=== PATIENT | male | born 1960 | race African-American/Black ===

== ENCOUNTER 2019-04-03 04:01 | Observation (INO) | payer MEDICARE, BC, MEDICAID, SELFPAY ==
[2019-04-03] VITALS (33 sets, daily range): BP systolic 159–210; BP diastolic 64–107; PULSE 78–91; RESP 16–23; TEMP 35.8–37; O2SAT 91–99; BMI 38.1; BMI 36.9
--- NOTE | ~2019-04-03 | XR_ITS ---
EXAMINATION: XR chest 2V DATE: 04/03/2019 05:04 INDICATION: Dyspnea. Cough. TECHNIQUE: Frontal and lateral views of the chest were obtained. COMPARISON: Chest 2 views 05/12/2018 FINDINGS: Again seen is mild elevation of right hemidiaphragm. There are mild airspace opacities in r ight middle lobe. No pleural effusion or pneumothorax. The heart size is normal. IMPRESSION: 1. Mild airspace opacities in right middle lobe, consistent with atelectasis versus pneumonia. Reviewed, dictated and finalized at location D. [facility] IMPRESSION: 1. Mild airspace opacities in right middle lobe, consistent with atelectasis ve rsus pneumonia.
--- NOTE | 2019-04-03 04:11 | ECG_ITS ---
Measurements Intervals [place] Rate: 78 P: 57 OK: 194 QRS: -14 QRSD: 94 T: 63 QT: 387 QTc: 443 Interpretive Statements SINUS RHYTHM WITH FIRST DEGREE AV BLOCK INCOMPLETE RIGHT BUNDLE BRANCH BLOCK BASELINE ARTIFACT- I, II, AVR, V1 ABNORMAL ECG Electronically Signed On 04-03-2019 7:16:00 LINUX SYSTEM ADMINISTRATOR by Ben Bobby D.O.
[2019-04-03 05:27] LABS: Basophils Percent Auto 0.3 % (0.2-1.2); Eosinophils Absolute Auto 0.2 K/mm3 (0-0.3); Eosinophils Percent Auto 2.2 % (0-4.4); Hematocrit 31.6 % (42.0-52.0); Immature Granulocyte Absolute 0.09 K/mm3 (0.00-0.031); Immature Granulocyte Percent A 0.9 % (0-0.5); Lymphocytes Absolute Auto 1.65 K/mm3 (0.9-3.2); Lymphocytes Percent Auto 16.8 % (18.3-44.2); Mean Corpuscular HGB Conc 31.6 g/dl (32-36); Mean Corpuscular Hemoglobin 27.2 pg (26-34); Mean Corpuscular Volume 86.1 fl (80-100); Mean Platelet Volume 11.4 fl (7.4-10.4); Monocytes Absolute Auto 0.9 K/mm3 (0.1-0.6); Monocytes Percent Auto 9.4 % (2.6-8.5); Neutrophils Absolute Auto 6.9 K/mm3 (1.3-6.7); Neutrophils Percent Auto 70.4 % (45.5-73.1); Platelet Count Result 197 k/mm3 (150-375); Red Blood Count 3.67 M/mm3 (4.6-6.20); Red Cell Distribution Width 14.7 % (11.5-14.5); White Blood Count 9.8 K/mm3 (4.5-10.0)
[2019-04-03 05:48] LABS: Alanine Aminotransferase 29 U/L (4-50); Albumin Level 4.3 g/dL (3.5-5.1); Alkaline Phosphatase 92 U/L (38-126); Aspartate Amino Transferase 37 U/L (17-59); Bilirubin,Total 0.5 mg/dL (0.2-1.3); Blood Urea Nitrogen 59 mg/dL (9-20); Calcium 9.2 mg/dL (8.4-10.2); Carbon Dioxide 26 mmol/L (22-30); Chloride 98 mmol/L (98-107); Estimated CRCL calculation 12 ml/min; Estimated Glomerular Filt Rate 9; Glucose 275 mg/dL (75-110); Sodium 139 mmol/L (137-145)
--- NOTE | 2019-04-03 05:57 | PC.NURSE ---
Patient's sister, Judy, called ED to state she is patient's only ride home and has to work at 8am. Judy: [phone]
--- NOTE | 2019-04-03 06:13 | ED.SOB ---
HPI - SOB/Dyspnea General Chief Complaint: Shortness of Breath/Dyspnea Stated Complaint: sob Time Seen by Provider: 04/03/19 04:30 Source: patient Mode of arrival: ambulatory Limitations: other (Poor historian) History of Present Illness HPI Narrative: Patient is a 58-year-old male who presents to the emergency department via EMS with complaint of shortness of breath. Patient reports onset of symptoms earlier this morning. He states that shortness of breath feels better at this time. Patient has history of end-stage renal disease and is on dialysis. Patient states he normally gets dialysis Tuesday, Tuesday, and Tuesday. Due to the holiday, he is scheduled to have dialysis today, Tuesday. Patient cannot tell me the name of his supervisor [employer] nor can he tell me where he gets dialysis. He is unaware of any other health problems that he has and is overall a poor historian. Patient is denying any other complaints at this time other than a cough that has been productive over the past 4 days. Patient denies any fever, nausea, vomiting, or diarrhea. Related Data Allergies Allergy/AdvReac Type Severity Reaction Status Date / Time No Known Allergies Allergy Verified 04/03/19 08:34 Review of Systems Review of Systems: All systems reviewed & are unremarkable except as noted in HPI and below Constitutional: Constitutional: Denies chills and Denies fever(s) Cardiovascular: Cardiovascular: Denies chest pain Respiratory: Respiratory: Reports cough and Reports dyspnea Gastrointestinal: Gastrointestinal: Denies diarrhea, Denies nausea and Denies vomiting PMFSH Past Medical History Medical History (Updated 04/03/19 @ 08:36 by Mirna Alexandra MD) End-stage renal disease on hemodialysis Social History Social History (Updated 04/03/19 @ 08:32 by Mirna Alexandra MD) Smoking status: Former smoker Alcohol intake: never Substance use: never Living arrangements: with family Gender identity (if verbalized by the patient): Male Spiritual care concerns: Yes (Buddhism) Agree to blood products: Yes Exam Const: General: cooperative, no acute distress and alert Nutritional Appearance: well nourished Orientation/consciousness: oriented x3 HENMT: Mouth: Yes lip normal and Yes moist mucous membranes Resp: Effort & Inspection: normal respiratory effort Auscultation: rales bilateral at the base Cardio: Rate: regular rate Rhythm: regular rhythm GI: GI Palp: Yes soft and No tender Auscultation: normal bowel sounds Skin: General skin exam: normal color Neuro: General: oriented x3 Cognition (Neuro): normal cognition Speech: normal speech Extrem: General: normal to inspection, full ROM and edema bilateral Psych: Mental Status: mental status grossly normal Affect: normal affect Attitude: cooperative Course Course Emergency Course: Patient with elevated troponin and BNP. Chest x-ray consistent with fluid overload. Patient admitted to hospitalist service for further care. Nephrology consulted. Upon further investigation of EMR, name search identifies patient may also have another medical record number where past medical history is located. Registration staff notified. Patient and sister unable to provide any information about where patient obtains dialysis. Integration Project Manager made aware. Consultations Consultation #1: Case discussed with Dr. Trujillo for hospitalist service who accepted patient for admission. Patient also discussed with Dr. Mustafa who will see patient in consultation for dialysis. Vital Signs Vital signs: Vital Signs Temperature 98.0 F 04/03/19 03:53 Pulse Rate 81 04/03/19 03:53 Respiratory Rate 23 H 04/03/19 03:53 Blood Pressure 177/76 H 04/03/19 03:53 Pulse Oximetry 93 04/03/19 03:53 Temperature 98.6 F 04/03/19 06:36 Pulse Rate 85 04/03/19 08:02 Respiratory Rate 22 H 04/03/19 08:02 Blood Pressure 187/82 H 04/03/19 08:02 Pulse Oximetry 92 04/03/19 08:02
[2019-04-03 06:19] LABS: Troponin I 0.065 ng/mL (0.000-0.034)
[2019-04-03 06:25] LABS: NT Pro B Type Natriuretic Pept > 35000 PG/ML (5-100)
--- NOTE | 2019-04-03 06:52 | PC.NURSE ---
Patient placed on 2L O2 at this time. Patient's O2 began to range from 85%-91%. Patient 93% on 2L NC.
--- NOTE | 2019-04-03 08:27 | ADMGEN ---
This patient, David Segundo, was admitted to IMU Room 203-01. Patient/family oriented to hospital policies and general routines including ID bracelet, bed and alarms, visiting hours, pain management, procedures, bathroom and other care routines, personal items, smoking policy, room service/diet, and visiting hours. Valuables list has been completed. Information on how to activate the Rapid Response Team has been discussed. Patient/Family are encouraged to report perceived risks to care and to ask questions if they do not understand what they are told or what they should do.
[2019-04-03 09:07] LABS: Troponin I 0.066 ng/mL (0.000-0.034)
--- NOTE | 2019-04-03 11:11 | PM.IMHP ---
H&P: HPI History of Present Illness Chief complaint: Dyspnea/fluid overload/elevated troponin Narrative: Date and Time of History and Physical: April 03, 2019 at 10:50 a.m. Date and Time of Placement in Observation Order: April 03, 2019 at 7:16 a.m. Chief Complaint: Shortness of breath. History of Present Illness: David Segundo is a 58 year old male with known diet-controlled diabetes, hypertension, hyperlipidemia, history my x3 with end-stage renal disease on hemodialysis who presents to the emergency room this morning with complaint of shortness of breath. Patient is a poor historian but is able to give some information. He reports to became short of breath this morning. Friend is present and reports this was before 3:00 a.m.. He notes cough for the past 3 days. He also reports sweats but no fever or chills. He mentions having a chest pain that he is unable to characterize. No worsening or relieving factors for his shortness of breath. He denies headache and dizziness. No abdominal pain. No nausea or vomiting. He was to have hemodialysis today as his normal schedule is Tuesday, Tuesday, Tuesday but holiday as tomorrow. He does not miss medications for dialysis. Findings in the emergency room consistent with fluid overload, as result, Nephrology was consulted and patient is placed in observation for further evaluation and treatment. Review of Systems Review of Systems: All systems reviewed & are unremarkable except as noted in HPI and below Constitutional: Constitutional: Denies chills, Denies fever(s) and Denies weakness Comments: has had sweats Eyes: Eyes: Reports no additional eye complaints ENT: Denies nasal congestion, Denies nasal discharge and Denies sore throat Cardiovascular: Cardiovascular: Reports chest pain and Denies palpitations Respiratory: Respiratory: Reports cough and Reports dyspnea Gastrointestinal: Gastrointestinal: Denies abdominal pain, Denies diarrhea, Denies nausea and Denies vomiting Genitourinary: Genitourinary: Denies hematuria, Denies dysuria, Denies urinary frequency and Denies urinary hesitancy Musculoskeletal: Musculoskeletal: Reports no additional musculoskeletal complaints Integumentary/Breasts: Skin/Breast: Denies rash Neurologic: Denies Abnormal speech present, Denies headache(s) and Denies numbness Comments: Uses walker for ambulation Psychiatric: Psychiatric: Denies anxiety and Denies depression Endocrine: Endocrine: Reports no additional endocrine complaints Hematologic/Lymphatic: Hematologic/Lymphatic: Reports no additional hematologic/lymphatic complaints Allergic/Immunologic: Allergic/Immunologic: Reports no additional allergic/immunologic complaints [facility] Past Medical History Medical History (Updated 04/03/19 @ 16:58 by Jillian Trujillo MD) Anemia Diabetes mellitus End-stage renal disease on hemodialysis History of RI (myocardial infarction) Hyperlipidemia Hypertension Surgical History Surgical History Status post creation of arteriovenous fistula Family History Family History Mother Hypertension Diabetes mellitus Father Hypertension Diabetes mellitus Other Unknown family medical history Social History Social History Social History: Patient lives with his sister. He is a full code. His sister is his POA. He is a former smoker. He also reports former alcohol use drinking beer daily. He is . He does have 2 daughters. Smoking packs per day: 1 Smoking cigarettes per day: 20.0 Smoking status: Former smoker Additional smoking assessment comments: Patient reports smoking 1 pack per day for many years. Alcohol intake: former Alcohol use details: Patient reports drinking beer daily but quit some time ago. Substance use: former Other substanc
[2019-04-03 12:03] LABS: Troponin I 0.061 ng/mL (0.000-0.034)
[2019-04-03 12:27] LABS: Glucose Point of Care 256 (65-105)
--- NOTE | 2019-04-03 13:52 | PCOTNOTE ---
OT evaluation attempted this date. Pt in dialysis and then switching rooms. Will attempt OT evaluation at later time.
[2019-04-03 13:53] LABS: Hepatitis B Surface Antigen Negative (Negative)
[2019-04-03 14:12] LABS: Hepatitis B Surface Anti Res Positive
--- NOTE | 2019-04-03 16:19 | PM.CNNEP ---
Assessment and Plan Assessment and plan (1) Fluid overload: Qualifiers: Hypervolemia type: unspecified Qualified Code(s): E87.70 - Fluid overload, unspecified Code(s): E87.70 - Fluid overload, unspecified Status: Acute Assessment and Plan: The patient has volume overload. This is by exam and also by chest x-ray. He also was hypoxic requiring oxygen. His last treatment was on Tuesday. I suspect he over ate and over drank. It is possible that he might have lost some weight to his dry weight might be too high. He does not say that he has not been eating however. And he has no GI issues such as diarrhea or nausea. Other causes of shortness of breath could be occurring bed from the history physical and radiology evidence it sounds like fluid overload is the main issue. (2) Hypertension: Qualifiers: Hypertension type: essential hypertension Qualified Code(s): I10 - Essential (primary) hypertension Code(s): I10 - Essential (primary) hypertension Status: Acute Assessment and Plan: He has longstanding hypertension. His blood pressure was high in the emergency room. Most likely because of the fluid overload as well as his underlying hypertension. Taking fluid off should help this and we will also get him back on his blood pressure medications. (3) End stage renal disease on dialysis: Code(s): N18.6 - End stage renal disease; Z99.2 - Dependence on renal dialysis Status: Acute Assessment and Plan: He is due for dialysis today and is getting this now. (4) Elevated troponin level: Code(s): R79.89 - Other specified abnormal findings of blood chemistry Status: Acute Assessment and Plan: Troponins are elevated but they are all the same most likely this is from lack of excretion by the kidneys rather then a cardiac issue. (5) Diabetes mellitus: Qualifiers: Diabetes mellitus type: type 2 Diabetes mellitus buttermilk drier operator insulin use: without buttermilk drier operator use Diabetes mellitus complication status: with kidney complications Diabetes mellitus complication detail: with chronic kidney disease Chronic kidney disease stage: on chronic dialysis Qualified Code(s): E11.22 - Type 2 diabetes mellitus with diabetic chronic kidney disease; N18.6 - End stage renal disease; Z99.2 - Dependence on renal dialysis Code(s): E11.9 - Type 2 diabetes mellitus without complications Status: Acute Assessment and Plan: On Accu-Cheks and sliding-scale insulin (6) Anemia: Code(s): D64.9 - Anemia, unspecified Status: Acute Assessment and Plan: Hemoglobin is 10. He will get EPO with dialysis. History of Present Illness Reason for Consult Consult date: 04/03/19 Chief Complaint Chief complaint: Dyspnea/fluid overload/elevated troponin History of Present Illness Narrative: David is a very pleasant 58-year-old gentleman who has end-stage renal disease.He has been on dialysis for about 8 years. 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 It is somewhere near [place]. He is normally a Tuesday dialysis patient but because of the holidays his treatment was scheduled for today. He said he has been fighting a cold all week and this has been getting worse. Today he woke up short of breath and so he came to the ER. He has got a little bit of a cough and runny nose and watery eyes. He does not have a fever. He has not been coughing up much sputum. He denies any chest pain. He says he does not gain a lot of weight between treatments. I do not know which dialysis unit to talk to to verify this last issue. In the emergency room he was evaluated and this chest x-ray was wet. He was hypoxic and required oxygen and his troponins were mildly elevated so he was admitted. He is getting dialysis. The patient says he had has not had a lot of water to drink. Although it is the holid
--- NOTE | 2019-04-03 16:19 | PM.EVENT ---
Event Note Event Note: Patient is on dialysis and tolerating it well. The ultrafiltration is set for about 4liters. His blood pressure is tolerating this well. He is having no cramping or nausea. He was seen at 3:30 p.m.
[2019-04-03] MEDS: SEVELAMER CARBONATE 800 MG TABLET PO (16:43)
[2019-04-03] MEDS: TERAZOSIN HCL 5 MG CAPSULE 10 MG PO (16:43)
--- NOTE | 2019-04-03 16:56 | PC.NURSE ---
Patient received from IMU per bed. Report received from STACI Montoya.
--- NOTE | 2019-04-03 17:01 | PC.NURSE ---
This patient, David Segundo, was transferred to [facility] on 04/03/19 at 1700. Personal belongings sent with patient. Belongings list checked and signed with receiving RN. Report given to STACI Way. Appropriate documentation sent with patient.
[2019-04-03 17:20] LABS: Glucose Point of Care 157 (65-105)
[2019-04-03] MEDS: hydrALAZINE HCL 20 MG/ML VIAL 10 MG IV PUSH (17:24)
[2019-04-03] MEDS: AMLODIPINE BESYLATE 5 MG TABLET 10 MG PO (20:26)
[2019-04-03] MEDS: ATORVASTATIN 40 MG TABLET PO (20:26)
[2019-04-03] MEDS: carvediloL 12.5 MG TABLET PO (20:26)
[2019-04-03 20:54] LABS: Glucose Point of Care 206 (65-105)
[2019-04-04] VITALS (9 sets, daily range): BP systolic 158–204; BP diastolic 69–74; PULSE 78–91; RESP 18–20; TEMP 35.7–36.6; O2SAT 92–100
[2019-04-04] MEDS: hydrALAZINE HCL 20 MG/ML VIAL 10 MG IV PUSH
[2019-04-04 06:16] LABS: Blood Urea Nitrogen 35 mg/dL (9-20); Calcium 8.9 mg/dL (8.4-10.2); Carbon Dioxide 29 mmol/L (22-30); Chloride 95 mmol/L (98-107); Estimated CRCL calculation 14 ml/min; Estimated Glomerular Filt Rate 11; Glucose 196 mg/dL (75-110); Magnesium 2.1 mg/dL (1.6-2.3); Potassium 4.1 mmol/L (3.4-5.0); Sodium 136 mmol/L (137-145)
[2019-04-04 06:55] LABS: Hemoglobin A1C 9.2 % (<5.7)
[2019-04-04 07:41] LABS: Glucose Point of Care 162 (65-105)
[2019-04-04] MEDS: SEVELAMER CARBONATE 800 MG TABLET PO ×2 (07:47→11:56)
[2019-04-04] MEDS: VITAMIN B CMPLX/VIT C/FOLIC AC 1 CAPSULE 1 CAP PO (07:48)
[2019-04-04] MEDS: TERAZOSIN HCL 5 MG CAPSULE 10 MG PO (07:48)
[2019-04-04] MEDS: CLOPIDOGREL BISULFATE 75 MG TABLET PO (07:49)
[2019-04-04] MEDS: PANTOPRAZOLE 40 MG TABLET PO (07:49)
[2019-04-04] MEDS: carvediloL 25 MG TABLET PO (08:40)
[2019-04-04 12:00] LABS: Glucose Point of Care 253 (65-105)
[2019-04-04] MEDS: INSULIN ASPART (*BKC) 100 UNITS/ML SUB-Q (12:00)
--- NOTE | 2019-04-04 13:44 | PM.PNNEP ---
Progress Note: A&P Assessment and Plan (1) Fluid overload: Qualifiers: Hypervolemia type: unspecified Qualified Code(s): E87.70 - Fluid overload, unspecified Code(s): E87.70 - Fluid overload, unspecified Status: Acute Assessment and Plan: The patient has volume overload. He had dialysis yesterday. He is less short of breath today. He does not have any swelling today. (2) Hypertension: Qualifiers: Hypertension type: essential hypertension Qualified Code(s): I10 - Essential (primary) hypertension Code(s): I10 - Essential (primary) hypertension Status: Acute Assessment and Plan: He has longstanding hypertension. His blood pressure is still high even with the fluid off. He is on amlodipine terazosin and carvedilol. We will start lisinopril. (3) End stage renal disease on dialysis: Code(s): N18.6 - End stage renal disease; Z99.2 - Dependence on renal dialysis Status: Acute Assessment and Plan: He had dialysis yesterday. Will do another treatment on Tuesday, his next scheduled treatment. Will get a chest x-ray to be sure things are improving (4) Elevated troponin level: Code(s): R79.89 - Other specified abnormal findings of blood chemistry Status: Acute Assessment and Plan: Troponins are elevated but they are all the same most likely this is from lack of excretion by the kidneys rather then a cardiac issue. (5) Diabetes mellitus: Qualifiers: Diabetes mellitus type: type 2 Diabetes mellitus long-term insulin use: without medical terminologist use Diabetes mellitus complication status: with kidney complications Diabetes mellitus complication detail: with chronic kidney disease Chronic kidney disease stage: on chronic dialysis Qualified Code(s): E11.22 - Type 2 diabetes mellitus with diabetic chronic kidney disease; N18.6 - End stage renal disease; Z99.2 - Dependence on renal dialysis Code(s): E11.9 - Type 2 diabetes mellitus without complications Status: Acute Assessment and Plan: On Accu-Cheks and sliding-scale insulin (6) Anemia: Code(s): D64.9 - Anemia, unspecified Status: Acute Assessment and Plan: Hemoglobin is 10. He will get EPO with dialysis. Will check another CBC tomorrow Long talk with the patient. check room air o2 sat. Discussed with Dr Trujillo. Subjective Date/time seen: 04/04/19 13:44 Interval history: Patient is alert. He is sitting up in a chair. No more shortness of breath. He is on some oxygen. Review of Systems Cardiovascular: Cardiovascular: Reports no additional cardiovascular complaints Respiratory: Respiratory: Reports no additional respiratory complaints Gastrointestinal: Gastrointestinal: Reports no additional gastrointestinal complaints Genitourinary: Genitourinary: Reports no additional male genitourinary complaints Exam Narrative: Exam Narrative: Well developed well-nourished in no acute distress Lungs clear Heart regular without rub Abdomen bowel sounds positive soft nontender Extremities no edema Skin no rash Objective Data Vital Signs Vital Signs: Vital Signs - 24 hr 04/03/19 13:45 04/03/19 14:00 04/03/19 14:15 Temperature Pulse Rate 85 86 89 Respiratory Rate Blood Pressure 206/106 H 202/92 H 207/107 H Pulse Oximetry 04/03/19 14:30 04/03/19 14:45 04/03/19 14:50 Temperature Pulse Rate 91 85 83 Respiratory Rate Blood Pressure 210/107 H 198/101 H Pulse Oximetry 04/03/19 15:00 04/03/19 15:15 04/03/19 15:30 Temperature Pulse Rate 81 80 88 Respiratory Rate Blood Pressure 205/100 H 183/99 H 159/86 H Pulse Oximetry 04/03/19 16:00 04/03/19 16:15 04/03/19 17:34 Temperature 36.1 C L Pulse Rate 83 80 88 Respiratory Rate 22 H Blood Pressure 193/89 H 204/77 H Pulse Oximetry 92 04/03/19 18:20 04/03/19 20:00 04/03/19 20:26 Temperature Pulse Rate
[2019-04-04] MEDS: lisinopriL 20 MG TABLET PO (14:00)
--- NOTE | 2019-04-04 14:18 | PM.IMPN ---
Progress Note: A&P Assessment and Plan (1) Acute respiratory failure with hypoxia: Code(s): J96.01 - Acute respiratory failure with hypoxia Status: Acute Assessment and Plan: Result of volume overload. Down to 1 L of oxygen with O2 saturation 100% and oxygen removed. No difficulty without oxygen. Improved after hemodialysis yesterday. Discussed with Nephrology today. Will discharge home as stable. (2) Dyspnea: Qualifiers: Dyspnea type: shortness of breath Qualified Code(s): R06.02 - Shortness of breath Code(s): R06.00 - Dyspnea, unspecified Status: Acute Assessment and Plan: Result of fluid overload. No longer requiring oxygen with hemodialysis yesterday. Symptoms resolved. (3) Fluid overload: Qualifiers: Hypervolemia type: unspecified Qualified Code(s): E87.70 - Fluid overload, unspecified Code(s): E87.70 - Fluid overload, unspecified Status: Acute Assessment and Plan: BNP elevated on admission. Nephrology consulted from ER and did have hemodialysis yesterday. Appears stable from fluid standpoint at this point. Continue regular hemodialysis as an outpatient. (4) End stage renal disease on dialysis: Code(s): N18.6 - End stage renal disease; Z99.2 - Dependence on renal dialysis Status: Acute Assessment and Plan: Has been on hemodialysis for several years per patient. He is not sure where he receives his hemodialysis or who his board of directors is. Seen by Nephrology here with hemodialysis yesterday. Will keep next scheduled outpatient appointment on Tuesday. (5) Hypertension: Qualifiers: Hypertension type: essential hypertension Qualified Code(s): I10 - Essential (primary) hypertension Code(s): I10 - Essential (primary) hypertension Status: Acute Assessment and Plan: Blood pressure reviewed on 04/04/2019 with continue higher levels down would like. Coreg increased. Lisinopril added. Continue amlodipine. Will need to follow as outpatient. (6) Elevated troponin level: Code(s): R79.89 - Other specified abnormal findings of blood chemistry Status: Acute Assessment and Plan: Mild elevation and flat. EKG with no acute changes. Result of end-stage renal disease. No further evaluation needed. (7) Diabetes mellitus: Qualifiers: Diabetes mellitus type: type 2 Diabetes mellitus care home insulin use: without care home use Diabetes mellitus complication status: with kidney complications Diabetes mellitus complication detail: with chronic kidney disease Chronic kidney disease stage: on chronic dialysis Qualified Code(s): E11.22 - Type 2 diabetes mellitus with diabetic chronic kidney disease; N18.6 - End stage renal disease; Z99.2 - Dependence on renal dialysis Code(s): E11.9 - Type 2 diabetes mellitus without complications Status: Acute Assessment and Plan: Not on medication at home. Hemoglobin A1c 9.2. Will need to follow diabetic diet at home. Will also need to discuss treatment options with primary physician. (8) Hyperlipidemia: Qualifiers: Hyperlipidemia type: unspecified Qualified Code(s): E78.5 - Hyperlipidemia, unspecified Code(s): E78.5 - Hyperlipidemia, unspecified Status: Acute Assessment and Plan: Continue home atorvastatin. (9) DVT prophylaxis: Code(s): Z29.9 - Encounter for prophylactic measures, unspecified Status: Acute Assessment and Plan: SCDs. Time Spent With Patient Time with patient: 15 - 25 minutes Subjective Date/time seen: 04/04/19 14:18 Interval history: Date of Service: 04/04/2019. Admitted with fluid overload. Known end-stage renal disease on hemodialysis. Sitting up in room today. Feels much better. No shortness of breath. No chest pain. No abdominal pain. No nausea or vomiting. Family present. Review of Systems Review of Systems: Melissa
--- NOTE | 2019-04-04 17:19 | PM.DS ---
DS: Diagnosis Admitting Diagnosis Admitting Diagnosis: Fluid overload, unspecified Discharge Diagnosis (1) Acute respiratory failure with hypoxia: Code(s): J96.01 - Acute respiratory failure with hypoxia Status: Acute (2) Dyspnea: Qualifiers: Dyspnea type: shortness of breath Qualified Code(s): R06.02 - Shortness of breath Code(s): R06.00 - Dyspnea, unspecified Status: Acute Assessment and Plan: (3) Fluid overload: Qualifiers: Hypervolemia type: unspecified Qualified Code(s): E87.70 - Fluid overload, unspecified Code(s): E87.70 - Fluid overload, unspecified Status: Acute (4) End stage renal disease on dialysis: Code(s): N18.6 - End stage renal disease; Z99.2 - Dependence on renal dialysis Status: Acute (5) Hypertension: Qualifiers: Hypertension type: essential hypertension Qualified Code(s): I10 - Essential (primary) hypertension Code(s): I10 - Essential (primary) hypertension Status: Acute (6) Elevated troponin level: Code(s): R79.89 - Other specified abnormal findings of blood chemistry Status: Acute (7) Diabetes mellitus: Qualifiers: Chronic kidney disease stage: on chronic dialysis Diabetes mellitus complication detail: with chronic kidney disease Diabetes mellitus complication status: with kidney complications Diabetes mellitus ferry terminal agent insulin use: without ferry terminal agent use Diabetes mellitus type: type 2 Qualified Code(s): E11.22 - Type 2 diabetes mellitus with diabetic chronic kidney disease; N18.6 - End stage renal disease; Z99.2 - Dependence on renal dialysis Code(s): E11.9 - Type 2 diabetes mellitus without complications Status: Acute (8) Hyperlipidemia: Qualifiers: Hyperlipidemia type: unspecified Qualified Code(s): E78.5 - Hyperlipidemia, unspecified Code(s): E78.5 - Hyperlipidemia, unspecified Status: Acute DS: Summary Hospital Course Reason for hospitalization: Shortness of breath. Hospital Course: Date of Service of Discharge: April 04, 2019. History of Present Illness: Patient is a 58-year-old gentleman with known diet-controlled diabetes, hypertension, hyperlipidemia, history of myocardial infarction x3 and end-stage renal disease on hemodialysis presented to the emergency room with complaint of shortness of breath. Patient a poor historian but is able to give some information. He reports becoming short of breath on the morning of presentation. Apparently, this was at approximately 3 8:00 a.m.. He reports having cough for the previous 3 days. He also reports sweats but no fever or chills. Patient did report chest pain which he was unable to characterize. No worsening or relieving factors for shortness of breath. No headaches or dizziness. No abdominal pain, nausea or vomiting. Patient normally is on the Tuesday, Tuesday, Tuesday hemodialysis schedule but this was adjusted given upcoming holiday. Was to have hemodialysis on the day of presentation but became short of breath and present to the emergency room. He has not missed any hemodialysis sessions. In the emergency room, findings were consistent with fluid overload. Nephrology was consulted. Patient was placed in observation for further evaluation and treatment. Course in Hospital: On admission, patient was placed in the intermediate care unit due to mildly elevated troponin levels. Serial troponin levels were followed and consistent with end-stage renal disease. Chest pain resolved on its own. Telemetry reviewed with sinus rhythm. No further cardiac evaluation needed. Nephrology was consulted as noted in the emergency room. Arrangements were made for hemodialysis on the day of presentation. Patient felt much better after hemodialysis. He was requiring 2 L of oxygen initially but was able to wean down to 1 L and wean off oxygen on the day of discharge. He had no fur
== END 2019-04-04 15:04 | disposition home or self-care (01) ==
LOC: ANHED 04:30 → ANHIMU 07:50 → ANH2MED 17:25
PROVIDERS: Internal Medicine Nephrology; Admitting Provider Hospitalist; Emergency Provider Emergency Medicine; Visit Provider Hospitalist
DX: J96.01 Acute respiratory failure with hypoxia (principal); E87.70 Fluid overload, unspecified; E11.22 Type 2 diabetes mellitus with diabetic chronic kidney disease; I12.0 Hypertensive chronic kidney disease with stage 5 chronic kidney disease or end stage renal disease; N18.6 End stage renal disease; Z99.2 Dependence on renal dialysis; E11.319 Type 2 diabetes mellitus with unspecified diabetic retinopathy without macular edema; R79.89 Other specified abnormal findings of blood chemistry; E78.5 Hyperlipidemia, unspecified; I25.2 Old myocardial infarction; Z87.891 Personal history of nicotine dependence
CPT/HCPCS: 36415; 71046; 80048; 80053; 83036; 83735; 83880; 84484; 85025; 86706; 87340; 87804; 93005; 96374; 96376; 97161; 97166; 99285; A9270; G0378; G0379; J0360; J1815

== ENCOUNTER 2019-07-04 15:03 | Emergency (ER) | payer MEDICARE, BC, MEDICAID, SELFPAY ==
[2019-07-04] VITALS (8 sets, daily range): BP systolic 145–172; BP diastolic 64–73; PULSE 77–84; RESP 14–19; TEMP 36.4; O2SAT 99–100
--- NOTE | 2019-07-04 15:01 | ED.WOUNDLAC ---
HPI - Wound/Laceration General Chief Complaint: Unspecified Stated Complaint: BLEEDING DIALYSIS PORT SITE Time Seen by Provider: 07/04/19 15:01 Source: patient and RN notes reviewed Mode of arrival: EMS Limitations: no limitations History of Present Illness HPI narrative: A 59 y/o male presents to the ED via EMS from home d/t bleeding from his dialysis port that is in his lt forearm. He states that he received his full dialysis treatment this morning but when he got home he began to bleed from his port. Per EMS, when they arrived the blood was mostly controlled. He denies any dizziness, CP, weakness, or nausea. No history of blood thinning medication. Extremity Location: Left: forearm Related Data Home Medications Medication Instructions Recorded Confirmed Plavix 75 mg PO DAILY 04/03/19 04/03/19 RenaPlex-D 1 tablet PO DAILY 04/03/19 04/03/19 amlodipine 10 mg PO HS 04/03/19 04/03/19 atorvastatin 40 mg PO HS 04/03/19 04/03/19 omeprazole 20 mg PO DAILY 04/03/19 04/03/19 sevelamer carbonate [Renvela] 800 mg PO TID 04/03/19 04/03/19 terazosin 10 mg PO DAILY 04/03/19 04/03/19 Allergies Allergy/AdvReac Type Severity Reaction Status Date / Time No Known Allergies Allergy Unverified 05/02/19 10:32 [facility] Past Medical History Medical History (Updated 07/04/19 @ 16:06 by Marisol Chen MD) Anemia Diabetes mellitus End-stage renal disease on hemodialysis History of [place] (myocardial infarction) Hyperlipidemia Hypertension Surgical History Surgical History (Updated 05/02/19 @ 10:32 by Lyric Sheikh) Status post creation of arteriovenous fistula Family History Family History (System 05/02/19 @ 10:32 by Lyric Sheikh) Mother Hypertension Diabetes mellitus Father Hypertension Diabetes mellitus Other Unknown family medical history Social History Social History (System 05/02/19 @ 10:32 by Lyric Sheikh) Social History: Patient lives with his sister. He is a full code. His sister is his POA. He is a former smoker. He also reports former alcohol use drinking beer daily. He is . He does have 2 daughters. Smoking packs per day: 1 Smoking cigarettes per day: 20.0 Smoking status: Former smoker Additional smoking assessment comments: Patient reports smoking 1 pack per day for many years. Alcohol intake: former Substance use: former Other substance usage details: Has only used marijuana in the past. Additional living arrangements comments: Lives with his sister. Gender identity (if verbalized by the patient): Male Spiritual care concerns: Yes (Rastafari) Agree to blood products: Yes Exam Narrative: Exam Narrative: GENERAL: Awake, alert, conversant HEAD: Normocephalic, atraumatic. EYES: PERRLA and EOMI. ENT: Nares clear, no rhinorrhea or epistaxis. Mucous membranes moist. NECK: Supple. CHEST: No respiratory distress, breathing even and non labored HEART: Regular rate, sinus rhythm ABDOMEN:Non distended, non tender EXTREMITIES: Normal range of motion. No edema. Dialysis fistula present in left forearm, radial bruit present. Fingers are warm and well-perfused, capillary refill less than 3 seconds. No deformity. Compartments are soft. Scant active bleeding from dialysis access point. No laceration or hemorrhage. No ecchymoses. SKIN: Warm, dry, no rash. NEURO:No focal deficits. Alert and oriented x3. Ambulatory with use of his cane. Course Course Emergency Course: Patient presented for evaluation of bleeding from left wrist dialysis site, he did have his full session of dialysis this morning. The time of initial assessment, there is scant active bleeding. No hemorrhage. No laceration or large ecchymosis. The dialysis shunt is patent, there is a bruit present, patient is neurovascularly intact and compartments are soft. No coagulopathy. Hemoglobin and hematocrit is stable. No additional wound care at this point, the wound was wrapped,
--- NOTE | 2019-07-04 15:19 | PC.NURSE ---
Pt was at home after dialysis and his fistula started to bleed again. Nurse applied telfa, guaze and coban to pressure dressing and stop bleeding. Pt is A&0x4. Pt appears in NAD.
[2019-07-04 15:44] LABS: Basophils Percent Auto 0.2 % (0.2-1.2); Eosinophils Absolute Auto 0.3 K/mm3 (0-0.3); Hematocrit 35.9 % (42.0-52.0); Hemoglobin 11.1 g/dL (14.0-18.0); Immature Granulocyte Absolute 0.03 K/mm3 (0.00-0.031); Immature Granulocyte Percent A 0.6 % (0-0.5); Lymphocytes Absolute Auto 0.87 K/mm3 (0.9-3.2); Lymphocytes Percent Auto 17.5 % (18.3-44.2); Mean Corpuscular HGB Conc 30.9 g/dl (32-36); Mean Corpuscular Hemoglobin 26.2 pg (26-34); Mean Corpuscular Volume 84.7 fl (80-100); Mean Platelet Volume 10.9 fl (7.4-10.4); Monocytes Absolute Auto 0.7 K/mm3 (0.1-0.6); Monocytes Percent Auto 14.7 % (2.6-8.5); Neutrophils Absolute Auto 3.1 K/mm3 (1.3-6.7); Platelet Count Result 163 k/mm3 (150-375); Red Blood Count 4.24 M/mm3 (4.6-6.20); Red Cell Distribution Width 15.9 % (11.5-14.5)
[2019-07-04 15:54] LABS: INR 1.1; Prothrombin Time 14.2 Seconds (11.1-14.7)
== END 2019-07-04 16:36 | disposition home or self-care (01) ==
PROVIDERS: Emergency Provider Emergency Medicine
DX: T82.838A Hemorrhage due to vascular prosthetic devices, implants and grafts, initial encounter (principal); D64.9 Anemia, unspecified; E11.22 Type 2 diabetes mellitus with diabetic chronic kidney disease; I12.0 Hypertensive chronic kidney disease with stage 5 chronic kidney disease or end stage renal disease; N18.6 End stage renal disease; I25.2 Old myocardial infarction; Z87.891 Personal history of nicotine dependence
CPT/HCPCS: 36415; 85025; 85610; 85730; 99283

== ENCOUNTER 2019-07-26 07:41 | Emergency (ER) | payer MEDICARE, MEDICAID, SELFPAY ==
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
--- NOTE | ~2019-07-26 | XR_ITS ---
EXAMINATION: XR knee RT min 4V DATE: 07/26/2019 08:14 INDICATION: Pain after fall, initial encounter TECHNIQUE: Four views of the right knee were obtained. COMPARISON: None. FINDINGS: Bone alignment at the knee is normal. There is mild osteoarthritis of the knee. A comminute d distal femur fracture is present with 3.8 cm of lateral and 1.4 cm of anterior displacement of the distal fracture fragment. Calcified atherosclerosis is noted. There is partially imaged orthopedic borjas rdware in the mid femur. IMPRESSION: 1. Displaced and comminuted fracture of the distal femur below the level of partially imaged orthoped ic hardware. Reviewed, dictated and finalized at location A. IMPRESSION: 1. Displaced and comminuted fracture of the distal femur below the level of par tially imaged orthopedic hardware.
[2019-07-26 07:42] VITALS: BP 112/53; PULSE 86; RESP 16; TEMP 37.1; O2SAT 99
--- NOTE | 2019-07-26 07:50 | ED.LOWEXIN ---
HPI - Extremity Injury (Lower) General Chief Complaint: Extremity Injury, Lower Stated Complaint: knee pain Time Seen by Provider: 07/26/19 07:46 History of Present Illness HPI Narrative: Patient is a 59-year-old male who presents ER with right knee pain. Patient reports that yesterday prior to going to dialysis he bumped his knee. He is unsure how this occurred but he was able to walk afterwards. She went and received his dialysis and then came home. Upon waking up this morning patient has had increased pain and swelling in his knee and felt he should come in for evaluation. There is been no additional trauma. Denies any new numbness or tingling or pain distal to his knee in the affected extremity. Denies striking his head or having any additional concerns. Patient reports having previous surgery to his hip and femur years ago at [facility] but cannot specify on a date or mechanism of injury. Related Data Home Medications Medication Instructions Recorded Confirmed Plavix 75 mg PO DAILY 04/03/19 04/03/19 RenaPlex-D 1 tablet PO DAILY 04/03/19 04/03/19 amlodipine 10 mg PO HS 04/03/19 04/03/19 atorvastatin 40 mg PO HS 04/03/19 04/03/19 omeprazole 20 mg PO DAILY 04/03/19 04/03/19 sevelamer carbonate [Renvela] 800 mg PO TID 04/03/19 04/03/19 terazosin 10 mg PO DAILY 04/03/19 04/03/19 Allergies Allergy/AdvReac Type Severity Reaction Status Date / Time No Known Allergies Allergy Unverified 05/02/19 10:32 Review of Systems Review of Systems: All systems reviewed & are unremarkable except as noted in HPI and below Constitutional: Constitutional: Denies chills and Denies fever(s) ENT: Denies nasal congestion and Denies sore throat Respiratory: Respiratory: Denies cough, Denies dyspnea and Denies wheezing Gastrointestinal: Gastrointestinal: Denies abdominal pain, Denies nausea and Denies vomiting Musculoskeletal: Comments: Right knee pain/swelling. Neurologic: Denies focal weakness and Denies numbness PMFSH Past Medical History Medical History Anemia Diabetes mellitus End-stage renal disease on hemodialysis History of [place] (myocardial infarction) Hyperlipidemia Hypertension Surgical History Surgical History Status post creation of arteriovenous fistula Family History Family History (System 05/02/19 @ 10:32 by Lyric Sheikh) Mother Hypertension Diabetes mellitus Father Hypertension Diabetes mellitus Other Unknown family medical history Social History Social History Social History: Patient lives with his sister. He is a full code. His sister is his POA. He is a former smoker. He also reports former alcohol use drinking beer daily. He is . He does have 2 daughters. Smoking packs per day: 1 Smoking cigarettes per day: 20.0 Smoking status: Former smoker Additional smoking assessment comments: Patient reports smoking 1 pack per day for many years. Alcohol intake: former Substance use: former Other substance usage details: Has only used marijuana in the past. Additional living arrangements comments: Lives with his sister. Gender identity (if verbalized by the patient): Male Spiritual care concerns: Yes (Synagogue) Agree to blood products: Yes Exam Narrative: Exam Narrative: GENERAL: Well-appearing, well-nourished, and in no acute distress. HEAD: Normocephalic, atraumatic. ENT: Mucous membranes moist. CHEST: Clear to auscultation. No respiratory distress. HEART: Regular rate and rhythm. Normal peripheral pulses. EXTREMITIES: Focused exam of the right lower extremity shows significant swelling and tenderness to the right knee/distal femur. Able to flex and extend at the knee with passive range of motion. Patient is most comfortable with right lower extremity partially
[2019-07-26] MEDS: MORPHINE SULFATE 4 MG/ML INJ IV PUSH (08:24)
--- NOTE | 2019-07-26 08:35 | PC.NURSE ---
changes PO med to IV. PO med not given.
--- NOTE | 2019-07-26 09:27 | PC.NURSE ---
Report called to Laury at [facility] ER.
[2019-07-26 09:28] VITALS: BP 139/61; PULSE 79; RESP 16; O2SAT 100
[2019-07-26 10:56] VITALS: BP 130/65; PULSE 95; RESP 16; O2SAT 99
== END 2019-07-26 10:56 | disposition short-term general hospital (02) ==
PROVIDERS: Emergency Provider Emergency Medicine
DX: S72.491A Other fracture of lower end of right femur, initial encounter for closed fracture (principal); E11.22 Type 2 diabetes mellitus with diabetic chronic kidney disease; I12.0 Hypertensive chronic kidney disease with stage 5 chronic kidney disease or end stage renal disease; N18.6 End stage renal disease; Z99.2 Dependence on renal dialysis; I25.2 Old myocardial infarction; E78.5 Hyperlipidemia, unspecified; Z87.891 Personal history of nicotine dependence; Z79.02 Long term (current) use of antithrombotics/antiplatelets; W22.8XXA Striking against or struck by other objects, initial encounter
CPT/HCPCS: 73552; 73564; 96374; 99285; J2270

== ENCOUNTER 2019-12-29 19:56 | Inpatient (IN) | payer MEDICARE, MEDICAID, SELFPAY ==
[2019-12-29] VITALS (8 sets, daily range): BP systolic 153–235; BP diastolic 53–93; PULSE 93–110; RESP 16–24; TEMP 36.9; O2SAT 91–100
--- NOTE | ~2019-12-29 | CT_ITS ---
EXAMINATION: CT brain wo con INDICATION: Hypertension, confusion COMPARISON: 09/22/2015 TECHNIQUE: Standard unenhanced head CT. The dose-length product (DLP) was 605.33 mGy-cm. The mA was a djusted according to patient size. Iterative reconstruction technique was employed. FINDINGS: There is no acute intraparenchymal hemorrhage. No evidence of mass lesion. No evidence of a cute infarction. There are areas of old infarction involving the right frontal lobe, left parietal lo be, in the left temporal occipital region. There is mild periventricular and subcortical hypodensity probably related to small vessel ischemic disease. There is ex vacuo enlargement of the left lateral ventricle. Intracranial calcified cerebral atherosclerosis is noted. There are no extra-axial collect ions. There is no mass effect or midline shift. The visualized sinuses and mastoid air cells are wel l aerated. IMPRESSION: 1. Areas of prior infarction without acute intracranial abnormality. 2. Age related findings. Reviewed, dictated and finalized at location A.
--- NOTE | ~2019-12-29 | XR_ITS ---
EXAMINATION: XR chest port-a-cath/central DATE: 01/07/2020 13:38 INDICATION: Right-sided Mann catheter placement TECHNIQUE: frontal view of the chest was obtained. COMPARISON: Chest radiograph dated 01/01/2020 FINDINGS: New likely tunneled right internal jugular central venous catheter with distal tip at the midsuperior vena cava. Eventration along the right hemidiaphragm. No significant change in linear discoid atelec tasis/scarring at the right mid and left lower lung zones. No new airspace opacities, pulmonary edema , pleural effusion or pneumothorax. The cardiomediastinal silhouette is normal. There are bridging os teophytes at multiple levels in the spine, consistent with diffuse idiopathic skeletal hyperostosis ( DISH). IMPRESSION: 1. Right internal jugular central venous catheter in expected position with distal tip in the midsupe rior vena cava. 2. Unchanged mild discoid atelectasis/scarring at the right mid and left lower lung zones. Reviewed, dictated and finalized at location A. IMPRESSION: 1. Right internal jugular central venous catheter in expected position with dis eber tip in the midsuperior vena cava. 2. Unchanged mild discoid atelectasis/scarring at the right mid and left lower lung zones.
--- NOTE | ~2019-12-29 | XR_ITS ---
EXAMINATION: XR chest 1V portable EXAM DATE: 01/01/2020 06:11 INDICATION: Infiltrates follow-up. TECHNIQUE: Portable AP frontal chest x-ray was obtained. Comparison is made to prior examination from 12/29/2019. FINDINGS: There is been interval improvement in the now mild amount of reticulonodular acute airspace disease, appearance most consistent with acute infectious process. No confluent consolidation, pneum othorax or pleural effusion suspected. The cardiomediastinal silhouette is prominent but magnified on this AP technique. Cardiac silhouette is stable in size compared to prior exam. There are bony de generative changes. IMPRESSION: Improving reticulonodular opacities likely acute infectious process. Reviewed, dictated and finalized at location A.
--- NOTE | ~2019-12-29 | XR_ITS ---
EXAMINATION: XR chest 1V portable INDICATION: Cough and vomiting TECHNIQUE: Portable AP chest at 2218 hours COMPARISON: 04/03/2019 FINDINGS: There are airspace opacities of the mid and lower lung zones. No pleural effusion or pneumo thorax is identified. The heart size is upper limits of normal for technique. IMPRESSION: 1. Airspace opacities of the mid and lower lung zones, consistent with atelectasis versus pneumonia. Reviewed, dictated and finalized at location A. IMPRESSION: 1. Airspace opacities of the mid and lower lung zones, consistent with atelecta sis versus pneumonia.
--- NOTE | ~2019-12-29 | XR_ITS ---
EXAMINATION: XR fl guide central line place DATE: 01/07/2020 13:27 INDICATION: Amnn catheter placement TECHNIQUE: Single fluoroscopic spot image of the chest was obtained during procedure performed by Dr. Mcdowell. Radiologist was not present for the imaging or procedure. The amount of fluoroscopy time used during this procedure was 2.0 minutes. COMPARISON: None. FINDINGS: A catheter projects obliquely across the central chest not following anatomic structure lik evan external to the patient. IMPRESSION: 1. Fluoroscopy utilized during reported central venous catheter placement. See procedure note for fur ther detail. Reviewed, dictated and finalized at location A. IMPRESSION: 1. Fluoroscopy utilized during reported central venous catheter placement. See procedure note for further detail.
[2019-12-29 20:13] LABS: Basophils Percent Auto 0.1 % (0.2-1.2); Hematocrit 34.8 % (42.0-52.0); Hemoglobin 11.3 g/dL (14.0-18.0); Immature Granulocyte Absolute 0.14 K/mm3 (0.00-0.031); Immature Granulocyte Percent A 0.6 % (0-0.5); Lymphocytes Absolute Auto 0.55 K/mm3 (0.9-3.2); Lymphocytes Percent Auto 2.3 % (18.3-44.2); Mean Corpuscular HGB Conc 32.5 g/dl (32-36); Mean Corpuscular Hemoglobin 25.5 pg (26-34); Mean Corpuscular Volume 78.6 fl (80-100); Mean Platelet Volume 11.1 fl (7.4-10.4); Monocytes Absolute Auto 1.2 K/mm3 (0.1-0.6); Monocytes Percent Auto 4.9 % (2.6-8.5); Neutrophils Absolute Auto 22.2 K/mm3 (1.3-6.7); Neutrophils Percent Auto 92.1 % (45.5-73.1); Platelet Count Result 241 k/mm3 (150-375); Red Blood Count 4.43 M/mm3 (4.6-6.20); Red Cell Distribution Width 16.3 % (11.5-14.5); White Blood Count 24.1 K/mm3 (4.5-10.0)
--- NOTE | 2019-12-29 20:13 | ECG_ITS ---
Measurements Intervals [place] Rate: 107 P: 54 IL: 201 QRS: -68 QRSD: 86 T: 37 QT: 337 QTc: 450 Interpretive Statements SINUS TACHYCARDIA LEFT AXIS DEVIATION BORDERLINE AV CONDUCTION DELAY POSSIBLE LEFT ATRIAL ENLARGEMENT CANNOT RULE OUT SEPTAL INFARCT, AGE INDETERMINATE BASELINE ARTIFACT- I, II, III, AVL, V2 ABNORMAL ECG Electronically Signed On 12-30-2019 7:46:40 CDT by Ben Bobby D.O.
[2019-12-29 20:25] LABS: Alanine Aminotransferase 49 U/L (4-50); Albumin Level 4.4 g/dL (3.5-5.1); Alkaline Phosphatase 145 U/L (38-126); Anion Gap 11 mmol/L (8-16); Aspartate Amino Transferase 50 U/L (17-59); Bilirubin,Total 0.9 mg/dL (0.2-1.3); Blood Urea Nitrogen 40 mg/dL (9-20); Calcium 10.3 mg/dL (8.4-10.2); Carbon Dioxide 27 mmol/L (22-30); Chloride 100 mmol/L (98-107); Estimated Glomerular Filt Rate 18; Glucose 256 mg/dL (75-110); Lipase 45 U/L (23-300); Platelet Estimate Adequate (Adequate); Potassium 4.4 mmol/L (3.4-5.0); Sodium 138 mmol/L (137-145); Target Cells 1+ (NORMAL)
[2019-12-29] MEDS: LABETALOL HCL INJ 100 MG/20 ML VIAL 20 MG IV PUSH (20:35)
[2019-12-29 20:54] LABS: Alveolar/Arterial O2 Gradient 145.2 mmHg; Base Excess ABG -1.1 mEq/l (+/-2.0); Device NASAL CANNULA; Fractional Inspired Oxygen 36 %; HCO3 ABG 23.8 mEq/l (22.0-26.0); Modified Allen's Test Pass; Oxygen Content ABG 15.1 %vol (16.0-22.0); Oxygen Saturation ABG 92.4 % (95.0-100.0); Oxyhemoglobin 90.2 % THb (90.0-100.0); PCO2 ABG 40.6 mmHg (35.0-45.0); PO2 ABG 64.4 mmHg (80.0-100.0); PO2 FiO2 Ratio Arterial Blood 1.79 %; Site Drawn RIGHT RADIAL; Total Hemoglobin 11.9 g/dL (12.0-18.0); pH ABG 7.386 (7.350-7.450)
--- NOTE | 2019-12-29 20:56 | ED.GENADULT ---
HPI - General Adult General Chief complaint: Nausea/Vomiting/Diarrhea Stated complaint: vomiting Time Seen by Provider: 12/29/19 20:22 Source: patient and EMS Limitations: no limitations History of Present Illness HPI narrative: 59 years old -[place] Citizen male presents with nausea and vomiting started notereader. Patient came from a group home, had dialysis this morning. Patient denying any symptoms. Patient denies any fever, chills, chest pain, shortness of breath, abdominal pain, back pain. Patient usually on no oxygen, saturation on room air running in the 80s. . Related Data Home Medications Medication Instructions Recorded Confirmed Plavix 75 mg PO DAILY 04/03/19 04/03/19 RenaPlex-D 1 tablet PO DAILY 04/03/19 04/03/19 amlodipine 10 mg PO HS 04/03/19 04/03/19 atorvastatin 40 mg PO HS 04/03/19 04/03/19 omeprazole 20 mg PO DAILY 04/03/19 04/03/19 sevelamer carbonate [Renvela] 800 mg PO TID 04/03/19 04/03/19 terazosin 10 mg PO DAILY 04/03/19 04/03/19 Allergies Allergy/AdvReac Type Severity Reaction Status Date / Time No Known Allergies Allergy Unverified 05/02/19 10:32 Review of Systems Review of Systems: Narrative: CONSTITUTIONAL: Denies fever, chills, or sweats. EYES: Denies visual changes, redness, or discharge. ENT: Denies rhinorrhea, congestion, sore throat, or otalgia. CARDIOVASCULAR: Denies chest pain, palpitations, or edema. RESPIRATORY: Denies cough or dyspnea. GASTROINTESTINAL: Denies abdominal pain, nausea, vomiting, or diarrhea. GENITOURINARY: Denies dysuria or hematuria. SKIN: Denies rash or itching. MUSCULOSKELETAL: Denies back pain, joint pain, or myalgia. NEUROLOGIC: Denies headache, numbness, or weakness. PSYCHIATRIC: Denies anxiety or depression. [facility] Past Medical History Medical History Anemia Diabetes mellitus End-stage renal disease on hemodialysis History of [place] (myocardial infarction) Hyperlipidemia Hypertension Surgical History Surgical History Status post creation of arteriovenous fistula Family History Family History Mother Hypertension Diabetes mellitus Father Hypertension Diabetes mellitus Other Unknown family medical history Social History Social History Social History: Patient lives with his sister. He is a full code. His sister is his POA. He is a former smoker. He also reports former alcohol use drinking beer daily. He is . He does have 2 daughters. Smoking packs per day: 1 Smoking cigarettes per day: 20.0 Smoking status: Former smoker Additional smoking assessment comments: Patient reports smoking 1 pack per day for many years. Alcohol intake: former Substance use: former Other substance usage details: Has only used marijuana in the past. Additional living arrangements comments: Lives with his sister. Gender identity (if verbalized by the patient): Male Spiritual care concerns: Yes (Voodoo) Agree to blood products: Yes Exam Narrative: Exam Narrative: General appearance: Well-developed, well-nourished Skin: Normal color Head: Normocephalic, nontraumatic Eyes: Clear conjunctiva ENT: Oropharynx normal, ears normal, nose normal Neck: Supple, nontender Chest and respiratory: Airway patent, no respiratory distress, no accessory muscle use, moderate diminution of air entry mainly on the right side, few rales and rhonchi Heart: Regular rate/rhythm Abdomen: Soft, nontender, no organomegaly, quiet bowel sounds Vascular: Normal peripheral pulses, normal capillary refill. Neurologic: Alert and oriented ?3, COST ACCOUNTING CLERK is normal as tested, no gross motor deficit
--- NOTE | 2019-12-29 21:14 | PC.NURSE ---
labetolol drip held at this time per ritika farley verbal orders due to bp 170/88
--- NOTE | 2019-12-29 21:18 | PC.NURSE ---
pt to CT at this time
[2019-12-29] MEDS: LABETALOL HCL INJ 200 MG in DEXTROSE 5% IN WATER 160 ML 120 MG IV CONT (21:37)
--- NOTE | 2019-12-29 22:08 | PM.IMHP ---
H&P: HPI History of Present Illness Date/Time: 12/29/19 22:08 Chief complaint: Acute hypoxic respiratory failure, pneumonia Narrative: This is a 58 year old male with known diet-controlled diabetes, hypertension, hyperlipidemia, end-stage renal disease on hemodialysis who presents to the emergency room this morning with complaint of nausea and vomiting since yesterday. he is also complaining of shortness of breath. The patient last had dialysis yesterday and is known to have dialysis on Wednesdays and Fridays. Tonight he denies any pain, cough, fever, headache, abdominal pain, lower extremity swelling, dysuria, hematuria, or rectal bleeding. The patient relates that he does make urine but can't tell me exactly how much. The patient was evaluated emergency room this evening and found to have severely elevated blood pressure which has not responded well to bolus IV antihypertensives. The patient has been found to be septic with tachycardia, tachypnea, and leukocytosis of 24,100. chest x-ray was obtained in the ER tonight which demonstrated airspace opacities of the mid and lower lung zones. He was placed on 4 L of oxygen via nasal cannula. The patient was started on IV antibiotics and swab for coronavirus. On further questioning the patient tells me that he was tested for Coronavirus a few days ago which was negative. Review of Systems Review of Systems: All systems reviewed & are unremarkable except as noted in HPI and below PMFSH Past Medical History Medical History (Updated 12/30/19 @ 14:25 by Alexander Mccracken MD) Anemia Diabetes mellitus End-stage renal disease on hemodialysis History of [place] (myocardial infarction) Hyperlipidemia Hypertension Nausea and vomiting in adult Surgical History Surgical History Status post creation of arteriovenous fistula Family History Family History Mother Hypertension Diabetes mellitus Father Hypertension Diabetes mellitus Other Unknown family medical history Social History Social History Social History: Patient lives with his sister. He is a full code. His sister is his POA. He is a former smoker. He also reports former alcohol use drinking beer daily. He is . He does have 2 daughters. Smoking packs per day: 1 Smoking cigarettes per day: 20.0 Smoking status: Former smoker Tobacco type: cigarettes Additional smoking assessment comments: Patient reports smoking 1 pack per day for many years. Alcohol intake: former Substance use: never Other substance usage details: Has only used marijuana in the past. Additional living arrangements comments: Lives with his sister. Gender identity (if verbalized by the patient): Male Spiritual care concerns: No Agree to blood products: Yes Meds Home Medications and Allergies Home Medications Medication Instructions Recorded Confirmed Type amlodipine 10 mg PO HS 04/03/19 12/30/19 History acetaminophen 500 mg PO Q8H PRN 12/30/19 12/30/19 History albuterol sulfate 2 puff INHALATION Q4-6H PRN 12/30/19 12/30/19 History apixaban [Eliquis] 2.5 mg PO BID 12/30/19 12/30/19 History aspirin 81 mg PO DAILY 12/30/19 12/30/19 History clonidine HCl 0.2 mg PO Q8H 12/30/19 12/30/19 History glucagon HCl [Glucagon (HCl) 1 mg SUBCUT Q20M PRN 12/30/19 12/30/19 History Emergency Kit] hydralazine 25 mg PO BID 12/30/19 12/30/19 History insulin glargine [Lantus U-100 10 unit SUBCUT HS 12/30/19 12/30/19 History Insulin] insulin lispro See Rx Instructions .ROUTE .COMPLEX 12/30/19 12/30/19 History lorazepam 0.5 mg PO Q6H PRN 12/30/19 12/30/19 History losartan 100 mg PO HS 12/30/19 12/30/19 History metoprolol tartrate 50 mg PO BID 12/30/19 12/30/19 History minoxidil 2.5 mg PO BID 12/30/19 12/30/19 History pantoprazole 40 mg PO DAILY 12/29
[2019-12-29 22:15] LABS: Add Urine Microscopic? YES; Amorphous Sediment Urine Few; Appearance Urine Cloudy (Clear); Bacteria Urine Trace /hpf; Bilirubin Urine Negative (Negative); Blood Urine 2+ (Negative); Color Urine Amber (Yellow); Glucose Urine UA 2+ mg/dL (Negative); Ketones Urine Negative (Negative); Leukocyte Esterase Ur 2+ LEU/UL (Negative); Mucus Urine Rare /lpf; Nitrate Urine Negative (Negative); Protein Urine 3+ mg/dL (Negative); RBC Urine 21-50 /hpf (0-2); Specific Grav Ur 1.017 (1.001-1.035); Squamous Epithelial Cell Urine Few /hpf (Few); Urobilinogen Urine Negative mg/dL (<2.0); WBC Urine 31-50 /hpf
[2019-12-29] MEDS: PANTOPRAZOLE SODIUM IV 40 MG VIAL IV PUSH (22:34)
--- NOTE | 2019-12-29 22:59 | PC.NURSE ---
this rn spoke to shaina turner, gave update on pt.
--- NOTE | 2019-12-29 23:45 | ADMGEN ---
This patient, David Segundo Jr., was admitted to Intensive Care Unit-2. Patient/family oriented to hospital policies and general routines including ID bracelet, bed and alarms, visiting hours, pain management, procedures, bathroom and other care routines, personal items, smoking policy, room service/diet, and visiting hours. Valuables list has been completed. Information on how to activate the Rapid Response Team has been discussed. Patient/Family are encouraged to report perceived risks to care and to ask questions if they do not understand what they are told or what they should do.
[2019-12-30] VITALS (42 sets, daily range): BP systolic 137–200; BP diastolic 50–92; PULSE 64–96; RESP 12–22; TEMP 0–37.4; O2SAT 91–99; BMI 29.3
[2019-12-30] MEDS: niCARdipine 20 MG/200 ML 20 MG/200 ML BAG 50 MG IV CONT ×2 (02:20→08:00)
[2019-12-30] MEDS: ONDANSETRON INJ 4 MG/2 ML VIAL IV PUSH (02:55)
--- NOTE | 2019-12-30 03:13 | ECG_ITS ---
Measurements Intervals [place] Rate: 95 P: 63 NE: 209 QRS: -69 QRSD: 97 T: 60 QT: 367 QTc: 463 Interpretive Statements SINUS RHYTHM WITH SINUS ARRHYTHMIA WITH FIRST DEGREE AV BLOCK INCOMPLETE RIGHT BUNDLE BRANCH BLOCK LEFT ANTERIOR FASCICULAR BLOCK BASELINE ARTIFACT- V1-V2 ABNORMAL ECG Electronically Signed On 12-30-2019 7:49:33 CDT by Ben Bobby D.O.
[2019-12-30 03:34] LABS: Basophils Percent Auto 0.2 % (0.2-1.2); Hematocrit 32.7 % (42.0-52.0); Hemoglobin 10.6 g/dL (14.0-18.0); Immature Granulocyte Absolute 0.13 K/mm3 (0.00-0.031); Immature Granulocyte Percent A 0.6 % (0-0.5); Lymphocytes Absolute Auto 0.43 K/mm3 (0.9-3.2); Lymphocytes Percent Auto 2.1 % (18.3-44.2); Mean Corpuscular HGB Conc 32.4 g/dl (32-36); Mean Corpuscular Hemoglobin 25.9 pg (26-34); Mean Corpuscular Volume 79.8 fl (80-100); Mean Platelet Volume 11.4 fl (7.4-10.4); Monocytes Absolute Auto 0.9 K/mm3 (0.1-0.6); Monocytes Percent Auto 4.3 % (2.6-8.5); Neutrophils Absolute Auto 18.7 K/mm3 (1.3-6.7); Neutrophils Percent Auto 92.8 % (45.5-73.1); Platelet Count Result 193 k/mm3 (150-375); Red Cell Distribution Width 16.7 % (11.5-14.5); White Blood Count 20.1 K/mm3 (4.5-10.0)
[2019-12-30 03:44] LABS: Anion Gap 12 mmol/L (8-16); Blood Urea Nitrogen 40 mg/dL (9-20); Calcium 9.7 mg/dL (8.4-10.2); Carbon Dioxide 27 mmol/L (22-30); Chloride 97 mmol/L (98-107); Estimated CRCL calculation 18 ml/min; Estimated Glomerular Filt Rate 16; Glucose 338 mg/dL (75-110); Potassium 4.8 mmol/L (3.4-5.0); Sodium 136 mmol/L (137-145)
[2019-12-30 04:29] LABS: Anisocytosis 1+ (NORMAL); Platelet Estimate Adequate (Adequate); Target Cells 1+ (NORMAL)
[2019-12-30 04:57] LABS: Troponin I 0.172 ng/mL (0.000-0.034)
[2019-12-30 06:29] LABS: Reflex Lactic Acid Yes or No Add Lactic
[2019-12-30 08:42] LABS: Lactic Acid 2.1 mmol/L (0.7-2.1)
--- NOTE | 2019-12-30 09:08 | WPDCNINT ---
Assessment and Plan Assessment and plan (1) Hypertensive urgency: Code(s): I16.0 - Hypertensive urgency Status: Acute Assessment and Plan: patient presented with hypertensive urgency, currently on nicardipine infusion. - Will restart home antihypertensive medications wean nicardipine infusion to off (2) Pneumonia: Qualifiers: Laterality: right Lung location: middle lobe of lung Pneumonia type: due to unspecified organism Qualified Code(s): J18.9 - Pneumonia, unspecified organism Code(s): J18.9 - Pneumonia, unspecified organism Status: Acute Assessment and Plan: chest x-ray showed Airspace opacities of the mid and lower lung zones, consistent with atelectasis versus pneumonia - patient currently on room air, - started on vancomycin and Zosyn - cultures obtained and pending (3) End stage renal disease on dialysis: Code(s): N18.6 - End stage renal disease; Z99.2 - Dependence on renal dialysis Status: Acute Assessment and Plan: patient with end-stage renal disease on hemodialysis, Tuesday, Tuesday, Tuesday - nephrology has been consulted - may require dialysis today given chest x-ray shows airspace opacities which could represent fluid or volume overload - will discuss with nephrology (4) Diabetes mellitus: Qualifiers: Diabetes mellitus type: type 2 Diabetes mellitus mcc insulin use: without intermodal dispatcher use Diabetes mellitus complication status: with kidney complications Diabetes mellitus complication detail: with chronic kidney disease Chronic kidney disease stage: on chronic dialysis Qualified Code(s): E11.22 - Type 2 diabetes mellitus with diabetic chronic kidney disease; N18.6 - End stage renal disease; Z99.2 - Dependence on renal dialysis Code(s): E11.9 - Type 2 diabetes mellitus without complications Status: Acute Assessment and Plan: continue sliding scale insulin, Lantus and Accu-Cheks (5) DVT prophylaxis: Code(s): Z29.9 - Encounter for prophylactic measures, unspecified Status: Acute Assessment and Plan: continue apixaban Additional Plan discussed with patient updated with his condition and plan of Care. Code status: Full code critical care time spent: 44 minutes Due to a high probability of clinically significant, life threatening deterioration, the patient required my highest level of preparedness to intervene emergently and I personally spent this critical care time directly and personally managing the patient. This critical care time included obtaining a history; examining the patient; pulse oximetry; ordering and review of studies; arranging urgent treatment with development of a management plan; evaluation of patient's response to treatment; frequent reassessment; and discussions with other providers. It was exclusive of separately billable procedures and treating other patients and teaching time. Please see Assessment and Plan section and the rest of the note for further information on patient assessment and treatment Community Services Coordinator Consult Note Consult date: 12/30/19 Time Seen: 07:04 Reason for consult: Hypertensive urgency, possible pneumonia, rule out COVID-19 HPI: David Segundo Jr. is a 59 year old male with past medical history of diabetes, end-stage renal disease on hemodialysis on Mondays, Wednesdays and Fridays. History of CAD /mi, hyperlipidemia, essential hypertension presented the ED on 12/29/2019 from a detention with complains of nausea, vomiting x2 days. Also was complaining of some shortness of breath. In the ER and in ICU patient denies any chest pain, cough, fevers, headaches, abdominal pain. According the records patient stated he was tested negative for coronavirus a few days ago. Patient's blood pressures in the ED were 235/93, patient was given IV labetalol despite which the blood pressures remained elevated. He was started on labetalol infusion which was sw
[2019-12-30] MEDS: hydrALAZINE HCL 25 MG TABLET PO ×2 (09:11→18:37)
[2019-12-30] MEDS: APIXABAN 2.5 MG TABLET PO ×2 (09:11→18:37)
[2019-12-30] MEDS: cloNIDine HCL 0.2 MG TABLET PO ×3 (09:11→21:07)
[2019-12-30] MEDS: minoxidiL 2.5 MG TABLET PO ×2 (09:11→18:37)
[2019-12-30] MEDS: METOPROLOL TARTRATE 50 MG TAB PO (09:11)
[2019-12-30] MEDS: ASPIRIN 81 MG CHEWABLE TABLET PO (09:11)
[2019-12-30] MEDS: PANTOPRAZOLE 40 MG TABLET PO (09:11)
[2019-12-30] MEDS: SUCRALFATE 1 GM TABLET PO ×2 (09:12→18:37)
--- NOTE | 2019-12-30 11:26 | WPDGICN ---
Assessment and Plan Assessment and plan (1) Nausea and vomiting in adult: Code(s): R11.2 - Nausea with vomiting, unspecified Status: Acute Assessment and Plan: probably precipitated by HTN urgency in a patient with end stage renal disease no more report of vomiting and BP is better now RN has not seen blood in stools and hb at baseline will follow from afar. No need to proceed with EGD unless signs of bleeding or drop in hb (2) Hypertensive urgency: Code(s): I16.0 - Hypertensive urgency Status: Acute Assessment and Plan: treated and better controlled now by employment law specialist (3) Acute respiratory failure with hypoxia: Code(s): J96.01 - Acute respiratory failure with hypoxia Status: Acute Assessment and Plan: improved, repeat COVID-19 swab pending. treated as possible pneumonia vs fluid overload (4) End stage renal disease on dialysis: Code(s): N18.6 - End stage renal disease; Z99.2 - Dependence on renal dialysis Status: Acute Assessment and Plan: continue dialysis by nephrology (5) Leukocytosis: Qualifiers: Leukocytosis type: unspecified Qualified Code(s): D72.829 - Elevated white blood cell count, unspecified Code(s): D72.829 - Elevated white blood cell count, unspecified Status: Acute (6) Pneumonia: Qualifiers: Laterality: right Lung location: middle lobe of lung Pneumonia type: due to unspecified organism Qualified Code(s): J18.9 - Pneumonia, unspecified organism Code(s): J18.9 - Pneumonia, unspecified organism Status: Acute Assessment and Plan: started on iv antibiotics (7) Fluid overload: Qualifiers: Hypervolemia type: unspecified Qualified Code(s): E87.70 - Fluid overload, unspecified Code(s): E87.70 - Fluid overload, unspecified Status: Acute (8) Anemia: Qualifiers: Anemia type: due to chronic kidney disease Chronic kidney disease stage: on chronic dialysis Qualified Code(s): N18.6 - End stage renal disease; D63.1 - Anemia in chronic kidney disease; Z99.2 - Dependence on renal dialysis Code(s): D64.9 - Anemia, unspecified Status: Acute Assessment and Plan: hb stable, he is also on eliquis GI Consult Note Consult date/time: 12/30/19 11:26 Reason for consult: nausea and vomiting HPI: David Segundo Jr. is a 59 year old male with history of diabetes, CVA, HTN, CAD, end-stage renal disease on hemodialysis on Mondays, Wednesdays and Fridays who was brought from senior care with nausea and vomiting for 2 days, also some shortness of breath. According the records he was tested negative for coronavirus a few days ago. He was admitted to ICU because blood pressures in the ED were 235/93 to be treated as HTN urgency, given IV labetalol but still BP was high. CXR also showed atelectasis vs pneumonia. BP oral medicines given with BP 160/70 now. No more report of nausea or vomiting. Hb 11 (10.5 few months ago). He is hemodynamically stable. Review of Systems Constitutional: Constitutional: Denies chills Eyes: Eyes: Denies blurry vision ENT: Denies dysphagia Cardiovascular: Cardiovascular: Denies chest pain Respiratory: Respiratory: Reports dyspnea Gastrointestinal: Gastrointestinal: Reports nausea and Reports vomiting Genitourinary: Comments: on dialysis Integumentary/Breasts: Skin/Breast: Denies rash Neurologic: Denies headache(s) Comments: h/o CVA Psychiatric: Psychiatric: Denies depression PMFSH Past Medical History Medical History Anemia Diabetes mellitus End-stage renal disease on hemodialysis History of [place] (myocardial infarction) Hyperlipidemia Hypertension Surgical History Surgical History Status post creation of arteriovenous fistula Family History Family History (Reviewed 12/29/19 @ 22:12 by Otoniel
[2019-12-30 13:03] LABS: Glucose Point of Care 198 (65-105)
[2019-12-30] MEDS: SODIUM CHLORIDE 0.9% IV 1,000 ML 999 ML IV CONT (14:28)
--- NOTE | 2019-12-30 15:17 | PM.IMPN ---
Progress Note: A&P Assessment and Plan (1) Acute respiratory failure with hypoxia: Code(s): J96.01 - Acute respiratory failure with hypoxia Status: Acute Assessment and Plan: The patient's acute respiratory failure appears to be secondary to pulmonary edema. Patient's x-ray and physical examination are most consistent with increased pulmonary congestion and pulmonary edema. We will continue supplemental oxygen therapy, bronchodilators. The patient will benefit from ultrafiltration with fluid removal today as planned repeat echocardiogram a.m. (2) Hypertensive urgency: Code(s): I16.0 - Hypertensive urgency Status: Acute Assessment and Plan: The patient was started on a Labetalol IV drip. changed his IV drip to Cardene IV and and now transition back to his multiple oral meds with good results (3) Sepsis: Qualifiers: Sepsis type: sepsis due to unspecified organism Sepsis acute organ dysfunction status: with acute organ dysfunction Severe sepsis acute organ dysfunction type: acute respiratory failure Acute respiratory failure type: with hypoxia Severe sepsis shock status: without septic shock Qualified Code(s): A41.9 - Sepsis, unspecified organism; R65.20 - Severe sepsis without septic shock; J96.01 - Acute respiratory failure with hypoxia Code(s): A41.9 - Sepsis, unspecified organism Status: Acute Assessment and Plan: with leukocytosis, tachycardia, tachypnea. source of sepsis is likely urinary given the patient's abnormal urinalysis. Continue IV antibiotics. Monitor urine output and Vital signs closely. could be pna but doubt (4) UTI (urinary tract infection): Qualifiers: Urinary tract infection type: site unspecified Hematuria presence: without hematuria Qualified Code(s): N39.0 - Urinary tract infection, site not specified Code(s): N39.0 - Urinary tract infection, site not specified Status: Acute Assessment and Plan: Patient has abnormal urinalysis tonight. Continue IV antibiotics. Urine culture pending. (5) Suspected 2019 novel coronavirus infection: Code(s): Z20.828 - Contact with and (suspected) exposure to other viral communicable diseases Status: Acute Assessment and Plan: The patient has been swabed for gore virus in the ER tonight. Continue droplet isolation. Continue supportive care. COVID-19 results pending. but supposedly neg 2 days ago (6) Anemia: Qualifiers: Anemia type: due to chronic kidney disease Chronic kidney disease stage: on chronic dialysis Qualified Code(s): N18.6 - End stage renal disease; D63.1 - Anemia in chronic kidney disease; Z99.2 - Dependence on renal dialysis Code(s): D64.9 - Anemia, unspecified Status: Acute Assessment and Plan: chronic disease and unchanged (7) Diabetes mellitus: Qualifiers: Diabetes mellitus type: type 2 Diabetes mellitus intermediate insulin use: without manager intermediate use Diabetes mellitus complication status: with kidney complications Diabetes mellitus complication detail: with chronic kidney disease Chronic kidney disease stage: on chronic dialysis Qualified Code(s): E11.22 - Type 2 diabetes mellitus with diabetic chronic kidney disease; N18.6 - End stage renal disease; Z99.2 - Dependence on renal dialysis Code(s): E11.9 - Type 2 diabetes mellitus without complications Status: Acute Assessment and Plan: continue low-dose Lantus and sliding scale (8) Hyperlipidemia: Qualifiers: Hyperlipidemia type: unspecified Qualified Code(s): E78.5 - Hyperlipidemia, unspecified Code(s): E78.5 - Hyperlipidemia, unspecified Status: Acute (9) End stage renal disease on dialysis: Code(s): N18.6 - End stage renal disease; Z99.2 - Dependence on renal dialysis Status: Acute Assessment and Plan: ultrafiltration today then resume Tuesday
--- NOTE | 2019-12-30 15:38 | PM.PNNEP ---
Progress Note: A&P Assessment and Plan (1) End stage renal disease: Code(s): N18.6 - End stage renal disease Status: Chronic (2) Fluid overload: Qualifiers: Hypervolemia type: unspecified Qualified Code(s): E87.70 - Fluid overload, unspecified Code(s): E87.70 - Fluid overload, unspecified Status: Acute Assessment and Plan: plan dry ultrafiltration (DUF) today for fluid removal HD tomorrow and contnue M/W/F schedule FULL CONSULT to follow Subjective Date/time seen: 12/30/19 15:38 Patient tolerating dry ultrafiltration at this time (seen on DUF ~ 3:15PM); respiratory status seems better and no apparent distress noted on my visit. Objective Data Vital Signs Vital Signs: Vital Signs Temp Pulse Resp BP Pulse Ox 12/30/19 15:30 90 163/63 H 12/30/19 15:15 90 174/69 H 12/30/19 15:00 90 157/67 H 12/30/19 14:45 91 179/59 H 12/30/19 14:30 91 165/55 H 12/30/19 14:15 90 159/70 H 12/30/19 14:00 64 163/64 H 12/30/19 13:56 91 19 94 12/30/19 13:52 89 149/53 H 12/30/19 13:45 90 181/67 H 12/30/19 13:34 36.5 C 90 20 145/53 H 95 12/30/19 12:00 36.7 C 90 15 149/53 H 98 12/30/19 10:15 88 141/55 H 12/30/19 10:00 92 17 162/75 H 95 12/30/19 09:11 94 12/30/19 08:30 95 12/30/19 08:00 36.6 C 96 14 175/72 H 95 12/30/19 07:45 96 12/30/19 07:02 36.9 C 12/30/19 06:58 95 176/78 H 12/30/19 06:00 94 12 176/78 H 97 12/30/19 04:00 91 16 142/67 H 99 12/30/19 03:06 37.4 C 12/30/19 03:02 96 155/50 H 12/30/19 03:00 37.4 C 93 16 155/50 H 95 12/30/19 02:20 95 183/70 H 12/30/19 02:00 95 17 194/73 H 98 12/30/19 01:32 95 200/69 H 97 12/30/19 00:00 36.4 C 91 17 164/76 H 95 12/29/19 23:17 98 16 153/53 H 99 12/29/19 22:56 93 18 185/66 H 99 12/29/19 22:20 100 24 H 191/89 H 100 12/29/19 21:48 100 20 189/66 H 100 12/29/19 21:37 106 H 219/68 H 12/29/19 21:14 106 H 20 170/88 H 91 12/29/19 20:36 97 24 H 235/93 H 92 Intake/Output Intake/Output: Intake & Output 12/27/19 12/28/19 12/29/19 12/30/19 23:59 23:59 23:59 23:59 Intake Total 200 1300 Output Total 200 0 Balance 0 1300 Meds/Results Medications: Active Medications Generic Name Dose Route Start Last Admin Trade Name Freq PRN Reason Stop Dose Admin Albuterol 2 puff 12/30/19 07:50 Proventil Hfa INHALATION Q4-6H PRN Shortness Of Breath Or Wheezing Amlodipine Besylate 10 mg 12/30/19 21:00 Norvasc PO HS VAL Apixaban 2.5 mg 12/30/19 09:00 12/30/19 18:37 Eliquis PO 2.5 mg BID VAL Administration Aspirin 81 mg 12/30/19 09:00 12/30/19 09:11 Aspirin Chewable PO 81 mg DAILY VAL Administration Clonidine HCl 0.2 mg 12/30/19 07:45 12/30/19 15:24 Catapres PO 0.2 mg Q8HR VAL Administration Dextrose 12.5 gm 12/30/19 08:25 Dextrose 50% Syringe IV PUSH PRN PRN Hypoglycemia Protocol Glucagon 1 mg 12/30/19 08:25 Glucagon For Inj IM PRN PRN Hypoglycemia Protocol Glucose 15 gm 12/30/19 08:25 Glutose 15 PO PRN PRN Hypoglycemia Protocol Hydralazine HCl 25 mg 12/30/19 09:00 12/30/19 18:37 Apresoline Tablet PO 25 mg BID VAL Administration Acetaminophen 1,000 mg in 100 mls @ 400 mls/hr 12/29/19 22:26 12/30/19 03:21 Ofirmev 1,000 Mg Ivpb IVPB 12/30/19 22:27 Infused Q6H PRN Infusion Mild Pain (1-3) or Fever Vancomycin HCl 1,500 mg in 500 mls @ 333.333 mls/hr 12/30/19 01:17 Vancomycin 1,500 Mg/D5w 500 Ml IVPB PRN PRN PER PROTOCOL Piperacillin Sod/Tazobactam Sod 2.25 gm in 50 mls @ 100 mls/hr 12/30/19 07:45 12/30/19 15:54 Zosyn 2.25 Gm/D5w 50 Ml IVPB Infused Q8HR VAL Infusion Dextrose 1,000 mls @ 100 mls/hr 12/30/19 08:25 Dextrose 5% 1,000 Ml IVPB PRN PRN
[2019-12-30] MEDS: INSULIN ASPART (*BKC) 100 UNITS/ML SUB-Q (18:42)
[2019-12-30 18:49] LABS: Glucose Point of Care 263 (65-105)
[2019-12-30] MEDS: METOPROLOL TARTRATE 25 MG TABLET 75 MG PO (21:07)
[2019-12-30] MEDS: amLODIPine BESYLATE 5 MG TABLET 10 MG PO (21:07)
[2019-12-30] MEDS: INSULIN GLARGINE (*BKC) 100 UNITS/ML 10 UNITS SUB-Q (21:08)
[2019-12-30] MEDS: LOSARTAN POTASSIUM 100 MG TABLET PO (21:08)
--- NOTE | 2019-12-30 22:18 | PC.NURSE ---
Report given to Juan SMALL. Patient to go to Room 329. All belongings gathered, No further questions.
--- NOTE | 2019-12-30 22:30 | ADMGEN ---
This patient, David Segundo Jr., was admitted to [facility] Surg Room 329-01. Patient/family oriented to hospital policies and general routines including ID bracelet, bed and alarms, visiting hours, pain management, procedures, bathroom and other care routines, personal items, smoking policy, room service/diet, and visiting hours. Valuables list has been completed. Information on how to activate the Rapid Response Team has been discussed. Patient/Family are encouraged to report perceived risks to care and to ask questions if they do not understand what they are told or what they should do.
[2019-12-31] VITALS (21 sets, daily range): BP systolic 123–168; BP diastolic 48–73; PULSE 80–90; RESP 16–20; TEMP 36.5–38.2; O2SAT 97–99
[2019-12-31] MEDS: INSULIN ASPART (*BKC) 100 UNITS/ML SUB-Q ×2 (01:33→16:56)
[2019-12-31 01:34] LABS: Glucose Point of Care 260 (65-105)
[2019-12-31] MEDS: cloNIDine HCL 0.2 MG TABLET PO ×2 (05:28→14:32)
[2019-12-31] MEDS: SUCRALFATE 1 GM TABLET PO ×3 (05:30→16:48)
[2019-12-31 06:39] LABS: Basophils Percent Auto 0.2 % (0.2-1.2); Eosinophils Absolute Auto 0.1 K/mm3 (0-0.3); Hematocrit 28.4 % (42.0-52.0); Hemoglobin 9.4 g/dL (14.0-18.0); Immature Granulocyte Percent A 1.1 % (0-0.5); Lymphocytes Absolute Auto 1.33 K/mm3 (0.9-3.2); Lymphocytes Percent Auto 14.1 % (18.3-44.2); Mean Corpuscular HGB Conc 33.1 g/dl (32-36); Mean Corpuscular Hemoglobin 25.5 pg (26-34); Mean Platelet Volume 10.6 fl (7.4-10.4); Monocytes Absolute Auto 0.7 K/mm3 (0.1-0.6); Monocytes Percent Auto 7.5 % (2.6-8.5); Neutrophils Absolute Auto 7.2 K/mm3 (1.3-6.7); Neutrophils Percent Auto 76.1 % (45.5-73.1); Platelet Count Result 189 k/mm3 (150-375); Red Blood Count 3.69 M/mm3 (4.6-6.20); Red Cell Distribution Width 16.2 % (11.5-14.5); White Blood Count 9.4 K/mm3 (4.5-10.0)
[2019-12-31 06:54] LABS: Anion Gap 10 mmol/L (8-16); Blood Urea Nitrogen 55 mg/dL (9-20); Calcium 9.5 mg/dL (8.4-10.2); Carbon Dioxide 28 mmol/L (22-30); Chloride 97 mmol/L (98-107); Estimated CRCL calculation 14 ml/min; Estimated Glomerular Filt Rate 12; Glucose 146 mg/dL (75-110); Potassium 5.1 mmol/L (3.4-5.0); Sodium 135 mmol/L (137-145)
--- NOTE | 2019-12-31 07:00 | ECHO_ITS ---
Patient Info Name: David Segundo Age: 59 years : 1960 Gender: Male Ht: 71 in Wt: 217 lbs BSA: 2.24 m2 HR: 90 bpm BP: 143 / 57 mmHg Heart Rhythm: Sinus Rhythm Technical Quality: Good Exam Date: 12/31/2019 3:59 PM Exam Location: [facility] Pulmonary Patient Status: Inpatient Admit Date: 12/29/2019 Staff Ordering Physician: Manuel Robbins MD Psychologist [employer] Personnel: Nilo Cox RDCS Attending Provider: Jimbo De Leon MD Referring Physician: Rosendo LYLES; Exam Type: CA echo doppler color flow Study Info Indications R06.02 - Shortness of breath Complete two-dimensional, color flow and Doppler transthoracic echocardiogram is performed. Strain analysis performed. History/Risk Factors SOB; chest pain, ESRD, PNA, HTN urgency, DM2, CAD/OK. Summary 1. Complete two-dimensional, color flow and Doppler transthoracic echocardiogram is performed. 2. Left ventricular chamber dimension is normal. 3. Left ventricular systolic function is normal, estimated at 65-70%. 4. Left atrial chamber dimension is severely enlarged. 5. There is trace mitral valve regurgitation. 6. The mitral valve annulus is moderately calcified. 7. There is a mobile density associated with the posterior mitral valve leaflet measuring 0.4 x 1 cm in size which is consistent in appearance with infectious vegetation. Left Ventricle Left ventricular chamber dimension is normal. Left ventricular systolic function is normal, estimated at 65-70%. There is moderate concentric increased left ventricular wall thickness. The left ventricular diastolic function is grade I diastolic dysfunction. Right Ventricle Right ventricular chamber dimension is normal. Left Atria Left atrial chamber dimension is severely enlarged. Right Atria Right atrial chamber dimension is mildly enlarged. Aortic Valve The aortic valve is normal. Pulmonic Valve The pulmonic valve is not well visualized. Mitral Valve The mitral valve has thickened leaflets. There is trace mitral valve regurgitation. The mitral valve annulus is moderately calcified. There is a mobile density associated with the posterior mitral valve leaflet measuring 0.4 x 1 cm in size which is consistent in appearance with infectious vegetation. Tricuspid Valve The tricuspid valve leaflets are normal. Pericardium/Pleural The pericardium appears normal. Aorta The aortic root size at the sinus of Valsalva is normal. Left Ventricular Outflow Tract Name Value Normal LVOT 2D LVOT Diameter 2.1 cm LVOT Doppler LVOT Peak Gradient 7 mmHg LVOT Mean Gradient 4 mmHg LVOT VTI 25 cm LVOT VTI/AV VTI Ratio 0.8 LVOT Stroke Volume 89 ml LVOT CO 7.7 l/min LVOT CI 3.4 l/min/m2 Mitral Valve Name Value Normal
[2019-12-31] MEDS: hydrALAZINE HCL 25 MG TABLET PO ×2 (09:09→16:49)
[2019-12-31] MEDS: APIXABAN 2.5 MG TABLET PO ×2 (09:09→16:49)
[2019-12-31] MEDS: ASPIRIN 81 MG CHEWABLE TABLET PO (09:09)
[2019-12-31] MEDS: minoxidiL 2.5 MG TABLET PO ×2 (09:10→16:51)
[2019-12-31] MEDS: METOPROLOL TARTRATE 25 MG TABLET 75 MG PO (09:10)
[2019-12-31] MEDS: PANTOPRAZOLE 40 MG TABLET PO (09:10)
[2019-12-31 09:15] LABS: Glucose Point of Care 152 (65-105)
[2019-12-31 11:47] LABS: Glucose Point of Care 160 (65-105)
[2019-12-31 12:00] LABS: SARS-CoV-2 RNA PCR Negative
[2019-12-31 13:00] LABS: Glucose Point of Care 149 (65-105)
--- NOTE | 2019-12-31 15:12 | PM.CNNEP ---
Assessment and Plan Assessment and plan (1) End stage renal disease: Code(s): N18.6 - End stage renal disease Status: Chronic Assessment and Plan: hemodialysis today and continue M/W/F schedule while hospitalized follow electrolytes, volume status, and clearance (2) Hypertensive urgency: Code(s): I16.0 - Hypertensive urgency Status: Acute Assessment and Plan: better control at thsi time weaned off nicardipine gtt resumed on home medications (3) Acute respiratory failure with hypoxia: Code(s): J96.01 - Acute respiratory failure with hypoxia Status: Acute Assessment and Plan: thought to be due to a combination of pneumonia, fluid, and hypertension dry ultrafiltration yesterday for fluid removal BP better controlled on antibiotics for possible pneumonia (4) Pneumonia: Qualifiers: Laterality: right Lung location: middle lobe of lung Pneumonia type: due to unspecified organism Qualified Code(s): J18.9 - Pneumonia, unspecified organism Code(s): J18.9 - Pneumonia, unspecified organism Status: Acute Assessment and Plan: as suggested by admission imaging follow cultures on IV antibiotics Will continue to follow. History of Present Illness Reason for Consult Consult date: 12/31/19 Reason for consult: end stage renal disease Chief Complaint Chief complaint: Acute hypoxic respiratory failure, pneumonia History of Present Illness Narrative: The patient is a 59 year old male with past medical history as outlined below who presented to [facility] ER from his group home with complaints of nausea, vomiting and shortness of breath. Apparently, the patient has been having these symptoms for the last 2 days. He denies any symptoms with regard to chest pain cough fevers headaches or abdominal pain and records indicate that he was already tested for COVID-19 a few days ago does and was negative. Because of the persistence of the symptoms despite supportive therapy at his nursing facility, he was sent to the ER for further evaluation. Workup and evaluation emergency room demonstrated the patient to be quite hypertensive with a systolic BP greater than 200. Further testing demonstrated labs consistent with his known history of end-stage renal disease and a chest x-ray that showed evidence of possible pulmonary vascular congestion as well as a new infiltrate consistent with pneumonia. His blood pressure continues to be elevated in the emergency room so he was given IV antihypertensive medications and subsequent started on a labetalol drip for better control of his blood pressure. Eventually, the labetalol drip was switched to a nicardipine infusion once he arrived to the intensive care unit. He required 4 L of oxygen to maintain his oxygen saturation given his shortness of breath as well. Renal consultation was requested due to his end-stage renal disease. Initially, the ER physician told me he received his dialysis on Tuesday but in actuality, the patient receives dialysis on a Tuesday, Tuesday, and Tuesday schedule. Unfortunately, the patient cannot tell me who his pen maker is or what dialysis unit he goes to to receive his dialysis. However, he reports compliance with his dialysis treatments and medications. He receieved a session of dry ultrafiltration yesterday to help with fluid removal and potentiate weaning off his nicardipine gtt which was apparently successful as he has been transferred out of the ICU. Currently, at the time of my visit, he appears to be doing reasonably well with better control of his blood pressure and nausea/vomiting. Review of Systems Review of Systems: Narrative: As per HPI. [facility] Past Medical History Medical History (Updated 12/30/19 @ 14:25 by Alexander Mccracken MD) Anemia Diabetes mellitus End-stage renal disease on hemodialysis History of CT (myocardial infarction) Hy
[2019-12-31 17:20] LABS: Glucose Point of Care 207 (65-105)
--- NOTE | 2019-12-31 17:38 | PM.IMPN ---
Progress Note: A&P Assessment and Plan (1) Acute respiratory failure with hypoxia: Code(s): J96.01 - Acute respiratory failure with hypoxia Status: Acute Assessment and Plan: The patient's acute respiratory failure appears to be secondary to pulmonary edema. Patient's x-ray and physical examination are most consistent with increased pulmonary congestion and pulmonary edema. We will continue supplemental oxygen therapy, bronchodilators. The patient will benefit from dialysis. ultrafiltration 12/29 not recorded in output and scheduled dialysis today on going to present time (2) Hypertensive urgency: Code(s): I16.0 - Hypertensive urgency Status: Acute Assessment and Plan: The patient had been started on a Labetalol IV drip. changed his IV drip to Cardene IV and now transition to oral meds with good control after fluid removal. multiple meds including amlodipine, clonidine, hydralazine, losartan, metoprolol, and minoxidil (3) Sepsis: Qualifiers: Sepsis type: sepsis due to unspecified organism Sepsis acute organ dysfunction status: with acute organ dysfunction Severe sepsis acute organ dysfunction type: acute respiratory failure Acute respiratory failure type: with hypoxia Severe sepsis shock status: without septic shock Qualified Code(s): A41.9 - Sepsis, unspecified organism; R65.20 - Severe sepsis without septic shock; J96.01 - Acute respiratory failure with hypoxia Code(s): A41.9 - Sepsis, unspecified organism Status: Acute Assessment and Plan: with leukocytosis, tachycardia, tachypnea. source of sepsis with thought to be urinary initially but culture no growth and blood cultures no growth. Continue IV antibiotics. with possible infiltrate (4) Fluid overload: Qualifiers: Hypervolemia type: unspecified Qualified Code(s): E87.70 - Fluid overload, unspecified Code(s): E87.70 - Fluid overload, unspecified Status: Acute Assessment and Plan: The patient was clearly fluid overloaded and 2nd session for fluid removal today at dialysis echo today normal ejection fraction 65 % (5) UTI (urinary tract infection): Qualifiers: Urinary tract infection type: site unspecified Hematuria presence: without hematuria Qualified Code(s): N39.0 - Urinary tract infection, site not specified Code(s): N39.0 - Urinary tract infection, site not specified Status: Acute Assessment and Plan: Patient has abnormal urinalysis but. Urine culture negative, continue antibiotics with fever and leukocytosis (6) Suspected 2019 novel coronavirus infection: Code(s): Z20.828 - Contact with and (suspected) exposure to other viral communicable diseases Status: Acute Assessment and Plan: COVID-19 test negative (7) Leukocytosis: Qualifiers: Leukocytosis type: unspecified Qualified Code(s): D72.829 - Elevated white blood cell count, unspecified Code(s): D72.829 - Elevated white blood cell count, unspecified Status: Acute Assessment and Plan: WBC falling. Still low-grade temp all cultures negative. will follow-up chest x-ray (8) Anemia: Qualifiers: Anemia type: due to chronic kidney disease Chronic kidney disease stage: on chronic dialysis Qualified Code(s): N18.6 - End stage renal disease; D63.1 - Anemia in chronic kidney disease; Z99.2 - Dependence on renal dialysis Code(s): D64.9 - Anemia, unspecified Status: Acute Assessment and Plan: chronic disease unchanged (9) Diabetes mellitus: Qualifiers: Diabetes mellitus type: type 2 Diabetes mellitus senior living insulin use: without senior living use Diabetes mellitus complication status: with kidney complications Diabetes mellitus complication detail: with chronic kidney disease Chronic kidney disease stage: on chronic dialysis Qualified Code(s): E11.22 - Type 2 diabetes m
[2020-01-01] VITALS: BP 149/56; PULSE 87; RESP 16; TEMP 36.5; O2SAT 98
[2020-01-01 00:10] LABS: Vancomycin Random 9.3 ug/mL (10-20)
[2020-01-01] MEDS: amLODIPine BESYLATE 5 MG TABLET 10 MG PO ×2 (00:40→21:42)
[2020-01-01] MEDS: LOSARTAN POTASSIUM 100 MG TABLET PO ×2 (00:41→21:42)
[2020-01-01] MEDS: cloNIDine HCL 0.2 MG TABLET PO ×4 (00:41→21:40)
[2020-01-01 00:42] VITALS: PULSE 80
[2020-01-01] MEDS: METOPROLOL TARTRATE 25 MG TABLET 75 MG PO ×3 (00:42→21:41)
[2020-01-01 00:45] LABS: Glucose Point of Care 141 (65-105)
[2020-01-01] MEDS: INSULIN GLARGINE (*BKC) 100 UNITS/ML 10 UNITS SUB-Q ×2 (00:50→21:32)
--- NOTE | 2020-01-01 03:13 | PC.NURSE ---
12/31/19 at 1945--patient taken to dialysis per bed--TDialRNC
--- NOTE | 2020-01-01 03:16 | PC.NURSE ---
12/31/19 at 1365--Dialysis nurse called, patient is finished with his dialysis, 2.5L was taken off, vitals stable.TDialRNC
[2020-01-01] MEDS: SUCRALFATE 1 GM TABLET PO ×3 (06:14→15:56)
[2020-01-01 08:00] VITALS: BP 143/57; PULSE 70; RESP 16; TEMP 36.3; O2SAT 99
[2020-01-01 08:35] VITALS: PULSE 80
[2020-01-01] MEDS: PANTOPRAZOLE 40 MG TABLET PO (08:36)
[2020-01-01] MEDS: ASPIRIN 81 MG CHEWABLE TABLET PO (08:36)
[2020-01-01] MEDS: minoxidiL 2.5 MG TABLET PO ×2 (08:36→15:56)
[2020-01-01] MEDS: hydrALAZINE HCL 25 MG TABLET PO ×2 (08:36→15:56)
[2020-01-01] MEDS: APIXABAN 2.5 MG TABLET PO ×2 (08:36→15:56)
[2020-01-01] MEDS: INSULIN ASPART (*BKC) 100 UNITS/ML SUB-Q ×3 (08:37→21:32)
[2020-01-01 09:00] LABS: Glucose Point of Care 207 (65-105)
--- NOTE | 2020-01-01 09:21 | P.CDI_ITS ---
CDI Query Clarification Request - Acute respiratory failure appears to be secondary to pulmonary edema has been documented. Please further specify acuity of pulmonary edema. * Acute * Chronic * Acute on chronic * Unable to determine
--- NOTE | 2020-01-01 09:21 | WPDCDIQUERY2 ---
CDI Query Clarification Request - Acute respiratory failure appears to be secondary to pulmonary edema has been documented. Please further specify acuity of pulmonary edema. Acute Chronic Acute on chronic Unable to determine
--- NOTE | 2020-01-01 10:03 | PM.CNCAR ---
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 Patient admitted with nausea and vomiting, found to be in hypertensive urgency. Blood pressures have improved, and patient has resumed p.o. medications. His surface echocardiogram reportedly suggestive of mitral valve vegetation. At the time of evaluation, patient was eating breakfast. He will be kept NPO from midnight, and will undergo transesophageal echocardiogram tomorrow for further evaluation. Benefits, and risks of the procedure were discussed with the patient and his willing to proceed. (2) Hypertensive urgency: Code(s): I16.0 - Hypertensive urgency Status: Acute Assessment and Plan: Blood pressure is improved, continue current antihypertensives. (3) End stage renal disease: Code(s): N18.6 - End stage renal disease Status: Chronic Assessment and Plan: Management as per primary team and Nephrology History of Present Illness History of Present Illness Consult date/time: 01/01/20 10:03 Date of service: 01/01/2020 Reason for consult:? Mitral valve vegetation Requesting physician: Chief complaint: Nausea and vomiting HPI: 59-year-old male with hypertension, diabetes mellitus, ESRD on hemodialysis, chronic anemia. Patient came to [facility] on 12/29/2019 with complaints of nausea and vomiting. Patient is a shelter resident, and had dialysis earlier that morning. Patient was found to have severely elevated blood pressure of 235/93 mmHg in the ER. He was initiated on IV labetalol which was later switched to IV nicardipine. EKG which I personally evaluated showed sinus tachycardia, heart rate 107 beats per minute, incomplete right bundle-branch block, left anterior fascicular block. First set of troponin is minimally elevated. Chest x-ray at admission showed Airspace opacities of the mid and lower lung zones, consistent with atelectasis versus pneumonia. CT of the head showed old infarction. Patient had echocardiogram done yesterday which reportedly showed EF 65-70%, severe left atrial enlargement, mobile density associated with the posterior mitral valve leaflet measuring 0.4 x 1 cm in size which is consistent in appearance with infectious vegetation. Patient has leukocytosis with left shift. Patient has been on antibiotics. Blood cultures are pending. Reason For Visit: Acute hypoxic respiratory failure, pneumonia Review of Systems Review of Systems: Narrative: General: Negative for fever, chills, fatigue Psychological: Negative for anxiety, depression Ophthalmic: negative for loss of vision ENT: Negative for epistaxis, headaches Allergy and immunology: Negative for hives, nasal congestion Hematologic and lymphatic: Negative for overt bleeding problems Endocrine: Negative for hot flashes, palpitations Respiratory: Negative for cough, hemoptysis Cardiovascular: Negative for chest pain, shortness of breath at rest Gastrointestinal: Negative for abdominal pain,Positive for nausea, vomiting at presentation Musculoskeletal: unstable gait Neurological: generalized weakness Dermatological: Negative for rash, skin discoloration PMFSH Past Medical History Medical History Anemia Diabetes mellitus End-stage renal disease on hemodialysis History of NC (myocardial infarction) Hyperlipidemia Hypertension Nausea and vomiting in adult Surgical History Surgical History Status post creation of arteriovenous fistula Family History Family History Mother Hypertension Diabetes mellitus Father Hypertension Diabetes m
[2020-01-01 12:23] LABS: Glucose Point of Care 221 (65-105)
--- NOTE | 2020-01-01 16:05 | PM.IMPN ---
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 Initial blood cultures (12/28) no growth but with fever. Repeat BCx (12/30) NGTD as well. Cardiology for possible EITAN tomorrow. (2) Pneumonia: Qualifiers: Laterality: right Lung location: middle lobe of lung Pneumonia type: due to unspecified organism Qualified Code(s): J18.9 - Pneumonia, unspecified organism Code(s): J18.9 - Pneumonia, unspecified organism Status: Acute Assessment and Plan: CXR on admisison concerning for PNA. Repeat CXR today reviewed and showing improving findings. WBC normal now. Tm 100.7 yesterday but no recurrence. Continue to monitor. (3) Acute respiratory failure with hypoxia: Code(s): J96.01 - Acute respiratory failure with hypoxia Status: Acute Assessment and Plan: The patient's acute respiratory failure appears to be secondary to pulmonary edema. Patient's x-ray and physical examination are most consistent with increased pulmonary congestion and pulmonary edema possibly relate to severe HTN. Weaned to RA now. (4) Hypertensive urgency: Code(s): I16.0 - Hypertensive urgency Status: Acute Assessment and Plan: BP markedly elevated on admisison. The patient had been started on a Labetalol IV drip. He was changed to Cardene IV and now transition to oral meds with good control of BP. Continue amlodipine, clonidine, hydralazine, losartan, metoprolol, and minoxidil (5) Sepsis: Qualifiers: Acute respiratory failure type: with hypoxia Sepsis acute organ dysfunction status: with acute organ dysfunction Sepsis type: sepsis due to unspecified organism Severe sepsis acute organ dysfunction type: acute respiratory failure Severe sepsis shock status: without septic shock Qualified Code(s): A41.9 - Sepsis, unspecified organism; R65.20 - Severe sepsis without septic shock; J96.01 - Acute respiratory failure with hypoxia Code(s): A41.9 - Sepsis, unspecified organism Status: Acute Assessment and Plan: Present on admission with leukocytosis, tachycardia, tachypnea. Source of sepsis felt related to PNA. Echo also showing MV vegitation. BCx negative. Continue IV antibiotics. (6) Fluid overload: Qualifiers: Hypervolemia type: unspecified Qualified Code(s): E87.70 - Fluid overload, unspecified Code(s): E87.70 - Fluid overload, unspecified Status: Acute Assessment and Plan: The patient was clearly fluid overloaded on admission. Fluid status much better Echo showing EF 65% with grade I diastolic dysfunction. Continue HD to control fluid status. (7) UTI (urinary tract infection): Qualifiers: Hematuria presence: without hematuria Urinary tract infection type: site unspecified Qualified Code(s): N39.0 - Urinary tract infection, site not specified Code(s): N39.0 - Urinary tract infection, site not specified Status: Acute Assessment and Plan: Patient has abnormal urinalysis but patient with ESRD so probably related to stagnant urine. Urine culture negative. Doubt UTI. (8) Leukocytosis: Qualifiers: Leukocytosis type: unspecified Qualified Code(s): D72.829 - Elevated white blood cell count, unspecified Code(s): D72.829 - Elevated white blood cell count, unspecified Status: Acute Assessment and Plan: white count [id number] on admission and has trended to normal now. Related to above. (9) Anemia: Qualifiers: Anemia type: due to chronic kidney disease Chronic kidney disease stage: on chronic dialysis Qualified Code(s): N18.6 - End stage renal disease; D63.1 - Anemia in chronic kidney disease; Z99.2 - Dependence on renal dialysis Code
[2020-01-01 16:56] LABS: Glucose Point of Care 187 (65-105)
--- NOTE | 2020-01-01 17:06 | PM.PNNEP ---
Progress Note: A&P Assessment and Plan (1) End stage renal disease: Code(s): N18.6 - End stage renal disease Status: Chronic Assessment and Plan: hemodialysis tomorrow and continue M/W/ schedule while hospitalized follow electrolytes, volume status, and clearance (2) Hypertensive urgency: Code(s): I16.0 - Hypertensive urgency Status: Acute Assessment and Plan: better control at thsi time weaned off nicardipine gtt resumed on home medications (3) Acute respiratory failure with hypoxia: Code(s): J96.01 - Acute respiratory failure with hypoxia Status: Acute Assessment and Plan: thought to be due to a combination of pneumonia, fluid, and hypertension dry ultrafiltration yesterday for fluid removal BP better controlled on antibiotics for possible pneumonia (4) Pneumonia: Qualifiers: Laterality: right Lung location: middle lobe of lung Pneumonia type: due to unspecified organism Qualified Code(s): J18.9 - Pneumonia, unspecified organism Code(s): J18.9 - Pneumonia, unspecified organism Status: Acute Assessment and Plan: as suggested by admission imaging follow cultures on IV antibiotics Will continue to follow. Subjective Date/time seen: 01/01/20 17:06 Tolerated dialysis yesterday without any issues or problems; on/off fevers and echo concerning for possible endocarditis; Cardiology consulted for possible need for EITAN although blood cultures remain negative. Exam Narrative: Exam Narrative: General: WD/WN AA male in NAD Heart: normal S1 and S2; no rub Lungs: clear to auscultation Abdomen: soft, nontender, nondistended, positive bowel sounds Extremities: no cyanosis or clubbing; no edema Skin: warm and dry Objective Data Vital Signs Vital Signs: Vital Signs Temp Pulse Resp BP Pulse Ox 01/01/20 08:35 80 01/01/20 08:00 36.3 C L 70 16 143/57 H 99 01/01/20 00:42 80 01/01/20 00:00 36.5 C 87 16 149/56 H 98 12/31/19 23:15 36.8 C 83 16 164/66 H 12/31/19 23:04 80 144/56 H 12/31/19 22:45 85 168/69 H 12/31/19 22:30 86 153/66 H 12/31/19 22:15 85 156/58 H 12/31/19 22:00 81 152/61 H 12/31/19 21:45 87 157/65 H 12/31/19 21:30 84 152/66 H 12/31/19 21:15 86 154/66 H 12/31/19 21:00 85 147/65 H 12/31/19 20:45 85 137/57 L 12/31/19 20:30 88 143/59 H 12/31/19 20:15 86 159/71 H 12/31/19 19:59 84 160/73 H 12/31/19 19:49 36.6 C 86 16 150/68 H Intake/Output Intake/Output: Intake & Output 12/29/19 12/30/19 12/31/19 01/01/20 23:59 23:59 23:59 23:59 Intake Total 200 1350 540 710 Output Total 200 0 2500 Balance 0 1350 -1960 710 Meds/Results Medications: Active Medications Generic Name Dose Route Start Last Admin Trade Name Freq PRN Reason Stop Dose Admin Albuterol 2 puff 12/30/19 07:50 Proventil Hfa INHALATION Q4-6H PRN Shortness Of Breath Or Wheezing Amlodipine Besylate 10 mg 12/30/19 21:00 01/01/20 00:40 Norvasc PO 10 mg HS VAL Administration Apixaban 2.5 mg 12/30/19 09:00 01/01/20 15:56 Eliquis PO 2.5 mg BID VAL Administration Aspirin 81 mg 12/30/19 09:00 01/01/20 08:36 Aspirin Chewable PO 81 mg DAILY VAL Administration Clonidine HCl 0.2 mg 12/30/19 07:45 01/01/20 15:55 Catapres PO 0.2 mg Q8HR VAL Administration Dextrose 12.5 gm 12/30/19 08:25 Dextrose 50% Syringe IV PUSH PRN PRN Hypoglycemia Protocol Glucagon 1 mg 12/30/19 08:25 Glucagon For Inj IM PRN PRN Hypoglycemia Protocol Glucose 15 gm 12/30/19 08:25 Glutose 15 PO PRN PRN Hypoglycemia Protocol Hydralazine HCl 25 mg 12/30/19 09:00 01/01/20 15:56 Apresoline Tablet PO 25 mg BID VAL Administration Vancomycin HCl 1,500 mg in 500 mls @ 333.333 mls/hr 12/30/19 01:17 Vancomycin 1,500 Mg/D5w
[2020-01-01 21:41] VITALS: PULSE 72
[2020-01-01 22:40] LABS: Glucose Point of Care 295 (65-105)
[2020-01-01 23:12] VITALS: BP 169/70; PULSE 71; RESP 14; TEMP 36.4; O2SAT 99
[2020-01-02] VITALS (32 sets, daily range): BP systolic 133–172; BP diastolic 43–88; PULSE 55–83; RESP 12–18; TEMP 36.2–37; O2SAT 97–100
[2020-01-02] MEDS: cloNIDine HCL 0.2 MG TABLET PO ×3 (05:39→23:18)
[2020-01-02 07:16] LABS: Hematocrit 28.9 % (42.0-52.0); Hemoglobin 9.5 g/dL (14.0-18.0); Mean Corpuscular HGB Conc 32.9 g/dl (32-36); Mean Platelet Volume 11.4 fl (7.4-10.4); Platelet Count Result 194 k/mm3 (150-375); Red Blood Count 3.66 M/mm3 (4.6-6.20); White Blood Count 7.3 K/mm3 (4.5-10.0)
[2020-01-02 07:32] LABS: Albumin Level 3.5 g/dL (3.5-5.1); Anion Gap 12 mmol/L (8-16); Blood Urea Nitrogen 46 mg/dL (9-20); Carbon Dioxide 29 mmol/L (22-30); Chloride 97 mmol/L (98-107); Estimated CRCL calculation 14 ml/min; Estimated Glomerular Filt Rate 13; Glucose 158 mg/dL (75-110); Potassium 4.8 mmol/L (3.4-5.0); Sodium 138 mmol/L (137-145)
[2020-01-02] MEDS: APIXABAN 2.5 MG TABLET PO ×2 (09:00→17:07)
[2020-01-02] MEDS: EUCERIN CREAM 120 GM JAR 1 APPLIC TOPICAL (09:00)
[2020-01-02] MEDS: METOPROLOL TARTRATE 25 MG TABLET 75 MG PO ×2 (09:00→23:18)
[2020-01-02] MEDS: hydrALAZINE HCL 25 MG TABLET PO ×2 (09:01→17:06)
[2020-01-02 09:36] LABS: Glucose Point of Care 158 (65-105)
--- NOTE | 2020-01-02 11:30 | PC.NURSE ---
Patient to EITAN in bed.
[2020-01-02 11:59] LABS: Iron 107 ug/dL (49-181)
--- NOTE | 2020-01-02 12:03 | WPDMODSED ---
Moderate Sedation Note-Pt Data Patient Data Diagnosis: Mitral valve vegetation/endocarditis Procedure to be performed/Plan: transesophageal echocardiogram Allergies Allergy/AdvReac Type Severity Reaction Status Date / Time No Known Allergies Allergy Unverified 05/02/19 10:32 Home Medications Medication Instructions Recorded Confirmed Type amlodipine 10 mg PO HS 04/03/19 12/30/19 History acetaminophen 500 mg PO Q8H PRN 12/30/19 12/30/19 History albuterol sulfate 2 puff INHALATION Q4-6H PRN 12/30/19 12/30/19 History apixaban [Eliquis] 2.5 mg PO BID 12/30/19 12/30/19 History aspirin 81 mg PO DAILY 12/30/19 12/30/19 History clonidine HCl 0.2 mg PO Q8H 12/30/19 12/30/19 History glucagon HCl [Glucagon (HCl) 1 mg SUBCUT Q20M PRN 12/30/19 12/30/19 History Emergency Kit] hydralazine 25 mg PO BID 12/30/19 12/30/19 History insulin glargine [Lantus U-100 10 unit SUBCUT HS 12/30/19 12/30/19 History Insulin] insulin lispro See Rx Instructions .ROUTE .COMPLEX 12/30/19 12/30/19 History lorazepam 0.5 mg PO Q6H PRN 12/30/19 12/30/19 History losartan 100 mg PO HS 12/30/19 12/30/19 History metoprolol tartrate 50 mg PO BID 12/30/19 12/30/19 History minoxidil 2.5 mg PO BID 12/30/19 12/30/19 History pantoprazole 40 mg PO DAILY 12/30/19 12/30/19 History sucralfate [Carafate] 1 g PO AC 12/30/19 12/30/19 History tiotropium bromide [Spiriva 2 puff INHALATION QAM 12/30/19 12/30/19 History Respimat] vit B,D-PW-kdjg-selen-vit D3-E 1 tablet PO DAILY 12/30/19 12/30/19 History [RenaPlex-D] Current Medications: Active Medications Albuterol (Proventil Hfa) 2 puff INHALATION Q4-6H PRN PRN Reason: Shortness Of Breath Or Wheezing Amlodipine Besylate (Norvasc) 10 mg PO HS [facility] Last Admin: 01/01/20 21:42 Dose: 10 mg Documented by: Apixaban (Eliquis) 2.5 mg PO BID [facility] Last Admin: 01/02/20 09:00 Dose: 2.5 mg Documented by: Aspirin (Aspirin Chewable) 81 mg PO DAILY [facility] Last Admin: 01/01/20 08:36 Dose: 81 mg Documented by: Clonidine HCl (Catapres) 0.2 mg PO Q8HR [facility] Last Admin: 01/02/20 05:39 Dose: 0.2 mg Documented by: Dextrose (Dextrose 50% Syringe) 12.5 gm IV PUSH PRN PRN; Protocol PRN Reason: Hypoglycemia Epoetin Thien-epbx (Retacrit) 10,000 units IV PUSH ONCE ONE Stop: 01/02/20 19:54 Glucagon (Glucagon For Inj) 1 mg IM PRN PRN; Protocol PRN Reason: Hypoglycemia Glucose (Glutose 15) 15 gm PO PRN PRN; Protocol PRN Reason: Hypoglycemia Hydralazine HCl (Apresoline Tablet) 25 mg PO BID [facility] Last Admin: 01/02/20 09:01 Dose: 25 mg Documented by: Vancomycin HCl (Vancomycin 1,500 Mg/D5w 500 Ml) 1,500 mg in 500 mls @ 333.333 mls/hr IVPB PRN PRN PRN Reason: PER PROTOCOL Piperacillin Sod/Tazobactam Sod (Zosyn 2.25 Gm/D5w 50 Ml) 2.25 gm in 50 mls @ 100 mls/hr IVPB Q8HR [facility] Last Infusion: 01/02/20 06:35 Dose: Infused Documented by: Dextrose (Dextrose 5% 1,000 Ml) 1,000 mls @ 100 mls/hr IVPB PRN PRN; Protocol PRN Reason: Hypoglycemia Albumin Human (Albutein) 50 mls @ 999 mls/hr IVPB Q10M PRN PRN Reason: HYPOTENSION Stop: 01/29/20 11:12 Insulin Aspart (Novolog) 4 - 8 units SUB-Q [facility]; Protocol Last Admin: 01/02/20 07:47 Dose: Not Given Documented by: Insulin Glargine (Lantus) 10 units SUB-Q [facility] Last Admin: 01/01/20 21:32 Dose: 10 units Documented by: Losartan Potassium (Cozaar) 100 mg PO HS [facility] Last Admin: 01/01/20 21:42 Dose: 100 mg Documented by: Metoprolol Tartrate (Lopressor) 75 mg PO Q12HR [facility] Last Admin: 01/02/20 09:00 Dose: 75 mg Documented by: Minoxidil (Loniten) 2.5 mg PO BID [facility] Last Admin: 01/01/20 15:56 Dose: 2.5 mg Documented by: Multi-Ingred Cream/Lotion/Oil/Oint (Minerin Creme) 1 applic [facility] Ondansetron HCl (Zofran Inj) 4 mg IV PUSH Q6H PRN PRN Reason: Nausea And Vomiting Pantoprazole Sodium (Protonix) 40 mg PO QAM [facility] Last Admin: 01/01/20 08:36 Dose: 40 mg Documented by: Sucralfate (Carafate) 1 gm PO AC [facility] Last Admin: 01/01/20 15:56 Dose: 1 g
[2020-01-02 12:08] LABS: Percent Iron Saturation 59 % (20-50)
--- NOTE | 2020-01-02 12:33 | WPDTEECHO ---
EITAN TransEsophageal Echocardiogram Date of procedure: 01/02/20 Procedure Type: transesophageal echocardiogram Diagnosis: mitral valve vegetation/endocarditis Indications: mitral valve vegetation/endocarditis Image Quality: good Findings: Brief history present illness: Patient is a pleasant 59-year-old gentleman past medical history significant for end-stage renal disease on hemodialysis, diabetes mellitus, hypertension, chronic anemia admitted with nausea vomiting and hypertensive urgency. He had a surface echocardiogram which revealed mitral valve regurgitation and vegetation referred for transesophageal echocardiogram for further evaluation. Procedure in detail: After verbal and written informed consent was obtained the patient risks, benefits, and alternatives explained in detail the patient agreed to proceed with the plan of care as outlined above. The patient was evaluated at bedside in the [facility] procedure room. The posterior oropharynx, neck, and jaw angle all within normal limits on examination. Lungs were clear to auscultation. See pre-sedation note for further details The patient was then placed in the appropriate 30 to 45 degree angle supine position at a slight left lateral decubitus position. Patient was monitored throughout the study with telemetry, oxygen saturation, end-tidal CO2 monitoring, blood pressure, heart rate, and respirations. The posterior hypopharynx was then locally anesthetized using repeated administration of Hurricaine spray as well as gargled viscous lidocaine. After local anesthetic of the posterior hypopharynx was achieved and the oral bite block placed, moderate sedation was administered. After confirmation of adequate moderate sedation, the transesophageal echocardiogram probe was advanced through the oral bite block into the posterior hypopharynx and into the esophagus easily and without complication. Multiple, multiplanar echocardiographic images were obtained in multiple standard re- projections. Pulsed wave, continuous-wave, and color-flow Doppler were utilized in conjunction with this study. At the conclusion of the study, the transesophageal echocardiogram probe was removed easily and without complication. The patient tolerated the procedure well without difficulty. Patient was in sinus rhythm throughout the study. Moderate Sedation/Anesthesia administration: Patient reports no prior problems with sedation/anesthesia. Please see pre-sedation noted for physical examination documentation. As noted above, after adequate local anesthesia of the posterior hypopharynx was achieved, a total of 2 mg intravenous Versed and a total of 50 mcg intravenous Fentanyl was administered for moderate sedation. Sedation start time was 1216 and end time was 1233 for a total intra-service/procedure face-face time of 17 minutes. Sedation was administered by a qualified/certified observer Pat Chartrand, RN under my supervision with intra-procedure [id number] observation and management throughout the entirety of the procedure. There were no other issues or complications and patient tolerated the procedure well. See post-anesthesia documentation. Findings: -Left ventricular size and systolic function within normal limits without wall motion abnormalities with ejection fraction of 65%. Moderate concentric left ventricle hypertrophy. -Right ventricular size and systolic function within normal limits. -Left atrial size is severely enlarged. Right atrial size is moderately enlarged. -Interatrial septum is anatomically normal without evidence of shunt with color-flow Doppler nor with injection of agitated saline. -Mitral valve is anatomically normal with preserved leaflet excursion with moderate thickening of the posterior leaflet with a highly mobile, globular appearing echodensity consistent with vegetation. This echodensity appears to have 2 separate mobile components or heads each measuring 0.6x.04cm and 0.6
--- NOTE | 2020-01-02 13:24 | PC.NURSE ---
Patient back from EITAN by bed
[2020-01-02] MEDS: SUCRALFATE 1 GM TABLET PO ×2 (13:39→17:06)
[2020-01-02] MEDS: ASPIRIN 81 MG CHEWABLE TABLET PO (13:39)
[2020-01-02] MEDS: PANTOPRAZOLE 40 MG TABLET PO (13:39)
--- NOTE | 2020-01-02 14:30 | PM.IMPN ---
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 Cardiology consulted and EITAN performed 01/01. EITAN showing the mitral valve with a highly mobile, globular appearing echodensity consistent with vegetation. This echodensity appears to have 2 separate mobile components or heads each measuring 0.6x.04cm and 0.6x.05cm. Initial blood cultures (12/28) no growth but with fever. Repeat BCx (12/30) NGTD as well. Could be part of the group of HACEK organisms or marantic. Will continue IV abx in the form of Vanco and Zosyn. Consult ID now. Will have 12/28 BCx grown out for 10 days (discussed with Kymberly in the lab). (2) Pneumonia: Qualifiers: Laterality: right Lung location: middle lobe of lung Pneumonia type: due to unspecified organism Qualified Code(s): J18.9 - Pneumonia, unspecified organism Code(s): J18.9 - Pneumonia, unspecified organism Status: Acute Assessment and Plan: CXR on admisison concerning for PNA. Repeat CXR 12/31 showing improving findings. WBC normal now. Afebrile. Cultures are negative. Continue IV abx. Continue to monitor. (3) Acute respiratory failure with hypoxia: Code(s): J96.01 - Acute respiratory failure with hypoxia Status: Acute Assessment and Plan: The patient's acute respiratory failure appears to be secondary to pulmonary edema. Patient's x-ray and physical examination are most consistent with increased pulmonary congestion and pulmonary edema possibly relate to severe HTN. Weaned to RA now. (4) Hypertensive urgency: Code(s): I16.0 - Hypertensive urgency Status: Acute Assessment and Plan: BP markedly elevated on admisison. The patient was started on a Labetalol IV drip. He was changed to Cardene IV and now able to transition back to oral meds with good control of BP. Continue amlodipine, clonidine, hydralazine, losartan, metoprolol, and minoxidil. (5) Sepsis: Qualifiers: Acute respiratory failure type: with hypoxia Sepsis acute organ dysfunction status: with acute organ dysfunction Sepsis type: sepsis due to unspecified organism Severe sepsis acute organ dysfunction type: acute respiratory failure Severe sepsis shock status: without septic shock Qualified Code(s): A41.9 - Sepsis, unspecified organism; R65.20 - Severe sepsis without septic shock; J96.01 - Acute respiratory failure with hypoxia Code(s): A41.9 - Sepsis, unspecified organism Status: Acute Assessment and Plan: Present on admission with leukocytosis, tachycardia, and tachypnea. Source of sepsis felt related to PNA. Echo also showing MV vegetation. BCx negative. Continue IV antibiotics. (6) Fluid overload: Qualifiers: Hypervolemia type: unspecified Qualified Code(s): E87.70 - Fluid overload, unspecified Code(s): E87.70 - Fluid overload, unspecified Status: Acute Assessment and Plan: The patient was clearly fluid overloaded on admission per admitting provider. Fluid status much better. Echo showing EF 65% with grade I diastolic dysfunction. Continue HD to control fluid status. (7) Leukocytosis: Qualifiers: Leukocytosis type: unspecified Qualified Code(s): D72.829 - Elevated white blood cell count, unspecified Code(s): D72.829 - Elevated white blood cell count, unspecified Status: Acute Assessment and Plan: WBC 84516 on admission and has trended to normal now. Related to above. (8) Anemia: Qualifiers: Anemia type: due to chronic kidney disease Chronic kidney disease stage: on chronic dialysis Qualified Code(s): N18.6 - End stage renal disease; D63.1 - Anemia in chronic kidney disease; Z99.2 - Dependence on renal dialysis Code(s): D64.9 -
--- NOTE | 2020-01-02 14:54 | PM.PNNEP ---
Progress Note: A&P Assessment and Plan (1) End stage renal disease: Code(s): N18.6 - End stage renal disease Status: Chronic Assessment and Plan: hemodialysis today and continue // schedule while hospitalized follow electrolytes, volume status, and clearance (2) Hypertensive urgency: Code(s): I16.0 - Hypertensive urgency Status: Acute Assessment and Plan: resolved better control of BP at this time weaned off nicardipine gtt back on home medications (3) Acute respiratory failure with hypoxia: Code(s): J96.01 - Acute respiratory failure with hypoxia Status: Acute Assessment and Plan: thought to be due to a combination of pneumonia and pulmonary arnav on antibiotics for possible pneumonia 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 Subjective Date/time seen: 01/02/20 14:54 S/P EITAN earlier today with findings noted (endocarditis) -- presumably this is etiology of fevers(?); due for dialysis later today; blood pressure and breathing/respiratory status appear to be doing significantly better at this time; no events overnight or earlier this AM. Exam Narrative: Exam Narrative: General: WD/WN AA male in NAD Heart: normal S1 and S2; no rub Lungs: clear to auscultation Abdomen: soft, nontender, nondistended, positive bowel sounds Extremities: no cyanosis or clubbing; no edema Skin: warm and intact Objective Data Vital Signs Vital Signs: Vital Signs Temp Pulse Resp BP Pulse Ox 01/02/20 13:15 61 18 144/47 H 98 01/02/20 13:00 64 14 162/58 H 97 01/02/20 12:45 67 14 133/57 L 98 01/02/20 12:35 55 L 18 147/59 H 98 01/02/20 12:30 69 17 165/71 H 100 01/02/20 12:25 65 16 152/64 H 99 01/02/20 12:20 66 12 159/66 H 99 01/02/20 12:15 65 15 144/88 H 100 01/02/20 09:00 80 01/02/20 06:33 36.2 C L 78 12 170/66 H 100 01/01/20 23:12 36.4 C L 71 14 169/70 H 99 01/01/20 21:41 72 Intake/Output Intake/Output: Intake & Output 12/30/19 12/31/19 01/01/20 01/02/20 23:59 23:59 23:59 23:59 Intake Total 2293 589 5037 350 Output Total 0 2500 Balance 1350 -1960 1400 350 Meds/Results Medications: Active Medications Generic Name Dose Route Start Last Admin Trade Name Freq PRN Reason Stop Dose Admin Albuterol 2 puff 12/30/19 07:50 Proventil Hfa INHALATION Q4-6H PRN Shortness Of Breath Or Wheezing Amlodipine Besylate 10 mg 12/30/19 21:00 01/01/20 21:42 Norvasc PO 10 mg HS VAL Administration Apixaban 2.5 mg 12/30/19 09:00 01/02/20 09:00 Eliquis PO 2.5 mg BID VAL Administration Aspirin 81 mg 12/30/19 09:00 01/02/20 13:39 Aspirin Chewable PO 81 mg DAILY VAL Administration Clonidine HCl 0.2 mg 12/30/19 07:45 01/02/20 05:39 Catapres PO 0.2 mg Q8HR VAL Administration Dextrose 12.5 gm 12/30/19 08:25 Dextrose 50% Syringe IV PUSH PRN PRN Hypoglycemia Protocol Epoetin Thien-epbx 10,000 units 01/02/20 19:53 Retacrit IV PUSH 01/02/20 19:54 ONCE ONE Glucagon 1 mg 12/30/19 08:25 Glucagon For Inj IM PRN PRN Hypoglycemia Protocol Glucose 15 gm 12/30/19 08:25 Glutose 15 PO PRN PRN Hypoglycemia Protocol Hydralazine HCl 25 mg 12/30/19 09:00 01/02/20
--- NOTE | 2020-01-02 14:55 | ECG_ITS ---
Measurements Intervals Bude Rate: 67 P: 73 NH: 202 QRS: -58 QRSD: 109 T: 86 QT: 422 QTc: 448 Interpretive Statements SINUS RHYTHM BORDERLINE AV CONDUCTION DELAY INCOMPLETE RIGHT BUNDLE BRANCH BLOCK LEFT ANTERIOR FASCICULAR BLOCK BORDERLINE T WAVE ABNORMALITY- HIGH LATERAL LEADS ABNORMAL ECG Electronically Signed On 01-02-2020 15:27:27 CDT by Ben Bobby D.O.
[2020-01-02] MEDS: minoxidiL 2.5 MG TABLET PO (17:07)
[2020-01-02] MEDS: INSULIN ASPART (*BKC) 100 UNITS/ML SUB-Q (18:04)
[2020-01-02 18:18] LABS: Glucose Point of Care 210 (65-105)
[2020-01-02] MEDS: EPOETIN ALFA-EPBX 10,000 UNITS/ML VIAL 10000 UNITS IV PUSH (20:48)
[2020-01-02 21:01] LABS: Glucose Point of Care 183 (65-105)
[2020-01-02] MEDS: INSULIN GLARGINE (*BKC) 100 UNITS/ML 10 UNITS SUB-Q (22:59)
[2020-01-02] MEDS: amLODIPine BESYLATE 5 MG TABLET 10 MG PO (23:19)
[2020-01-02] MEDS: LOSARTAN POTASSIUM 100 MG TABLET PO (23:19)
[2020-01-03 00:54] LABS: Vancomycin Random 6.8 ug/mL (10-20)
--- NOTE | 2020-01-03 01:20 | PC.NURSE ---
01/02/20 1950- pt transported to Dialysis via bed with 2 staff assist. 01/03/20 0110- Pt returned to room at this time from Dialysis with 2 staff assist via bed.
[2020-01-03 05:51] VITALS: BP 120/61; PULSE 81; RESP 18; TEMP 36.7; O2SAT 97
[2020-01-03] MEDS: cloNIDine HCL 0.2 MG TABLET PO ×3 (06:12→21:12)
[2020-01-03] MEDS: SUCRALFATE 1 GM TABLET PO ×3 (06:12→16:05)
[2020-01-03 06:43] LABS: Estimated CRCL calculation 25 ml/min; Estimated Glomerular Filt Rate 25
[2020-01-03 07:58] VITALS: PULSE 81
[2020-01-03] MEDS: METOPROLOL TARTRATE 25 MG TABLET 75 MG PO ×2 (07:58→21:12)
[2020-01-03] MEDS: minoxidiL 2.5 MG TABLET PO ×2 (07:59→16:05)
[2020-01-03] MEDS: ASPIRIN 81 MG CHEWABLE TABLET PO (07:59)
[2020-01-03] MEDS: PANTOPRAZOLE 40 MG TABLET PO (07:59)
[2020-01-03] MEDS: APIXABAN 2.5 MG TABLET PO ×2 (07:59→16:05)
[2020-01-03] MEDS: hydrALAZINE HCL 25 MG TABLET PO ×2 (08:00→16:05)
[2020-01-03] MEDS: INSULIN ASPART (*BKC) 100 UNITS/ML SUB-Q ×2 (08:01→18:05)
[2020-01-03] MEDS: EUCERIN CREAM 120 GM JAR 1 APPLIC TOPICAL (08:01)
[2020-01-03] MEDS: ONDANSETRON INJ 4 MG/2 ML VIAL IV PUSH (08:15)
[2020-01-03 09:11] LABS: Glucose Point of Care 248 (65-105)
--- NOTE | 2020-01-03 09:22 | PM.PNNEP ---
Progress Note: A&P Assessment and Plan (1) End stage renal disease: Code(s): N18.6 - End stage renal disease Status: Chronic Assessment and Plan: hemodialysis tomorrow and continue M/W/ schedule while hospitalized follow electrolytes, volume status, and clearance (2) Hypertensive urgency: Code(s): I16.0 - Hypertensive urgency Status: Acute Assessment and Plan: resolved better control of BP at this time back on home medications (3) Acute respiratory failure with hypoxia: Code(s): J96.01 - Acute respiratory failure with hypoxia Status: Acute Assessment and Plan: doing better/improved thought to be due to a combination of pneumonia and pulmonary edema on antibiotics for possible pneumonia 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 Subjective Date/time seen: 01/03/20 09:22 Tolerated dialysis yesterday evening without any issues or problems; no other acute issues or problems to report at this time; states he feels well; no events overnight or earlier this AM. Exam Narrative: Exam Narrative: General: WD/WN AA male in NAD Heart: normal S1 and S2; no rub Lungs: clear to auscultation Abdomen: soft, nontender, nondistended, positive bowel sounds Extremities: no cyanosis or clubbing; no edema Skin: no rash or nodules Objective Data Vital Signs Vital Signs: Vital Signs Temp Pulse Resp BP Pulse Ox 01/03/20 07:58 81 01/03/20 05:51 36.7 C 81 18 120/61 97 01/02/20 23:34 36.7 C 83 18 144/55 H 100 01/02/20 23:31 83 140/57 L 01/02/20 23:28 83 140/57 L 01/02/20 23:18 77 01/02/20 23:15 77 155/43 H 01/02/20 23:00 78 165/61 H 01/02/20 22:45 80 172/63 H 01/02/20 22:30 77 158/44 H 01/02/20 22:15 78 167/64 H 01/02/20 22:00 80 166/64 H 01/02/20 21:45 72 163/66 H 01/02/20 21:30 80 160/61 H 01/02/20 21:15 74 146/52 H 01/02/20 21:00 74 162/65 H 01/02/20 20:50 73 152/61 H 01/02/20 20:30 71 149/58 H 01/02/20 20:15 71 144/60 H 01/02/20 20:00 70 157/64 H 01/02/20 19:57 72 150/55 H 01/02/20 19:50 36.7 C 71 18 155/58 H 01/02/20 14:00 36.8 C 78 16 150/53 H 99 01/02/20 13:15 61 18 144/47 H 98 01/02/20 13:00 64 14 162/58 H 97 01/02/20 12:45 67 14 133/57 L 98 01/02/20 12:35 55 L 18 147/59 H 98 01/02/20 12:30 69 17 165/71 H 100 01/02/20 12:25 65 16 152/64 H 99 01/02/20 12:20 66 12 159/66 H 99 01/02/20 12:15 65 15 144/88 H 100 Intake/Output Intake/Output: Intake & Output 12/31/19 01/01/20 01/02/20 01/03/20 23:59 23:59 23:59 23:59 Intake Total 540 1400 520 330 Output Total 2500 4000 Balance -1960 1400 -3480 330 Meds/Results Medications: Active Medications Generic Name Dose Route Start Last Admin Trade Name Freq PRN Reason Stop Dose Admin Albuterol 2 puff 12/30/19 07:50 Proventil Hfa INHALATION Q4-6H PRN Shortness Of Breath Or Wheezing Amlodipine Besylate 10 mg 12/30/19 21:00 01/02/20 23:19 Norvasc PO 10 mg HS VAL Administration Apixaban 2.5 mg 12/30/19 09:00 01/03/20 07:59 Eliquis PO 2.5 mg BID VAL Administration Aspirin 81 mg 12/30/19 09:00 01/03/20 07:59 Aspirin Chewable PO 81 mg DA
[2020-01-03 12:23] LABS: Glucose Point of Care 186 (65-105)
--- NOTE | 2020-01-03 13:52 | WPDINFPN2 ---
Progress Note: A&P Assessment and Plan (1) Mitral valve vegetation: Code(s): I33.0 - Acute and subacute infective endocarditis Status: Acute Assessment and Plan: MV vegetation, probably infectious, no Hx IE. CRF REC Vanc #5, Ctx #1. Further labs and BCs. Subjective Date/time seen: 01/03/20 13:52 Objective Data Vital Signs Vital Signs: Vital Signs - 24 hr 01/02/20 14:00 01/02/20 19:50 01/02/20 19:57 Temperature 36.8 C 36.7 C Pulse Rate 78 71 72 Respiratory Rate 16 18 Blood Pressure 150/53 H 155/58 H 150/55 H Pulse Oximetry 99 01/02/20 20:00 01/02/20 20:15 01/02/20 20:30 Temperature Pulse Rate 70 71 71 Respiratory Rate Blood Pressure 157/64 H 144/60 H 149/58 H Pulse Oximetry 01/02/20 20:50 01/02/20 21:00 01/02/20 21:15 Temperature Pulse Rate 73 74 74 Respiratory Rate Blood Pressure 152/61 H 162/65 H 146/52 H Pulse Oximetry 01/02/20 21:30 01/02/20 21:45 01/02/20 22:00 Temperature Pulse Rate 80 72 80 Respiratory Rate Blood Pressure 160/61 H 163/66 H 166/64 H Pulse Oximetry 01/02/20 22:15 01/02/20 22:30 01/02/20 22:45 Temperature Pulse Rate 78 77 80 Respiratory Rate Blood Pressure 167/64 H 158/44 H 172/63 H Pulse Oximetry 01/02/20 23:00 01/02/20 23:15 01/02/20 23:18 Temperature Pulse Rate 78 77 77 Respiratory Rate Blood Pressure 165/61 H 155/43 H Pulse Oximetry 01/02/20 23:28 01/02/20 23:31 01/02/20 23:34 Temperature 36.7 C Pulse Rate 83 83 83 Respiratory Rate 18 Blood Pressure 140/57 L 140/57 L 144/55 H Pulse Oximetry 100 01/03/20 05:51 01/03/20 07:58 Temperature 36.7 C Pulse Rate 81 81 Respiratory Rate 18 Blood Pressure 120/61 Pulse Oximetry 97 Intake/Output Intake/Output: Intake & Output 12/31/19 01/01/20 01/02/2001/02/20 23:59 23:59 23:59 23:59 Intake Total 540 1400 520 750 Output Total 2500 4000 Balance -1960 1400 -1570 750 Meds/Results Medications: Active Medications Generic Name Dose Route Start Last Admin Trade Name Freq PRN Reason Stop Dose Admin Albuterol 2 puff 12/30/19 07:50 Proventil Hfa INHALATION Q4-6H PRN Shortness Of Breath Or Wheezing Amlodipine Besylate 10 mg 12/30/19 21:00 01/02/20 23:19 Norvasc PO 10 mg HS VAL Administration Apixaban 2.5 mg 12/30/19 09:00 01/03/20 07:59 Eliquis PO 2.5 mg BID VAL Administration Aspirin 81 mg 12/30/19 09:00 01/03/20 07:59 Aspirin Chewable PO 81 mg DAILY VAL Administration Clonidine HCl 0.2 mg 12/30/19 07:45 01/03/20 06:12 Catapres PO 0.2 mg Q8HR VAL Administration Dextrose 12.5 gm 12/30/19 08:25 Dextrose 50% Syringe IV PUSH PRN PRN Hypoglycemia Protocol Glucagon 1 mg 12/30/19 08:25 Glucagon For Inj IM PRN PRN Hypoglycemia Protocol Glucose 15 gm 12/30/19 08:25 Glutose 15 PO PRN PRN Hypoglycemia Protocol Hydralazine HCl 25 mg 12/30/19 09:00 01/03/20 08:00 Apresoline Tablet PO 25 mg BID VAL Administration Vancomycin HCl 1,500 mg in 500 mls @ 333.333 mls/hr 12/30/19 01:17 Vancomycin 1,500 Mg/D5w 500 Ml IVPB PRN PRN PER PROTOCOL Dextrose 1,000 mls @ 100 mls/hr 12/30/19 08:25 Dextrose 5% 1,000 Ml IVPB PRN PRN Hypoglycemia Protocol Albumin Human 50 mls @ 999 mls/hr 12/30/19 11:11 Albutein IVPB 01/29/20 11:12 Q10M PRN HYPOTENSION Ceftriaxone Sodium 2 gm in 100 mls @ 200 mls/hr 01/03/20 13:20 Rocephin 2 Gm/D5w 100 Ml IVPB NOON VAL Insulin Aspart 4 - 8 units 12/31/19 11:30 01/03/20 12:55 Novolog SUB-Q Not Given [facility] Protocol Insulin Glargine 10 units 12/30/19 21:00 01/02/20 22:59 Lantus SUB-Q 10 units HS VAL Administration Losartan Potassium 100 mg 12/30/19 21:00 01/02/20 23:19 Cozaar PO 100 mg HS VAL Administration Metoprolol Tartrate 75 mg 12/30/19 21:00 01/02
--- NOTE | 2020-01-03 14:05 | PC.NURSE ---
On 01/03/20, the student, [ Cathleen Deal], provided care and completed [facility] documentation on this patient. I have reviewed the student's documentation and agree with the findings.
[2020-01-03 14:17] VITALS: BP 152/48; PULSE 70; RESP 18; TEMP 36.7; O2SAT 99
--- NOTE | 2020-01-03 15:08 | CONS_ITS ---
DATE OF CONSULTATION: 01/03/2020 REASON FOR CONSULTATION: Mitral valve vegetation. HISTORY OF PRESENT ILLNESS: A 59-year-old male, chronic renal failure for many years, fistula in the left forearm. He knows of no malfunction of the fistula. He was at [facility] in September of this year with respiratory distress due to fluid overload. He received IV antibiotics initially apparently for concern over respiratory tract infection. No mention is made, however, of positive blood cultures, in his discharge summary. He presented to the hospital here 4 days ago with 2 days of nausea and vomiting, dyspnea. On initial evaluation, he was believed to have hypertensive urgency and potential pneumonia. He was given vancomycin and piperacillin, remains on both those now, day 5. He had a single fever up to 38.2 while here. Otherwise, he has been afebrile. He knows of no fever, chills, or sweats at his [facility]. His hospital course otherwise has been complicated by respiratory insufficiency with hypoxia, now resolved; fluid overload; anemia; hyperglycemia. His coronavirus testing has been negative. Apparently due to the fluid status, he had a EITAN done yesterday, which revealed vegetation in the mitral valve position. Size difficult to assess, but appeared to be about 0.6 cm and bilobed. I was not notified of the consult until 1 hour ago. He denies any complaints currently. ALLERGIES: NONE KNOWN. PRESENT MEDICATIONS: No immunosuppressants. HABITS: Ex alcohol. Ex tobacco. PAST MEDICAL HISTORY: In addition to the above, hyperlipidemia, hypertension, NH, diabetes mellitus, anemia. FAMILY HISTORY: Not pertinent to his present illness. SOCIAL HISTORY: He is single, lives with his sister in [place] usually, but most recently in a fci. REVIEW OF SYSTEMS: Limited by the patient's memory. Otherwise, 14-point review is negative. PHYSICAL EXAMINATION: GENERAL: This is a chronically ill-appearing male, older than his actual age. No respiratory distress. VITAL SIGNS: T-max as above since admission, now afebrile consistently, 120/61, 81, 18, 97% on room air. SKIN: Warm and dry. No ulcers. He has dried skin over both distal legs and feet with some white cream in place. He has skin atrophy diffusely. Fistula without erythema, warmth, tenderness, left forearm. HEENT: Conjunctivae are normal, pale, however. Pupils minimally reactive and apparently cataract extraction on the right. He has very poor dentition (has not seen a dentist in over 1 year), oropharynx, oral mucosa normal. NECK: No masses, adenopathy, or meningismus. LUNGS: Clear to auscultation and percussion. CARDIAC: Regular rate and rhythm. No murmur, gallop, or rub. ABDOMEN: Soft, nontender. No organomegaly. No masses. EXTREMITIES: Muscle wasting. No clubbing, cyanosis, or edema. No splinter hemorrhages. LABORATORY DATA: Blood cultures 4 sets total, no growth so far. Urine culture, no growth. Urinalysis, multiple abnormalities, which are reviewed, not particularly suggestive of infection. He had some mild anemia, which is now stable at 9.5, platelets are 194. His white count on admission 24.1, now 7.3. Blood gases 7.39, 41, 64, 24, 92% on 4 L. His electrolytes are all normal. BUN 46, creatinine 5.5, glucose 158, was 256 on admission. Hemoglobin A1c 9.2%. This was April 04 this year. Transaminases normal. Coronavirus assay nonreactive. Vancomycin levels subtherapeutic. RADIOLOGY: EITAN as above. His chest x-ray performed 2 days ago, improving reticulonodular opacities. ASSESSMENT: 1. Pulmonary edema. 2. Hypertension. 3. Fever and leukocytosis, improved, could be due to respiratory tract infection or endocarditis. 4. Mitral valve vegetation, probably infecti
--- NOTE | 2020-01-03 16:43 | PM.IMPN ---
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 Cardiology consulted and EITAN performed 01/01 showing the mitral valve with a highly mobile, globular appearing echodensity consistent with vegetation. This echodensity appears to have 2 separate mobile components or heads each measuring 0.6x.04cm and 0.6x.05cm. Initial blood cultures (12/28) no growth but with fever. Repeat BCx (12/30) NGTD as well. Could be part of the group of HACEK organisms or marantic. ID consulted and abx adjusted. Ceftriaxone Day 1 and Vanco Day 5. We are growing out BCs for 10 days. (2) Pneumonia: Qualifiers: Laterality: right Lung location: middle lobe of lung Pneumonia type: due to unspecified organism Qualified Code(s): J18.9 - Pneumonia, unspecified organism Code(s): J18.9 - Pneumonia, unspecified organism Status: Acute Assessment and Plan: CXR on admisison concerning for PNA. Repeat CXR 12/31 showing improving findings. WBC normal now. Afebrile. All cultures are negative. Continue IV abx as above. Continue to monitor. (3) Acute respiratory failure with hypoxia: Code(s): J96.01 - Acute respiratory failure with hypoxia Status: Acute Assessment and Plan: The patient's acute respiratory failure appears to be secondary to pulmonary edema. Patient's x-ray and physical examination are most consistent with increased pulmonary congestion and pulmonary edema possibly relate to severe HTN. Weaned to RA now. HD to control fluid status. (4) Hypertensive urgency: Code(s): I16.0 - Hypertensive urgency Status: Acute Assessment and Plan: BP markedly elevated on admisison. The patient was started on a Labetalol IV drip. He was changed to Cardene IV and now able to transition back to oral meds with good control of BP. Continue amlodipine, clonidine, hydralazine, losartan, metoprolol, and minoxidil. (5) Sepsis: Qualifiers: Acute respiratory failure type: with hypoxia Sepsis acute organ dysfunction status: with acute organ dysfunction Sepsis type: sepsis due to unspecified organism Severe sepsis acute organ dysfunction type: acute respiratory failure Severe sepsis shock status: without septic shock Qualified Code(s): A41.9 - Sepsis, unspecified organism; R65.20 - Severe sepsis without septic shock; J96.01 - Acute respiratory failure with hypoxia Code(s): A41.9 - Sepsis, unspecified organism Status: Acute Assessment and Plan: Present on admission with leukocytosis, tachycardia, and tachypnea. Source of sepsis felt related to PNA and endocarditis with Echo also showing MV vegetation. BCx negative. Continue IV antibiotics. (6) Fluid overload: Qualifiers: Hypervolemia type: unspecified Qualified Code(s): E87.70 - Fluid overload, unspecified Code(s): E87.70 - Fluid overload, unspecified Status: Acute Assessment and Plan: The patient was clearly fluid overloaded on admission per admitting provider. Fluid status much better. Echo showing EF 65% with grade I diastolic dysfunction. Continue HD to control fluid status. (7) Leukocytosis: Qualifiers: Leukocytosis type: unspecified Qualified Code(s): D72.829 - Elevated white blood cell count, unspecified Code(s): D72.829 - Elevated white blood cell count, unspecified Status: Acute Assessment and Plan: WBC 58384 on admission and has trended to normal now. Related to above. (8) Anemia: Qualifiers: Anemia type: due to chronic kidney disease Chronic kidney disease stage: on chronic dialysis Qualified Code(s): N18.6 - End stage renal disease; D63.1 - Anemia in chronic kidney disease; Z99.2 - Dependence on renal dialysis Cod
[2020-01-03 17:17] LABS: Glucose Point of Care 253 (65-105)
[2020-01-03] MEDS: amLODIPine BESYLATE 5 MG TABLET 10 MG PO (21:10)
[2020-01-03 21:12] VITALS: PULSE 77
[2020-01-03] MEDS: LOSARTAN POTASSIUM 100 MG TABLET PO (21:13)
[2020-01-03] MEDS: INSULIN GLARGINE (*BKC) 100 UNITS/ML 15 UNITS SUB-Q (21:16)
[2020-01-03 21:26] LABS: Glucose Point of Care 286 (65-105)
[2020-01-03 22:00] VITALS: BP 178/57; PULSE 73; RESP 18; TEMP 36.6; O2SAT 98
[2020-01-04 06:00] VITALS: BP 168/59; PULSE 73; RESP 18; TEMP 36.6; O2SAT 100
[2020-01-04 07:47] LABS: Erythrocyte Sedimentation Rate 57 mm/hr (0-20)
[2020-01-04] MEDS: SUCRALFATE 1 GM TABLET PO ×3 (08:36→16:07)
[2020-01-04] MEDS: cloNIDine HCL 0.2 MG TABLET PO ×3 (08:36→21:18)
[2020-01-04] MEDS: ASPIRIN 81 MG CHEWABLE TABLET PO (08:36)
[2020-01-04] MEDS: minoxidiL 2.5 MG TABLET PO ×2 (08:37→16:06)
[2020-01-04] MEDS: METOPROLOL TARTRATE 25 MG TABLET 75 MG PO ×2 (08:37→21:17)
[2020-01-04] MEDS: PANTOPRAZOLE 40 MG TABLET PO (08:37)
[2020-01-04] MEDS: APIXABAN 2.5 MG TABLET PO (08:37)
[2020-01-04] MEDS: hydrALAZINE HCL 25 MG TABLET PO ×2 (08:37→16:06)
[2020-01-04] MEDS: EUCERIN CREAM 120 GM JAR 1 APPLIC TOPICAL (08:38)
[2020-01-04 08:39] LABS: CRP 1.4 mg/dL (<1.0)
[2020-01-04] MEDS: INSULIN ASPART (*BKC) 100 UNITS/ML SUB-Q ×3 (08:39→21:19)
[2020-01-04 08:56] LABS: Glucose Point of Care 207 (65-105)
--- NOTE | 2020-01-04 11:02 | PCNWS ---
Weekly nutritional screen. Patient is tolerating current diet with adequate intake. No weight loss reported. No nutritional needs at this time.
--- NOTE | 2020-01-04 13:36 | PM.IMPN ---
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 Cardiology consulted and EITAN performed 01/01 showing the mitral valve with a highly mobile, globular appearing echodensity consistent with vegetation. This echodensity appears to have 2 separate mobile components or heads each measuring 0.6x.04cm and 0.6x.05cm. Initial blood cultures (12/28) no growth but with fever. Repeat BCx (12/30) NGTD as well. Could be part of the group of HACEK organisms or marantic. ID consulted and abx adjusted. Ceftriaxone Day 2 and Vanco Day 6. ESR 57. We are growing out BCs for 10 days. Discussed with ID and Nephrology. Plan for Mann but can not be placed until Tuesday per Gen Surgery. Abx through 02/10/20. Eliquis now on hold. (2) Pneumonia: Qualifiers: Laterality: right Lung location: middle lobe of lung Pneumonia type: due to unspecified organism Qualified Code(s): J18.9 - Pneumonia, unspecified organism Code(s): J18.9 - Pneumonia, unspecified organism Status: Acute Assessment and Plan: CXR on admisison concerning for PNA. Repeat CXR 12/31 showing improving findings. WBC normal now. Afebrile. All cultures are negative. Continue IV abx as above. Continue to monitor. (3) Acute respiratory failure with hypoxia: Code(s): J96.01 - Acute respiratory failure with hypoxia Status: Acute Assessment and Plan: The patient's acute respiratory failure appears to be secondary to pulmonary edema +/- PNA. Patient's x-ray and physical examination are most consistent with increased pulmonary congestion and pulmonary edema possibly relate to severe HTN. Weaned to RA now. HD to control fluid status. (4) Hypertensive urgency: Code(s): I16.0 - Hypertensive urgency Status: Acute Assessment and Plan: BP markedly elevated on admisison. The patient was started on a Labetalol IV drip. He was changed to Cardene IV and now able to transition back to oral meds with better control of BP. BP reviewed on 01/03. Continue amlodipine, clonidine, hydralazine, losartan, metoprolol, and minoxidil. (5) Sepsis: Qualifiers: Acute respiratory failure type: with hypoxia Sepsis acute organ dysfunction status: with acute organ dysfunction Sepsis type: sepsis due to unspecified organism Severe sepsis acute organ dysfunction type: acute respiratory failure Severe sepsis shock status: without septic shock Qualified Code(s): A41.9 - Sepsis, unspecified organism; R65.20 - Severe sepsis without septic shock; J96.01 - Acute respiratory failure with hypoxia Code(s): A41.9 - Sepsis, unspecified organism Status: Acute Assessment and Plan: Present on admission with leukocytosis, tachycardia, and tachypnea. Source of sepsis felt related to PNA and endocarditis with Echo showing MV vegetation. BCx negative. Continue IV antibiotics. (6) Fluid overload: Qualifiers: Hypervolemia type: unspecified Qualified Code(s): E87.70 - Fluid overload, unspecified Code(s): E87.70 - Fluid overload, unspecified Status: Acute Assessment and Plan: The patient was clearly fluid overloaded on admission per admitting provider. Fluid status much better. Echo showing EF 65% with grade I diastolic dysfunction. Continue HD to control fluid status. (7) Leukocytosis: Qualifiers: Leukocytosis type: unspecified Qualified Code(s): D72.829 - Elevated white blood cell count, unspecified Code(s): D72.829 - Elevated white blood cell count, unspecified Status: Acute Assessment and Plan: WBC 57826 on admission and has trended to normal now. Related to above. (8) Anemia: Qualifiers: Anemia type: due to chronic kidney disease Chronic kidn
--- NOTE | 2020-01-04 14:28 | PM.CNGS ---
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 No consult is needed. Will place right internal jugular tunneled Mann catheter for several weeks of IV antibiotics on TuesdayJanuary 06 at 11:30 a.m. in the OR under fluoroscopy. (3) End stage renal disease: Code(s): N18.6 - End stage renal disease Status: Chronic History of Present Illness Consult details Consult date: 01/04/20 Reason for consult: central line PMFSH Past Medical History Medical History Anemia Diabetes mellitus End-stage renal disease on hemodialysis History of MD (myocardial infarction) Hyperlipidemia Hypertension Nausea and vomiting in adult Surgical History Surgical History Status post creation of arteriovenous fistula Family History Family History Mother Hypertension Diabetes mellitus Father Hypertension Diabetes mellitus Other Unknown family medical history Social History Social History Social History: Patient lives with his sister. He is a full code. His sister is his POA. He is a former smoker. He also reports former alcohol use drinking beer daily. He is . He does have 2 daughters. Smoking packs per day: 1 Smoking cigarettes per day: 20.0 Smoking status: Former smoker Tobacco type: cigarettes Additional smoking assessment comments: Patient reports smoking 1 pack per day for many years. Alcohol intake: former Substance use: never Other substance usage details: Has only used marijuana in the past. Additional living arrangements comments: Lives with his sister. Gender identity (if verbalized by the patient): Male Spiritual care concerns: No Agree to blood products: Yes Meds Home Medications and Allergies Home Medications Medication Instructions Recorded Confirmed Type amlodipine 10 mg PO HS 04/03/19 12/30/19 History acetaminophen 500 mg PO Q8H PRN 12/30/19 12/30/19 History albuterol sulfate 2 puff INHALATION Q4-6H PRN 12/30/19 12/30/19 History apixaban [Eliquis] 2.5 mg PO BID 12/30/19 12/30/19 History aspirin 81 mg PO DAILY 12/30/19 12/30/19 History clonidine HCl 0.2 mg PO Q8H 12/30/19 12/30/19 History glucagon HCl [Glucagon (HCl) 1 mg SUBCUT Q20M PRN 12/30/19 12/30/19 History Emergency Kit] hydralazine 25 mg PO BID 12/30/19 12/30/19 History insulin glargine [Lantus U-100 10 unit SUBCUT HS 12/30/19 12/30/19 History Insulin] insulin lispro See Rx Instructions .ROUTE .COMPLEX 12/30/19 12/30/19 History lorazepam 0.5 mg PO Q6H PRN 12/30/19 12/30/19 History losartan 100 mg PO HS 12/30/19 12/30/19 History metoprolol tartrate 50 mg PO BID 12/30/19 12/30/19 History minoxidil 2.5 mg PO BID 12/30/19 12/30/19 History pantoprazole 40 mg PO DAILY 12/30/19 12/30/19 History sucralfate [Carafate] 1 g PO AC 12/30/19 12/30/19 History tiotropium bromide [Spiriva 2 puff INHALATION QAM 12/30/19 12/30/19 History Respimat] vit B,U-TA-spjd-selen-vit D3-E 1 tablet PO DAILY 12/30/19 12/30/19 History [RenaPlex-D] Allergies Allergy/AdvReac Type Severity Reaction Status Date / Time No Known Allergies Allergy Unverified 05/02/19 10:32 Vital Signs Vital Signs - 24 hr 01/03/20 21:12 01/03/20 22:00 01/04/20 06:00 Temperature 36.6 C 36.6 C Pulse Rate 77 73 73 Respiratory Rate 18 18 Blood Pressure 178/57 H 168/59 H Pulse Oximetry 98 100 Results Labs Result diagrams: 01/02/20 06:44
--- NOTE | 2020-01-04 15:12 | P.PNNP_ITS ---
Progress Note: A&P Assessment and Plan (1) End stage renal disease: Code(s): N18.6 - End stage renal disease Status: Chronic Assessment and Plan: * hemodialysis tomorrow and then resume M/W/F schedule next week while hospitalized * follow electrolytes, volume status, and clearance (2) Hypertensive urgency: Code(s): I16.0 - Hypertensive urgency Status: Acute Assessment and Plan: * resolved * better control of BP at this time * back on home medications (3) Acute respiratory failure with hypoxia: Code(s): J96.01 - Acute respiratory failure with hypoxia Status: Acute Assessment and Plan: * doing better/improved * thought to be due to a combination of pneumonia and pulmonary edema * on antibiotics for possible pneumonia 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 Subjective Date/time seen: 01/04/20 15:12 No acute complaints voiced; no apparent distress; feels reasonably well; General Surgery consulted for Mann catheter placement for prolonged IV antibiotics given his endocarditis; otherwise, no events overnight or earlier this AM. Exam Narrative: Exam Narrative: General: WD/WN AA male in NAD Heart: normal S1 and S2; no rub Lungs: clear to auscultation Abdomen: soft, nontender, nondistended, positive bowel sounds Extremities: no cyanosis or clubbing; no edema Skin: no rash or nodules Objective Data Vital Signs Vital Signs: Vital Signs Temp Pulse Resp BP Pulse Ox 01/04/20 06:00 36.6 C 73 18 168/59 H 100 01/03/20 22:00 36.6 C 73 18 178/57 H 98 01/03/20 21:12 77 Intake/Output Intake/Output: Intake & Output 09/29/01/02/20 01/03/20 01/04/20 23:59 23:59 23:59 23:59 Intake Total 9244 145 6151 340 Output Total 4000 1 Balance 1400 -3480 1139 340 Meds/Results Medications: Active Medications Generic Name Dose Route Start Last Admin Trade Name Freq PRN Reason Stop Dose Admin Albuterol 2 puff 12/30/19 07:50 Proventil Hfa INHALATION Q4-6H PRN Shortness Of Breath Or Wheezing Amlodipine Besylate 10 mg 12/30/19 21:00 01/03/20 21:10 Norvasc PO 10 mg HS VAL Administration Apixaban 2.5 mg 12/30/19 09:00 01/04/20 08:37 Eliquis PO 2.5 mg BID VAL Administration Aspirin 81 mg 12/30/19 09:00 01/04/20 08:36 Aspirin Chewable PO 81 mg DAILY VAL Administration Clonidine HCl 0.2 mg 12/30/19 07:45 01/04/20 08:36 Catapres PO 0.2 mg Q8HR VAL Administration Dextrose 12.5 gm
--- NOTE | 2020-01-04 15:12 | PM.PNNEP ---
Progress Note: A&P Assessment and Plan (1) End stage renal disease: Code(s): N18.6 - End stage renal disease Status: Chronic Assessment and Plan: hemodialysis tomorrow and then resume M/W/F schedule next week while hospitalized follow electrolytes, volume status, and clearance (2) Hypertensive urgency: Code(s): I16.0 - Hypertensive urgency Status: Acute Assessment and Plan: resolved better control of BP at this time back on home medications (3) Acute respiratory failure with hypoxia: Code(s): J96.01 - Acute respiratory failure with hypoxia Status: Acute Assessment and Plan: doing better/improved thought to be due to a combination of pneumonia and pulmonary edema on antibiotics for possible pneumonia 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 Subjective Date/time seen: 01/04/20 15:12 No acute complaints voiced; no apparent distress; feels reasonably well; General Surgery consulted for Mann catheter placement for prolonged IV antibiotics given his endocarditis; otherwise, no events overnight or earlier this AM. Exam Narrative: Exam Narrative: General: WD/WN AA male in NAD Heart: normal S1 and S2; no rub Lungs: clear to auscultation Abdomen: soft, nontender, nondistended, positive bowel sounds Extremities: no cyanosis or clubbing; no edema Skin: no rash or nodules Objective Data Vital Signs Vital Signs: Vital Signs Temp Pulse Resp BP Pulse Ox 01/04/20 06:00 36.6 C 73 18 168/59 H 100 01/03/20 22:00 36.6 C 73 18 178/57 H 98 01/03/20 21:12 77 Intake/Output Intake/Output: Intake & Output 09/29/20 09/30/20 10/01/20 10/02/20 23:59 23:59 23:59 23:59 Intake Total 3799 072 6694 340 Output Total 4000 1 Balance 1400 -3480 1139 340 Meds/Results Medications: Active Medications Generic Name Dose Route Start Last Admin Trade Name Freq PRN Reason Stop Dose Admin Albuterol 2 puff 12/30/19 07:50 Proventil Hfa INHALATION Q4-6H PRN Shortness Of Breath Or Wheezing Amlodipine Besylate 10 mg 12/30/19 21:00 01/03/20 21:10 Norvasc PO 10 mg HS VAL Administration Apixaban 2.5 mg 12/30/19 09:00 01/04/20 08:37 Eliquis PO 2.5 mg BID VAL Administration Aspirin 81 mg 12/30/19 09:00 01/04/20 08:36 Aspirin Chewable PO 81 mg DAILY VAL Administration Clonidine HCl 0.2 mg 12/30/19 07:45 01/04/20 08:36 Catapres PO 0.2 mg Q8HR VAL Administration Dextrose 12.5 gm 12/30/19 08:25 Dextrose 50% Syringe IV PUSH PRN PRN Hypoglycemia Protocol Epoetin Thien-epbx 10,000 units 01/04/20 19:01 Retacrit IV PUSH 01/04/20 19:02 ONCE ONE Glucagon 1 mg 12/30/19 08:25 Glucagon For Inj IM PRN PRN Hypoglycemia Protocol Glucose 15 gm 12/30/19 08:25 Glutose 15 PO PRN PRN Hypoglycemia Protocol Hydralazine HCl 25 mg 12/30/19 09:00 01/04/20 08:37 Apresoline Tablet PO 25 mg BID VAL Administration Vancomycin HCl 1,500 mg in 500 mls @ 333.333 mls/hr 12/30/19 01:17 Vancomycin 1,500 Mg/D5w 500 Ml IVPB PRN PRN PER PROTOCOL Dextrose 1,000 mls @ 100 mls/hr 12/30/19 08:25 Dextrose 5% 1,000 Ml IVPB PRN PRN Hypoglycemia
[2020-01-04 15:26] VITALS: BP 157/54; PULSE 65; RESP 16; TEMP 36.6; O2SAT 100
--- NOTE | 2020-01-04 15:53 | WPDINFPN2 ---
Progress Note: A&P Assessment and Plan (1) Mitral valve vegetation: Code(s): I33.0 - Acute and subacute infective endocarditis Status: Acute Assessment and Plan: 1. MV vegetation, probably infectious, no Hx IE. 2. CRF, on HD 3. IV access, cannot place PICC, will need JACC or Mann REC Vanc #6, Ctx #2, continue. PharmD dosing the Vanc, target trough 15-20. Further labs and BCs in process, adjust accordingly. If no + micro, will need both agents as empiric therapy through 02/09. Subjective Date/time seen: 01/04/20 15:53 Interval history: no complaints Exam Narrative: Exam Narrative: afebrile Const: General: no acute distress Resp: Effort & Inspection: normal respiratory effort Auscultation: clear to auscultation bilaterally Cardio: Rate: regular rate Rhythm: regular rhythm Heart sounds: no murmurs GI: Inspection: non-distended GI Palp: Yes Soft to palpation and No Tenderness to palpation present (GI) Skin: General skin exam: normal color and no rashes or lesions noted Objective Data Vital Signs Vital Signs: Vital Signs - 24 hr 01/03/20 21:12 01/03/20 22:00 01/04/20 06:00 Temperature 36.6 C 36.6 C Pulse Rate 77 73 73 Respiratory Rate 18 18 Blood Pressure 178/57 H 168/59 H Pulse Oximetry 98 100 01/04/20 15:26 Temperature 36.6 C Pulse Rate 65 Respiratory Rate 16 Blood Pressure 157/54 H Pulse Oximetry 100 Intake/Output Intake/Output: Intake & Output 01/01/20 01/02/20 01/03/20 01/04/20 23:59 23:59 23:59 23:59 Intake Total 8354 004 8415 340 Output Total 4000 1 Balance 1400 -3480 1139 340 Meds/Results Medications: Active Medications Generic Name Dose Route Start Last Admin Trade Name Freq PRN Reason Stop Dose Admin Albuterol 2 puff 12/30/19 07:50 Proventil Hfa INHALATION Q4-6H PRN Shortness Of Breath Or Wheezing Amlodipine Besylate 10 mg 12/30/19 21:00 01/03/20 21:10 Norvasc PO 10 mg HS VAL Administration Apixaban 2.5 mg 12/30/19 09:00 01/04/20 08:37 Eliquis PO 2.5 mg BID VAL Administration Aspirin 81 mg 12/30/19 09:00 01/04/20 08:36 Aspirin Chewable PO 81 mg DAILY VAL Administration Clonidine HCl 0.2 mg 12/30/19 07:45 01/04/20 08:36 Catapres PO 0.2 mg Q8HR VAL Administration Dextrose 12.5 gm 12/30/19 08:25 Dextrose 50% Syringe IV PUSH PRN PRN Hypoglycemia Protocol Epoetin Thien-epbx 10,000 units 01/04/20 19:01 Retacrit IV PUSH 01/04/20 19:02 ONCE ONE Glucagon 1 mg 12/30/19 08:25 Glucagon For Inj IM PRN PRN Hypoglycemia Protocol Glucose 15 gm 12/30/19 08:25 Glutose 15 PO PRN PRN Hypoglycemia Protocol Hydralazine HCl 25 mg 12/30/19 09:00 01/04/20 08:37 Apresoline Tablet PO 25 mg BID VAL Administration Vancomycin HCl 1,500 mg in 500 mls @ 333.333 mls/hr 12/30/19 01:17 Vancomycin 1,500 Mg/D5w 500 Ml IVPB PRN PRN PER PROTOCOL Dextrose 1,000 mls @ 100 mls/hr 12/30/19 08:25 Dextrose 5% 1,000 Ml IVPB PRN PRN Hypoglycemia Protocol Albumin Human 50 mls @ 999 mls/hr 12/30/19 11:11 Albutein IVPB 01/29/20 11:12 Q10M PRN HYPOTENSION Ceftriaxone Sodium 2 gm in 100 mls @ 200 mls/hr 01/03/20 13:20 01/04/20 12:07 Rocephin 2 Gm/D5w 100 Ml IVPB 200 mls/hr NOON VAL Administration Cefazolin Sodium 2 gm in 50 mls @ 100 mls/hr 01/07/20 11:00 Ancef 2 Gm/D5w 50 Ml IVPB 01/07/20 11:29 ONCE ONE Insulin Aspart 4 - 8 units 12/31/19 11:30 01/04/20 12:14 Novolog SUB-Q 4 units ACHS VAL Administration Protocol Insulin Glargine 15 units 01/03/20 21:00 01/03/20 21:16 Lantus SUB-Q 15 units HS VAL Administration Losartan Potassium 100 mg 12/30/19 21:00 01/03/20 21:13 Cozaar PO 100 mg HS VAL Administration Metoprolol Tartrate 75 mg 12/30/19 21:00 01/04/20 08:37 Lopressor PO 75 mg Q12HR VAL Administration Mi
[2020-01-04 17:56] LABS: Glucose Point of Care 177 (65-105)
[2020-01-04 18:38] LABS: Glucose Point of Care 201 (65-105)
[2020-01-04 21:01] LABS: Glucose Point of Care 244 (65-105)
[2020-01-04] MEDS: amLODIPine BESYLATE 5 MG TABLET 10 MG PO (21:16)
[2020-01-04 21:17] VITALS: PULSE 73
[2020-01-04] MEDS: LOSARTAN POTASSIUM 100 MG TABLET PO (21:17)
[2020-01-04] MEDS: INSULIN GLARGINE (*BKC) 100 UNITS/ML 18 UNITS SUB-Q (21:20)
[2020-01-04 22:00] VITALS: BP 186/57; PULSE 75; RESP 18; TEMP 36.7; O2SAT 100
[2020-01-04 23:45] LABS: Vancomycin Random 18.3 ug/mL (10-20)
[2020-01-05] VITALS (24 sets, daily range): BP systolic 145–165; BP diastolic 40–73; PULSE 68–80; RESP 16–20; TEMP 36.1–37; O2SAT 98–100
[2020-01-05] MEDS: SUCRALFATE 1 GM TABLET PO ×2 (05:15→18:10)
[2020-01-05] MEDS: cloNIDine HCL 0.2 MG TABLET PO ×3 (05:15→21:54)
[2020-01-05 06:31] LABS: Glucose Point of Care 235 (65-105)
[2020-01-05] MEDS: INSULIN ASPART (*BKC) 100 UNITS/ML SUB-Q ×4 (06:55→20:44)
[2020-01-05 07:00] LABS: Hematocrit 27.1 % (42.0-52.0); Mean Corpuscular HGB Conc 33.2 g/dl (32-36); Mean Corpuscular Hemoglobin 25.4 pg (26-34); Mean Corpuscular Volume 76.6 fl (80-100); Mean Platelet Volume 11.3 fl (7.4-10.4); Platelet Count Result 197 k/mm3 (150-375); Red Blood Count 3.54 M/mm3 (4.6-6.20); Red Cell Distribution Width 15.8 % (11.5-14.5); White Blood Count 7.9 K/mm3 (4.5-10.0)
[2020-01-05 07:15] LABS: Albumin Level 3.2 g/dL (3.5-5.1); Anion Gap 8 mmol/L (8-16); Blood Urea Nitrogen 39 mg/dL (9-20); Calcium 8.6 mg/dL (8.4-10.2); Carbon Dioxide 29 mmol/L (22-30); Chloride 91 mmol/L (98-107); Estimated CRCL calculation 14 ml/min; Estimated Glomerular Filt Rate 12; Glucose 366 mg/dL (75-110); Magnesium 2.2 mg/dL (1.6-2.3); Phosphorus 3.8 mg/dL (2.5-4.5); Potassium 3.6 mmol/L (3.4-5.0); Sodium 128 mmol/L (137-145)
[2020-01-05] MEDS: hydrALAZINE HCL 25 MG TABLET PO ×2 (07:59→18:11)
[2020-01-05] MEDS: ASPIRIN 81 MG CHEWABLE TABLET PO (07:59)
[2020-01-05] MEDS: PANTOPRAZOLE 40 MG TABLET PO (07:59)
[2020-01-05] MEDS: METOPROLOL TARTRATE 25 MG TABLET 75 MG PO ×2 (08:00→20:45)
[2020-01-05] MEDS: minoxidiL 2.5 MG TABLET PO ×2 (08:00→18:11)
[2020-01-05] MEDS: EUCERIN CREAM 120 GM JAR 1 APPLIC TOPICAL (08:01)
--- NOTE | 2020-01-05 11:01 | PM.PNNEP ---
Progress Note: A&P Assessment and Plan (1) End stage renal disease: Code(s): N18.6 - End stage renal disease Status: Chronic Assessment and Plan: hemodialysis today and then resume M/W/F schedule next week while hospitalized follow electrolytes, volume status, and clearance (2) Hypertensive urgency: Code(s): I16.0 - Hypertensive urgency Status: Acute Assessment and Plan: resolved better control of BP at this time back on home medications (3) Acute respiratory failure with hypoxia: Code(s): J96.01 - Acute respiratory failure with hypoxia Status: Acute Assessment and Plan: doing better/improved thought to be due to a combination of pneumonia and pulmonary edema on antibiotics for possible pneumonia 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 Subjective Date/time seen: 01/05/20 11:01 Tolerating dialysis at the time of my visit (seen on HD at ~ 10:50AM); awake and alert but still somewhat confused (is this his baseline?); no apparent distress voiced; no complaint to report; no events overnight or earlier this AM expressed. Exam Narrative: Exam Narrative: General: WD/WN AA male in NAD Heart: normal S1 and S2; no rub Lungs: clear to auscultation Abdomen: soft, nontender, nondistended, positive bowel sounds Extremities: no cyanosis or clubbing; no edema Skin: warm and dry Objective Data Vital Signs Vital Signs: Vital Signs Temp Pulse Resp BP Pulse Ox 01/05/20 10:45 70 152/64 H 01/05/20 10:30 69 153/62 H 01/05/20 10:15 69 160/65 H 01/05/20 10:00 79 152/73 H 01/05/20 09:45 69 162/65 H 01/05/20 09:30 69 151/66 H 01/05/20 09:15 68 158/64 H 01/05/20 09:00 68 163/69 H 01/05/20 08:50 69 152/70 H 01/05/20 08:45 36.6 C 70 16 160/67 H 01/05/20 08:00 72 01/05/20 06:00 36.5 C 74 16 164/60 H 98 01/04/20 22:00 36.7 C 75 18 186/57 H 100 01/04/20 21:17 73 01/04/20 15:26 36.6 C 65 16 157/54 H 100 Intake/Output Intake/Output: Intake & Output 01/02/20 01/03/20 01/04/20 01/05/20 23:59 23:59 23:59 23:59 Intake Total 520 4593 742 3484 Output Total 4000 1 Balance -3480 5262 090 7924 Meds/Results Medications: Active Medications Generic Name Dose Route Start Last Admin Trade Name Freq PRN Reason Stop Dose Admin Albuterol 2 puff 12/30/19 07:50 Proventil Hfa INHALATION Q4-6H PRN Shortness Of Breath Or Wheezing Amlodipine Besylate 10 mg 12/30/19 21:00 01/04/20 21:16 Norvasc PO 10 mg HS VAL Administration Apixaban 2.5 mg 12/30/19 09:00 01/04/20 08:37 Eliquis PO 2.5 mg BID VAL Administration Aspirin 81 mg 12/30/19 09:00 01/05/20 07:59 Aspirin Chewable PO 81 mg DAILY VAL Administration Clonidine HCl 0.2 mg 12/30/19 07:45 01/05/20 05:15 Catapres PO 0.2 mg Q8HR VAL Administration Dextrose 12.5 gm 12/30/19 08:25 Dextrose 50% Syringe IV PUSH PRN PRN Hypoglycemia Protocol Glucagon 1 mg 12/30/19 08:25 Glucagon For Inj IM PRN PRN Hypoglycemia Protocol Glucose 15 gm 12/30/19 08:25 Glutose 15 PO PRN PRN Hypoglycemia Protocol Hydralazine HCl 25 mg 12/30/19 09:00 01/05/20 0
[2020-01-05] MEDS: EPOETIN ALFA-EPBX 10,000 UNITS/ML VIAL 10000 UNITS IV PUSH (11:40)
--- NOTE | 2020-01-05 11:42 | PM.IMPN ---
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 Cardiology consulted and EITAN performed 01/01 showing the mitral valve with a highly mobile, globular appearing echodensity consistent with vegetation. This echodensity appears to have 2 separate mobile components or heads each measuring 0.6x.04cm and 0.6x.05cm. Initial blood cultures (12/28) no growth. Repeat BCx (12/30) NGTD as well. Could be part of the group of HACEK organisms or marantic. ID consulted and abx adjusted. Ceftriaxone Day 3 and Vanco Day 7. ESR 57. We are growing out BCs for 10 days. Discussed with ID and Nephrology yesterday. Plan for Mann but can not be placed until Tuesday per Gen Surgery. Abx through 02/10/20. Eliquis now on hold. (2) Pneumonia: Qualifiers: Laterality: right Lung location: middle lobe of lung Pneumonia type: due to unspecified organism Qualified Code(s): J18.9 - Pneumonia, unspecified organism Code(s): J18.9 - Pneumonia, unspecified organism Status: Acute Assessment and Plan: CXR on admisison concerning for PNA. Repeat CXR 12/31 showing improving findings. WBC normal now. Afebrile. All cultures are negative. Continue IV abx as above. Continue to monitor. (3) Acute respiratory failure with hypoxia: Code(s): J96.01 - Acute respiratory failure with hypoxia Status: Acute Assessment and Plan: The patient's acute respiratory failure appears to be secondary to pulmonary edema +/- PNA. Patient's x-ray and physical examination are most consistent with increased pulmonary congestion and pulmonary edema possibly relate to severe HTN. Weaned to RA now. HD to control fluid status. (4) Hypertensive urgency: Code(s): I16.0 - Hypertensive urgency Status: Acute Assessment and Plan: BP markedly elevated on admisison. The patient was started on a Labetalol IV drip. He was changed to Cardene IV and now able to transition back to oral meds with better control of BP. BP reviewed on 01/04. Continue amlodipine, clonidine, hydralazine, losartan, metoprolol, and minoxidil. (5) Sepsis: Qualifiers: Acute respiratory failure type: with hypoxia Sepsis acute organ dysfunction status: with acute organ dysfunction Sepsis type: sepsis due to unspecified organism Severe sepsis acute organ dysfunction type: acute respiratory failure Severe sepsis shock status: without septic shock Qualified Code(s): A41.9 - Sepsis, unspecified organism; R65.20 - Severe sepsis without septic shock; J96.01 - Acute respiratory failure with hypoxia Code(s): A41.9 - Sepsis, unspecified organism Status: Acute Assessment and Plan: Present on admission with leukocytosis, tachycardia, and tachypnea. Source of sepsis felt related to PNA and endocarditis with Echo showing MV vegetation. BCx negative. Continue IV antibiotics. (6) Fluid overload: Qualifiers: Hypervolemia type: unspecified Qualified Code(s): E87.70 - Fluid overload, unspecified Code(s): E87.70 - Fluid overload, unspecified Status: Acute Assessment and Plan: The patient was clearly fluid overloaded on admission per admitting provider. Fluid status much better. Echo showing EF 65% with grade I diastolic dysfunction. Continue HD to control fluid status. (7) Leukocytosis: Qualifiers: Leukocytosis type: unspecified Qualified Code(s): D72.829 - Elevated white blood cell count, unspecified Code(s): D72.829 - Elevated white blood cell count, unspecified Status: Acute Assessment and Plan: WBC 04872 on admission and has trended to normal now. Related to above. (8) Anemia: Qualifiers: Anemia type: due to chronic kidney disease Chronic kidney dise
[2020-01-05 16:25] LABS: Vancomycin Random 23.3 ug/mL (10-20)
[2020-01-05] MEDS: amLODIPine BESYLATE 5 MG TABLET 10 MG PO (20:44)
[2020-01-05] MEDS: LOSARTAN POTASSIUM 100 MG TABLET PO (20:45)
[2020-01-05] MEDS: INSULIN GLARGINE (*BKC) 100 UNITS/ML 25 UNITS SUB-Q (20:45)
[2020-01-05 21:57] LABS: Glucose Point of Care 256 (65-105)
[2020-01-05 21:58] LABS: Glucose Point of Care 248 (65-105)
[2020-01-06] VITALS (7 sets, daily range): BP systolic 132–166; BP diastolic 38–83; PULSE 74–86; RESP 16–18; TEMP 36.1–36.7; O2SAT 97–100
[2020-01-06 03:08] LABS: Hemoglobin A1C 7.8 % (<5.7)
[2020-01-06] MEDS: ONDANSETRON INJ 4 MG/2 ML VIAL IV PUSH (03:32)
[2020-01-06] MEDS: SUCRALFATE 1 GM TABLET PO ×3 (05:42→16:14)
[2020-01-06] MEDS: cloNIDine HCL 0.2 MG TABLET PO ×3 (05:42→21:41)
[2020-01-06] MEDS: INSULIN ASPART (*BKC) 100 UNITS/ML SUB-Q ×6 (05:49→21:27)
[2020-01-06 06:00] LABS: Glucose Point of Care 212 (65-105)
[2020-01-06 08:36] LABS: Glucose Point of Care 152 (65-105)
[2020-01-06] MEDS: minoxidiL 2.5 MG TABLET PO ×2 (08:38→16:14)
[2020-01-06] MEDS: METOPROLOL TARTRATE 25 MG TABLET 75 MG PO ×2 (08:38→21:41)
[2020-01-06] MEDS: PANTOPRAZOLE 40 MG TABLET PO (08:38)
[2020-01-06] MEDS: ASPIRIN 81 MG CHEWABLE TABLET PO (08:38)
[2020-01-06] MEDS: hydrALAZINE HCL 25 MG TABLET PO ×2 (08:39→16:14)
[2020-01-06] MEDS: EUCERIN CREAM 120 GM JAR 1 APPLIC TOPICAL (08:39)
[2020-01-06 09:37] LABS: Glucose Point of Care 157 (65-105)
--- NOTE | 2020-01-06 10:04 | WPDANESEPP ---
Anes - Eval Pre Procedure Procedure: Operation Date: 01/02/20 11:30 Proposed Procedures p Trans Esophageal Echo - Zachary Thomas MD Operation Date: 01/07/20 11:30 Proposed Procedures p Placement Right Internal Jugular Mann Catheter - Damon Mcdowell MD Date/Time: 01/06/20 10:04 Pre Op Diagnosis: Acute hypoxic respiratory failure, pneumonia Patient Data Age: 59 Gender: M Height: 1.8 m Weight: 82.9 kg Last Vital Signs Temp 36.7 C 01/06/20 06:00 Pulse 77 01/06/20 08:38 Resp 16 01/06/20 08:30 BP 166/51 H 01/06/20 08:30 Pulse Ox 100 01/06/20 08:30 Allergies Allergy/AdvReac Type Severity Reaction Status Date / Time No Known Allergies Allergy Unverified 05/02/19 10:32 Home Medications Medication Instructions Recorded Confirmed Type amlodipine 10 mg PO HS 04/03/19 12/30/19 History acetaminophen 500 mg PO Q8H PRN 12/30/19 12/30/19 History albuterol sulfate 2 puff INHALATION Q4-6H PRN 12/30/19 12/30/19 History apixaban [Eliquis] 2.5 mg PO BID 12/30/19 12/30/19 History aspirin 81 mg PO DAILY 12/30/19 12/30/19 History clonidine HCl 0.2 mg PO Q8H 12/30/19 12/30/19 History glucagon HCl [Glucagon (HCl) 1 mg SUBCUT Q20M PRN 12/30/19 12/30/19 History Emergency Kit] hydralazine 25 mg PO BID 12/30/19 12/30/19 History insulin glargine [Lantus U-100 10 unit SUBCUT HS 12/30/19 12/30/19 History Insulin] insulin lispro See Rx Instructions .ROUTE .COMPLEX 12/30/19 12/30/19 History lorazepam 0.5 mg PO Q6H PRN 12/30/19 12/30/19 History losartan 100 mg PO HS 12/30/19 12/30/19 History metoprolol tartrate 50 mg PO BID 12/30/19 12/30/19 History minoxidil 2.5 mg PO BID 12/30/19 12/30/19 History pantoprazole 40 mg PO DAILY 12/30/19 12/30/19 History sucralfate [Carafate] 1 g PO AC 12/30/19 12/30/19 History tiotropium bromide [Spiriva 2 puff INHALATION QAM 12/30/19 12/30/19 History Respimat] vit B,B-UA-qalj-selen-vit D3-E 1 tablet PO DAILY 12/30/19 12/30/19 History [RenaPlex-D] Laboratory Tests 01/05/20 01/05/20 01/05/20 06:19 15:32 18:14 POC Capillary Glucose 248 mg/dl H mg/dl (65-105) Hemoglobin A1c 7.8 % H % (<5.7) Random Vancomycin 23.3 ug/mL H ug/mL (-) 01/05/20 01/06/20 01/06/20 20:38 05:46 08:23 POC Capillary Glucose 256 mg/dl H mg/dl 212 mg/dl H mg/dl 152 mg/dl H mg/dl (65-105) (65-105) (65-105) Hemoglobin A1c Random Vancomycin 01/06/20 08:28 POC Capillary Glucose 157 mg/dl H mg/dl (65-105) Hemoglobin A1c Random Vancomycin Patient hx anesthesia problems: none Family hx anesthesia problems: none PMFSH Past Medical History Medical History (Updated 01/06/20 @ 10:10 by Bebeto Neves CRNA) Anemia CVA (cerebrovascular accident due to intracerebral hemorrhage) CVA x3, Diabetes mellitus End-stage renal disease on hemodialysis left arm access History of [place] (myocardial infarction) Hyperlipidemia Hypertension Nausea and vomiting in adult Surgical History Surgical History History of total right knee replacement Status post creation of arteriovenous fistula Family History Family History Mother Hypertension Diabetes mellitus Father Hypertension Diabetes mellitus Other Unknown family medical history Social History Social History Social History: Patient lives with his sister. He is a full code. His sister is his POA. He is a former smoker. He also reports former alcohol use drinking beer daily. He is . He does have 2 daughters. Smoking packs per day: 1 Smoking cigarettes per day: 20.0 Smoking status: Former smoker Tobacco type: cigarettes Additional smoking assessment comments: Patient reports smoking 1 pack per day for many years. Alcohol intake: former
--- NOTE | 2020-01-06 11:47 | PM.PNNEP ---
Progress Note: A&P Assessment and Plan (1) End stage renal disease: Code(s): N18.6 - End stage renal disease Status: Chronic Assessment and Plan: hemodialysis yesterday and resume M/W/F schedule next week while hospitalized follow electrolytes, volume status, and clearance (2) Hypertensive urgency: Code(s): I16.0 - Hypertensive urgency Status: Acute Assessment and Plan: resolved better control of BP at this time back on home medications (3) Acute respiratory failure with hypoxia: Code(s): J96.01 - Acute respiratory failure with hypoxia Status: Acute Assessment and Plan: doing better/improved thought to be due to a combination of pneumonia and pulmonary edema on antibiotics for possible pneumonia 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 Subjective Date/time seen: 01/06/20 11:47 No new issues or problems to report; remains awake and alert but confused (baseline?); tolerated dialysis yesterday without any issue or problems; no events overnight or earlier this AM; plan for Mann catheter placement tomorrow for IV antibiotics. Exam Narrative: Exam Narrative: General: WD/WN AA male in NAD Heart: normal S1 and S2; no rub Lungs: clear to auscultation Abdomen: soft, nontender, nondistended, positive bowel sounds Extremities: no cyanosis or clubbing; no edema Skin: warm and intact Objective Data Vital Signs Vital Signs: Vital Signs Temp Pulse Resp BP Pulse Ox 01/06/20 08:38 77 01/06/20 08:30 77 16 166/51 H 100 01/06/20 06:00 36.7 C 74 18 132/38 L 98 01/05/20 22:00 36.6 C 79 18 152/40 H 100 01/05/20 20:45 80 01/05/20 16:00 36.1 C L 76 18 148/63 H 100 01/05/20 12:35 36.8 C 71 20 152/63 H 01/05/20 12:25 70 145/56 H 01/05/20 12:15 70 165/66 H 01/05/20 12:00 70 153/59 H Intake/Output Intake/Output: Intake & Output 01/03/20 01/04/20 01/05/20 01/06/20 23:59 23:59 23:59 23:59 Intake Total 0155 249 6792 500 Output Total 1 4000 0 Balance 1139 930 -1430 500 Meds/Results Medications: Active Medications Generic Name Dose Route Start Last Admin Trade Name Freq PRN Reason Stop Dose Admin Albuterol 2 puff 12/30/19 07:50 Proventil Hfa INHALATION Q4-6H PRN Shortness Of Breath Or Wheezing Amlodipine Besylate 10 mg 12/30/19 21:00 01/05/20 20:44 Norvasc PO 10 mg HS VAL Administration Apixaban 2.5 mg 12/30/19 09:00 01/04/20 08:37 Eliquis PO 2.5 mg BID VAL Administration Aspirin 81 mg 12/30/19 09:00 01/06/20 08:38 Aspirin Chewable PO 81 mg DAILY VAL Administration Clonidine HCl 0.2 mg 12/30/19 07:45 01/06/20 05:42 Catapres PO 0.2 mg Q8HR VAL Administration Dextrose 12.5 gm 12/30/19 08:25 Dextrose 50% Syringe IV PUSH PRN PRN Hypoglycemia Protocol Glucagon 1 mg 12/30/19 08:25 Glucagon For Inj IM PRN PRN Hypoglycemia Protocol Glucose 15 gm 12/30/19 08:25 Glutose 15 PO PRN PRN Hypoglycemia Protocol Hydralazine HCl 25 mg 12/30/19 09:00 01/06/20 08:39 Apresoline Tablet PO 25 mg BID VAL Administration Vancomycin HCl 1,500 mg in 500 mls @ 333.333 mls/hr 12/30/19 01:17 Vancomyc
[2020-01-06 12:31] LABS: Glucose Point of Care 162 (65-105)
--- NOTE | 2020-01-06 13:45 | PM.IMPN ---
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 Cardiology consulted and EITAN performed 01/01 showing the mitral valve with a highly mobile, globular appearing echodensity consistent with vegetation. This echodensity appears to have 2 separate mobile components or heads each measuring 0.6x.04cm and 0.6x.05cm. Initial blood cultures (12/28) no growth. Repeat BCx (12/30) negative as well. Could be part of the group of HACEK organisms or marantic. ID consulted and abx adjusted. Ceftriaxone Day 4 and Vanco Day 8. ESR 57. We are growing out BCs for 10 days. Plan for Mann to be placed tomorrow by Gen Surgery. Abx through 02/10/20. Eliquis remains on hold. Called family but no answer at one of the numbers and the other was incorrect. (2) Pneumonia: Qualifiers: Laterality: right Lung location: middle lobe of lung Pneumonia type: due to unspecified organism Qualified Code(s): J18.9 - Pneumonia, unspecified organism Code(s): J18.9 - Pneumonia, unspecified organism Status: Acute Assessment and Plan: CXR on admisison concerning for PNA. Repeat CXR 12/31 showing improving findings. WBC normal now. Afebrile. All cultures are negative. Continue IV abx as above. Continue to monitor. (3) Acute respiratory failure with hypoxia: Code(s): J96.01 - Acute respiratory failure with hypoxia Status: Acute Assessment and Plan: The patient's acute respiratory failure appears to be secondary to pulmonary edema +/- PNA. Patient's x-ray and physical examination are most consistent with increased pulmonary congestion and pulmonary edema possibly relate to severe HTN. Weaned to RA now. HD to control fluid status. (4) Hypertensive urgency: Code(s): I16.0 - Hypertensive urgency Status: Acute Assessment and Plan: BP markedly elevated on admisison. The patient was started on a Labetalol IV drip. He was changed to Cardene IV and now able to transition back to oral meds with better control of BP. BP reviewed on 01/05. Continue amlodipine, clonidine, hydralazine, losartan, metoprolol, and minoxidil. (5) Sepsis: Qualifiers: Acute respiratory failure type: with hypoxia Sepsis acute organ dysfunction status: with acute organ dysfunction Sepsis type: sepsis due to unspecified organism Severe sepsis acute organ dysfunction type: acute respiratory failure Severe sepsis shock status: without septic shock Qualified Code(s): A41.9 - Sepsis, unspecified organism; R65.20 - Severe sepsis without septic shock; J96.01 - Acute respiratory failure with hypoxia Code(s): A41.9 - Sepsis, unspecified organism Status: Acute Assessment and Plan: Present on admission with leukocytosis, tachycardia, and tachypnea. Source of sepsis felt related to PNA and endocarditis with Echo showing MV vegetation. BCx negative. Continue IV antibiotics. (6) Fluid overload: Qualifiers: Hypervolemia type: unspecified Qualified Code(s): E87.70 - Fluid overload, unspecified Code(s): E87.70 - Fluid overload, unspecified Status: Acute Assessment and Plan: The patient was clearly fluid overloaded on admission per admitting provider. Fluid status much better. Echo showing EF 65% with grade I diastolic dysfunction. Continue HD to control fluid status. (7) Leukocytosis: Qualifiers: Leukocytosis type: unspecified Qualified Code(s): D72.829 - Elevated white blood cell count, unspecified Code(s): D72.829 - Elevated white blood cell count, unspecified Status: Acute Assessment and Plan: WBC 83144 on admission and has trended to normal now. Related to above. (8) Anemia: Qualifiers: Anemia type: due to chronic kidn
[2020-01-06 17:36] LABS: Glucose Point of Care 209 (65-105)
[2020-01-06] MEDS: INSULIN GLARGINE (*BKC) 100 UNITS/ML 10 UNITS SUB-Q (21:28)
[2020-01-06] MEDS: amLODIPine BESYLATE 5 MG TABLET 10 MG PO (21:41)
[2020-01-06] MEDS: LOSARTAN POTASSIUM 100 MG TABLET PO (21:41)
[2020-01-06 22:00] LABS: Glucose Point of Care 259 (65-105)
[2020-01-07] VITALS (29 sets, daily range): BP systolic 143–181; BP diastolic 48–75; PULSE 71–93; RESP 12–20; TEMP 36.1–37.1; O2SAT 96–100
[2020-01-07 06:14] LABS: Hematocrit 29.9 % (42.0-52.0); Hemoglobin 9.8 g/dL (14.0-18.0); Mean Corpuscular HGB Conc 32.8 g/dl (32-36); Mean Corpuscular Hemoglobin 25.3 pg (26-34); Mean Corpuscular Volume 77.1 fl (80-100); Mean Platelet Volume 10.5 fl (7.4-10.4); Platelet Count Result 263 k/mm3 (150-375); Red Blood Count 3.88 M/mm3 (4.6-6.20); Red Cell Distribution Width 16.2 % (11.5-14.5); White Blood Count 9.6 K/mm3 (4.5-10.0)
[2020-01-07 06:30] LABS: Albumin Level 3.6 g/dL (3.5-5.1); Anion Gap 11 mmol/L (8-16); Blood Urea Nitrogen 33 mg/dL (9-20); CRP 1.3 mg/dL (<1.0); Calcium 9.4 mg/dL (8.4-10.2); Carbon Dioxide 29 mmol/L (22-30); Chloride 98 mmol/L (98-107); Estimated CRCL calculation 15 ml/min; Estimated Glomerular Filt Rate 13; Glucose 231 mg/dL (75-110); Potassium 3.9 mmol/L (3.4-5.0); Sodium 138 mmol/L (137-145)
[2020-01-07 06:31] LABS: INR 1.1; Prothrombin Time 13.8 Seconds (11.1-14.7)
[2020-01-07 06:32] LABS: Partial Thromboplastin Time 36.3 SECONDS (22.3-36.8)
[2020-01-07 09:59] LABS: Glucose Point of Care 185 (65-105)
--- NOTE | 2020-01-07 10:11 | WPDANESEFPP ---
Anes - Eval Final PreProcedure Day of Procedure 01/07/20 10:11 Patient weight: overweight Heart: regular rate and rhythm Lungs: clear to auscultation Airway: Mallampati scale class II and special considerations poor dentition Neurological: confused Last oral intake: >/= 8 hours ASA classification: IV Emergent: no Anesthetic plan: proceed Anesthesia type and monitoring: general GIVS and standard monitoring Informed Consent: The patient's anesthetic plan and its attendant risks and benefits were discussed with the patient/family/POA. Questions were solicited and answers provided to the satisfaction of the patient/family/POA.
[2020-01-07] MEDS: SODIUM CHLORIDE 0.9% IV 500 ML 30 ML IV CONT (10:24)
--- NOTE | 2020-01-07 11:48 | WPDHPUPDATE1 ---
History and Physical Update Update Date/Time: 01/07/20 11:48 History and Physical has been reviewed, including an updated exam of the patient. There are NO changes in the patient's condition. Risks, benefits, and alternatives have been discussed and questions answered. Patient agrees to proceed with procedure.
[2020-01-07] MEDS: ceFAZolin 2 GM/D5W 50 ML 2 GM/50 ML BAG IVPB (12:05)
[2020-01-07] MEDS: LIDO 1%/EPINEPHRINE 1:100,000 20 ML VIAL INFILTRATE (12:36)
[2020-01-07] MEDS: HEPARIN SODIUM, PORCINE 10,000 UNITS/10 ML VIAL 2000 UNITS IV PUSH (12:39)
--- NOTE | 2020-01-07 13:49 | PM.PROC ---
Procedure Note - Detailed Date of procedure: 01/07/20 Pre-op diagnosis: Endocarditis, inadequate venous access Endocarditis, inadequate venous access Post-op diagnosis: same Procedure performed: Placement tunneled right internal jugular Mann catheter for long-term IV antibiotics under fluoroscopy Description of procedure: Patient was taken to the operating room and placed in a supine position. The head was turned slightly to the left. The right neck and lower face as well as the upper chest were prepped and draped. Local anesthetic was infiltrated in the right neck. Several attempts were required but with the patient in Trendelenburg, I was able to cannulate the right internal jugular vein. A guidewire passed readily. C-arm fluoroscopy showed that the guidewire was in the superior vena cava and right atrium. The patient out of Trendelenburg and then brought the Mann catheter into the field. Using fluoroscopy, I roughly assess the length of Mann catheter that would be required. I then marked several counter incision starting on the right upper chest and proceeding up the right lateral neck so that we could pass the Mann catheter up and into the internal jugular vein without any kinking. Local anesthetic was infiltrated into each of these counter incision sites. Incisions were made and dissection through the superficial subcutaneous at each incision was carried out bluntly. Incision was also made at the exit site of the guidewire. Using the tunneler, I retrograde tunneled the Mann catheter from the upper right anterior chest through each of the counter incisions and eventually out the puncture site incision over the right internal jugular vein. I then again used C-arm fluoroscopy. I measured the length of Mann catheter that would be required to reach into the distal superior vena cava. The catheter was cut to the appropriate length. The introducer and sheath were then passed over the guidewire. Position was documented by fluoroscopy. I then removed the introducer and guidewire. The end of the Mann catheter was passed into the sheath and down into the distal superior vena cava. By fluoroscopy, it appeared we were in a little bit too far and I pulled the catheter back a small amount. This seemed to be satisfactory. The catheter aspirated blood and flushed easily with heparin. I then sutured the into the catheter to the skin. I closed each of the counter incisions with interrupted subcuticular 4 O Vicryl suture. The remaining length of Mann catheter was coiled and bandaged near the exit site of the Mann catheter. I recheck again the catheter. It aspirated blood easily and flushed well with heparin. Patient was awakened and taken to recovery in good condition. Portable chest x-ray was reviewed personally and showed the catheter to be in the superior vena cava and no sign of pneumothorax. Anesthesia: MAC and local (0.5% Marcaine with epinephrine) Surgeon: Damon Mcdowell MD Aircraft Sheet Metal Mechanic: Miriam ZENDEJAS Estimated blood loss (mL): 20 Drains: No Packing: No Pathology: none sent Complications: None Condition: stable Disposition: PACU Findings: Mann catheter in good position with distal tip in superior vena cava.
[2020-01-07 14:07] LABS: Glucose Point of Care 195 (65-105)
--- NOTE | 2020-01-07 14:54 | PM.IMPN ---
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 Cardiology consulted and EITAN performed 01/01 showing the mitral valve with a highly mobile, globular appearing echodensity consistent with vegetation. This echodensity appears to have 2 separate mobile components or heads each measuring 0.6x.04cm and 0.6x.05cm. Initial blood cultures (12/28) no growth. Repeat BCx (12/30) negative as well. Could be part of the group of HACEK organisms or marantic. ID consulted and abx adjusted. Ceftriaxone Day 5 and Vanco Day 9. ESR 57. We are growing out BCs for 10 days and thus far have remained negative. Mann placed by Gen Surgery today for Abx through 02/10/20. Plan for [place] back to the [place] tomorrow. Does not need COVID screen per CM. (2) Pneumonia: Qualifiers: Laterality: right Lung location: middle lobe of lung Pneumonia type: due to unspecified organism Qualified Code(s): J18.9 - Pneumonia, unspecified organism Code(s): J18.9 - Pneumonia, unspecified organism Status: Acute Assessment and Plan: CXR on admisison concerning for PNA. Repeat CXR 12/31 showing improving findings. WBC normal now. Afebrile. All cultures are negative. Continue IV abx as above. Continue to monitor. (3) Acute respiratory failure with hypoxia: Code(s): J96.01 - Acute respiratory failure with hypoxia Status: Acute Assessment and Plan: The patient's acute respiratory failure appears to be secondary to pulmonary edema +/- PNA. Patient's x-ray and physical examination are most consistent with increased pulmonary congestion and pulmonary edema possibly relate to severe HTN. Weaned to RA now. HD to control fluid status. (4) Hypertensive urgency: Code(s): I16.0 - Hypertensive urgency Status: Acute Assessment and Plan: BP markedly elevated on admisison. The patient was started on a Labetalol IV drip. He was changed to Cardene IV and now able to transition back to oral meds with improved control of BP. BP reviewed on 01/06. Continue amlodipine, clonidine, hydralazine, losartan, metoprolol, and minoxidil. (5) Sepsis: Qualifiers: Sepsis type: sepsis due to unspecified organism Sepsis acute organ dysfunction status: with acute organ dysfunction Severe sepsis acute organ dysfunction type: acute respiratory failure Acute respiratory failure type: with hypoxia Severe sepsis shock status: without septic shock Qualified Code(s): A41.9 - Sepsis, unspecified organism; R65.20 - Severe sepsis without septic shock; J96.01 - Acute respiratory failure with hypoxia Code(s): A41.9 - Sepsis, unspecified organism Status: Acute Assessment and Plan: Present on admission with leukocytosis, tachycardia, and tachypnea. Source of sepsis felt related to PNA and endocarditis with Echo showing MV vegetation. BCx negative. Continue IV antibiotics. (6) Fluid overload: Qualifiers: Hypervolemia type: unspecified Qualified Code(s): E87.70 - Fluid overload, unspecified Code(s): E87.70 - Fluid overload, unspecified Status: Acute Assessment and Plan: The patient was clearly fluid overloaded on admission per admitting provider. Fluid status much better. Echo showing EF 65% with grade I diastolic dysfunction. Continue HD to control fluid status. (7) Leukocytosis: Qualifiers: Leukocytosis type: unspecified Qualified Code(s): D72.829 - Elevated white blood cell count, unspecified Code(s): D72.829 - Elevated white blood cell count, unspecified Status: Acute Assessment and Plan: WBC 01669 on admission and has trended to normal now. Related to above. (8) Anemia: Qualifiers: Anemia type: due to chronic kidney
--- NOTE | 2020-01-07 16:01 | PM.PNNEP ---
Progress Note: A&P Assessment and Plan (1) End stage renal disease: Code(s): N18.6 - End stage renal disease Status: Chronic Assessment and Plan: hemodialysis do today. It will be done till later this evening. (2) Hypertensive urgency: Code(s): I16.0 - Hypertensive urgency Status: Acute Assessment and Plan: resolved BP still a bit high at 140 to 160. He is on clonidine, losartan, minoxidil, amlodipine. will see how his blood pressure does after dialysis. Consider increasing minoxidil and getting rid of something else to simplify his regimen (3) Acute respiratory failure with hypoxia: Code(s): J96.01 - Acute respiratory failure with hypoxia Status: Acute Assessment and Plan: Due to combination of fluid and infection. 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 - Other rheumatic mitral valve diseases Status: Acute Assessment and Plan: as noted on TTE and now confirmed by EITAN however, cultures remain negative Infectious Disease recommendations noted Mann catheter placement for IV antibiotics (5) Pneumonia: Qualifiers: Laterality: right Lung location: middle lobe of lung Pneumonia type: due to unspecified organism Qualified Code(s): J18.9 - Pneumonia, unspecified organism Code(s): J18.9 - Pneumonia, unspecified organism Status: Acute Assessment and Plan: as suggested by admission imaging follow cultures on IV antibiotics Subjective Date/time seen: 01/07/20 16:01 Interval history: Very pleasant gentleman who feels okay right now. No chest pain or shortness of breath. No fevers. Due for dialysis today Review of Systems Cardiovascular: Cardiovascular: Reports no additional cardiovascular complaints Respiratory: Respiratory: Reports no additional respiratory complaints Gastrointestinal: Gastrointestinal: Reports no additional gastrointestinal complaints Genitourinary: Genitourinary: Reports no additional male genitourinary complaints Exam Narrative: Exam Narrative: General: WD/WN AA male in NAD Heart: normal S1 and S2; no rub or gallop Lungs: clear bilaterally Abdomen: soft, nontender, nondistended, positive bowel sounds Extremities: no cyanosis or clubbing; no edema Skin: no rash Objective Data Vital Signs Vital Signs: Vital Signs - 24 hr 01/06/20 16:11 01/06/20 21:41 01/06/20 22:00 Temperature 36.6 C Pulse Rate 74 84 76 Respiratory Rate 18 18 Blood Pressure 156/41 H Pulse Oximetry 98 100 01/07/20 06:00 01/07/20 10:11 01/07/20 13:19 Temperature 36.4 C L 36.4 C 36.3 C L Pulse Rate 75 71 77 Respiratory Rate 18 16 17 Blood Pressure 167/56 H 149/53 H 166/69 H Pulse Oximetry 100 99 99 01/07/20 13:30 01/07/20 13:45 01/07/20 14:00 Temperature Pulse Rate 83 75 80 Respiratory Rate 13 14 14 Blood Pressure 151/58 H 157/48 H 151/57 H Pulse Oximetry 98 99 99 01/07/20 14:15 Temperature Pulse Rate 87 Respiratory Rate 12 Blood Pressure 152/52 H Pulse Oximetry 96 Intake/Output Intake/Output: Intake & Output 01/04/20 01/05/20 01/06/20 01/07/20 23:59 23:59 23:59 23:59 Intake Total 930 2570 1070 1040 Output Total 4000 0 Balance 930 -1430 1070 1040 Meds/Results Medications: Active Medications Generic Name Dose Route Start Last Admin Trade Name Freq PRN Reason Stop Dose Admin Hydrocodone Bitart/Acetaminophen 1 tab 01/07/20 14:23 [place] 5-325 Mg PO Q4H PRN Pain Rated 4-6 Albuterol 2 puff 12/30/19 07:50 Proventil Hfa INHALATION Q4-6H PRN Shortness Of Breath Or Wheezing Amlodipine Besylate 10 mg 12/30/19 21:00 01/06/20 21:41 Norvasc PO 10 mg HS VAL Administration Apixaban 2.5 mg 12/30/19 09:00 01/04/20 08:37 Eliquis PO 2.5 mg BID VAL Administration Aspirin 81 mg 12/30/19 09:00
--- NOTE | 2020-01-07 17:59 | PC.NURSE ---
to dialysis per bed
--- NOTE | 2020-01-07 18:46 | PC.NURSE ---
Pt to surgery via stretcher at 0945. Report given to Paula. Pt return from surgery around 1420. No complaints of pain, just hunger. Okay to feed now.
[2020-01-07] MEDS: EPOETIN ALFA-EPBX 10,000 UNITS/ML VIAL 10000 UNITS IV PUSH (20:30)
[2020-01-07 20:33] LABS: Glucose Point of Care 194 (65-105)
[2020-01-07] MEDS: ASPIRIN 81 MG CHEWABLE TABLET PO (22:46)
[2020-01-07] MEDS: PANTOPRAZOLE 40 MG TABLET PO (22:46)
[2020-01-07] MEDS: LOSARTAN POTASSIUM 100 MG TABLET PO (22:49)
[2020-01-07] MEDS: amLODIPine BESYLATE 5 MG TABLET 10 MG PO (22:50)
[2020-01-07] MEDS: METOPROLOL TARTRATE 25 MG TABLET 75 MG PO (22:50)
[2020-01-07] MEDS: cloNIDine HCL 0.2 MG TABLET PO (22:51)
[2020-01-07] MEDS: CENTRAL LINE FLUSH 10 ML IV PUSH (22:51)
--- NOTE | 2020-01-07 23:04 | PC.NURSE ---
1900- Pt off guerra in Dialysis 2230- Pt transported back to room from Dialysis. No adverse sign/symptoms. No sign /symptom respiratory distress/difficulty. Pt denies having any discomfort at this time.
[2020-01-07 23:45] LABS: Vancomycin Random 15.1 ug/mL (10-20)
[2020-01-08] MEDS: cloNIDine HCL 0.2 MG TABLET PO ×2 (05:33→13:44)
[2020-01-08] MEDS: SUCRALFATE 1 GM TABLET PO ×2 (05:33→12:50)
[2020-01-08] MEDS: CENTRAL LINE FLUSH 10 ML IV PUSH ×2 (05:33→13:45)
[2020-01-08 05:41] LABS: Glucose Point of Care 225 (65-105)
[2020-01-08 06:00] VITALS: BP 146/59; PULSE 72; RESP 18; TEMP 36.6; O2SAT 100
--- NOTE | 2020-01-08 07:45 | WPDANESPN ---
Anes - Prog Note Post-Op Date/Time: 01/08/20 07:45 Cardiovascular status: normal Respiratory status: normal Airway patency: baseline Mental status: baseline Post-Op hydration status: normal Vital Signs: Last Vital Signs Temp 37.0 C 01/07/20 22:00 Pulse 89 01/07/20 22:50 Resp 20 01/07/20 22:00 BP 168/51 H 01/07/20 22:00 Pulse Ox 100 01/07/20 22:00 Pain Score (VAS): 0 I/O: Intake & Output 01/07/20 01/07/20 01/08/20 15:59 23:59 07:59 Intake Total 200 790 600 Output Total 3000 80 Balance 200 -2210 520 Laboratory Tests 01/07/20 05:52 01/07/20 05:52 01/04/20 01/07/20 01/07/20 06:30 09:56 14:05 POC Capillary Glucose 185 H 195 H Random Vancomycin M.pneumoniae DNA (PCR) Cancelled SARS-CoV-2 RNA (RT-PCR) 01/07/20 01/07/20 01/08/20 20:03 23:04 03:19 POC Capillary Glucose 194 H Random Vancomycin 15.1 M.pneumoniae DNA (PCR) SARS-CoV-2 RNA (RT-PCR) Pending 01/08/20 05:36 POC Capillary Glucose 225 H Random Vancomycin M.pneumoniae DNA (PCR) SARS-CoV-2 RNA (RT-PCR) Post-procedural complaints: none Patient Feedback: Patient satisfied with anesthetic care.
[2020-01-08 08:33] LABS: Glucose Point of Care 228 (65-105)
[2020-01-08] MEDS: INSULIN ASPART (*BKC) 100 UNITS/ML SUB-Q ×3 (09:49→13:43)
[2020-01-08 09:50] VITALS: PULSE 89
[2020-01-08] MEDS: METOPROLOL TARTRATE 25 MG TABLET 75 MG PO (09:50)
[2020-01-08] MEDS: hydrALAZINE HCL 25 MG TABLET PO (09:50)
[2020-01-08] MEDS: ASPIRIN 81 MG CHEWABLE TABLET PO (09:50)
[2020-01-08] MEDS: minoxidiL 2.5 MG TABLET PO (09:51)
[2020-01-08] MEDS: PANTOPRAZOLE 40 MG TABLET PO (09:51)
--- NOTE | 2020-01-08 10:37 | PM.PNNEP ---
Progress Note: A&P Assessment and Plan (1) End stage renal disease: Code(s): N18.6 - End stage renal disease Status: Chronic Assessment and Plan: hemodialysis will be done tomorrow. (2) Hypertensive urgency: Code(s): I16.0 - Hypertensive urgency Status: Acute Assessment and Plan: resolved BP still a bit high at 140 to 160. He is on clonidine, losartan, minoxidil, amlodipine. will see how his blood pressure does after dialysis. Increase minoxidil to 5 b.i.d. (3) Acute respiratory failure with hypoxia: Code(s): J96.01 - Acute respiratory failure with hypoxia Status: Acute Assessment and Plan: Due to combination of fluid and infection. Removing fluid with dialysis getting antibiotics: Ceftriaxone and vancomycin. 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 - Other rheumatic mitral valve diseases Status: Acute Assessment and Plan: as noted on TTE and now confirmed by EITAN however, cultures remain negative Infectious Disease recommendations noted Mann catheter placed for IV antibiotics (5) Pneumonia: Qualifiers: Laterality: right Lung location: middle lobe of lung Pneumonia type: due to unspecified organism Qualified Code(s): J18.9 - Pneumonia, unspecified organism Code(s): J18.9 - Pneumonia, unspecified organism Status: Acute Assessment and Plan: as suggested by admission imaging follow cultures on IV antibiotics Subjective Date/time seen: 01/08/20 10:37 Interval history: Very pleasant gentleman who feels okay right now. Eating breakfast. No chest pain or shortness of breath. Review of Systems Cardiovascular: Cardiovascular: Reports no additional cardiovascular complaints Respiratory: Respiratory: Reports no additional respiratory complaints Gastrointestinal: Gastrointestinal: Reports no additional gastrointestinal complaints Genitourinary: Genitourinary: Reports no additional male genitourinary complaints Exam Narrative: Exam Narrative: General: WD/WN AA male in NAD Heart: normal S1 and S2; no rub or gallop Lungs: clear to auscultation Abdomen: soft, nontender, nondistended, positive bowel sounds Extremities: no cyanosis or clubbing; no edema Skin: no rash or subcu nodules Objective Data Vital Signs Vital Signs: Vital Signs - 24 hr 01/07/20 13:19 01/07/20 13:30 01/07/20 13:45 Temperature 36.3 C L Pulse Rate 77 83 75 Respiratory Rate 17 13 14 Blood Pressure 166/69 H 151/58 H 157/48 H Pulse Oximetry 99 98 99 01/07/20 14:00 01/07/20 14:15 01/07/20 16:00 Temperature 36.1 C L Pulse Rate 80 87 77 Respiratory Rate 14 12 18 Blood Pressure 151/57 H 152/52 H 148/54 H Pulse Oximetry 99 96 100 01/07/20 18:02 01/07/20 18:09 01/07/20 18:15 Temperature 36.6 C Pulse Rate 88 88 88 Respiratory Rate 20 Blood Pressure 161/64 H 164/64 H 153/69 H Pulse Oximetry 01/07/20 18:30 01/07/20 18:45 01/07/20 19:00 Temperature Pulse Rate 89 90 90 Respiratory Rate Blood Pressure 181/68 H 154/64 H 153/60 H Pulse Oximetry 01/07/20 19:15 01/07/20 19:30 01/07/20 19:45 Temperature Pulse Rate 91 93 91 Respiratory Rate Blood Pressure 165/73 H 153/66 H 145/64 H Pulse Oximetry 01/07/20 20:00 01/07/20 20:15 01/07/20 20:30 Temperature Pulse Rate 91 92 92 Respiratory Rate Blood Pressure 143/64 H 170/68 H 166/69 H Pulse Oximetry 01/07/20 20:45 01/07/20 21:00 01/07/20 21:15 Temperature Pulse Rate 92 93 92 Respiratory Rate Blood Pressure 164/75 H 154/67 H 152/64 H Pulse Oximetry 01/07/20 21:30 01/07/20 21:44 01/07/20 21:50 Temperature 37.1 C Pulse Rate 93 93 93 Respiratory Rate 20 Blood Pressure 172/68 H 146/62 H 163/58 H Pulse Oximetry 01/07/20 22:00 01/07/20 22:50 01/08/20 09:50 Temperature 37.0 C Pulse Rate 89 89 89 Respiratory Rate 20 Blood Pressure
[2020-01-08] MEDS: APIXABAN 2.5 MG TABLET PO (12:50)
--- NOTE | 2020-01-08 13:31 | WPDINFPN2 ---
Progress Note: A&P Assessment and Plan (1) Mitral valve vegetation: Code(s): I33.0 - Acute and subacute infective endocarditis Status: Acute Assessment and Plan: 1. MV vegetation, probably infectious, no Hx IE. No + micro. My order for Mycoplasma PCR was canceled without my permission, now reordered. 2. CRF, on HD 3. IV access, Mann in place POD #1. REC Vanc #10, Ctx #6, continue. PharmD dosing the Vanc, target trough 15-20. Further labs and BCs in process (14 day hold), adjust accordingly. If no + micro, will need both agents as empiric therapy through 02/09. Subjective Date/time seen: 01/08/20 13:31 Interval history: no new complaints Exam Narrative: Exam Narrative: afebrile Const: General: no acute distress Eyes: General: appearance normal, both eyes and all related structures Other: young sclerae Resp: Effort & Inspection: normal respiratory effort Auscultation: clear to auscultation bilaterally Cardio: Rate: regular rate Rhythm: regular rhythm Heart sounds: no murmurs GI: Inspection: non-distended GI Palp: Yes Soft to palpation and No Tenderness to palpation present (GI) Skin: General skin exam: no rashes or lesions noted Objective Data Vital Signs Vital Signs: Vital Signs - 24 hr 01/07/20 13:45 01/07/20 14:00 01/07/20 14:15 Temperature Pulse Rate 75 80 87 Respiratory Rate 14 14 12 Blood Pressure 157/48 H 151/57 H 152/52 H Pulse Oximetry 99 99 96 01/07/20 16:00 01/07/20 18:02 01/07/20 18:09 Temperature 36.1 C L 36.6 C Pulse Rate 77 88 88 Respiratory Rate 18 20 Blood Pressure 148/54 H 161/64 H 164/64 H Pulse Oximetry 100 01/07/20 18:15 01/07/20 18:30 01/07/20 18:45 Temperature Pulse Rate 88 89 90 Respiratory Rate Blood Pressure 153/69 H 181/68 H 154/64 H Pulse Oximetry 01/07/20 19:00 01/07/20 19:15 01/07/20 19:30 Temperature Pulse Rate 90 91 93 Respiratory Rate Blood Pressure 153/60 H 165/73 H 153/66 H Pulse Oximetry 01/07/20 19:45 01/07/20 20:00 01/07/20 20:15 Temperature Pulse Rate 91 91 92 Respiratory Rate Blood Pressure 145/64 H 143/64 H 170/68 H Pulse Oximetry 01/07/20 20:30 01/07/20 20:45 01/07/20 21:00 Temperature Pulse Rate 92 92 93 Respiratory Rate Blood Pressure 166/69 H 164/75 H 154/67 H Pulse Oximetry 01/07/20 21:15 01/07/20 21:30 01/07/20 21:44 Temperature Pulse Rate 92 93 93 Respiratory Rate Blood Pressure 152/64 H 172/68 H 146/62 H Pulse Oximetry 01/07/20 21:50 01/07/20 22:00 01/07/20 22:50 Temperature 37.1 C 37.0 C Pulse Rate 93 89 89 Respiratory Rate 20 20 Blood Pressure 163/58 H 168/51 H Pulse Oximetry 100 01/08/20 06:00 01/08/20 09:50 Temperature 36.6 C Pulse Rate 72 89 Respiratory Rate 18 Blood Pressure 146/59 H Pulse Oximetry 100 Intake/Output Intake/Output: Intake & Output 01/05/20 01/06/20 01/07/20 01/08/20 23:59 23:59 23:59 23:59 Intake Total 2570 1070 1830 650 Output Total 4000 0 3000 80 Balance -1430 1070 -1170 570 Meds/Results Medications: Active Medications Generic Name Dose Route Start Last Admin Trade Name Freq PRN Reason Stop Dose Admin Hydrocodone Bitart/Acetaminophen 1 tab 01/07/20 14:23 [place] 5-325 Mg PO Q4H PRN Pain Rated 4-6 Albuterol 2 puff 12/30/19 07:50 Proventil Hfa INHALATION Q4-6H PRN Shortness Of Breath Or Wheezing Amlodipine Besylate 10 mg 12/30/19 21:00 01/07/20 22:50 Norvasc PO 10 mg HS VAL Administration Apixaban 2.5 mg 12/30/19 09:00 01/08/20 12:50 Eliquis PO 2.5 mg BID VAL Administration Aspirin 81 mg 12/30/19 09:00 01/08/20 09:50 Aspirin Chewable PO 81 mg DAILY VAL Administration Clonidine HCl 0.2 mg 12/30/19 07:45 01/08/20 05:33 Catapres PO 0.2 mg Q8HR VAL Administration Dextrose 12.5 gm 12/30/19 08:25 Dextrose 50% Syringe IV PUSH PRN PRN Hypoglycemia Protocol Glucagon 1 mg 09
[2020-01-08] MEDS: EUCERIN CREAM 120 GM JAR 1 APPLIC TOPICAL (13:45)
[2020-01-08 13:49] LABS: SARS-CoV-2 RNA PCR Negative
[2020-01-08 13:56] LABS: Glucose Point of Care 197 (65-105)
[2020-01-08 14:52] VITALS: BP 144/43; PULSE 71; RESP 18; TEMP 37.3; O2SAT 100
--- NOTE | 2020-01-08 18:31 | PM.DS ---
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 Cardiology consulted and EITAN performed 01/01 showing the mitral valve with a highly mobile, globular appearing echodensity consistent with vegetation. This echodensity appears to have 2 separate mobile components or heads each measuring 0.6x.04cm and 0.6x.05cm. Initial blood cultures (12/28) no growth. Repeat BCx (12/30) negative as well. Could be part of the group of HACEK organisms or marantic. ID consulted and abx adjusted. ESR 57. We are growing out BCs for 10 days. Plan for Mann to be placed 01/06 by Gen Surgery. Abx through 02/10/20. for full 6 week course of ceftriaxone and vancomycin (2) Pneumonia: Qualifiers: Laterality: right Lung location: middle lobe of lung Pneumonia type: due to unspecified organism Qualified Code(s): J18.9 - Pneumonia, unspecified organism Code(s): J18.9 - Pneumonia, unspecified organism Status: Acute Assessment and Plan: CXR on admisison concerning for PNA. Repeat CXR 12/31 showing improving findings. WBC normal now. Afebrile. All cultures are negative. Continue IV abx as above. (3) Acute respiratory failure with hypoxia: Code(s): J96.01 - Acute respiratory failure with hypoxia Status: Acute Assessment and Plan: The patient's acute respiratory failure appears to be secondary to pulmonary edema +/- PNA. Patient's x-ray and physical examination are most consistent with increased pulmonary congestion and pulmonary edema possibly relate to severe HTN. Weaned to RA now. HD to control fluid status. (4) Hypertensive urgency: Code(s): I16.0 - Hypertensive urgency Status: Acute Assessment and Plan: BP markedly elevated on admisison. The patient was started on a Labetalol IV drip. He was changed to Cardene IV and the and transitioned back to oral meds with better control of BP. BP reviewed on 01/07 Continue amlodipine, clonidine, hydralazine, losartan, metoprolol, and minoxidil. metoprolol was increased to 75 mg b.i.d. and minoxidil was increased to 5 mg b.i.d. (5) Sepsis: Qualifiers: Acute respiratory failure type: with hypoxia Sepsis acute organ dysfunction status: with acute organ dysfunction Sepsis type: sepsis due to unspecified organism Severe sepsis acute organ dysfunction type: acute respiratory failure Severe sepsis shock status: without septic shock Qualified Code(s): A41.9 - Sepsis, unspecified organism; R65.20 - Severe sepsis without septic shock; J96.01 - Acute respiratory failure with hypoxia Code(s): A41.9 - Sepsis, unspecified organism Status: Acute Assessment and Plan: Present on admission with leukocytosis, tachycardia, and tachypnea. Source of sepsis felt related to PNA and endocarditis with Echo showing MV vegetation. BCx negative. Continue IV antibiotics. (6) Fluid overload: Qualifiers: Hypervolemia type: unspecified Qualified Code(s): E87.70 - Fluid overload, unspecified Code(s): E87.70 - Fluid overload, unspecified Status: Acute Assessment and Plan: The patient was clearly fluid overloaded on admission per admitting provider. Fluid status much better. Echo showing EF 65% with grade I diastolic dysfunction. Continue HD to control fluid status. (7) Leukocytosis: Qualifiers: Leukocytosis type: unspecified Qualified Code(s): D72.829 - Elevated white blood cell count, unspecified Code(s): D72.829 - Elevated white blood cell count, unspecified Status: Acute Assess
== END 2020-01-08 15:30 | DRG 871 ==
LOC: ANHED 22:33 → ANHICU 12-30 01:48 → ANH3MEDSUR 12-31 10:52 → ANHICU 01-10 14:23
PROVIDERS: Emergency Medicine; Internal Medicine; Internal Medicine Cardiovascular Disease; Internal Medicine Infectious Disease; Surgery; Admitting Provider Family Medicine; Emergency Provider Emergency Medicine; PCP General Practice; Visit Provider Internal Medicine
PROC: B24BZZ4 Ultrasonography of Heart with Aorta, Transesophageal (ICD-10-PCS; CPT 93312; principal; 2020-01-02 11:30)
PROC: 02HV33Z Insertion of Infusion Device into Superior Vena Cava, Percutaneous Approach (ICD-10-PCS; principal; 2020-01-07 11:30)
DX: A41.9 Sepsis, unspecified organism (principal); J96.01 Acute respiratory failure with hypoxia; J18.9 Pneumonia, unspecified organism; N18.6 End stage renal disease; I33.0 Acute and subacute infective endocarditis; I12.0 Hypertensive chronic kidney disease with stage 5 chronic kidney disease or end stage renal disease; R65.20 Severe sepsis without septic shock; Z20.828 Contact with and (suspected) exposure to other viral communicable diseases; I16.0 Hypertensive urgency; D63.1 Anemia in chronic kidney disease; E11.22 Type 2 diabetes mellitus with diabetic chronic kidney disease; E87.79 Other fluid overload; E78.5 Hyperlipidemia, unspecified; I25.10 Atherosclerotic heart disease of native coronary artery without angina pectoris; Z99.2 Dependence on renal dialysis; I25.2 Old myocardial infarction; Z86.73 Personal history of transient ischemic attack (TIA), and cerebral infarction without residual deficits; Z87.891 Personal history of nicotine dependence
CPT/HCPCS: 36415; 36600; 51701; 70450; 71045; 77001; 80048; 80053; 80069; 80202; 81001; 82565; 82728; 82805; 83036; 83540; 83550; 83605; 83690; 83735; 84484; 85025; 85027; 85610; 85652; 85730; 86140; 86638; 87040; 87086; 87581; 87635; 93005; 93306; 93312; 93320; 93325; 96365; 96367; 96368; 96375; 97161; 97165; 99291; A9270; C1751; C9113; C9803; G0257; J0131; J0690; J0696; J1644; J1815; J1956; J2250; J2405; J2543; J3010; J3370; J7030; J7040; J7060; P9047; Q5106; U0003

== ENCOUNTER 2020-03-06 01:15 | Day surgery (SDC) | payer MEDICARE, MEDICAID, SELFPAY ==
[2020-03-04 14:14] VITALS: BMI 35.2
--- NOTE | 2020-03-06 07:10 | PM.SD ---
Same Day Admit/Disch: HPI History of Present Illness Chief complaint: Mann Status Narrative: David Segundo Jr. is a 59 year old male The patient was diagnosed with endocarditis in early January. He had a right internal jugular tunneled Mann central venous catheter for long-term antibiotics. He has since completed his antibiotic therapy and is taken to surgery now for removal of his Mann catheter. [facility] Past Medical History Medical History Anemia CVA (cerebrovascular accident due to intracerebral hemorrhage) CVA x3, Diabetes mellitus End-stage renal disease on hemodialysis left arm access History of [place] (myocardial infarction) Hyperlipidemia Hypertension Nausea and vomiting in adult Surgical History Surgical History History of total right knee replacement Status post creation of arteriovenous fistula Family History Family History Mother Hypertension Diabetes mellitus Father Hypertension Diabetes mellitus Other Unknown family medical history Social History Social History Social History: Patient lives with his sister. He is a full code. His sister is his POA. He is a former smoker. He also reports former alcohol use drinking beer daily. He is . He does have 2 daughters. Smoking packs per day: 1 Smoking cigarettes per day: 20.0 Smoking status: Former smoker Tobacco type: cigarettes Additional smoking assessment comments: Patient reports smoking 1 pack per day for many years. Alcohol intake: never Substance use: never Other substance usage details: Has only used marijuana in the past. Living arrangements: shelter Additional living arrangements comments: Lives with his sister. Gender identity (if verbalized by the patient): Male Spiritual care concerns: No Agree to blood products: Yes Same Day Admit/Disch: Med Pre-admit Medications Home Medications Medication Instructions Recorded Confirmed Type amlodipine 10 mg PO HS 04/03/19 03/04/20 History Eliquis 2.5 mg PO BID 12/30/19 03/04/20 History Glucagon (HCl) Emergency Kit 1 mg SUBCUT Q20M PRN 12/30/19 03/04/20 History RenaPlex-D 1 tablet PO DAILY 12/30/19 03/04/20 History acetaminophen 500 mg PO Q8H PRN 12/30/19 03/04/20 History albuterol sulfate 2 puff INHALATION Q4-6H PRN 12/30/19 03/04/20 History clonidine HCl 0.2 mg PO Q8H 12/30/19 03/04/20 History hydralazine 25 mg PO BID 12/30/19 03/04/20 History insulin lispro See Rx Instructions .ROUTE .COMPLEX 12/30/19 03/04/20 History lorazepam 0.5 mg PO Q6H PRN 12/30/19 03/04/20 History losartan 100 mg PO HS 12/30/19 03/04/20 History pantoprazole 40 mg PO DAILY 12/30/19 03/04/20 History Lantus U-100 Insulin 25 units SUBCUT HS 30 Days #7.5 ml 01/08/20 03/04/20 Rx metoprolol tartrate 75 mg PO Q12HR 30 Days #180 tablet 01/08/20 03/04/20 Rx minoxidil 5 mg PO BID 30 Days #120 tablet 01/08/20 03/04/20 Rx sucralfate 1 g PO AC 30 Days #90 tablet 01/08/20 03/04/20 Rx Incruse Ellipta 1 inh INHALATION BID 03/04/20 03/04/20 History aspirin [Aspirin Low Dose] 81 mg PO DAILY 03/04/20 03/04/20 History Exam Const: General: comfortable, no acute distress, alert and awake HENMT: Head: normocephalic and atraumatic Mouth: Yes Normal oral and palatal mucosa present Eyes: Conjunctivae: conjunctivae normal Pupils: Equal, round and reactive pupils present EOM: EOMs intact bilaterally Neck: Neck: no lymphadenopathy, nontender and other ( right internal jugular Mann catheter subcutaneous tunnel noted) Chest: Chest palpation & inspection: abnormal inspection of the chest ( right-sided Mann catheter noted) Resp: Effort & Inspection: normal respiratory effort Auscultation: clear to auscultation bilaterally Cardio: Rate: regular rate Rhythm: regular
--- NOTE | 2020-03-06 07:16 | WPDHPUPDATE1 ---
History and Physical Update Update Date/Time: 03/06/20 07:16 History and Physical has been reviewed, including an updated exam of the patient. There are NO changes in the patient's condition. Risks, benefits, and alternatives have been discussed and questions answered. Patient agrees to proceed with procedure.
--- NOTE | 2020-03-06 09:10 | WPDANESEPPF ---
Anes - Initial Pre Proc Eval Procedure: Operation Date: 03/06/20 11:00 Proposed Procedures p Removal Of Mann Catheter - Damon Mcdowell MD Date/Time: 03/06/20 09:10 Surgeon: Damon Mcdowell MD Pre Op Diagnosis: Mann Status Patient Data Age: 59 Gender: M Height: 5 ft 7 in Weight: 102 kg Allergies Allergy/AdvReac Type Severity Reaction Status Date / Time No Known Allergies Allergy Unverified 03/04/20 13:55 Home Medications Medication Instructions Recorded Confirmed Type amlodipine 10 mg PO HS 04/03/19 03/04/20 History Eliquis 2.5 mg PO BID 12/30/19 03/04/20 History Glucagon (HCl) Emergency Kit 1 mg SUBCUT Q20M PRN 12/30/19 03/04/20 History RenaPlex-D 1 tablet PO DAILY 12/30/19 03/04/20 History acetaminophen 500 mg PO Q8H PRN 12/30/19 03/04/20 History albuterol sulfate 2 puff INHALATION Q4-6H PRN 12/30/19 03/04/20 History clonidine HCl 0.2 mg PO Q8H 12/30/19 03/04/20 History hydralazine 25 mg PO BID 12/30/19 03/04/20 History insulin lispro See Rx Instructions .ROUTE .COMPLEX 12/30/19 03/04/20 History lorazepam 0.5 mg PO Q6H PRN 12/30/19 03/04/20 History losartan 100 mg PO HS 12/30/19 03/04/20 History pantoprazole 40 mg PO DAILY 12/30/19 03/04/20 History insulin glargine [Lantus U-100 25 units SUBCUT HS 30 Days #7.5 ml 01/08/20 03/04/20 Rx Insulin] metoprolol tartrate 75 mg PO Q12HR 30 Days #180 tablet 01/08/20 03/04/20 Rx minoxidil 5 mg PO BID 30 Days #120 tablet 01/08/20 03/04/20 Rx sucralfate 1 g PO AC 30 Days #90 tablet 01/08/20 03/04/20 Rx aspirin [Aspirin Low Dose] 81 mg PO DAILY 03/04/20 03/04/20 History umeclidinium [Incruse Ellipta] 1 inh INHALATION BID 03/04/20 03/04/20 History Patient hx anesthesia problems: none Family hx anesthesia problems: none PMFSH Past Medical History Medical History Anemia CVA (cerebrovascular accident due to intracerebral hemorrhage) CVA x3, Diabetes mellitus End-stage renal disease on hemodialysis left arm access History of [place] (myocardial infarction) Hyperlipidemia Hypertension Nausea and vomiting in adult Surgical History Surgical History History of total right knee replacement Status post creation of arteriovenous fistula Family History Family History Mother Hypertension Diabetes mellitus Father Hypertension Diabetes mellitus Other Unknown family medical history Social History Social History Social History: Patient lives with his sister. He is a full code. His sister is his POA. He is a former smoker. He also reports former alcohol use drinking beer daily. He is . He does have 2 daughters. Smoking packs per day: 1 Smoking cigarettes per day: 20.0 Smoking status: Former smoker Tobacco type: cigarettes Additional smoking assessment comments: Patient reports smoking 1 pack per day for many years. Alcohol intake: never Substance use: never Other substance usage details: Has only used marijuana in the past. Living arrangements: retirement Additional living arrangements comments: Lives with his sister. Gender identity (if verbalized by the patient): Male Spiritual care concerns: No Agree to blood products: Yes Anes - Eval Final PreProcedure Day of Procedure 03/06/20 09:10 Patient weight: obese Heart: regular rate and rhythm Lungs: clear to auscultation Airway: Mallampati scale class II and special considerations poor dentition Neurological: alert and oriented Last oral intake: >/= 8 hours ASA classification: IV Emergent: no Anesthetic plan: proceed Anesthesia type and monitoring: general GIVS and standard monitoring Informed Consent: The patient's anesthetic plan and its attendant risks and benefits were discussed with the patient/family/POA. Questions were solici
[2020-03-06 09:14] VITALS: BP 161/89; PULSE 97; RESP 20; TEMP 36.7; O2SAT 97
[2020-03-06 09:46] LABS: Basophils Percent Auto 0.4 % (0.2-1.2); Eosinophils Absolute Auto 0.1 K/mm3 (0-0.3); Eosinophils Percent Auto 2.6 % (0-4.4); Hematocrit 29.6 % (42.0-52.0); Hemoglobin 9.6 g/dL (14.0-18.0); Immature Granulocyte Absolute 0.02 K/mm3 (0.00-0.031); Immature Granulocyte Percent A 0.4 % (0-0.5); Lymphocytes Percent Auto 16.5 % (18.3-44.2); Mean Corpuscular HGB Conc 32.4 g/dl (32-36); Mean Corpuscular Hemoglobin 26.8 pg (26-34); Mean Corpuscular Volume 82.7 fl (80-100); Monocytes Absolute Auto 0.6 K/mm3 (0.1-0.6); Monocytes Percent Auto 11.2 % (2.6-8.5); Neutrophils Absolute Auto 3.8 K/mm3 (1.3-6.7); Neutrophils Percent Auto 68.9 % (45.5-73.1); Platelet Count Result 220 k/mm3 (150-375); Red Blood Count 3.58 M/mm3 (4.6-6.20); Red Cell Distribution Width 19.3 % (11.5-14.5); White Blood Count 5.5 K/mm3 (4.5-10.0)
[2020-03-06] MEDS: SODIUM CHLORIDE 0.9% IV 500 ML 30 ML IV CONT (09:50)
[2020-03-06 09:56] LABS: INR 1.1
[2020-03-06 09:57] LABS: Partial Thromboplastin Time 39.2 SECONDS (22.3-36.8)
[2020-03-06 09:58] LABS: Anion Gap 4 mmol/L (8-16); Blood Urea Nitrogen 19 mg/dL (9-20); Calcium 9.3 mg/dL (8.4-10.2); Carbon Dioxide 38 mmol/L (22-30); Chloride 92 mmol/L (98-107); Estimated CRCL calculation 25 ml/min; Estimated Glomerular Filt Rate 23; Glucose 199 mg/dL (75-110); Potassium 4.6 mmol/L (3.4-5.0); Sodium 134 mmol/L (137-145)
[2020-03-06] MEDS: ceFAZolin 2 GM/D5W 50 ML 2 GM/50 ML BAG IVPB (10:33)
[2020-03-06] MEDS: NEOMYCIN/POLYMYXIN/BACITRACIN OINTMENT PACKET 1 PACKET TOPICAL (10:50)
[2020-03-06 10:56] VITALS: BP 118/49; PULSE 70; RESP 16; O2SAT 98
--- NOTE | 2020-03-06 11:11 | P.OP_ITS ---
Procedure Note - Detailed Date of procedure: 03/06/20 Pre-op diagnosis: Mann Status Tunneled Mann central venous catheter no longer needed Post-op diagnosis: same Procedure performed: Removal right internal jugular tunneled central venous catheter Description of procedure: Patient was supine on the operating table. The right neck and right upper chest was prepped and draped. Gently pulling on the Mann catheter it became evident that the sleeve was right at the exit site of the catheter. I went ahead and carefully dissected out the adhesions to the sleeve and to the catheter in this area. Once this was done, I was able to remove the catheter without difficulty. There was considerable back bleeding through the trach. I held pressure over the right internal jugular vein site for over 5 minutes. There did not appear to be any bleeding after that. We dressed the exit site with antibiotic ointment and a sterile transparent dressing. Patient was taken to outpatient surgery in good condition. Anesthesia: MAC Surgeon: Damon Mcdowell MD Parking Meter Servicer: Slava ZENDEJAS Estimated blood loss (mL): 10 Drains: No Packing: No Pathology: none sent Complications: None Condition: stable Disposition: same day Findings: Intact Mann catheter
[2020-03-06 11:15] VITALS: BP 136/69; PULSE 75; RESP 16
[2020-03-06 11:45] VITALS: BP 120/70; PULSE 62; RESP 20
--- NOTE | 2020-03-06 12:07 | SUR.PHASEII ---
1205 - Spoke with Micheline from ID in regards to post op orders. nurse aware of pt not to have dialysis until tomorrow
== END 2020-03-06 12:26 | disposition home or self-care (01) ==
PROVIDERS: Anesthesiology; PCP General Practice; Visit Provider Surgery
PROC: (CPT 49422; principal; 2020-03-06 11:00)
DX: Z45.2 Encounter for adjustment and management of vascular access device (principal); I12.0 Hypertensive chronic kidney disease with stage 5 chronic kidney disease or end stage renal disease; E11.22 Type 2 diabetes mellitus with diabetic chronic kidney disease; N18.6 End stage renal disease; Z99.2 Dependence on renal dialysis; I05.8 Other rheumatic mitral valve diseases; E78.5 Hyperlipidemia, unspecified; D64.9 Anemia, unspecified; Z86.73 Personal history of transient ischemic attack (TIA), and cerebral infarction without residual deficits; Z87.891 Personal history of nicotine dependence; Z79.01 Long term (current) use of anticoagulants; Z79.4 Long term (current) use of insulin; Z79.82 Long term (current) use of aspirin; E66.9 Obesity, unspecified; Z68.36 Body mass index [BMI] 36.0-36.9, adult
CPT/HCPCS: 36590; 36415; 80048; 85025; 85610; 85730; A9270; J0690; J2704; J7040

== ENCOUNTER 2020-05-08 00:35 | Day surgery (SDC) | payer MEDICARE, MEDICAID, SELFPAY ==
[2020-05-08] VITALS (10 sets, daily range): BP systolic 121–163; BP diastolic 51–74; PULSE 66–83; RESP 13–23; TEMP 36.3; O2SAT 94–100; BMI 32.6
--- NOTE | 2020-05-08 08:48 | PC.NURSE ---
Pt transferred to bed via Maxi-Move with the assist of physical therapist. Pt unable to stand independently.
--- NOTE | 2020-05-08 08:52 | WPDHPUPDATE1 ---
History and Physical Update Update Date/Time: 05/08/20 08:52 History and Physical has been reviewed, including an updated exam of the patient. There are NO changes in the patient's condition. Risks, benefits, and alternatives have been discussed and questions answered. Patient agrees to proceed with procedure.
--- NOTE | 2020-05-08 09:12 | PC.NURSE ---
Consent obtained with patient's sister - Judy Elias, over the phone with STACI Martinez as witness
--- NOTE | 2020-05-08 10:59 | WPDMODSED ---
Moderate Sedation Note-Pt Data Patient Data Diagnosis: Mitral valve endocarditis, residual vegetation Present Complaint: None History and physical update: Patient is a very pleasant 60-year-old male past medical history significant for hypertension, diabetes mellitus, end-stage renal disease on hemodialysis who was admitted December 2019 found to have a mitral valve vegetation with 2 separate components 0.6 x 0.4 cm and 0.6 x 0.5 cm culture negative treated with 6 weeks of intravenous antibiotics with ceftriaxone and vancomycin. During that hospitalization he was treated for pneumonia with associated acute respiratory failure after presenting with hypertensive urgency. Patient has felt well subsequently and denies fevers, chills, shortness of breath. Repeat 2D echocardiogram was obtained as an outpatient 04/10/2020 which revealed EF 70%, mild mitral valve regurgitation with echogenic structure on the posterior mitral valve leaflet consistent with vegetation. He is subsequently referred for repeat transesophageal echocardiogram for further clarification. Impression/plan of care: History of presumed culture negative mitral valve endocarditis status post 6 weeks intravenous antibiotics with residual mitral valve echodensity referred for transesophageal echocardiogram. Recommendations to follow. Procedure to be performed/Plan: Transesophageal echocardiogram Allergies Allergy/AdvReac Type Severity Reaction Status Date / Time No Known Allergies Allergy Unverified 03/04/20 13:55 Home Medications Medication Instructions Recorded Confirmed Type amlodipine 10 mg PO HS 04/03/19 05/07/20 History Eliquis 2.5 mg PO BID 12/30/19 05/07/20 History Glucagon (HCl) Emergency Kit 1 mg SUBCUT Q20M PRN 12/30/19 05/07/20 History RenaPlex-D 1 tablet PO DAILY 12/30/19 05/07/20 History albuterol sulfate 2 puff INHALATION Q4-6H PRN 12/30/19 05/07/20 History clonidine HCl 0.2 mg PO Q8H 12/30/19 05/07/20 History hydralazine 25 mg PO BID 12/30/19 05/07/20 History insulin lispro See Rx Instructions .ROUTE .COMPLEX 12/30/19 05/07/20 History lorazepam 0.5 mg PO Q6H PRN 12/30/19 05/07/20 History losartan 100 mg PO HS 12/30/19 05/07/20 History pantoprazole 40 mg PO DAILY 12/30/19 05/07/20 History metoprolol tartrate 75 mg PO Q12HR 30 Days #180 tablet 01/08/20 05/07/20 Rx minoxidil 5 mg PO BID 30 Days #120 tablet 01/08/20 05/07/20 Rx aspirin [Aspirin Low Dose] 81 mg PO DAILY 03/04/20 05/07/20 History insulin detemir U-100 [Levemir 25 unit SUBCUT HS 05/07/20 05/07/20 History U-100 Insulin] ondansetron HCl 4 mg PO Q6H PRN 05/07/20 05/07/20 History sucralfate 1 g PO TID 05/07/20 05/07/20 History umeclidinium [Incruse Ellipta] 2 inh INHALATION DAILY 05/07/20 05/07/20 History Current Medications: See list above Sedation/Anesthesia: No previous sedation/anesthesia problems (including family history). COUNT INCLUDES THE [facility] Past Medical History Medical History Anemia CVA (cerebrovascular accident due to intracerebral hemorrhage) CVA x3, Diabetes mellitus End-stage renal disease on hemodialysis left arm access History of [place] (myocardial infarction) Hyperlipidemia Hypertension Nausea and vomiting in adult Surgical History Surgical History History of total right knee replacement Status post creation of arteriovenous fistula Family History Family History Mother Hypertension Diabetes mellitus Father Hypertension Diabetes mellitus Other Unknown family medical history Social History Social History Social History: Patient lives with his sister. He is a full code. His sister is his POA. He is a former smoker. He also reports former alcohol use drinking beer daily. He is . He does have 2 daughters. Smoking p
--- NOTE | 2020-05-08 11:35 | WPDTEECHO ---
[facility] TransEsophageal Echocardiogram Date of procedure: 05/08/20 Procedure Type: Transesophageal echocardiogram Diagnosis: Mitral valve echodensity/vegetation Indications: Mitral valve echodensity/vegetation Image Quality: Good Findings: History and physical update: Patient is a very pleasant 60-year-old male past medical history significant for hypertension, diabetes mellitus, end-stage renal disease on hemodialysis who was admitted December 2019 found to have a mitral valve vegetation with 2 separate components 0.6 x 0.4 cm and 0.6 x 0.5 cm culture negative treated with 6 weeks of intravenous antibiotics with ceftriaxone and vancomycin. During that hospitalization he was treated for pneumonia with associated acute respiratory failure after presenting with hypertensive urgency. Patient has felt well subsequently and denies fevers, chills, shortness of breath. Repeat 2D echocardiogram was obtained as an outpatient 04/10/2020 which revealed EF 70%, mild mitral valve regurgitation with echogenic structure on the posterior mitral valve leaflet consistent with vegetation. He is subsequently referred for repeat transesophageal echocardiogram for further clarification. Procedure in detail: After verbal and written informed consent was obtained the patient risks, benefits, and alternatives explained in detail the patient agreed to proceed with the plan of care as outlined above. The patient was evaluated at bedside in the [facility] procedure room. The posterior oropharynx, neck, and jaw angle all within normal limits on examination. Lungs were clear to auscultation. See pre-sedation note for further details The patient was then placed in the appropriate 30 to 45 degree angle supine position at a slight left lateral decubitus position. Patient was monitored throughout the study with telemetry, oxygen saturation, end-tidal CO2 monitoring, blood pressure, heart rate, and respirations. The posterior hypopharynx was then locally anesthetized using repeated administration of Hurricaine spray as well as gargled viscous lidocaine. After local anesthetic of the posterior hypopharynx was achieved and the oral bite block placed, moderate sedation was administered. After confirmation of adequate moderate sedation, the transesophageal echocardiogram probe was advanced through the oral bite block into the posterior hypopharynx and into the esophagus easily and without complication. Multiple, multiplanar echocardiographic images were obtained in multiple standard re- projections. Pulsed wave, continuous-wave, and color-flow Doppler were utilized in conjunction with this study. At the conclusion of the study, the transesophageal echocardiogram probe was removed easily and without complication. The patient tolerated the procedure well without difficulty. Patient was in sinus rhythm throughout the study. Moderate Sedation/Anesthesia administration: Patient reports no prior problems with sedation/anesthesia. Please see pre-sedation noted for physical examination documentation. As noted above, after adequate local anesthesia of the posterior hypopharynx was achieved, a total of 3 mg intravenous Versed and a total of 75 mcg intravenous Fentanyl in multiple divided doses was administered for moderate sedation. Sedation start time was 1103 and end time was 1126 for a total intra-service/procedure face-face time of 23 minutes. Sedation was administered by a qualified/certified observer Krystin Hubbard RN under my supervision with intra-procedure [id number] observation and management throughout the entirety of the procedure. There were no other issues or complications and patient tolerated the procedure well. See post-anesthesia documentation. Findings: -Left ventricular size and systolic function within normal limits without wall motion abnormalities with ejection fraction of 65%. Moderate concentric left ventricle hypertrophy. -Right ventricular size and systolic
--- NOTE | 2020-05-08 13:21 | SUR.PHASEII ---
Discharge paperwork and follow-up information reviewed with STACI Pedro at [facility] and discussed with patient's next of kin, Judy, who both verbalize understanding of discharge education. Pt. able to tolerate 8 oz. of water prior to discharge. Pt. escorted to transportation vehicle provided by [facility] via wheelchair in no apparent distress. Discharge packet sent with pt.
== END 2020-05-08 13:40 | disposition home or self-care (01) ==
PROVIDERS: Visit Provider Internal Medicine Cardiovascular Disease
PROC: (CPT 93312; principal; 2020-05-08 10:00)
DX: I05.9 Rheumatic mitral valve disease, unspecified (principal); I36.1 Nonrheumatic tricuspid (valve) insufficiency; I12.0 Hypertensive chronic kidney disease with stage 5 chronic kidney disease or end stage renal disease; E11.22 Type 2 diabetes mellitus with diabetic chronic kidney disease; N18.6 End stage renal disease; Z99.2 Dependence on renal dialysis; I25.2 Old myocardial infarction; E78.5 Hyperlipidemia, unspecified; D64.9 Anemia, unspecified; Z86.73 Personal history of transient ischemic attack (TIA), and cerebral infarction without residual deficits; Z87.891 Personal history of nicotine dependence; Z79.01 Long term (current) use of anticoagulants; Z79.4 Long term (current) use of insulin; Z79.82 Long term (current) use of aspirin
CPT/HCPCS: 93312; 93320; 93325; J2250; J3010; J7040

== ENCOUNTER 2020-06-09 19:53 | Inpatient (IN) | payer MEDICARE, MEDICAID, SELFPAY ==
--- NOTE | ~2020-06-09 | US_ITS ---
EXAMINATION: US renal BI DATE: 06/11/2020 09:52 INDICATION: Bilateral renal lesions TECHNIQUE: Multiple grayscale and Doppler ultrasound images of the kidneys were obtained. COMPARISON: CT, 06/09/2020 FINDINGS: The right kidney measures 11.5 x 5.0 x 5.2 cm. There are multiple cysts of the right kidney which measure up to 2.5 cm. There also appear to be some isoechoic lesions of the kidney. The left k idney measures 9.5 x 5.0 x 4.6 cm. There are multiple cysts of the left kidney which measure up to 4. 6 cm. There are some isoechoic lesions of the left kidney as well. The kidneys demonstrate normal par enchymal echogenicity. There is no hydronephrosis. The bladder is normal. IMPRESSION: 1. Multiple cysts of the kidneys including some which remain indeterminate. Follow-up MRI without and with contrast is recommended. Reviewed, dictated and finalized at location A. IELD OPERATIONS SPECIALIST IMPRESSION: 1. Multiple cysts of the kidneys including some which remain indeterminate. Fol low-up MRI without and with contrast is recommended.
--- NOTE | ~2020-06-09 | CT_ITS ---
EXAMINATION: CT abdomen pelvis wo con DATE: 06/09/2020 21:07 INDICATION: Hematemesis. Nausea and vomiting. TECHNIQUE: Computed tomography (CT) of the abdomen and pelvis was performed without intravenous contr ast. The dose-length product was 896.84 mGy-cm. Automated exposure control and iterative reconstructi on technique were employed. COMPARISON: None. FINDINGS: There is bibasilar atelectasis. There is atherosclerosis. Cardiomegaly. No significant pleu ral or pericardial effusion. There is bilateral renal atrophy with multiple low density lesions in both kidneys, most likely benig n cyst, although there are a few indeterminate lesions. Consider correlation with MRI to exclude enha ncing masses. There is dependent high density material in the gallbladder which may represent sludge or stones. Small fat-containing umbilical hernia. There is thickening of the rectum with mild surroun ding fatty infiltration and fecal impaction, suspicious for proctitis. There is diffuse subcutaneous edema. There is a possible small pocket of fluid in the left gluteal soft tissues, image 128. Cannot exclude small abscess. This fluid pocket measures 2.5 x 2.1 cm greatest coronal dimension. There is a dynamic compression screw in the right femoral neck. No significant lymphadenopathy. IMPRESSION: 1. Rectal thickening with mild surrounding inflammation and fecal impaction, suspicious for proctitis . 2: Diffuse subcutaneous edema with small fluid pocket left gluteal soft tissues measuring up to 2.5 c m, suspicious for abscess. 3: Bilateral renal atrophy, likely reflecting chronic renal failure. Multiple low density lesions of both kidneys are most likely cyst, although there are a few indeterminate density lesions. Consider c orrelation with MRI on a nonemergent basis. 4: High density material in the gallbladder may represent sludge or stones. Reviewed, dictated and finalized at location A. EDICAL ENGINEERING TECHNICIAN IMPRESSION: 1. Rectal thickening with mild surrounding inflammation and fecal impaction, hunt spicious for proctitis. 2: Diffuse subcutaneous edema with small fluid pocket left gluteal soft tissues measuring up to 2.5 cm, suspicious for abscess. 3: Bilateral renal atrophy, likely reflecting chronic renal failure. Multiple l ow density lesions of both kidneys are most likely cyst, although there are a f ew indeterminate density lesions. Consider correlation with MRI on a nonemergen t basis. 4: High density material in the gallbladder may represent sludge or stones.
[2020-06-09 20:06] VITALS: BP 199/113; PULSE 100; RESP 21; TEMP 36.8; O2SAT 99
--- NOTE | 2020-06-09 20:08 | ED.NAVMDI ---
HPI - Nausea/Vomiting/Diarrhea General Chief complaint: Nausea/Vomiting/Diarrhea Stated complaint: coffee ground emesis Time Seen by Provider: 06/09/20 20:07 History of Present Illness HPI Narrative: 60 yo male with h/o ESRD, htn, dm, gi bleed, cva presents to the ED for hematemesis. He has had multiple episodes of vomiting. At least some of those have contained blood. He denies any pain. He has been here for this before. No scope done or final diagnosis made at that time. History limited by dementia. Related Data Home Medications Medication Instructions Recorded Confirmed amlodipine 10 mg PO HS 04/03/19 06/10/20 Eliquis 2.5 mg PO BID 12/30/19 06/10/20 Glucagon (HCl) Emergency Kit 1 mg SUBCUT Q20M PRN 12/30/19 06/10/20 RenaPlex-D 1 tablet PO DAILY 12/30/19 06/10/20 albuterol sulfate 2 puff INHALATION Q4-6H PRN 12/30/19 06/10/20 clonidine HCl 0.2 mg PO Q8H 12/30/19 06/10/20 hydralazine 25 mg PO BID 12/30/19 06/10/20 insulin lispro See Rx Instructions .ROUTE .COMPLEX 12/30/19 06/10/20 lorazepam 0.5 mg PO Q6H PRN 12/30/19 06/10/20 losartan 100 mg PO HS 12/30/19 06/10/20 pantoprazole 40 mg PO DAILY 12/30/19 06/10/20 aspirin [Aspirin Low Dose] 81 mg PO DAILY 03/04/20 06/10/20 Incruse Ellipta 2 inh INHALATION DAILY 05/07/20 06/10/20 Levemir U-100 Insulin 25 unit SUBCUT HS 05/07/20 06/10/20 ondansetron HCl 4 mg PO Q6H PRN 05/07/20 06/10/20 sucralfate 1 g PO TID 05/07/20 06/10/20 Allergies Allergy/AdvReac Type Severity Reaction Status Date / Time No Known Allergies Allergy Verified 06/10/20 01:26 Review of Systems Review of Systems: All systems reviewed & are unremarkable except as noted in HPI and below Constitutional: Constitutional: Denies fever(s) Eyes: Eyes: Reports no additional eye complaints ENT: Denies sore throat Cardiovascular: Cardiovascular: Denies chest pain Respiratory: Respiratory: Denies dyspnea Gastrointestinal: Gastrointestinal: Denies abdominal pain, Reports nausea and Reports vomiting Genitourinary: Genitourinary: Reports no additional male genitourinary complaints Neurologic: Reports system reviewed and no additional complaints, except as documented [facility] Past Medical History Medical History Anemia CVA (cerebrovascular accident due to intracerebral hemorrhage) CVA x3, Diabetes mellitus End-stage renal disease on hemodialysis left arm access History of [place] (myocardial infarction) Hyperlipidemia Hypertension Nausea and vomiting in adult Surgical History Surgical History History of total right knee replacement Status post creation of arteriovenous fistula Family History Family History Mother Hypertension Diabetes mellitus Father Hypertension Diabetes mellitus Other Unknown family medical history Social History Social History Social History: Patient lives with his sister. He is a full code. His sister is his POA. He is a former smoker. He also reports former alcohol use drinking beer daily. He is . He does have 2 daughters. Smoking packs per day: 1 Smoking cigarettes per day: 20.0 Smoking status: Former smoker Tobacco type: cigarettes Additional smoking assessment comments: Patient reports smoking 1 pack per day for many years. Alcohol intake: former Substance use: former Substance use type: marijuana Other substance usage details: Has only used marijuana in the past. Living arrangements: [facility] Additional living arrangements comments: Lives with his sister. Gender identity (if verbalized by the patient): Male Spiritual care concerns: No Agree to blood products: Yes Exam Const: General: alert and ill appearing acutely and chronically HENMT: Other: dried bloody vomitus on chin
[2020-06-09 21:02] LABS: Basophils Percent Auto 0.1 % (0.2-1.2); Eosinophils Absolute Auto 0.2 K/mm3 (0-0.3); Eosinophils Percent Auto 1.9 % (0-4.4); Hematocrit 44.2 % (42.0-52.0); Hemoglobin 14.3 g/dL (14.0-18.0); Immature Granulocyte Absolute 0.05 K/mm3 (0.00-0.031); Immature Granulocyte Percent A 0.6 % (0-0.5); Lymphocytes Absolute Auto 0.68 K/mm3 (0.9-3.2); Lymphocytes Percent Auto 7.7 % (18.3-44.2); Mean Corpuscular HGB Conc 32.4 g/dl (32-36); Mean Corpuscular Hemoglobin 25.6 pg (26-34); Mean Corpuscular Volume 79.2 fl (80-100); Mean Platelet Volume 10.6 fl (7.4-10.4); Monocytes Absolute Auto 0.6 K/mm3 (0.1-0.6); Monocytes Percent Auto 7.2 % (2.6-8.5); Neutrophils Absolute Auto 7.3 K/mm3 (1.3-6.7); Neutrophils Percent Auto 82.5 % (45.5-73.1); Platelet Count Result 252 k/mm3 (150-375); Red Blood Count 5.58 M/mm3 (4.6-6.20); Red Cell Distribution Width 19.7 % (11.5-14.5); White Blood Count 8.9 K/mm3 (4.5-10.0)
[2020-06-09] MEDS: ONDANSETRON INJ 4 MG/2 ML VIAL IV PUSH ×2 (21:07→23:38)
[2020-06-09] MEDS: PANTOPRAZOLE SODIUM IV 40 MG VIAL IV PUSH (21:07)
[2020-06-09 21:12] LABS: Ammonia 18 umol/L (9-30)
[2020-06-09] MEDS: hydrALAZINE HCL 20 MG/ML VIAL IV PUSH (21:13)
[2020-06-09 21:14] VITALS: BP 188/72; PULSE 86; RESP 16; O2SAT 95
[2020-06-09 21:18] LABS: Add Urine Microscopic? YES; Appearance Urine Turbid (Clear); Bacteria Urine 1+ /hpf; Bilirubin Urine Negative (Negative); Blood Urine 2+ (Negative); Glucose Urine UA 1+ mg/dL (Negative); Ketones Urine Negative (Negative); Leukocyte Esterase Ur 3+ LEU/UL (Negative); Mucus Urine Rare /lpf; Nitrate Urine Negative (Negative); Protein Urine 3+ mg/dL (Negative); RBC Urine >75 /hpf (0-2); Specific Grav Ur 1.019 (1.001-1.035); Squamous Epithelial Cell Urine Few /hpf (Few); Transitional Epi Cells Urine Rare /hpf (None Seen); Urobilinogen Urine Negative mg/dL (<2.0); WBC Urine 51-75 /hpf
[2020-06-09 21:25] LABS: Color Urine Amber (Yellow)
[2020-06-09 21:41] LABS: Alanine Aminotransferase 15 U/L (4-50); Albumin Level 4.1 g/dL (3.5-5.1); Alkaline Phosphatase 116 U/L (38-126); Anion Gap 5 mmol/L (8-16); Aspartate Amino Transferase 24 U/L (17-59); Bilirubin,Total 0.9 mg/dL (0.2-1.3); Blood Urea Nitrogen 17 mg/dL (9-20); Calcium 9.3 mg/dL (8.4-10.2); Carbon Dioxide 36 mmol/L (22-30); Chloride 95 mmol/L (98-107); Estimated CRCL calculation 24 ml/min; Estimated Glomerular Filt Rate 24; Glucose 278 mg/dL (75-110); Lipase 28 U/L (23-300); Potassium 4.2 mmol/L (3.4-5.0); Sodium 136 mmol/L (137-145)
[2020-06-09 22:14] VITALS: BP 164/77; PULSE 88; RESP 16; O2SAT 99
[2020-06-09 23:36] VITALS: BP 131/94; PULSE 86; RESP 20; O2SAT 100
[2020-06-09] MEDS: SODIUM CHLORIDE 0.9% IV 1,000 ML 50 ML IV CONT (23:37)
[2020-06-10] VITALS (15 sets, daily range): BP systolic 139–180; BP diastolic 49–72; PULSE 67–91; RESP 16–20; TEMP 36.2–36.9; O2SAT 93–100; BMI 33.9
--- NOTE | 2020-06-10 00:20 | ADMGEN ---
This patient, David Segundo Jr., was admitted to Medical Room 347-. Patient/family oriented to hospital policies and general routines including ID bracelet, bed and alarms, visiting hours, pain management, procedures, bathroom and other care routines, personal items, smoking policy, room service/diet, and visiting hours. Information on how to activate the Rapid Response Team has been discussed. Patient/Family are encouraged to report perceived risks to care and to ask questions if they do not understand what they are told or what they should do.
[2020-06-10] MEDS: DOCUSATE SODIUM 400 MG/400 ML ENEMA RECTAL (01:20)
[2020-06-10 01:26] LABS: Hematocrit 43.1 % (42.0-52.0); Hemoglobin 13.8 g/dL (14.0-18.0)
[2020-06-10 02:42] LABS: Glucose Point of Care 259 (65-105)
[2020-06-10] MEDS: amLODIPine BESYLATE 5 MG TABLET 10 MG PO ×2 (04:24→20:03)
[2020-06-10] MEDS: cloNIDine HCL 0.2 MG TABLET PO ×3 (06:06→21:36)
[2020-06-10] MEDS: SUCRALFATE 1 GM TABLET PO ×3 (06:06→17:19)
[2020-06-10 06:24] LABS: Albumin Level 4.1 g/dL (3.5-5.1); Anion Gap 11 mmol/L (8-16); Blood Urea Nitrogen 24 mg/dL (9-20); Calcium 9.7 mg/dL (8.4-10.2); Carbon Dioxide 26 mmol/L (22-30); Chloride 98 mmol/L (98-107); Estimated CRCL calculation 23 ml/min; Estimated Glomerular Filt Rate 23; Glucose 226 mg/dL (75-110); Phosphorus 1.9 mg/dL (2.5-4.5); Potassium 4.3 mmol/L (3.4-5.0); Sodium 135 mmol/L (137-145)
[2020-06-10 08:00] LABS: Hematocrit 37.7 % (42.0-52.0); Hemoglobin 12.2 g/dL (14.0-18.0); Mean Corpuscular HGB Conc 32.4 g/dl (32-36); Mean Corpuscular Hemoglobin 25.6 pg (26-34); Mean Corpuscular Volume 79.2 fl (80-100); Mean Platelet Volume 10.2 fl (7.4-10.4); Platelet Count Result 228 k/mm3 (150-375); Red Blood Count 4.76 M/mm3 (4.6-6.20); Red Cell Distribution Width 18.8 % (11.5-14.5)
[2020-06-10 08:12] LABS: Glucose Point of Care 212 (65-105)
[2020-06-10] MEDS: INSULIN ASPART (*BKC) 100 UNITS/ML SUB-Q (08:27)
[2020-06-10] MEDS: minoxidiL 2.5 MG TABLET 5 MG PO ×2 (08:31→17:19)
[2020-06-10] MEDS: METOPROLOL TARTRATE 25 MG TABLET 75 MG PO ×2 (08:31→20:03)
[2020-06-10] MEDS: ASPIRIN 81 MG ENTERIC TABLET PO (08:31)
[2020-06-10] MEDS: hydrALAZINE HCL 25 MG TABLET PO ×2 (08:31→17:19)
[2020-06-10] MEDS: PANTOPRAZOLE SODIUM IV 40 MG VIAL IV PUSH ×2 (08:33→17:19)
[2020-06-10] MEDS: APIXABAN 2.5 MG TABLET PO ×2 (08:35→20:03)
--- NOTE | 2020-06-10 10:04 | PM.CNNEP ---
Assessment and Plan Assessment and plan (1) End stage renal disease: Code(s): N18.6 - End stage renal disease Status: Chronic Assessment and Plan: HD tomorrow and continue M/W/F dialysis schedule follow electrolytes, volume status, and clearance (2) Coffee ground emesis: Code(s): K92.0 - Hematemesis Status: Acute Assessment and Plan: as reported per nursing facility follow H/H Gastroenterology consulted for further evaluation (3) UTI (urinary tract infection): Qualifiers: Urinary tract infection type: site unspecified Hematuria presence: without hematuria Qualified Code(s): N39.0 - Urinary tract infection, site not specified Code(s): N39.0 - Urinary tract infection, site not specified Status: Acute Assessment and Plan: urinalysis highly suggestive follow urine culture results (4) Hypertension: Qualifiers: Hypertension type: essential hypertension Qualified Code(s): I10 - Essential (primary) hypertension Code(s): I10 - Essential (primary) hypertension Status: Chronic Assessment and Plan: reasonable control at this time continue home BP medications (5) Fecal impaction: Code(s): K56.41 - Fecal impaction Status: Acute Assessment and Plan: as noted by imaging on admission initiate stool softners and cathartics (6) Diabetes mellitus: Qualifiers: Diabetes mellitus type: type 2 Diabetes mellitus shelter insulin use: without termite control service representative use Diabetes mellitus complication status: with kidney complications Diabetes mellitus complication detail: with chronic kidney disease Chronic kidney disease stage: on chronic dialysis Qualified Code(s): E11.22 - Type 2 diabetes mellitus with diabetic chronic kidney disease; N18.6 - End stage renal disease; Z99.2 - Dependence on renal dialysis Code(s): E11.9 - Type 2 diabetes mellitus without complications Status: Acute Assessment and Plan: follow accuchecks glycemic control Will continue to follow. History of Present Illness Reason for Consult Consult date: 06/10/20 Reason for consult: end stage renal disease Chief Complaint Chief complaint: Hematemesis History of Present Illness Narrative: The patient is a 60 y/o male with a past medical history as outlined below who presented to [facility] ER from his nursing facility for further evaluation of abdominal pain associated with multiple episodes of coffee-ground emesis. Given the patient's memory/dementia issues, a great deal the information is obtained from review of the electronic medical record. He states that he knows he was brought to the hospital due to vomiting but at the time of my evaluation he states he feels somewhat better today. He reports no nausea or vomiting on the day of admission but records indicate he has had issues and problems with dry heaving. He denies any other acute symptoms with regard to chest pain shortness of breath diarrhea palpitations syncope melena, or hematochezia. Workup and evaluation emergency room demonstrated the patient to be hemodynamically stable and in no apparent distress. Routine blood test demonstrated labs consistent with his known history of end-stage renal disease with a relative stability in his hemoglobin hematocrit. Given his history of abdominal pain in association with coffee-ground emesis, a CT scan of the abdomen pelvis was done which demonstrated findings suspicious for proctitis as well as fecal impaction with possible surrounding inflammation. His urinalysis was abnormal and concerning for a possible urinary tract infection as well. Given the constellation of symptoms as noted above as well as his past medical history, he was admitted the hospital for further evaluation and therapy. Renal consultation was requested due to his end-stage renal disease. The patient receives dialysis o
[2020-06-10 11:26] LABS: Hematocrit 38.5 % (42.0-52.0); Hemoglobin 12.5 g/dL (14.0-18.0)
[2020-06-10 12:21] LABS: Glucose Point of Care 196 (65-105)
[2020-06-10] MEDS: UMECLIDINIUM BROMIDE 62.5 MCG ELLIPTA 1 PUFF INHALATION (14:47)
--- NOTE | 2020-06-10 14:47 | PM.IMHP ---
H&P: HPI History of Present Illness Date/Time: 06/10/20 1315 Chief Complaint: coffee ground emesis, abdominal pain Narrative: 06/10/20 1315 The supervising physician for this history and physical is Dr Kirsten Don. Mr. Segundo is a pleasant 60yo M with history of hypertension, dyslipidemia, end-stage renal disease on hemodialysis, history of endocarditis, prior CVA who [facility] for evaluation of abdominal pain with multiple episodes of coffee-ground emesis. Patient has memory deficit suspect may be related to prior CVA thus much of this history is obtained from EMR. He knows he was brought to the hospital due to vomiting but states he is feeling a little better today. He denies nausea or vomiting today, but nursing describes ongoing dry heaving. He denies any chest pain or shortness of breath. He denies being in any pain. CT abdomen/pelvis demonstrates rectal thickening with mild surrounding inflammation and fecal impaction, suspicious for proctitis, diffuse subcu edema with small fluid pocket at left gluteal soft tissue, high-density material in the gallbladder may be sludge or stones. Patient is unsure his last bowel movement was. Routine labs demonstrate his known end-stage renal disease, Hgb remains low but stable. UA is grossly abnormal with > 75 RBC, 51-75 WBC, 3+ leukocyte esterase with urine cultures pending. He is admitted to hospitalist service for evaluation of hematemesis, treatment of UTI. Review of Systems Review of Systems: Narrative: Twelve systems were reviewed with pertinent positives and negatives as per HPI. Except as documented, all other systems were reviewed and are negative. 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 He receives dialysis through [facility] on MWF. It is noted is that his sister is durable power of supervisor wet room. He is a former smoker. He also reports form alcohol use beer drinking daily. and has 2 daughters. Smoking packs per day: 1 Smoking cigarettes per day: 20.0 Smoking status: Former smoker Tobacco type: cigarettes Additional smoking assessment comments: Patient reports smoking 1 pack per day for many years. Alcohol intake: former Substance use: former Substance use type: marijuana Other substance usage details: Has only used marijuana in the past. Living arrangements: prison Gender identity (if verbalized by the patient): Male Spiritual care concerns: No Agree to blood products: Yes Meds Home Medications and Allergies Home Medications Medication Instructions Recorded Confirmed Type amlodipine 10 mg PO HS 04/03/19 06/10/20 History Eliquis 2.5 mg PO BID 12/30/19 06/10/20 History Glucagon (HCl) Emergency Kit 1 mg SUBCUT Q20M PRN 12/30/19 06/10/20 History RenaPlex-D 1 tablet PO DAILY 12/30/19 06/10/20 History albuterol sulfate 2 puff INHALATION Q4-
--- NOTE | 2020-06-10 15:51 | PC.NURSE ---
Observed care and reviewed documentation provided by [facility] Student nurse Alisa Faulkner [phone]
--- NOTE | 2020-06-10 16:27 | WPDGICN ---
Assessment and Plan Assessment and plan (1) Coffee ground emesis: Code(s): K92.0 - Hematemesis Status: Acute Assessment and Plan: will proceed with egd to assess if esophagitis, ulcers, etc on protonix iv for now (2) Fecal impaction: Code(s): K56.41 - Fecal impaction Status: Acute Assessment and Plan: continue with bowel management, he does not seem to be uncomfortable (3) End stage renal disease: Code(s): N18.6 - End stage renal disease Status: Chronic Assessment and Plan: on dialysis by nephrology (4) Dialysis patient: Code(s): Z99.2 - Dependence on renal dialysis Status: Acute Assessment and Plan: av graft in left arm (5) Nausea and vomiting in adult: Code(s): R11.2 - Nausea with vomiting, unspecified Status: Acute (6) Hypertension: Qualifiers: Hypertension type: essential hypertension Qualified Code(s): I10 - Essential (primary) hypertension Code(s): I10 - Essential (primary) hypertension Status: Acute (7) Mitral valve vegetation: Code(s): I33.0 - Acute and subacute infective endocarditis Status: Acute Assessment and Plan: found in 2d-echo and has been seen by cardiology GI Consult Note Consult date/time: 06/10/20 16:27 Reason for consult: coffee ground emesis HPI: David Segundo Jr. is a 60 year old male with history of diabetes, CVA, HTN, CAD, end-stage renal disease on hemodialysis who lives in a half-way and I met him for the first time when he was admitted few months ago for HTN urgency and nausea with vomiting. This time he had several episodes of nausea and vomiting again with coffee ground, he is pleasantly confused and can not provide much history (he thinks that he has been here for days, can not tell me year). Hb stable, no report of melena. No recent EGD report. CT scan reviewed, rectal thickening with mild surrounding inflammation and fecal impaction, suspicious for proctitis, diffuse subcutaneous edema with small fluid pocket left gluteal soft tissues measuring up to 2.5 cm, suspicious for abscess, bilateral renal atrophy, high density material in the gallbladder may represent sludge or stones. Started on iv antibiotics, miralax, enema and protonix. He is comfortable now. Review of Systems Constitutional: Constitutional: Denies body ache(s) Eyes: Eyes: Reports no additional eye complaints ENT: Reports system reviewed and no additional complaints, except as documented Cardiovascular: Cardiovascular: Denies chest pain Respiratory: Respiratory: Reports no additional respiratory complaints Gastrointestinal: Gastrointestinal: Reports nausea and Reports vomiting Genitourinary: Comments: dialysis Musculoskeletal: Musculoskeletal: Denies neck pain Integumentary/Breasts: Skin/Breast: Reports system reviewed and no additional complaints, except as docu Neurologic: Denies headache(s) [facility] Past Medical History Medical History Anemia CVA (cerebrovascular accident due to intracerebral hemorrhage) CVA x3, Diabetes mellitus End-stage renal disease on hemodialysis left arm access History of [place] (myocardial infarction) Hyperlipidemia Hypertension Nausea and vomiting in adult Surgical History Surgical History History of total right knee replacement Status post creation of arteriovenous fistula Family History Family History Mother Hypertension Diabetes mellitus Father Hypertension Diabetes mellitus Other Unknown family medical history Social History Social History Social History: Patient lives with his sister. He is a full code. His sister is his POA. He is a former smoker. He also reports former alcohol use drinkin
[2020-06-10 16:32] LABS: Glucose Point of Care 193 (65-105)
[2020-06-10 16:58] LABS: Hematocrit 38.3 % (42.0-52.0); Hemoglobin 12.3 g/dL (14.0-18.0)
[2020-06-10] MEDS: polyethylene glycoL 3350 17 GM POWD.PACK PO (17:19)
[2020-06-10] MEDS: MAGNESIUM HYDROXIDE SUSP 30 ML UDC PO (17:19)
[2020-06-10] MEDS: VITAMIN B CMPLX/VIT C/FOLIC AC 1 CAPSULE 1 CAP PO (17:19)
[2020-06-10 19:06] LABS: Hepatitis B Surface Antigen Negative (Negative)
[2020-06-10 19:25] LABS: Hepatitis B Surface Anti Res Positive
[2020-06-10] MEDS: LOSARTAN POTASSIUM 100 MG TABLET PO (20:03)
[2020-06-10] MEDS: INSULIN DETEMIR 100 UNITS/ML 25 UNITS SUB-Q (20:04)
[2020-06-10 20:52] LABS: Glucose Point of Care 204 (65-105)
[2020-06-11] VITALS (28 sets, daily range): BP systolic 105–154; BP diastolic 40–64; PULSE 61–83; RESP 16–20; TEMP 36.2–37; O2SAT 97–100
[2020-06-11 05:41] LABS: Basophils Percent Auto 0.3 % (0.2-1.2); Eosinophils Absolute Auto 0.4 K/mm3 (0-0.3); Eosinophils Percent Auto 6.3 % (0-4.4); Hematocrit 35.7 % (42.0-52.0); Hemoglobin 11.5 g/dL (14.0-18.0); Immature Granulocyte Absolute 0.03 K/mm3 (0.00-0.031); Immature Granulocyte Percent A 0.5 % (0-0.5); Lymphocytes Absolute Auto 1.26 K/mm3 (0.9-3.2); Lymphocytes Percent Auto 20.8 % (18.3-44.2); Mean Corpuscular HGB Conc 32.2 g/dl (32-36); Mean Corpuscular Volume 80.6 fl (80-100); Mean Platelet Volume 9.7 fl (7.4-10.4); Monocytes Absolute Auto 0.9 K/mm3 (0.1-0.6); Monocytes Percent Auto 15.4 % (2.6-8.5); Neutrophils Absolute Auto 3.4 K/mm3 (1.3-6.7); Neutrophils Percent Auto 56.7 % (45.5-73.1); Platelet Count Result 211 k/mm3 (150-375); Red Blood Count 4.43 M/mm3 (4.6-6.20); Red Cell Distribution Width 18.6 % (11.5-14.5); White Blood Count 6.1 K/mm3 (4.5-10.0)
[2020-06-11] MEDS: cloNIDine HCL 0.2 MG TABLET PO ×3 (05:42→22:06)
[2020-06-11 05:50] LABS: Glucose Point of Care 112 (65-105)
[2020-06-11 06:00] LABS: Alanine Aminotransferase 20 U/L (4-50); Albumin Level 3.5 g/dL (3.5-5.1); Alkaline Phosphatase 82 U/L (38-126); Anion Gap 5 mmol/L (8-16); Aspartate Amino Transferase 24 U/L (17-59); Bilirubin,Total 0.6 mg/dL (0.2-1.3); Blood Urea Nitrogen 34 mg/dL (9-20); Calcium 8.9 mg/dL (8.4-10.2); Carbon Dioxide 31 mmol/L (22-30); Chloride 95 mmol/L (98-107); Estimated CRCL calculation 16 ml/min; Estimated Glomerular Filt Rate 15; Glucose 92 mg/dL (75-110); Magnesium 2.4 mg/dL (1.6-2.3); Potassium 4.7 mmol/L (3.4-5.0); Sodium 131 mmol/L (137-145)
--- NOTE | 2020-06-11 06:40 | PC.NURSE ---
PT has dialysis scheduled at 0800 and EGD at 1045. Called on-call guitar player at 0630 to ask if dialysis time can be bumped back. Instructed to call dialysis back after 0700 once RN in building. Agreed they should be able to move pt to the afternoon time. GI lab aware on possible schedule change. Will up GI lab once guitar player arrives.
--- NOTE | 2020-06-11 07:24 | PC.NURSE ---
Paged boatbuilder supervisor at [phone]. Waiting ornamental ironworking supervisor back, need to move pt to later time for dialysis today. 06/11.
--- NOTE | 2020-06-11 08:48 | WPDURCON ---
Assessment and Plan Assessment and plan (1) UTI (urinary tract infection): Qualifiers: Urinary tract infection type: site unspecified Hematuria presence: without hematuria Qualified Code(s): N39.0 - Urinary tract infection, site not specified Code(s): N39.0 - Urinary tract infection, site not specified Status: Suspected Assessment and Plan: Urine culture negative, urine appears to be concentrated on UA, likely secondary to CKD. (2) Renal lesion: Code(s): N28.9 - Disorder of kidney and ureter, unspecified Status: Acute Assessment and Plan: Will elect to get a JENSEN d/t not being able to do an MRI with contrast secondary to elevated creatinine. If creatinine does improve we can consider an MRI at that time. No further evaluation at this time. Will interpret JENSEN results and further advise. Urology Consult Note HPI Date Seen: 06/11/20 Requesting Physician: TEDDY Chung Primary Care Provider: AUTO HAULAWAY DRIVER PHYSICIAN Consult Narrative Narrative: David Segundo Jr. is a 60 year old male who initially presented to the ER on 06/09/2020 for abdominal pain and hematemesis from the long term. He has a history of CKD, hypertension and diabetes. He is on hemodialysis and has been for years. His urine on arrival appear to be infected, but his urine culture was negative from 06/09/2020. His WBC has been normal since arrival and is now 6.1, however his creatinine is elevated as expected with end stage kidney disease and is now 4.80. His creatinine on arrival was 3.20. He had a CT scan abdomen/pelvis without contrast d/t his elevated creatinine shows proctitis and possible gluteal abscess as well as bilateral renal atrophy secondary to CKD and bilateral low density lesions in bilateral kidneys. The radiologist recommends an MRI of the abdomen to further evaluate these renal lesions, however since he is unable to have contrast d/t his elevated creatinine a JENSEN first may be just as beneficial. He denies a history of BPH, UTI's or kidney stones. He denies current symptom of a UTI and is afebrile. Review of Systems Cardiovascular: Cardiovascular: Denies chest pain Respiratory: Respiratory: Reports no additional respiratory complaints Gastrointestinal: Gastrointestinal: Denies abdominal pain, Denies nausea and Denies vomiting Genitourinary: Genitourinary: Denies dysuria, Denies flank pain, Denies urinary frequency and Denies urinary hesitancy PMFSH Past Medical History Medical History Anemia Coffee ground emesis CVA (cerebrovascular accident due to intracerebral hemorrhage) CVA x3, Diabetes mellitus End-stage renal disease on hemodialysis left arm access History of [place] (myocardial infarction) Hyperlipidemia Hypertension 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 He receives dialysis through [facility]. It is noted is that his sister is durable power of contracts attorney. He is a former smoker. He also reports form alcohol use beer drinking daily. and has 2 daughters. Smoking packs per day: 1 Smoking cigarettes per day: 20.0 Smoking status: Former smoker Tobacco type: cigarettes Additional smoking ass
[2020-06-11] MEDS: SODIUM CHLORIDE 0.9% IV 500 ML 10 ML IV CONT (10:17)
--- NOTE | 2020-06-11 10:26 | WPDANESEPPF ---
Anes - Initial Pre Proc Eval Procedure: Operation Date: 06/11/20 10:45 Proposed Procedures p Esophagogastroduodenoscopy - Avila Hector MD Date/Time: 06/11/20 10:26 Surgeon: TEDDY Chung Pre Op Diagnosis: Hematemesis Patient Data Age: 60 Gender: M Height: 5 ft 5 in Weight: 92.5 kg Last Vital Signs Temp 97.4 F L 06/11/20 10:02 Pulse 66 06/11/20 10:02 Resp 16 06/11/20 10:02 BP 154/64 H 06/11/20 10:02 Pulse Ox 97 06/11/20 10:02 Allergies Allergy/AdvReac Type Severity Reaction Status Date / Time No Known Allergies Allergy Verified 06/11/20 10:00 Home Medications Medication Instructions Recorded Confirmed Type amlodipine 10 mg PO HS 04/03/19 06/10/20 History Eliquis 2.5 mg PO BID 12/30/19 06/10/20 History Glucagon (HCl) Emergency Kit 1 mg SUBCUT Q20M PRN 12/30/19 06/10/20 History RenaPlex-D 1 tablet PO DAILY 12/30/19 06/10/20 History albuterol sulfate 2 puff INHALATION Q4-6H PRN 12/30/19 06/10/20 History clonidine HCl 0.2 mg PO Q8H 12/30/19 06/10/20 History hydralazine 25 mg PO BID 12/30/19 06/10/20 History insulin lispro See Rx Instructions .ROUTE .COMPLEX 12/30/19 06/10/20 History lorazepam 0.5 mg PO Q6H PRN 12/30/19 06/10/20 History losartan 100 mg PO HS 12/30/19 06/10/20 History pantoprazole 40 mg PO DAILY 12/30/19 06/10/20 History metoprolol tartrate 75 mg PO Q12HR 30 Days #180 tablet 01/08/20 06/10/20 Rx minoxidil 5 mg PO BID 30 Days #120 tablet 01/08/20 06/10/20 Rx aspirin [Aspirin Low Dose] 81 mg PO DAILY 03/04/20 06/10/20 History Incruse Ellipta 2 inh INHALATION DAILY 05/07/20 06/10/20 History Levemir U-100 Insulin 25 unit SUBCUT HS 05/07/20 06/10/20 History ondansetron HCl 4 mg PO Q6H PRN 05/07/20 06/10/20 History sucralfate 1 g PO TID 05/07/20 06/10/20 History Laboratory Tests 06/10/20 06/10/20 06/10/20 10:53 12:17 16:27 WBC RBC Hgb 12.5 g/dL L g/dL (14.0-18.0) Hct 38.5 % L % (42.0-52.0) MCV MCH MCHC RDW Plt Count MPV Immature Gran % (Auto) Neut % (Auto) Lymph % (Auto) [place] % (Auto) Eos % (Auto) Baso % (Auto) Lymph # (Auto) [place] # (Auto) Eos # (Auto) Baso # (Auto) Abs Immat Gran (auto) Absolute Neuts (auto) Absolute Nucleated RBC Nucleated RBC % Sodium Potassium Chloride Carbon Dioxide Anion Gap BUN Creatinine Estim Creat Clear Calc Estimated GFR Glucose POC Capillary Glucose 196 mg/dl H mg/dl 193 mg/dl H mg/dl (65-105) (65-105) Calcium Magnesium Total Bilirubin AST ALT Alkaline Phosphatase Total Protein Albumin Hep Bs Antigen Hep Bs Antibody 06/10/20 06/10/20 06/10/20 16:51 16:51 19:45 WBC RBC Hgb 12.3 g/dL L g/dL (14.0-18.0) Hct 38.3 % L % (42.0-52.0) MCV MCH MCHC RDW Plt Count MPV Immature Gran % (Auto) Neut % (Auto) Lymph % (Auto) [place] % (Auto) Eos % (Auto) Baso % (Auto) Lymph # (Auto) [place] # (Auto) Eos # (Auto) Baso # (Auto) Abs Immat Gran (auto) Absolute Neuts (auto) Absolute Nucleated RBC Nucleated RBC % Sodium Potassium Chloride Carbon Dioxide Anion Gap BUN Creatinine Estim Creat Clear Calc Estima
[2020-06-11] MEDS: BENZOCAINE (*SP) 60 ML SPRAY CAN (HURRICAINE) 1 SPRAY MUCOUS MEM (10:33)
[2020-06-11 10:41] LABS: Glucose Point of Care 106 (65-105)
[2020-06-11 11:08] LABS: Glucose Point of Care 102 (65-105)
--- NOTE | 2020-06-11 11:29 | PC.NURSE ---
Patient returned from GI Lab via hospital stretcher.
[2020-06-11] MEDS: METOPROLOL TARTRATE 25 MG TABLET 75 MG PO ×2 (11:37→21:22)
[2020-06-11] MEDS: PANTOPRAZOLE SODIUM IV 40 MG VIAL IV PUSH ×2 (11:37→17:26)
[2020-06-11] MEDS: VITAMIN B CMPLX/VIT C/FOLIC AC 1 CAPSULE 1 CAP PO (11:37)
[2020-06-11] MEDS: polyethylene glycoL 3350 17 GM POWD.PACK PO ×2 (11:38→17:26)
[2020-06-11] MEDS: minoxidiL 2.5 MG TABLET 5 MG PO ×2 (11:38→17:26)
[2020-06-11] MEDS: APIXABAN 2.5 MG TABLET PO ×2 (11:38→20:33)
[2020-06-11] MEDS: UMECLIDINIUM BROMIDE 62.5 MCG ELLIPTA 1 PUFF INHALATION (11:38)
[2020-06-11] MEDS: hydrALAZINE HCL 25 MG TABLET PO ×2 (11:38→17:26)
[2020-06-11] MEDS: ASPIRIN 81 MG ENTERIC TABLET PO (11:39)
[2020-06-11] MEDS: SODIUM CHLORIDE 0.9% IV 1,000 ML 999 ML IV CONT (14:08)
[2020-06-11] MEDS: EPOETIN ALFA-EPBX 3,000 UNITS/ML VIAL 3000 UNITS IV PUSH (14:08)
--- NOTE | 2020-06-11 16:44 | PM.PNNEP ---
Progress Note: A&P Assessment and Plan (1) End stage renal disease: Code(s): N18.6 - End stage renal disease Status: Chronic Assessment and Plan: HD today and continue M/W/F dialysis schedule follow electrolytes, volume status, and clearance (2) Coffee ground emesis: Code(s): K92.0 - Hematemesis Status: Acute Assessment and Plan: as reported per nursing facility follow H/H Epogen with dialysis s/p EGD with only findings of mild gastritis GI following (3) UTI (urinary tract infection): Qualifiers: Urinary tract infection type: site unspecified Hematuria presence: without hematuria Qualified Code(s): N39.0 - Urinary tract infection, site not specified Code(s): N39.0 - Urinary tract infection, site not specified Status: Acute Assessment and Plan: urinalysis highly suggestive follow urine culture results (negative to date) (4) Hypertension: Qualifiers: Hypertension type: essential hypertension Qualified Code(s): I10 - Essential (primary) hypertension Code(s): I10 - Essential (primary) hypertension Status: Chronic Assessment and Plan: suspect poor control at baseline given list of BP meds (clonidine, minoxidil...etc) continue home BP medications (5) Fecal impaction: Code(s): K56.41 - Fecal impaction Status: Acute Assessment and Plan: as noted by imaging on admission started on stool softners and cathartics (6) Diabetes mellitus: Qualifiers: Diabetes mellitus type: type 2 Diabetes mellitus half-way insulin use: without extermination inspector use Diabetes mellitus complication status: with kidney complications Diabetes mellitus complication detail: with chronic kidney disease Chronic kidney disease stage: on chronic dialysis Qualified Code(s): E11.22 - Type 2 diabetes mellitus with diabetic chronic kidney disease; N18.6 - End stage renal disease; Z99.2 - Dependence on renal dialysis Code(s): E11.9 - Type 2 diabetes mellitus without complications Status: Acute Assessment and Plan: follow accuchecks on SSI and detemir Will continue to follow. Subjective Date/time seen: 06/11/20 16:34 Tolerating dialysis treatment at the time of my visit (seen on HD at ~ 4:20PM); no other acute issues or problems voiced at this time; s/p EGD earlier today with findings noted; no apparent distress noted; no issues Exam Narrative: Exam Narrative: General: WD/WN AA male in NAD Heart: normal S1 and S2; no rub Lungs: clear to auscultation Abdomen: soft, nontender, nondistended, positive bowel sounds Extremities: no cyanosis or clubbing; no edema Skin: warm and dry Objective Data Vital Signs Vital Signs: Vital Signs Temp Pulse Resp BP Pulse Ox 06/11/20 16:30 70 134/61 06/11/20 16:15 68 111/42 L 06/11/20 16:00 68 138/59 L 06/11/20 15:45 66 115/51 L 06/11/20 15:30 66 119/52 L 06/11/20 15:15 66 115/51 L 06/11/20 15:00 64 113/49 L 06/11/20 14:45 64 137/58 L 06/11/20 14:30 63 122/54 L 06/11/20 14:15 62 127/57 L 06/11/20 14:00 63 105/56 L 06/11/20 13:46 61 130/61 06/11/20 13:35 36.6 C 63 16 142/63 H 06/11/20 12:00 66 06/11/20 11:37 66 06/11/20 11:10 68 20 128/58 L 99 06/11/20 11:00 64 18 127/51 L 100 06/11/20 10:50 64 20 133/55 L 98 06/11/20 10:02 36.3 C L 66 16 154/64 H 97 06/11/20 08:00 64 06/11/20 05:46 36.3 C L 66 16 141/58 H 100 06/11/20 04:00 83 06/11/20 00:00 64 06/10/20 21:25 36.6 C 70 16 153/65 H 100 06/10/20 20:03 73 06/10/20 20:00 71 06/10/20 19:59 139/49 L Intake/Output Intake/Output: Intake & Output 06/08/20 06/09/20 06/10/20 06/11/20 23:59 23:59 23:59 23:59 Intake Total 50 640 290 Balance 50 640 290 Meds/Results Medications: Active Medications Generic Name Dose Rou
--- NOTE | 2020-06-11 17:22 | PC.NURSE ---
Patient returned from dialysis. 1L removed per candy cutter hand.
[2020-06-11 17:38] LABS: Glucose Point of Care 126 (65-105)
[2020-06-11] MEDS: LOSARTAN POTASSIUM 100 MG TABLET PO (20:33)
[2020-06-11] MEDS: amLODIPine BESYLATE 5 MG TABLET 10 MG PO (20:34)
[2020-06-11] MEDS: INSULIN DETEMIR 100 UNITS/ML 25 UNITS SUB-Q (21:22)
[2020-06-11 21:24] LABS: Glucose Point of Care 138 (65-105)
[2020-06-11] MEDS: LORazepam (*CRX) 0.5 MG TABLET PO (22:32)
[2020-06-12] VITALS (10 sets, daily range): BP systolic 139–158; BP diastolic 53–58; PULSE 60–69; RESP 16–18; TEMP 36.1–36.5; O2SAT 94–100
[2020-06-12] MEDS: cloNIDine HCL 0.2 MG TABLET PO ×2 (05:30→13:10)
[2020-06-12 05:47] LABS: Basophils Percent Auto 0.3 % (0.2-1.2); Eosinophils Absolute Auto 0.3 K/mm3 (0-0.3); Eosinophils Percent Auto 3.4 % (0-4.4); Hematocrit 36.9 % (42.0-52.0); Hemoglobin 11.8 g/dL (14.0-18.0); Immature Granulocyte Absolute 0.05 K/mm3 (0.00-0.031); Immature Granulocyte Percent A 0.5 % (0-0.5); Lymphocytes Absolute Auto 3.03 K/mm3 (0.9-3.2); Lymphocytes Percent Auto 32.5 % (18.3-44.2); Mean Corpuscular Hemoglobin 25.7 pg (26-34); Mean Corpuscular Volume 80.2 fl (80-100); Mean Platelet Volume 10.7 fl (7.4-10.4); Monocytes Absolute Auto 1.3 K/mm3 (0.1-0.6); Monocytes Percent Auto 13.6 % (2.6-8.5); Neutrophils Absolute Auto 4.6 K/mm3 (1.3-6.7); Neutrophils Percent Auto 49.7 % (45.5-73.1); Platelet Count Result 260 k/mm3 (150-375); Red Cell Distribution Width 18.5 % (11.5-14.5); White Blood Count 9.3 K/mm3 (4.5-10.0)
[2020-06-12 05:58] LABS: Anion Gap 7 mmol/L (8-16); Blood Urea Nitrogen 22 mg/dL (9-20); Calcium 9.3 mg/dL (8.4-10.2); Carbon Dioxide 33 mmol/L (22-30); Chloride 97 mmol/L (98-107); Estimated CRCL calculation 22 ml/min; Estimated Glomerular Filt Rate 22; Glucose 55 mg/dL (75-110); Magnesium 2.3 mg/dL (1.6-2.3); Potassium 3.9 mmol/L (3.4-5.0); Sodium 137 mmol/L (137-145)
[2020-06-12] MEDS: GLUCOSE ORAL GEL 15 GM OF GLUCSE IN 37.5 GM TUBE PO (06:02)
[2020-06-12 06:15] LABS: Hemoglobin A1C 5.5 % (<5.7)
[2020-06-12 06:25] LABS: Glucose Point of Care 57 (65-105)
[2020-06-12] MEDS: DEXTROSE 50% 25 GM/50 ML SYRINGE IV PUSH (06:28)
--- NOTE | 2020-06-12 06:30 | PC.NURSE ---
Pts glucose was 55 with AM labs, gave pt one dose of glucose gel, BGL only increase to 57. Pt unwilling to eat more glucose gel, therefore gave pt IV dextrose dose.
--- NOTE | 2020-06-12 06:51 | PM.IMPN ---
Progress Note: A&P Assessment and Plan (1) Coffee ground emesis: Code(s): K92.0 - Hematemesis Status: Acute Assessment and Plan: Patient presents with reported multiple episodes of coffee-ground emesis from the snf. Appreciate GI recommendations. EGD this AM shows gastritis nonbleeding. No further vomiting so far today. H&H remains low but stable. Will monitor H&H closely. Continue home Eliquis for now given his persistent mobile echodensity on echocardiogram and significant risk for recurrent embolic stroke. (2) Fecal impaction: Code(s): K56.41 - Fecal impaction Status: Acute Assessment and Plan: Has had some bowel movements. Continue miralax. GI following. (3) UTI (urinary tract infection): Qualifiers: Urinary tract infection type: site unspecified Hematuria presence: without hematuria Qualified Code(s): N39.0 - Urinary tract infection, site not specified Code(s): N39.0 - Urinary tract infection, site not specified Status: Ruled-out Assessment and Plan: Hematuria abnormal UA. IV ceftriaxone stopped due to urine culture showing no growth. Urology consulted due to hematuria, appreciate recommendations. (4) End stage renal disease on dialysis: Code(s): N18.6 - End stage renal disease; Z99.2 - Dependence on renal dialysis Status: Chronic Assessment and Plan: Nephrology consulted for hemodialysis. Continue HD Tuesday. HD today. (5) Diabetes mellitus: Qualifiers: Diabetes mellitus type: type 2 Diabetes mellitus correction insulin use: without local intermodal truck driver use Diabetes mellitus complication status: with kidney complications Diabetes mellitus complication detail: with chronic kidney disease Chronic kidney disease stage: on chronic dialysis Qualified Code(s): E11.22 - Type 2 diabetes mellitus with diabetic chronic kidney disease; N18.6 - End stage renal disease; Z99.2 - Dependence on renal dialysis Code(s): E11.9 - Type 2 diabetes mellitus without complications Status: Acute Assessment and Plan: Check updated Hgb A1c. Monitor with Accu-Cheks and cover with SSI. (6) Anemia: Qualifiers: Anemia type: due to chronic kidney disease Chronic kidney disease stage: on chronic dialysis Qualified Code(s): N18.6 - End stage renal disease; D63.1 - Anemia in chronic kidney disease; Z99.2 - Dependence on renal dialysis Code(s): D64.9 - Anemia, unspecified Status: Chronic Assessment and Plan: Chronic, suspect related to chronic renal failure. H&H was low but stable despite coffee-ground emesis. (7) Hypertension: Qualifiers: Hypertension type: essential hypertension Qualified Code(s): I10 - Essential (primary) hypertension Code(s): I10 - Essential (primary) hypertension Status: Chronic Assessment and Plan: BP stable. Continue home amlodipine, clonidine, hydralazine, losartan, Lopressor. Monitor BP and adjust treatment as needed. Additional Plan Patient has history of endocarditis treated with several weeks of IV antibiotics in January 2020. More recent EITAN 05/08/20 still shows mobile echodensity despite IV antibiotics does he is still at significant risk for recurrent embolic CVA. For this reason, continue Eliquis for now and monitor H&H and GI bleeding. Subjective Date/time seen: Date of Visit is 06/11/20 1500 Interval history: Mr. Segundo is a 60yo with end stage renal disease on hemodialysis admitted for coffee ground emesis. He is seen this afternoon during dialysis and is tolerating dialysis we
[2020-06-12 06:54] LABS: Glucose Point of Care 100 (65-105)
[2020-06-12 07:41] LABS: Glucose Point of Care 84 (65-105)
--- NOTE | 2020-06-12 07:47 | WPDANESPN ---
Anes - Prog Note Post-Op Date/Time: 06/12/20 07:47 Cardiovascular status: normal Respiratory status: normal Airway patency: baseline Mental status: baseline Post-Op hydration status: normal Vital Signs: Last Vital Signs Temp 97.7 F 06/12/20 05:30 Pulse 69 06/12/20 05:30 Resp 18 06/12/20 05:30 BP 139/53 L 06/12/20 05:30 Pulse Ox 94 06/12/20 07:41 Pain Score (VAS): 04/13 I/O: Intake & Output 06/11/20 06/11/20 06/12/20 15:59 23:59 07:59 Intake Total 290 540 150 Output Total 1050 Balance 290 -510 150 Laboratory Tests 06/12/20 05:10 06/12/20 05:10 06/11/20 06/11/20 06/11/20 10:08 11:05 17:33 WBC RBC Hgb Hct MCV MCH MCHC RDW Plt Count MPV Immature Gran % (Auto) Neut % (Auto) Lymph % (Auto) [place] % (Auto) Eos % (Auto) Baso % (Auto) Lymph # (Auto) [place] # (Auto) Eos # (Auto) Baso # (Auto) Abs Immat Gran (auto) Absolute Neuts (auto) Absolute Nucleated RBC Nucleated RBC % Sodium Potassium Chloride Carbon Dioxide Anion Gap BUN Creatinine Estim Creat Clear Calc Estimated GFR Glucose POC Capillary Glucose 106 102 126 H Hemoglobin A1c Calcium Magnesium 06/11/20 06/12/20 06/12/20 20:39 05:10 05:10 WBC 9.3 RBC 4.60 Hgb 11.8 L Hct 36.9 L MCV 80.2 MCH 25.7 L MCHC 32.0 RDW 18.5 H Plt Count 260 MPV 10.7 H Immature Gran % (Auto) 0.5 Neut % (Auto) 49.7 Lymph % (Auto) 32.5 [place] % (Auto) 13.6 H Eos % (Auto) 3.4 Baso % (Auto) 0.3 Lymph # (Auto) 3.03 [place] # (Auto) 1.3 H Eos # (Auto) 0.3 Baso # (Auto) 0.0 Abs Immat Gran (auto) 0.05 H Absolute Neuts (auto) 4.6 Absolute Nucleated RBC 0.0 Nucleated RBC % 0.0 Sodium 137 Potassium 3.9 Chloride 97 L Carbon Dioxide 33 H Anion Gap 7 L BUN 22 H D Creatinine 3.50 H Estim Creat Clear Calc 22 Estimated GFR 22 L Glucose 55 L* POC Capillary Glucose 138 H Hemoglobin A1c Calcium 9.3 Magnesium 2.3 06/12/20 06/12/20 06/12/20 05:10 06:19 06:51 WBC RBC Hgb Hct MCV MCH MCHC RDW Plt Count MPV Immature Gran % (Auto) Neut % (Auto) Lymph % (Auto) [place] % (Auto) Eos % (Auto) Baso % (Auto) Lymph # (Auto) [place] # (Auto) Eos # (Auto) Baso # (Auto) Abs Immat Gran (auto) Absolute Neuts (auto) Absolute Nucleated RBC Nucleated RBC % Sodium Potassium Chloride Carbon Dioxide Anion Gap BUN Creatinine Estim Creat Clear Calc Estimated GFR Glucose POC Capillary Glucose 57 L* 100 Hemoglobin A1c 5.5 Calcium Magnesium 06/12/20 07:38 WBC RBC Hgb Hct MCV MCH MCHC RDW Plt Count MPV Immature Gran % (Auto) Neut % (Auto) Lymph % (Auto) [place] % (Auto) Eos % (Auto) Baso % (Auto) Lymph # (Auto) [place] # (Auto) Eos # (Auto) Baso # (Auto) Abs Immat Gran (auto) Absolute Neuts (auto) Absolute Nucleated RBC Nucleated RBC % Sodium Potassium Chloride Carbon Dioxide Anion Gap BUN Creatinine Estim Creat Clear Calc Estimated GFR Glucose POC Capillary Glucose 84 Hemoglobin A1c Calcium Magnesium Microbiology 06/10/20 10:53 Blood Blood Culture - Preliminary 06/10/20 10:53 Blood Blood Culture - Preliminary Post-procedural complaints: none Patient Feedback: Patient satisfied with anesthetic care.
[2020-06-12] MEDS: polyethylene glycoL 3350 17 GM POWD.PACK PO ×2 (08:23→17:43)
[2020-06-12] MEDS: UMECLIDINIUM BROMIDE 62.5 MCG ELLIPTA 1 PUFF INHALATION (08:23)
[2020-06-12] MEDS: PANTOPRAZOLE SODIUM IV 40 MG VIAL IV PUSH ×2 (08:23→17:43)
[2020-06-12] MEDS: VITAMIN B CMPLX/VIT C/FOLIC AC 1 CAPSULE 1 CAP PO (08:23)
[2020-06-12] MEDS: APIXABAN 2.5 MG TABLET PO (08:24)
[2020-06-12] MEDS: ASPIRIN 81 MG ENTERIC TABLET PO (08:24)
[2020-06-12] MEDS: minoxidiL 2.5 MG TABLET 5 MG PO ×2 (08:24→17:43)
[2020-06-12] MEDS: hydrALAZINE HCL 25 MG TABLET PO ×2 (08:24→17:43)
[2020-06-12] MEDS: METOPROLOL TARTRATE 25 MG TABLET 75 MG PO (08:24)
--- NOTE | 2020-06-12 12:32 | P.PNNP_ITS ---
Progress Note: A&P Assessment and Plan (1) End stage renal disease: Code(s): N18.6 - End stage renal disease Status: Chronic Assessment and Plan: * HD tomorrow and continue M/W/ dialysis schedule * follow electrolytes, volume status, and clearance * renal lesions noted -- outpatient tenter frame operator can arrange for further follow- up (2) Coffee ground emesis: Code(s): K92.0 - Hematemesis Status: Acute Assessment and Plan: * as reported per nursing facility - no episodes while hospitalized * follow H/H * Epogen with dialysis * s/p EGD with only findings of mild gastritis * GI following (3) UTI (urinary tract infection): Qualifiers: Urinary tract infection type: site unspecified Hematuria presence: without hematuria Qualified Code(s): N39.0 - Urinary tract infection, site not specified Code(s): N39.0 - Urinary tract infection, site not specified Status: Acute Assessment and Plan: * urinalysis highly suggestive * follow urine culture results (negative to date) (4) Hypertension: Qualifiers: Hypertension type: essential hypertension Qualified Code(s): I10 - Essential (primary) hypertension Code(s): I10 - Essential (primary) hypertension Status: Chronic Assessment and Plan: * suspect poor control at baseline given list of BP meds (clonidine, minoxidil...etc) * continue home BP medications (5) Fecal impaction: Code(s): K56.41 - Fecal impaction Status: Acute Assessment and Plan: * as noted by imaging on admission * started on stool softners and cathartics (6) Diabetes mellitus: Qualifiers: Diabetes mellitus type: type 2 Diabetes mellitus alf insulin use: without pulmonology technician use Diabetes mellitus complication status: with kidney complications Diabetes mellitus complication detail: with chronic kidney disease Chronic kidney disease stage: on chronic dialysis Qualified Code(s): E11.22 - Type 2 diabetes mellitus with diabetic chronic kidney disease; N18.6 - End stage renal disease; Z99.2 - Dependence on renal dialysis Code(s): E11.9 - Type 2 diabetes mellitus without complications Status: Acute Assessment and Plan: * follow accuchecks * on SSI and detemir Will continue to follow. Subjective Date/time seen: 06/12/20 12:32 Exam Narrative: Exam Narrative: General: WD/WN AA male in NAD Heart: normal S1 and S2; no rub Lungs: clear to auscultation Abdomen: soft, nontender, nondistended, positive bowel sounds Extremities: no cyanosis or clubbing; no edema Skin: warm and intact Objective Data Vital Signs Vital Signs: Vital Signs Temp Pulse Resp BP Pulse Ox 06/12/20 12:00 65 06/12/20 08:31 60 06/12/20 08:24 63 06/12/20 07:41 94 06/12/20 05:30 36.5 C 69 18 139/53 L 100 06/12/20 04:00 62 06/12/20 00:00 62 06/11/20 21:22 68 06/11/20 20:29 36.2 C L 68 17 142/46 H 99 06/11/20 20:00 64 06/11/20 17:03 36.3 C L 71 16 150/61 H 06/11/20 16:47 69 112/40 L 06/11/20 16:30 70 134/61 06/11/20 16:15 68 111/42 L 06/11/20 16:00 68 138/59 L 06/11/20 15:45 66 115/51 L 06/11/20 15:30 66 119/52 L 06/11/20 15:15 66 115/51 L 06/11/20 15:00 6
--- NOTE | 2020-06-12 12:32 | PM.PNNEP ---
Progress Note: A&P Assessment and Plan (1) End stage renal disease: Code(s): N18.6 - End stage renal disease Status: Chronic Assessment and Plan: HD tomorrow and continue M/W/F dialysis schedule follow electrolytes, volume status, and clearance renal lesions noted -- outpatient transportation engineering technician can arrange for further follow-up (2) Coffee ground emesis: Code(s): K92.0 - Hematemesis Status: Acute Assessment and Plan: as reported per nursing facility - no episodes while hospitalized follow H/H Epogen with dialysis s/p EGD with only findings of mild gastritis GI following (3) UTI (urinary tract infection): Qualifiers: Urinary tract infection type: site unspecified Hematuria presence: without hematuria Qualified Code(s): N39.0 - Urinary tract infection, site not specified Code(s): N39.0 - Urinary tract infection, site not specified Status: Acute Assessment and Plan: urinalysis highly suggestive follow urine culture results (negative to date) (4) Hypertension: Qualifiers: Hypertension type: essential hypertension Qualified Code(s): I10 - Essential (primary) hypertension Code(s): I10 - Essential (primary) hypertension Status: Chronic Assessment and Plan: suspect poor control at baseline given list of BP meds (clonidine, minoxidil...etc) continue home BP medications (5) Fecal impaction: Code(s): K56.41 - Fecal impaction Status: Acute Assessment and Plan: as noted by imaging on admission started on stool softners and cathartics (6) Diabetes mellitus: Qualifiers: Diabetes mellitus type: type 2 Diabetes mellitus care home insulin use: without care home use Diabetes mellitus complication status: with kidney complications Diabetes mellitus complication detail: with chronic kidney disease Chronic kidney disease stage: on chronic dialysis Qualified Code(s): E11.22 - Type 2 diabetes mellitus with diabetic chronic kidney disease; N18.6 - End stage renal disease; Z99.2 - Dependence on renal dialysis Code(s): E11.9 - Type 2 diabetes mellitus without complications Status: Acute Assessment and Plan: follow accuchecks on SSI and detemir Will continue to follow. Subjective Date/time seen: 06/12/20 12:32 Exam Narrative: Exam Narrative: General: WD/WN AA male in NAD Heart: normal S1 and S2; no rub Lungs: clear to auscultation Abdomen: soft, nontender, nondistended, positive bowel sounds Extremities: no cyanosis or clubbing; no edema Skin: warm and intact Objective Data Vital Signs Vital Signs: Vital Signs Temp Pulse Resp BP Pulse Ox 06/12/20 12:00 65 06/12/20 08:31 60 06/12/20 08:24 63 06/12/20 07:41 94 06/12/20 05:30 36.5 C 69 18 139/53 L 100 06/12/20 04:00 62 06/12/20 00:00 62 06/11/20 21:22 68 06/11/20 20:29 36.2 C L 68 17 142/46 H 99 06/11/20 20:00 64 06/11/20 17:03 36.3 C L 71 16 150/61 H 06/11/20 16:47 69 112/40 L 06/11/20 16:30 70 134/61 06/11/20 16:15 68 111/42 L 06/11/20 16:00 68 138/59 L 06/11/20 15:45 66 115/51 L 06/11/20 15:30 66 119/52 L 06/11/20 15:15 66 115/51 L 06/11/20 15:00 64 113/49 L 06/11/20 14:45 64 137/58 L 06/11/20 14:30 63 122/54 L 06/11/20 14:15 62 127/57 L 06/11/20 14:00 63 105/56 L 06/11/20 13:46 61 130/61 06/11/20 13:35 36.6 C 63 16 142/63 H Intake/Output Intake/Output: Intake & Output 06/09/20 06/10/20 06/11/20 06/12/20 23:59 23:59 23:59 23:59 Intake Total 50 640 830 390 Output Total 1050 Balance 50 640 -220 390 Meds/Results Medications: Active Medications Generic Name Dose Route Start Last Admin Trade Name Freq PRN Reason Stop Dose Admin Amlodipine Besylate 10 mg 06/10/20 03:30 06/11/20 20:34 Amlodipine Besylate 5 Mg Tablet
[2020-06-12 13:18] LABS: Glucose Point of Care 105 (65-105)
--- NOTE | 2020-06-12 16:21 | WPDGIPROGNO ---
Progress Note: A&P Assessment and Plan (1) Gastritis: Code(s): K29.70 - Gastritis, unspecified, without bleeding Status: Acute Assessment and Plan: no signs of bleeding by egd yesterday (reviewed path report) continue with protonix no contraindications to use eliquis (2) Coffee ground emesis: Code(s): K92.0 - Hematemesis Status: Acute Assessment and Plan: resolved, stable hb (3) Mitral valve vegetation: Code(s): I33.0 - Acute and subacute infective endocarditis Status: Acute (4) Fecal impaction: Code(s): K56.41 - Fecal impaction Status: Acute Assessment and Plan: laxatives and enema as needed, he is comfortable (5) End stage renal disease on dialysis: Code(s): N18.6 - End stage renal disease; Z99.2 - Dependence on renal dialysis Status: Chronic Assessment and Plan: by nephrology Subjective Date/time seen: 06/12/20 16:21 Interval history: he is eating per RN report, no more bleeding. He is comfortable Review of Systems Review of Systems: All systems reviewed & are unremarkable except as noted in HPI and below Exam Const: General: comfortable and no acute distress HENMT: General nose exam: Normal nares present Eyes: General: appearance normal, both eyes and all related structures Neck: Neck: no JVD Resp: Auscultation: clear to auscultation bilaterally Cardio: Rate: regular rate GI: GI Palp: Yes Soft to palpation, No Tenderness to palpation present (GI) and No Guarding due to palpation present (GI) Auscultation: normal bowel sounds Skin: General skin exam: normal color Neuro: Speech: normal speech Other: alert, oriented to person, answering questions but confused Extrem: General: normal to inspection Psych: Affect: normal affect Objective Data Vital Signs Vital Signs: Vital Signs - 24 hr 06/11/20 16:30 06/11/20 16:47 06/11/20 17:03 Temperature 97.4 F L Pulse Rate 70 69 71 Respiratory Rate 16 Blood Pressure 134/61 112/40 L 150/61 H Pulse Oximetry 06/11/20 20:00 06/11/20 20:29 06/11/20 21:22 Temperature 97.2 F L Pulse Rate 64 68 68 Respiratory Rate 17 Blood Pressure 142/46 H Pulse Oximetry 99 06/12/20 00:00 06/12/20 04:00 06/12/20 05:30 Temperature 97.7 F Pulse Rate 62 62 69 Respiratory Rate 18 Blood Pressure 139/53 L Pulse Oximetry 100 06/12/20 07:41 06/12/20 08:24 06/12/20 08:31 Temperature Pulse Rate 63 60 Respiratory Rate Blood Pressure Pulse Oximetry 94 06/12/20 12:00 06/12/20 14:00 06/12/20 16:00 Temperature 96.9 F L Pulse Rate 65 64 62 Respiratory Rate 16 Blood Pressure 147/57 H Pulse Oximetry 100 Intake/Output Intake/Output: Intake & Output 06/09/20 06/10/20 06/11/20 06/12/20 23:59 23:59 23:59 23:59 Intake Total 50 640 830 630 Output Total 1050 Balance 50 640 -220 630 Meds/Results Medications: Active Medications Generic Name Dose Route Start Last Admin Trade Name Freq PRN Reason Stop Dose Admin Amlodipine Besylate 10 mg 06/10/20 03:30 06/11/20 20:34 Amlodipine Besylate 5 Mg Tablet PO 10 mg HS VAL Administration Apixaban 2.5 mg 06/10/20 09:00 06/12/20 08:24 Apixaban 2.5 Mg Tablet PO 2.5 mg Q12HR VAL Administration Aspirin 81 mg 06/10/20 09:00 06/12/20 08:24 Aspirin 81 Mg Enteric Tablet PO 81 mg DAILY VAL Administration Clonidine HCl 0.2 mg 06/10/20 06:00 06/12/20 13:10 Clonidine Hcl 0.2 Mg Tablet PO 0.2 mg Q8HR VAL Administration Dextrose 12.5 gm 06/10/20 03:25 06/12/20 06:28 Dextrose 50% 25 Gm/50 Ml Syringe IV PUSH 12.5 gm PRN PRN Administration Hypoglycemia Protocol Glucagon 1 mg 06/10/20 03:25 Glucagon For Inj 1 Mg Vial IM PRN PRN Hypoglycemia Protocol Glucose 15 gm 06/10/20 03:25 06/12/20 06:02 Glucose Oral Gel 15 Gm Of Glucse In 37.5 Gm Tube PO 15 gm PRN PRN Administration Hypogl
[2020-06-12 16:27] LABS: SARS-CoV-2 RNA PCR Negative
--- NOTE | 2020-06-12 16:42 | PM.DS ---
DS: Admitting Diagnosis Admitting Diagnosis Admitting Diagnosis: Vomiting DS: Discharge Diagnosis Discharge Diagnosis (1) Coffee ground emesis: Code(s): K92.0 - Hematemesis Status: Acute Assessment and Plan: Date of Admission 06/09/20 Date of Discharge 06/12/20 Mr. Segundo is a pleasantly confused 60yo M with history of prior CVAs, ESRD on hemodialysis by his manager field investigations in [place], hypertension, diabetes, chronic anemia, history of endocarditis, who presented to the ED from the senior care for evaluation of coffee-ground emesis. He had no further episodes of such while admitted. He was evaluated by GI and underwent EGD by Dr Mcdonald 06/11/20 - demonstrated nonbleeding mild gastritis. Protonix added. Due to no significant bleeding visualized, he is maintained on his home Eliquis since he remains at such significant risk for further strokes, see below. He is noted to have fecal impaction on imaging and has had multiple bowel movements now after enema and laxatives. Recommend he stay on a normal bowel regimen with miralax daily and other laxatives/suppositories as needed at the senior care. He had hemodialysis here with the help of our nephrology service to keep on his regular MWF schedule. He had some hematuria. Was initially treated with IV ceftriaxone due to abnormal UA, which was stopped when urine culture came back negative. Urology was consulted for the hematuria. Renal cysts are noted on imaging. MRI w/wo contrast is recommended for further evaluation which will be difficult given his ESRD. It is felt this can be monitored by his established manager field investigations in [place] to determine if further imaging is necessary at this time. Hematuria resolved and may have been related to the fact he makes little urine due to ESRD and UA may be abnormal for this reason. He is known to have persistent mobile echogenic area on EITAN recently despite 6 weeks of IV antibiotics for treatment of endocarditis January 2020 and remains at high risk for subsequent stroke. He had no further vomiting and is hemodynamically stable for discharge back to the senior care 06/12/20 to be followed by his PCP and his established manager field investigations. Patient presents with reported multiple episodes of coffee-ground emesis from the senior care Appreciate GI recommendations. EGD this AM shows gastritis nonbleeding. No further vomiting so far today. H&H remains low but stable. Continue home Eliquis for now given his persistent mobile echodensity on echocardiogram and significant risk for recurrent embolic stroke. (2) Fecal impaction: Code(s): K56.41 - Fecal impaction Status: Acute Assessment and Plan: Has had some bowel movements after enemas. Continue miralax. (3) UTI (urinary tract infection): Qualifiers: Hematuria presence: without hematuria Urinary tract infection type: site unspecified Qualified Code(s): N39.0 - Urinary tract infection, site not specified Code(s): N39.0 - Urinary tract infection, site not specified Status: Acute Assessment and Plan: Hematuria abnormal UA. IV ceftriaxone stopped due to urine culture showing no growth. (4) End stage renal disease on dialysis: Code(s): N18.6 - End stage renal disease; Z99.2 - Dependence on renal dialysis Status: Chronic Assessment and Plan: Nephrology consulted for hemodialysis. Continue HD Tuesday. HD today. (5) Diabetes mellitus: Qualifiers: Chronic kidney disease stage: on chronic dialysis Diabetes mellitus complication detail: with chronic kidney disease Diabetes mellitus complication status: with kidney complications Diabetes mellitus watermelon harvesting supervisor insulin use: without [facility] use Diabe
[2020-06-12 17:34] LABS: Glucose Point of Care 143 (65-105)
== END 2020-06-12 21:10 | DRG 377 ==
LOC: ANHED 20:17 → ANH3MED 06-10 03:27
PROVIDERS: Internal Medicine Gastroenterology; Internal Medicine Nephrology; Admitting Provider Internal Medicine; Emergency Provider Emergency Medicine; Visit Provider Physician Assistant
PROC: 0DJ08ZZ Inspection of Upper Intestinal Tract, Via Natural or Artificial Opening Endoscopic (ICD-10-PCS; CPT 43235; principal; 2020-06-11 10:45)
DX: K92.0 Hematemesis (principal); N18.6 End stage renal disease; I12.0 Hypertensive chronic kidney disease with stage 5 chronic kidney disease or end stage renal disease; E11.22 Type 2 diabetes mellitus with diabetic chronic kidney disease; D63.1 Anemia in chronic kidney disease; K29.70 Gastritis, unspecified, without bleeding; K31.89 Other diseases of stomach and duodenum; Z20.822 Contact with and (suspected) exposure to COVID-19; K56.41 Fecal impaction; R31.9 Hematuria, unspecified; R82.90 Unspecified abnormal findings in urine; N28.9 Disorder of kidney and ureter, unspecified; E78.5 Hyperlipidemia, unspecified; R41.3 Other amnesia; Z99.2 Dependence on renal dialysis; Z79.01 Long term (current) use of anticoagulants; Z79.4 Long term (current) use of insulin; Z86.73 Personal history of transient ischemic attack (TIA), and cerebral infarction without residual deficits; Z86.79 Personal history of other diseases of the circulatory system; Z87.891 Personal history of nicotine dependence
CPT/HCPCS: 36415; 51701; 74176; 76775; 80048; 80053; 80069; 81001; 82140; 82948; 83036; 83690; 83735; 85014; 85018; 85025; 85027; 86706; 86850; 86900; 86901; 87040; 87086; 87340; 88305; 94640; 96365; 96375; 99285; A9270; C9113; C9803; G0257; J0360; J0696; J1815; J2405; J2704; J7030; J7040; Q5106; U0003; U0005

== ENCOUNTER 2021-02-14 21:41 | Emergency (ER) | payer MEDICARE, SELFPAY ==
[2021-02-14] VITALS (16 sets, daily range): BP systolic 119–150; BP diastolic 47–54; PULSE 73–96; RESP 16–28; TEMP 36.6; O2SAT 99
--- NOTE | ~2021-02-14 | XR_ITS ---
EXAMINATION: XR chest 1V portable INDICATION: Hyperglycemia, prior smoker TECHNIQUE: Portable AP chest at 2239 hours COMPARISON: 01/07/2020 FINDINGS: The heart size is normal. Patchy bilateral opacities are present in all lung zones. There i s no pleural effusion or pneumothorax. IMPRESSION: 1. Patchy bilateral opacities, consistent with pneumonia versus pulmonary edema. Reviewed, dictated and finalized at location A. ACE CLERK IMPRESSION: 1. Patchy bilateral opacities, consistent with pneumonia versus pulmonary edema .
[2021-02-14 21:56] LABS: Glucose Point of Care 296 mg/dl (65-105)
--- NOTE | 2021-02-14 22:44 | ED.RECABL ---
HPI - Recheck/Abnormal Lab/Rx General Chief Complaint: Recheck/Abnormal Lab/Rx Stated Complaint: high blood sugar 325 e Time Seen by Provider: 02/14/21 22:27 Source: patient and EMS Mode of arrival: EMS Limitations: clinical condition History of Present Illness HPI narrative: 60-year-old male Sent from SNF for evaluation of high blood sugar Apparently they had a reading of 325 there Here are readings are lower starting at 290 The patient is not a great historian but he does not have any complaints currently He does not feel sick he does not have a cough he does not have GI symptoms such as vomiting or diarrhea He does have a chronic heel ulcer and we checked with the SNF and they are aware of it and there physician is managing it Related Data Home Medications Medication Instructions Recorded Confirmed amlodipine 10 mg PO HS 04/03/19 02/14/21 Eliquis 2.5 mg PO BID 12/30/19 02/14/21 Glucagon (HCl) Emergency Kit 1 mg SUBCUT Q20M PRN 12/30/19 02/14/21 RenaPlex-D 1 tablet PO DAILY 12/30/19 02/14/21 albuterol sulfate 2 puff INHALATION Q4-6H PRN 12/30/19 02/14/21 clonidine HCl 0.2 mg PO Q8H 12/30/19 02/14/21 hydralazine 25 mg PO BID 12/30/19 02/14/21 insulin lispro See Rx Instructions .ROUTE .COMPLEX 12/30/19 06/10/20 lorazepam 0.5 mg PO Q6H PRN 12/30/19 06/10/20 losartan 50 mg PO HS 12/30/19 06/10/20 pantoprazole 40 mg PO DAILY 12/30/19 06/10/20 aspirin [Aspirin Low Dose] 81 mg PO DAILY 03/04/20 02/14/21 Incruse Ellipta 2 inh INHALATION DAILY 05/07/20 06/10/20 Levemir U-100 Insulin 25 unit SUBCUT HS 05/07/20 02/14/21 ondansetron HCl 4 mg PO Q6H PRN 05/07/20 06/10/20 sucralfate 1 g PO TID 05/07/20 06/10/20 Allergies Allergy/AdvReac Type Severity Reaction Status Date / Time No Known Allergies Allergy Verified 02/14/21 22:05 Review of Systems Constitutional: Constitutional: Denies chills and Denies fever(s) Cardiovascular: Cardiovascular: Denies chest pain Respiratory: Respiratory: Denies cough and Denies dyspnea Gastrointestinal: Gastrointestinal: Denies diarrhea and Denies vomiting Genitourinary: Comments: Does make a small amount of urine Musculoskeletal: Comments: Foot ulcer Neurologic: Denies headache(s) [facility] Past Medical History Medical History Anemia Coffee ground emesis CVA (cerebrovascular accident due to intracerebral hemorrhage) CVA x3, Diabetes mellitus End-stage renal disease on hemodialysis left arm access Gastritis History of NM (myocardial infarction) Hyperlipidemia Hypertension Mitral valve vegetation History of endocarditis 01/2020 EITAN 05/08/20 shows persistent mobile echodensity Nausea and vomiting in adult Surgical History Surgical History History of total right knee replacement Status post creation of arteriovenous fistula Family History Family History Mother Hypertension Diabetes mellitus Father Hypertension Diabetes mellitus Other Unknown family medical history Social History Social History Social History: Patient tells me he lives with his sister however care coordination notes that he is a intermediate patient at [facility]. [facility]. It is noted is that his sister is durable power of civil litigation attorney. He is a former smoker. He also reports form alcohol use beer drinking daily. and has 2 daughters. Smoking packs per day: 1 Smoking cigarettes per day: 20.0 Smoking status: Former smoker Tobacco type: cigarettes Additional smoking assessment comments: Patient reports smoking 1 pack per day for many years. Alcohol intake: former Alcohol use details: Patient reports drinking beer daily but quit some time ago. Substance use: former Substance use type: marijuana Other sub
[2021-02-14 22:47] LABS: Glucose Point of Care 215 mg/dl (65-105)
[2021-02-14 22:48] LABS: Fractional Inspired Oxygen 21 %; HCO3 VBG 25.8 mEq/l (24.0-30.0); PCO2 VBG 41.3 mmHg (42.0-48.0)
[2021-02-14 22:50] LABS: Device ROOM AIR; PO2 VBG 26.8 mmHg (35.0-45.0); pH VBG 7.413 (7.300-7.400)
[2021-02-14] MEDS: LACTATED RINGERS 1,000 ML 250 ML IV CONT (22:52)
[2021-02-14 22:53] LABS: Basophils Percent Auto 0.2 % (0.2-1.2); Eosinophils Absolute Auto 0.2 K/mm3 (0-0.3); Eosinophils Percent Auto 1.9 % (0-4.4); Hematocrit 26.7 % (42.0-52.0); Hemoglobin 8.5 g/dL (14.0-18.0); Immature Granulocyte Absolute 0.16 K/mm3 (0.00-0.031); Immature Granulocyte Percent A 1.5 % (0-0.5); Lymphocytes Absolute Auto 0.97 K/mm3 (0.9-3.2); Mean Corpuscular HGB Conc 31.8 g/dl (32-36); Mean Corpuscular Hemoglobin 26.8 pg (26-34); Mean Corpuscular Volume 84.2 fl (80-100); Mean Platelet Volume 10.6 fl (7.4-10.4); Monocytes Absolute Auto 1.3 K/mm3 (0.1-0.6); Monocytes Percent Auto 12.4 % (2.6-8.5); Neutrophils Absolute Auto 8.1 K/mm3 (1.3-6.7); Platelet Count Result 243 k/mm3 (150-375); Red Blood Count 3.17 M/mm3 (4.6-6.20); Red Cell Distribution Width 16.1 % (11.5-14.5); White Blood Count 10.7 K/mm3 (4.5-10.0)
[2021-02-14] MEDS: INSULIN HUMAN REGULAR (*BKC) 100 UNITS/ML SUB-Q (22:59)
[2021-02-14 23:02] LABS: Anion Gap 6 mmol/L (8-16); Blood Urea Nitrogen 30 mg/dL (9-20); Calcium 7.3 mg/dL (8.4-10.2); Carbon Dioxide 25 mmol/L (22-30); Chloride 104 mmol/L (98-107); Estimated Glomerular Filt Rate 24; Glucose 177 mg/dL (65-110); Potassium 3.8 mmol/L (3.4-5.0); Sodium 135 mmol/L (137-145)
--- NOTE | 2021-02-14 23:02 | PC.NURSE ---
per Tereza at [facility] heal wound care = normal saline cleanse, moist gauze, clean wraps and being managed by Dr. Dotson. Also per Tereza, the 25 units of insulin is the only medication given for blood sugar. This information obtained per Dr. Larose's request and relayed to Dr. Larose.
--- NOTE | 2021-02-14 23:15 | PC.NURSE ---
non-adherent dressing left heal of foot
[2021-02-14 23:57] LABS: Glucose Point of Care 163 mg/dl (65-105)
[2021-02-15] VITALS: PULSE 82
[2021-02-15 00:43] VITALS: PULSE 98; RESP 18; O2SAT 95
[2021-02-15 03:02] VITALS: BP 142/60; PULSE 100; RESP 18; O2SAT 98
== END 2021-02-15 03:03 ==
PROVIDERS: Emergency Medicine; Emergency Provider Emergency Medicine
DX: E11.621 Type 2 diabetes mellitus with foot ulcer (principal); L97.519 Non-pressure chronic ulcer of other part of right foot with unspecified severity; E11.22 Type 2 diabetes mellitus with diabetic chronic kidney disease; I12.9 Hypertensive chronic kidney disease with stage 1 through stage 4 chronic kidney disease, or unspecified chronic kidney disease; N18.9 Chronic kidney disease, unspecified; I25.2 Old myocardial infarction; E78.5 Hyperlipidemia, unspecified; Z86.2 Personal history of diseases of the blood and blood-forming organs and certain disorders involving the immune mechanism; Z86.73 Personal history of transient ischemic attack (TIA), and cerebral infarction without residual deficits; Z87.891 Personal history of nicotine dependence
CPT/HCPCS: 36415; 71045; 80048; 82803; 82948; 85025; 96360; 99283; J1815; J7120

== ENCOUNTER 2021-03-24 17:54 | Inpatient (IN) | payer MEDICARE, MEDICAID, SELFPAY ==
[2021-03-24] VITALS (23 sets, daily range): BP systolic 121–153; BP diastolic 49–65; PULSE 71–102; RESP 9–28; TEMP 35.8–36.5; O2SAT 97–100
[2021-03-24 18:17] LABS: Basophils Percent Auto 0.3 % (0.2-1.2); Eosinophils Absolute Auto 0.3 K/mm3 (0-0.3); Eosinophils Percent Auto 3.2 % (0-4.4); Immature Granulocyte Percent A 1.1 % (0-0.5); Lymphocytes Absolute Auto 2.14 K/mm3 (0.9-3.2); Lymphocytes Percent Auto 22.5 % (18.3-44.2); Mean Corpuscular HGB Conc 30.4 g/dl (32-36); Mean Corpuscular Hemoglobin 27.9 pg (26-34); Mean Corpuscular Volume 91.6 fl (80-100); Mean Platelet Volume 10.5 fl (7.4-10.4); Monocytes Absolute Auto 0.8 K/mm3 (0.1-0.6); Monocytes Percent Auto 8.3 % (2.6-8.5); Neutrophils Absolute Auto 6.2 K/mm3 (1.3-6.7); Neutrophils Percent Auto 64.6 % (45.5-73.1); Nucleated Red Blood Cells Absolute Auto 0.1 K/mm3 (0.0-0.012); Nucleated Red Blood Cells Perc 1.2 % (0.0-0.2); Platelet Count Result 294 k/mm3 (150-375); Red Blood Count 2.51 M/mm3 (4.6-6.20); Red Cell Distribution Width 22.3 % (11.5-14.5); White Blood Count 9.5 K/mm3 (4.5-10.0)
[2021-03-24 18:29] LABS: Alanine Aminotransferase 19 U/L (4-50); Albumin Level 3.6 g/dL (3.5-5.1); Alkaline Phosphatase 136 U/L (38-126); Anion Gap 8 mmol/L (8-16); Aspartate Amino Transferase 26 U/L (17-59); Bilirubin,Total 0.6 mg/dL (0.2-1.3); Blood Urea Nitrogen 32 mg/dL (9-20); Carbon Dioxide 30 mmol/L (22-30); Chloride 95 mmol/L (98-107); Estimated Glomerular Filt Rate 20; Glucose 200 mg/dL (65-110); Potassium 4.4 mmol/L (3.4-5.0); Sodium 133 mmol/L (137-145)
[2021-03-24 18:30] LABS: Prothrombin Time 13.4 Seconds (11.1-14.7)
[2021-03-24 18:31] LABS: Partial Thromboplastin Time 31.7 SECONDS (22.3-36.8)
--- NOTE | 2021-03-24 19:47 | PC.NURSE ---
RN assisted with positioning for MD to perform guaiac test. Test positive. Pt resting in NAD. Repositioned for comfort. TV turned on and to patient's requested channel. Pt denies any further needs at this time.
--- NOTE | 2021-03-24 20:03 | ED.GENADULT ---
HPI - General Adult General Chief complaint: Recheck/Abnormal Lab/Rx Stated complaint: ABN LABS Time Seen by Provider: 03/24/21 18:01 History of Present Illness HPI narrative: Patient is a 60-year-old male who [facility] related to a low hemoglobin that was obtained earlier in the day. His hemoglobin was 6.4. Patient has recent history of anemia. Previously he had an EGD that showed gastritis. Patient is also on Eliquis. Additionally patient recently had a left AKA. He has some very mild oozing that appears to be old blood coming from the surgical site laterally where a staple is missing. Otherwise wound is healing well without signs of infection. Patient is awake alert and oriented x1. Related Data Home Medications Medication Instructions Recorded Confirmed amlodipine 10 mg PO HS 04/03/19 02/14/21 Eliquis 2.5 mg PO BID 12/30/19 02/14/21 Glucagon (HCl) Emergency Kit 1 mg SUBCUT Q20M PRN 12/30/19 02/14/21 RenaPlex-D 1 tablet PO DAILY 12/30/19 02/14/21 albuterol sulfate 2 puff INHALATION Q4-6H PRN 12/30/19 02/14/21 clonidine HCl 0.2 mg PO Q8H 12/30/19 02/14/21 hydralazine 25 mg PO BID 12/30/19 02/14/21 insulin lispro See Rx Instructions .ROUTE .COMPLEX 12/30/19 06/10/20 lorazepam 0.5 mg PO Q6H PRN 12/30/19 06/10/20 losartan 50 mg PO HS 12/30/19 06/10/20 pantoprazole 40 mg PO DAILY 12/30/19 06/10/20 aspirin [Aspirin Low Dose] 81 mg PO DAILY 03/04/20 02/14/21 Incruse Ellipta 2 inh INHALATION DAILY 05/07/20 06/10/20 Levemir U-100 Insulin 25 unit SUBCUT HS 05/07/20 02/14/21 ondansetron HCl 4 mg PO Q6H PRN 05/07/20 06/10/20 sucralfate 1 g PO TID 05/07/20 06/10/20 Allergies Allergy/AdvReac Type Severity Reaction Status Date / Time No Known Allergies Allergy Verified 02/14/21 22:05 Review of Systems Review of Systems: ROS unobtainable: Yes unobtainable due to mental status PMFSH Past Medical History Medical History Anemia Coffee ground emesis CVA (cerebrovascular accident due to intracerebral hemorrhage) CVA x3, Diabetes mellitus End-stage renal disease on hemodialysis left arm access Gastritis History of VT (myocardial infarction) Hyperlipidemia Hypertension 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 He receives dialysis through [facility] on [facility]. It is noted is that his sister is durable power of privacy attorney. He is a former smoker. He also reports form alcohol use beer drinking daily. and has 2 daughters. Smoking packs per day: 1 Smoking cigarettes per day: 20.0 Smoking status: Former smoker Tobacco type: cigarettes Additional smoking assessment comments: Patient reports smoking 1 pack per day for many years. Alcohol intake: former Alcohol use details: Patient reports drinking beer daily but quit some time ago. Substance use: former Substance use type: marijuana Other substance usage details: Has only used marijuana in the past. Gender identity (if verbalized by the patient): Male Spiritual care concerns: No Agree to blood products: Yes Exam Narrative: GENERAL: Well-appearing, obese, and in no acute distress. HEAD: Normocephalic, atraumatic. ENT: Mucous membranes moist. NECK: Supple
--- NOTE | 2021-03-24 21:27 | PM.IMHP ---
H&P: HPI History of Present Illness Date/Time: 03/24/21 21:27 Chief Complaint: Abnormal lab work Narrative: This is a 60-year-old male with past medical history significant for end-stage renal disease on hemodialysis Tuesday, his status post left AKA, hyperlipidemia hypertension type 2 diabetes mellitus, stroke, anemia of chronic disease. Patient was brought today from the residential after lab work as shown a hemoglobin of 6. Patient cannot give any history he states that he does not know why he is in the emergency room and seems to be confused however he denies any discomfort at the time of my visit. Preliminary workup was significant for a repeat hemoglobin of 7. Patient also had a positive guaiac. Decision has been made to admit the patient for further evaluation management and treatment. Review of Systems Review of Systems: Patient was sent from residential due to abnormal lab value a hemoglobin of 6 however patient does not know why his in the emergency room and denies any discomfort. Patient does not seem to be aware of his disease process. 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 He receives dialysis through [facility] on [facility]. It is noted is that his sister is durable power of insurance defense attorney. He is a former smoker. He also reports form alcohol use beer drinking daily. and has 2 daughters. Smoking packs per day: 1 Smoking cigarettes per day: 20.0 Smoking status: Former smoker Tobacco type: cigarettes Second hand tobacco smoke exposure: Yes Additional smoking assessment comments: Patient reports smoking 1 pack per day for many years. Alcohol intake: former Alcohol use details: Patient reports drinking beer daily but quit some time ago. Substance use: former Substance use type: marijuana Other substance usage details: Has only used marijuana in the past Gender identity (if verbalized by the patient): Male Spiritual care concerns: No Agree to blood products: Yes Meds Home Medications and Allergies Home Medications Medication Instructions Recorded Confirmed Type amlodipine 10 mg PO DAILY 04/03/19 03/25/21 History Eliquis 2.5 mg PO BID 12/30/19 03/25/21 History Glucagon (HCl) Emergency Kit 1 mg SUBCUT Q20M PRN 12/30/19 03/25/21 History albuterol sulfate 2 puff INHALATION Q4-6H PRN 12/30/19 03/25/21 History clonidine HCl 0.2 mg PO Q8H 12/30/19 03/25/21 History hydralazine 25 mg PO BID 12/30/19 03/25/21 History insulin lispro See Rx Instructions .ROUTE .COMPLEX 12/30/19 03/25/21 History losartan 50 mg PO HS 12/30/19 03/25/21 History pantoprazole 40 mg PO DAILY 12/30/19 03/25/21 History aspirin [Aspirin Low Dose] 81 mg PO DAILY 03/04/20 03/25/21 History Incruse Ellipta 1 inh INHALATION DAILY 05/07/20 03/25/21 History Levemir U-100 Insulin 12 unit SUBCUT HS 05/07/20 03/25/21 History metoprolol tartra
[2021-03-24] MEDS: PANTOPRAZOLE SODIUM IV 40 MG VIAL IV PUSH (21:28)
[2021-03-25] VITALS (15 sets, daily range): BP systolic 143–164; BP diastolic 55–75; PULSE 73–95; RESP 18; TEMP 36–37.2; O2SAT 99–100
--- NOTE | 2021-03-25 00:17 | PC.NURSE ---
This patient, David Segundo Jr., was admitted to [facility] Room 332-02. Patient/family oriented to hospital policies and general routines including ID bracelet, bed and alarms, visiting hours, pain management, procedures, bathroom and other care routines, personal items, smoking policy, room service/diet, and visiting hours. Information on how to activate the Rapid Response Team has been discussed. Patient/Family are encouraged to report perceived risks to care and to ask questions if they do not understand what they are told or what they should do.
[2021-03-25] MEDS: SODIUM CHLORIDE 0.9% IV 250 ML 30 ML IV CONT (03:15)
[2021-03-25] MEDS: cloNIDine HCL 0.2 MG TABLET PO ×3 (06:15→21:02)
[2021-03-25 08:29] LABS: Hematocrit 23.5 % (42.0-52.0); Hemoglobin 7.4 g/dL (14.0-18.0)
[2021-03-25 08:47] LABS: Glucose Point of Care 214 mg/dl (65-105)
[2021-03-25 09:09] LABS: Albumin Level 3.2 g/dL (3.5-5.1); Anion Gap 4 mmol/L (8-16); Blood Urea Nitrogen 39 mg/dL (9-20); Calcium 8.8 mg/dL (8.4-10.2); Carbon Dioxide 30 mmol/L (22-30); Chloride 96 mmol/L (98-107); Estimated Glomerular Filt Rate 17; Glucose 218 mg/dL (65-110); Phosphorus 3.6 mg/dL (2.5-4.5); Potassium 4.9 mmol/L (3.4-5.0); Sodium 130 mmol/L (137-145)
[2021-03-25] MEDS: UMECLIDINIUM BROMIDE 62.5 MCG ELLIPTA 1 PUFF INHALATION (09:47)
[2021-03-25] MEDS: hydrALAZINE HCL 25 MG TABLET PO ×2 (09:55→18:33)
[2021-03-25] MEDS: METOPROLOL TARTRATE 50 MG TAB PO ×2 (09:55→21:01)
[2021-03-25] MEDS: minoxidiL 2.5 MG TABLET PO ×2 (09:55→18:33)
[2021-03-25] MEDS: amLODIPine BESYLATE 5 MG TABLET 10 MG PO (09:55)
[2021-03-25 12:03] LABS: Glucose Point of Care 207 mg/dl (65-105)
--- NOTE | 2021-03-25 13:14 | PM.CNNEP ---
Assessment and Plan Assessment and plan (1) End-stage renal disease (ESRD): Code(s): N18.6 - End stage renal disease Status: Acute Assessment and Plan: Just he has end-stage renal disease. 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 He is due for dialysis today but there are emergencies and so there is no nurse to do dialysis till tomorrow morning. I think that okay. His fluid status is okay and his potassium is okay. If he needs transfusion he can get off dialysis. (2) Acute on chronic anemia: Code(s): D64.9 - Anemia, unspecified Status: Acute Assessment and Plan: Patient has anemia. He has dialysis related anemia but his usual hemoglobin is more around 10 or 11. He has had GI bleeding in the past and has guaiac-positive stool so he probably has some recurrent issues. GI is being consulted. He is pantoprazole. We will check another hemoglobin in the morning. He may get a blood transfusion if deemed necessary by hospitalists. (3) Hypertension: Qualifiers: Hypertension type: essential hypertension Qualified Code(s): I10 - Essential (primary) hypertension Code(s): I10 - Essential (primary) hypertension Status: Chronic Assessment and Plan: He has Hypertension. His blood pressure is under pretty good control. He is currently on amlodipine clonidine hydralazine losartan metoprolol and minoxidil. Will continue his outpatient medications. (4) Unilateral complete AKA: Code(s): S78.119A - Complete traumatic amputation at level between unspecified hip and knee, initial encounter Status: Acute (5) Hyperlipidemia: Qualifiers: Hyperlipidemia type: unspecified Qualified Code(s): E78.5 - Hyperlipidemia, unspecified Code(s): E78.5 - Hyperlipidemia, unspecified Status: Acute Assessment and Plan: He has hyperlipidemia. He is not on a statin. (6) Diabetes mellitus: Qualifiers: Diabetes mellitus type: type 2 Diabetes mellitus residential insulin use: without long goods drier use Diabetes mellitus complication status: with kidney complications Diabetes mellitus complication detail: with chronic kidney disease Chronic kidney disease stage: on chronic dialysis Qualified Code(s): E11.22 - Type 2 diabetes mellitus with diabetic chronic kidney disease; N18.6 - End stage renal disease; Z99.2 - Dependence on renal dialysis Code(s): E11.9 - Type 2 diabetes mellitus without complications Status: Acute Assessment and Plan: He is on Accu-Cheks and sliding-scale insulin History of Present Illness Reason for Consult Consult date: 03/25/21 Chief Complaint Chief complaint: Anemia, Heme+stools History of Present Illness Narrative: David is a point very pleasant 60-year-old gentleman who has multiple medical problems including end-stage renal disease who dialyzes Wednesdays and Fridays. He does not know who his dialysis doctor is or which clinic he goes to. He also has hypertension, hyperlipidemia, status post above the knee amputation, diabetes, stroke, anemia, renal osteodystrophy. The patient came in the hospital because of abnormal labs. Apparently his labs were checked and he was very anemic. He was felt to possibly need a blood transfusion so he was sent to the emergency room. The patient does not really know anything about this. The patient has had problems with blood in the stools in the past. He had a scope in the past which showed gastritis. He is on Eliquis now because of his atrial fibrillation. He has not seen black stools or bloody stools. The H&P showed that he had guaiac-positive stools in the emergency room. The patient denies shortness of breath or chest pain. Has no weakness or dizziness. Review of Systems Constitutional: Constitutional: Reports no additional constitutional complaints Eyes: Eyes: Reports no add
[2021-03-25 13:28] LABS: Hepatitis B Surface Antigen Negative (Negative)
[2021-03-25] MEDS: PANTOPRAZOLE SODIUM IV 40 MG VIAL IV PUSH ×2 (14:14→21:02)
[2021-03-25 14:30] LABS: Hepatitis B Surface Anti Res Positive
--- NOTE | 2021-03-25 14:39 | PM.IMPN ---
Progress Note: A&P Assessment and Plan (1) Acute on chronic anemia: Code(s): D64.9 - Anemia, unspecified Status: Acute Assessment and Plan: Hgb down to 7.4. Last hgb on 02/2021 was 8.5 and in june of this year it was around 11. at the AL it was reported <7. -pt recently had an AKA of the left leg, could be due to blood loss. AL did see some blood coming from the area intermittently. -stool occult blood reportedly positive in the ER, consult GI. Pt unable to tell me if he has had blood in his stool -06/2020 he had an EGD that showed gastritis, continue PPI -will monitor h and h and transfuse if needed. Pt is not having any symptms of blood loss at this time -will draw anemia studies - on eliquis at home, this has been held. -pt seems stable. Will do clear liquids today and NPO at midnight incase GI wants further evaluation. (2) End-stage renal disease (ESRD): Code(s): N18.6 - End stage renal disease Status: Acute Assessment and Plan: Patient dialyzes Tuesday Nephrology consult (3) Heme positive stool: Code(s): R19.5 - Other fecal abnormalities Status: Acute Assessment and Plan: as above (4) Hypertension: Qualifiers: Hypertension type: essential hypertension Qualified Code(s): I10 - Essential (primary) hypertension Code(s): I10 - Essential (primary) hypertension Status: Chronic Assessment and Plan: last bp 147/59 -continue norvasc, metoprolol and losartan (5) Unilateral complete AKA: Code(s): S78.119A - Complete traumatic amputation at level between unspecified hip and knee, initial encounter Status: Acute Assessment and Plan: Unsure of exactly when this was but it was recent -stiches intact -some mild bleeding to the later aspect of the wound. No hematoma noted -no signs of infection. (6) Diabetes mellitus: Qualifiers: Diabetes mellitus type: type 2 Diabetes mellitus buttermaker insulin use: without buttermaker use Diabetes mellitus complication status: with kidney complications Diabetes mellitus complication detail: with chronic kidney disease Chronic kidney disease stage: on chronic dialysis Qualified Code(s): E11.22 - Type 2 diabetes mellitus with diabetic chronic kidney disease; N18.6 - End stage renal disease; Z99.2 - Dependence on renal dialysis Code(s): E11.9 - Type 2 diabetes mellitus without complications Status: Acute Assessment and Plan: Last glucose 207 -continue SSI -monitor especially on a decreased diet Time Spent With Patient Time with patient: 25 - 35 minutes Subjective Date/time seen: 03/25/21 14:39 Interval history: Pt is a 60 y/o male here for anemia. Pt was seen today and has dementia but is pleasantly confused. He has no pain whatsoever. He denies CP, lightheadedness, fevers, chills, nausea, vomiting, diarrhea or constipation. He says he recently had a left AKA and is doing okay with this. Review of Systems Review of Systems: All systems reviewed & are unremarkable except as noted in HPI and below Exam Narrative: General: Well developed well nourished patient in NAD HEENT: normocephalic Neck: supple Neuro: Alert and oriented to himself only. follows commands CV:RRR. tele with occasional sinus pauses that are <2s. Resp:CTA Abd: Soft, non distended. No pain to palpation. Positive bowel sounds Extremities: left AKA with anne-marie attached. No signs of hematoma. right leg without swelling or pain. Objective Data Vital Signs Vital Signs: Vital Signs - 24 hr 03/24/21 17:55 03/24/21 18:11 03/24/21 18:22 Temperature 97.7 F Pulse Rate 97 97 Respiratory Rate 18 20 Blood Pressure 131/57 L Pulse Oximetry 97 100 03/24/21 18:30 03/24/21 18:31 03/24/21 18:45 Temperature Pulse Rate 96 73 89 Respiratory Rate 18 17 18 Blood Pressure 124/56 L Pulse Oximetry 100 100 99 03/24/21 18
[2021-03-25 16:31] LABS: Hemoglobin 7.8 g/dL (14.0-18.0)
--- NOTE | 2021-03-25 16:35 | WPDGICN ---
Assessment and Plan Assessment and plan (1) Anemia: Code(s): D64.9 - Anemia, unspecified Status: Acute Assessment and Plan: because of Hemoccult-positive stool it is thought that his anemia is at least partly due to gastrointestinal blood loss. I will schedule for colonoscopy to be done tomorrow. Hopefully he will be able to take the prep (2) Heme positive stool: Code(s): R19.5 - Other fecal abnormalities Status: Acute Assessment and Plan: the heme-positive could of course be due to the fact that he is on blood thinners but with his low blood count warrants investigation for possible colon disease. (3) Dialysis patient: Code(s): Z99.2 - Dependence on renal dialysis Status: Acute Assessment and Plan: He receives dialysis Tuesday and Tuesday and as far as I can tell is current with that GI Consult Note Consult date/time: 03/25/21 16:35 HPI: David Segundo Jr. is a 60 year old male who has end-stage kidney disease on hemodialysis, he is brought in because lab work showed that his hemoglobin is 6. He tells he has no pain. He does not 6 see any blood in his stools. He states that his appetite has been good and he denies vomiting. He was in the hospital about 6 months ago and at that time an EGD was done because of some coffee-ground emesis and that study was unremarkable. At that time his hemoglobin was over 11. His history does not seem to be very reliable. Medical records showed that in the emergency room he could not answer the question as to why he was there. He is chronically on blood thinners, Eliquis. 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 He receives dialysis through [facility] on [facility]. It is noted is that his sister is durable power of civil litigation attorney. He is a former smoker. He also reports form alcohol use beer drinking daily. and has 2 daughters. Smoking packs per day: 1 Smoking cigarettes per day: 20.0 Smoking status: Former smoker Tobacco type: cigarettes Second hand tobacco smoke exposure: Yes Additional smoking assessment comments: Patient reports smoking 1 pack per day for many years. Alcohol intake: former Alcohol use details: Patient reports drinking beer daily but quit some time ago. Substance use: former Substance use type: marijuana Other substance usage details: Has only used marijuana in the past Gender identity (if verbalized by the patient): Male Spiritual care concerns: No Agree to blood products: Yes Meds Home Medications and Allergies Home Medications Medication Instructions Recorded Confirmed Type amlodipine 10 mg PO DAILY 04/03/19 03/25/21 History Eliquis 2.5 mg PO BID 12/04
[2021-03-25 16:39] LABS: Glucose Point of Care 191 mg/dl (65-105)
[2021-03-25 16:50] LABS: Transferrin 113 mg/dL (206-381)
[2021-03-25 16:58] LABS: Iron 35 ug/dL (49-181)
[2021-03-25 17:09] LABS: Percent Iron Saturation 20 % (20-50)
[2021-03-25 17:51] LABS: Folic Acid 12.3 ng/mL (2.76->20); Vitamin B12 > 1000.0 pg/mL (239-931)
[2021-03-25] MEDS: PEG (High)/E-LYTE SOLN 4,000 ML BTL 4000 ML PO (18:34)
[2021-03-25] MEDS: LOSARTAN POTASSIUM 50 MG TABLET PO (21:01)
[2021-03-25] MEDS: INSULIN DETEMIR 100 UNITS/ML 12 UNITS SUB-Q (22:38)
[2021-03-25 23:13] LABS: Glucose Point of Care 224 mg/dl (65-105)
[2021-03-26] VITALS (25 sets, daily range): BP systolic 136–198; BP diastolic 50–80; PULSE 67–89; RESP 14–23; TEMP 35.9–37; O2SAT 96–100
[2021-03-26 00:39] LABS: Glucose Point of Care 194 mg/dl (65-105)
[2021-03-26] MEDS: cloNIDine HCL 0.2 MG TABLET PO ×2 (05:42→15:17)
[2021-03-26 06:49] LABS: Hematocrit 24.1 % (42.0-52.0); Hemoglobin 7.6 g/dL (14.0-18.0)
[2021-03-26 08:26] LABS: Glucose Point of Care 92 mg/dl (65-105)
[2021-03-26] MEDS: MIDODRINE HCL 10 MG TABLET PO (08:33)
[2021-03-26 09:15] LABS: Albumin Level 3.1 g/dL (3.5-5.1); Anion Gap 12 mmol/L (8-16); Blood Urea Nitrogen 48 mg/dL (9-20); Calcium 8.9 mg/dL (8.4-10.2); Carbon Dioxide 29 mmol/L (22-30); Chloride 97 mmol/L (98-107); Estimated Glomerular Filt Rate 14; Glucose 95 mg/dL (65-110); Phosphorus 4.8 mg/dL (2.5-4.5); Potassium 4.8 mmol/L (3.4-5.0); Sodium 138 mmol/L (137-145)
[2021-03-26] MEDS: LIDOCAINE/PRILOCAINE CREAM 2.5-2.5% TUBE 1 EACH TOPICAL (09:21)
--- NOTE | 2021-03-26 09:26 | PC.NURSE ---
To dialysis per bed.
[2021-03-26 09:36] LABS: Glucose Point of Care 125 mg/dl (65-105)
[2021-03-26] MEDS: UMECLIDINIUM BROMIDE 62.5 MCG ELLIPTA 1 PUFF INHALATION (11:02)
--- NOTE | 2021-03-26 11:02 | PCRCNOTE ---
Window of time for administration has passed. See next scheduled administration.
[2021-03-26] MEDS: EPOETIN ALFA-EPBX 20,000 UNITS/ML VIAL 20000 UNITS IV PUSH (12:16)
[2021-03-26 12:58] LABS: Glucose Point of Care 111 mg/dl (65-105)
[2021-03-26] MEDS: SODIUM CHLORIDE 0.9% IV 500 ML 10 ML IV CONT (13:16)
[2021-03-26 13:22] LABS: Glucose Point of Care 102 mg/dl (65-105)
--- NOTE | 2021-03-26 13:28 | WPDANESEPPF ---
Anes - Initial Pre Proc Eval Procedure: Operation Date: 03/26/21 15:00 Proposed Procedures p Colonoscopy - Montana Zarco MD Date/Time: 03/26/21 13:28 Surgeon: Magalis Elizabeth PA-C Pre Op Diagnosis: Anemia, Heme+stools Patient Data Age: 60 Gender: M Height: Weight: 85.5 kg Last Vital Signs Temp 36.1 C L 03/26/21 13:14 Pulse 88 03/26/21 13:14 Resp 20 03/26/21 13:14 BP 152/54 H 03/26/21 13:14 Pulse Ox 96 03/26/21 13:14 Allergies Allergy/AdvReac Type Severity Reaction Status Date / Time No Known Allergies Allergy Verified 03/26/21 13:10 Home Medications Medication Instructions Recorded Confirmed Type amlodipine 10 mg PO DAILY 04/03/19 03/26/21 History Eliquis 2.5 mg PO BID 12/30/19 03/26/21 History Glucagon (HCl) Emergency Kit 1 mg SUBCUT Q20M PRN 12/30/19 03/26/21 History albuterol sulfate 2 puff INHALATION Q4-6H PRN 12/30/19 03/26/21 History clonidine HCl 0.2 mg PO Q8H 12/30/19 03/26/21 History hydralazine 25 mg PO BID 12/30/19 03/26/21 History insulin lispro See Rx Instructions .ROUTE .COMPLEX 12/30/19 03/26/21 History losartan 50 mg PO HS 12/30/19 03/26/21 History pantoprazole 40 mg PO DAILY 12/30/19 03/26/21 History aspirin [Aspirin Low Dose] 81 mg PO DAILY 03/04/20 03/26/21 History Incruse Ellipta 1 inh INHALATION DAILY 05/07/20 03/26/21 History Levemir U-100 Insulin 12 unit SUBCUT HS 05/07/20 03/26/21 History metoprolol tartrate 50 mg PO BID 03/25/21 03/26/21 History minoxidil 2.5 mg PO BID 03/25/21 03/26/21 History Laboratory Tests 03/25/21 03/25/21 03/25/21 12:32 16:24 16:24 Hgb Hct Sodium Potassium Chloride Carbon Dioxide Anion Gap BUN Creatinine Estim Creat Clear Calc Estimated GFR Glucose POC Capillary Glucose Calcium Phosphorus Iron 35 ug/dL L ug/dL (49-181) TIBC 177 ug/dL L ug/dL (265-497) % Saturation 20 % % (20-50) Transferrin 113 mg/dL L mg/dL (206-381) Ferritin 948.00 ng/mL H ng/mL (11.1-264) Albumin Vitamin B12 > 1000.0 pg/mL H pg/mL (239-931) Folate 12.3 ng/mL ng/mL (2.76->20) Hep Bs Antigen Negative (Negative) Hep Bs Antibody Positive 03/25/21 03/25/21 03/25/21 16:24 16:37 21:01 Hgb 7.8 g/dL L g/dL (14.0-18.0) Hct 25.0 % L % (42.0-52.0) Sodium Potassium Chloride Carbon Dioxide Anion Gap BUN Creatinine Estim Creat Clear Calc Estimated GFR Glucose POC Capillary Glucose 191 mg/dl H mg/dl 224 mg/dl H mg/dl (65-105) (65-105) Calcium Phosphorus Iron TIBC % Saturation Transferrin Ferritin Albumin Vitamin B12 Folate Hep Bs Antigen Hep Bs Antibody 03/25/21 03/26/21 03/26/21 23:29 06:23 06:23 Hgb 7.6 g/dL L g/dL (14.0-18.0) Hct 24.1 % L % (42.0-52.0) Sodium 138 mmol/L mmol/L (137-145) Potassium 4.8 mmol/L mmol/L (3.4-5.0) Chloride 97 mmol/L L mmol/L (98-107) Carbon Dioxide 29 mmol/L mmol/L (22-30) Anion Gap 12 mmol/L mmol/L (8-16) BUN 48 mg/dL H mg/dL (9-20) Creatinine 5.20 mg/dL H mg/dL (0.7-1.3) Estim Creat Clear Calc Not Reportable Estimated GFR 14 L (59 - ) Glucose 95 mg/dL mg/dL (65-110) POC Capillary Glucose 194 mg/dl H mg/dl (65-105) Calcium 8.9 mg/dL mg/dL (8.4-10.2) Phosphorus 4.8 mg/dL H mg/dL (2.5-4.5) Iron TIBC % Saturation
--- NOTE | 2021-03-26 14:11 | PC.NURSE ---
Report from dialysis nurse around 1300. She called GI lab. Patient from dialysis room to GI lab per stretcher around 1305.
[2021-03-26 14:17] LABS: Glucose Point of Care 103 mg/dl (65-105)
[2021-03-26] MEDS: amLODIPine BESYLATE 5 MG TABLET 10 MG PO (15:15)
[2021-03-26] MEDS: PANTOPRAZOLE SODIUM IV 40 MG VIAL IV PUSH (15:16)
[2021-03-26] MEDS: METOPROLOL TARTRATE 50 MG TAB PO (15:16)
[2021-03-26] MEDS: IRON SUCROSE COMPLEX 200 MG in SODIUM CHLORIDE 0.9% IV 50 ML 120 MG IVPB (15:17)
--- NOTE | 2021-03-26 15:31 | PM.DS ---
DS: Admitting Diagnosis Discharge Date 03/26/21 Admitting Diagnosis anemia DS: Discharge Diagnosis Discharge Diagnosis (1) Acute on chronic anemia: Code(s): D64.9 - Anemia, unspecified Status: Acute Assessment and Plan: Hgb down to 7.6. Last hgb on 02/2021 was 8.5 and in june of this year it was around 11. at the [place] it was reported <7. -pt recently had an AKA of the left leg, could be due to blood loss. FL did see some blood coming from the area intermittently. -stool occult blood reportedly positive in the ER and a colonoscopy was attempted but was not successful due to inadequate prep -06/2020 he had an EGD that showed gastritis, continue PPI - on eliquis at home, plan to hold this x 1 week. Recheck hgb outpt and if stable can re-assess to see if this can be restarted -GI recommends following up outpt if he continues to be anemic. Will repeat h and h outpt. Iron started to help with possible blood loss. Pt was asymptomatic. (2) End-stage renal disease (ESRD): Code(s): N18.6 - End stage renal disease Status: Acute Assessment and Plan: Patient dialyzes Tuesday -he was dialyzed during his stay without issue. (3) Heme positive stool: Code(s): R19.5 - Other fecal abnormalities Status: Acute Assessment and Plan: as above (4) Hypertension: Qualifiers: Hypertension type: essential hypertension Qualified Code(s): I10 - Essential (primary) hypertension Code(s): I10 - Essential (primary) hypertension Status: Chronic Assessment and Plan: last bp 166/65 at d/c -continue norvasc, metoprolol and losartan (5) Unilateral complete AKA: Code(s): S78.119A - Complete traumatic amputation at level between unspecified hip and knee, initial encounter Status: Acute Assessment and Plan: Saira intact, no evidence of significant blood loss -no signs of infection. (6) Diabetes mellitus: Qualifiers: Diabetes mellitus type: type 2 Diabetes mellitus terminal operator insulin use: without terminal operator use Diabetes mellitus complication status: with kidney complications Diabetes mellitus complication detail: with chronic kidney disease Chronic kidney disease stage: on chronic dialysis Qualified Code(s): E11.22 - Type 2 diabetes mellitus with diabetic chronic kidney disease; N18.6 - End stage renal disease; Z99.2 - Dependence on renal dialysis Code(s): E11.9 - Type 2 diabetes mellitus without complications Status: Acute Assessment and Plan: Last glucose 112 -continue home regimen. DS: Summary Hospital Course Hospital Course: DOS 03/26/21 patient is a 60-year-old male with a history of kidney disease on dialysis and recent left AKA who presented emergency room for low hemoglobin on outpatient labs. Hemoglobin was noted to be 7.0 on admission and a hematocrit of 23.0. BMP consistent with end-stage renal disease. He was given 1 unit of PRBC and admitted for observation. His stool was heme-positive but no obvious signs of GI bleed. patient's hemoglobin remained stable throughout the rest of his stay with no evidence of bleeding. a colonoscopy was attempted but the prep was inadequate and it was aborted. He will be continued on Protonix. the patient is on Eliquis and I have recommended that this be held for 1 week. I suggest a recheck in H&H outpatient in 1 week to assess his hemoglobin. If he continues to be stable they can try restarting Eliquis depending on that results. If he continues to be anemic, he should follow up with GI outpatient for further evaluation and colonoscopy/ EGD outpatient. The patient had a recent AKA which appeared to be healing well with no signs of significant blood loss or hematoma. The day of discharge patient was feeling well and had no symptoms of anemia. He was educated about the worrisome signs and symptoms to come back to emergency room for and
[2021-03-26 16:00] LABS: EDCOVIDSCREEN Negative (Negative)
[2021-03-26] MEDS: hydrALAZINE HCL 25 MG TABLET PO (17:59)
[2021-03-26] MEDS: minoxidiL 2.5 MG TABLET PO (17:59)
[2021-03-26 18:28] LABS: Glucose Point of Care 112 mg/dl (65-105)
--- NOTE | 2021-03-26 19:28 | PC.NURSE ---
Report given to Brianna on 03/26/21 @ 1926. Patient's ambulance is scheduled to arrive @ 0815. Patient transferring back to [facility].
== END 2021-03-26 20:15 | DRG 377 ==
LOC: ANHED 20:53 → ANH3MEDSUR 21:42
PROVIDERS: Internal Medicine Gastroenterology; Internal Medicine Nephrology; Physician Assistant; Admitting Provider Internal Medicine; Emergency Provider Emergency Medicine; Visit Provider Family Medicine
PROC: 0DJD8ZZ Inspection of Lower Intestinal Tract, Via Natural or Artificial Opening Endoscopic (ICD-10-PCS; CPT 45378; principal; 2021-03-26 15:00)
DX: K92.2 Gastrointestinal hemorrhage, unspecified (principal); N18.6 End stage renal disease; D62 Acute posthemorrhagic anemia; I48.20 Chronic atrial fibrillation, unspecified; I12.0 Hypertensive chronic kidney disease with stage 5 chronic kidney disease or end stage renal disease; Z20.822 Contact with and (suspected) exposure to COVID-19; E11.22 Type 2 diabetes mellitus with diabetic chronic kidney disease; N25.0 Renal osteodystrophy; E78.5 Hyperlipidemia, unspecified; K29.70 Gastritis, unspecified, without bleeding; Z96.651 Presence of right artificial knee joint; Z53.8 Procedure and treatment not carried out for other reasons; Z89.612 Acquired absence of left leg above knee; Z99.2 Dependence on renal dialysis; Z86.73 Personal history of transient ischemic attack (TIA), and cerebral infarction without residual deficits; I25.2 Old myocardial infarction; Z87.891 Personal history of nicotine dependence
CPT/HCPCS: 36415; 36430; 80053; 80069; 82607; 82728; 82746; 82948; 83540; 83550; 84466; 85014; 85018; 85025; 85610; 85730; 86706; 86850; 86900; 86901; 86920; 87340; 87426; 94640; 96374; 96376; 99285; A9270; C9113; C9803; G0257; G0378; J1756; J1815; J2001; J2704; J7030; J7040; J7050; P9016; Q5105

== ENCOUNTER 2021-04-08 19:19 | Emergency (ER) | payer MEDICARE, MEDICAID, SELFPAY ==
[2021-04-08] VITALS (19 sets, daily range): BP systolic 113–163; BP diastolic 51–70; PULSE 85–96; RESP 10–24; TEMP 37; O2SAT 98–100
[2021-04-08 20:49] LABS: Basophils Percent Auto 0.4 % (0.2-1.2); Eosinophils Absolute Auto 0.1 K/mm3 (0-0.3); Eosinophils Percent Auto 1.6 % (0-4.4); Hematocrit 36.1 % (42.0-52.0); Hemoglobin 11.2 g/dL (14.0-18.0); Immature Granulocyte Absolute 0.05 K/mm3 (0.00-0.031); Immature Granulocyte Percent A 0.6 % (0-0.5); Lymphocytes Absolute Auto 1.49 K/mm3 (0.9-3.2); Mean Corpuscular Hemoglobin 26.5 pg (26-34); Mean Corpuscular Volume 85.5 fl (80-100); Mean Platelet Volume 10.7 fl (7.4-10.4); Monocytes Absolute Auto 1.1 K/mm3 (0.1-0.6); Monocytes Percent Auto 13.6 % (2.6-8.5); Neutrophils Absolute Auto 5.5 K/mm3 (1.3-6.7); Neutrophils Percent Auto 65.8 % (45.5-73.1); Platelet Count Result 293 k/mm3 (150-375); Red Blood Count 4.22 M/mm3 (4.6-6.20); Red Cell Distribution Width 16.7 % (11.5-14.5); White Blood Count 8.3 K/mm3 (4.5-10.0)
[2021-04-08 20:59] LABS: Prothrombin Time 13.5 Seconds (11.1-14.7)
[2021-04-08 21:00] LABS: Alanine Aminotransferase 16 U/L (4-50); Albumin Level 3.9 g/dL (3.5-5.1); Alkaline Phosphatase 133 U/L (38-126); Anion Gap 10 mmol/L (8-16); Aspartate Amino Transferase 39 U/L (17-59); Bilirubin,Total 0.8 mg/dL (0.2-1.3); Blood Urea Nitrogen 15 mg/dL (9-20); CRP 7.2 mg/dL (<1.0); Calcium 9.3 mg/dL (8.4-10.2); Carbon Dioxide 34 mmol/L (22-30); Chloride 95 mmol/L (98-107); Estimated Glomerular Filt Rate 44; Glucose 209 mg/dL (65-110); Potassium 4.2 mmol/L (3.4-5.0); Sodium 139 mmol/L (137-145)
[2021-04-08 21:47] LABS: EDCOVIDSCREEN Negative (Negative)
--- NOTE | 2021-04-08 22:43 | PC.NURSE ---
RN and PCT spent 45 minutes cleaning patient up. Pt had BM, started to remove his depends and had stool smeared on him. Pt cleaned up, clean linens applied to bed, new depends placed on patient. Pts wound to LLE rinsed, new dressing applied to stump. Pt repositioned in bed and provided warm blanket. Pt updated. Pt's family member also called and updated. Pt resting in NAD. TV on for patient and lights dimmed.
[2021-04-09] VITALS (9 sets, daily range): BP systolic 121–143; BP diastolic 45–76; PULSE 61–90; RESP 16–18; O2SAT 98–100
--- NOTE | 2021-04-09 01:00 | ED.GENADULT ---
HPI - General Adult General Chief complaint: Wound/Laceration Stated complaint: RT LEG AMPUTATION BLEEDING AT STUMP Time Seen by Provider: 04/08/21 19:21 Source: patient and EMS Mode of arrival: EMS Limitations: dementia History of Present Illness HPI narrative: 60-year-old [facility] resident with a history of hypertension, ESRD on hemodialysis, chronic anemia secondary to kidney disease here with complaints of bleeding from the stump since this afternoon. Patient was seen in the ER approximately 10 days ago for the same. Patient is a poor historian secondary to dementia . Not much of history could be obtained from the [facility]. Onset (ago): hour(s) (1) Location: lower extremity (left AKA stump) Related Data Home Medications Medication Instructions Recorded Confirmed amlodipine 10 mg PO DAILY 04/03/19 03/26/21 Eliquis 2.5 mg PO BID 12/30/19 03/26/21 Glucagon (HCl) Emergency Kit 1 mg SUBCUT Q20M PRN 12/30/19 03/26/21 albuterol sulfate 2 puff INHALATION Q4-6H PRN 12/30/19 03/26/21 clonidine HCl 0.2 mg PO Q8H 12/30/19 03/26/21 hydralazine 25 mg PO BID 12/30/19 03/26/21 insulin lispro See Rx Instructions .ROUTE .COMPLEX 12/30/19 03/26/21 losartan 50 mg PO HS 12/30/19 03/26/21 pantoprazole 40 mg PO DAILY 12/30/19 03/26/21 aspirin [Aspirin Low Dose] 81 mg PO DAILY 03/04/20 03/26/21 Incruse Ellipta 1 inh INHALATION DAILY 05/07/20 03/26/21 Levemir U-100 Insulin 12 unit SUBCUT HS 05/07/20 03/26/21 metoprolol tartrate 50 mg PO BID 03/25/21 03/26/21 minoxidil 2.5 mg PO BID 03/25/21 03/26/21 Allergies Allergy/AdvReac Type Severity Reaction Status Date / Time No Known Allergies Allergy Verified 03/26/21 13:10 Review of Systems Review of Systems: ROS unobtainable: Yes unobtainable due to mental status PMFSH Past Medical History Medical History Anemia Atrial fibrillation Coffee ground emesis CVA (cerebrovascular accident due to intracerebral hemorrhage) CVA x3, Diabetes mellitus End-stage renal disease on hemodialysis left arm access Gastritis History of [place] (myocardial infarction) Hyperlipidemia Hypertension Mitral valve prolapse Mitral valve vegetation History of endocarditis 01/2020 EITAN 05/08/20 shows persistent mobile echodensity Nausea and vomiting in adult Surgical History Surgical History History of total right knee replacement Status post creation of arteriovenous fistula Family History Family History Mother Hypertension Diabetes mellitus Father Hypertension Diabetes mellitus Other Unknown family medical history Social History Social History Social History: Patient tells me he lives with his sister however care coordination notes that he is a jail patient at [facility]. He receives dialysis through [facility]. It is noted is that his sister is durable power of nanotechnology engineering technologist. He is a former smoker. He also reports form alcohol use beer drinking daily. and has 2 daughters. Smoking packs per day: 1 Smoking cigarettes per day: 20.0 Smoking status: Former smoker Tobacco type: cigarettes Second hand tobacco smoke exposure: Yes Additional smoking assessment comments: Patient reports smoking 1 pack per day for many years. Alcohol intake: former Alcohol use details: Patient reports drinking beer daily but quit some time ago. Substance use: former Substance use type: marijuana Other substance usage details: Has only used marijuana in the past Gender identity (if verbalized by the patient): Male Spiritual care concerns: No Agree to blood products: Yes Exam Narrative: GENERAL: Well-appearing, well-nourished, and in no acute distress, pleasantly confused. HEAD: Normocephalic, atraumatic. EYES: PERRLA and EOMI. NE
[2021-04-09] MEDS: LACTATED RINGERS 1,000 ML 125 ML IV CONT (20:02)
[2021-04-09 20:15] LABS: Anion Gap 7 mmol/L (8-16); Blood Urea Nitrogen 31 mg/dL (9-20); Calcium 9.2 mg/dL (8.4-10.2); Carbon Dioxide 33 mmol/L (22-30); Chloride 96 mmol/L (98-107); Estimated CRCL calculation 22 ml/min; Estimated Glomerular Filt Rate 21; Glucose 297 mg/dL (65-110); Sodium 136 mmol/L (137-145)
--- NOTE | 2021-04-09 20:20 | PC.NURSE ---
Eugenia from [facility] [place] called with bed assignment...[facility] [address]. Informed RN.
--- NOTE | 2021-04-09 20:54 | PC.NURSE ---
report called to Susan avila at [address]
== END 2021-04-10 01:00 | disposition short-term general hospital (02) ==
PROVIDERS: Emergency Medicine; Emergency Provider Family Medicine
DX: L08.9 Local infection of the skin and subcutaneous tissue, unspecified (principal); Z20.822 Contact with and (suspected) exposure to COVID-19; D64.9 Anemia, unspecified; I48.91 Unspecified atrial fibrillation; E11.9 Type 2 diabetes mellitus without complications; I12.0 Hypertensive chronic kidney disease with stage 5 chronic kidney disease or end stage renal disease; E11.22 Type 2 diabetes mellitus with diabetic chronic kidney disease; N18.6 End stage renal disease; Z99.2 Dependence on renal dialysis; Z79.4 Long term (current) use of insulin; E78.5 Hyperlipidemia, unspecified
CPT/HCPCS: 36415; 80048; 80053; 83605; 85025; 85610; 86140; 87040; 87426; 96361; 96365; 96366; 96367; 99285; C9803; J0692; J3370; J7120

== ENCOUNTER 2021-04-29 11:50 | Inpatient (IN) | payer MEDICARE, MEDICAID, SELFPAY ==
[2021-04-29] VITALS (15 sets, daily range): BP systolic 110–157; BP diastolic 48–93; PULSE 92–105; RESP 14–20; TEMP 36.1–36.6; O2SAT 94–100
--- NOTE | ~2021-04-29 | CT_ITS ---
EXAMINATION: CT abdomen pelvis w con DATE: 04/29/2021 14:42 INDICATION: Elevated white blood cell count. Lethargy. Patient on dialysis. TECHNIQUE: Computed tomography (CT) of the abdomen and pelvis was performed with 100 cc Omnipaque 350 intravenous contrast. The dose-length product was 1061.94 mGy-cm. Automated exposure control and ite rative reconstruction technique were employed. Lung bases are unremarkable. Cardiomegaly. No signific ant pleural or pericardial effusion. COMPARISON: CT dated 06/09/2020. FINDINGS: Lung bases are unremarkable. Heart size normal. No pleural or pericardial effusion. No sign ificant vascular abnormality. No lymphadenopathy. There is fecal impaction of the distal colon and re ctum. No significant small bowel dilation. No free air or free fluid. There is amputation of the left femur. Small fat-containing periumbilical hernia. The liver, spleen, pancreas, adrenal glands are unremarkab le. There is bilateral renal atrophy with multiple bilateral renal cysts. Gallbladder is present. Mil d thoracic spondylosis. There is dynamic compression screw transfixing the right femoral neck. IMPRESSION: 1. Fecal impaction of the distal colon and rectum. 2: Bilateral renal atrophy, consistent with chronic renal disease with bilateral renal cysts. Reviewed, dictated and finalized at location B. ITY WORKER FILM PROCESSING IMPRESSION: 1. Fecal impaction of the distal colon and rectum. 2: Bilateral renal atrophy, consistent with chronic renal disease with bilatera l renal cysts.
--- NOTE | ~2021-04-29 | CT_ITS ---
EXAMINATION: CT brain wo con DATE: 04/30/2021 18:59 INDICATION: Altered mental state TECHNIQUE: Computed tomography (CT) of the head was performed without intravenous contrast. The mA wa s adjusted according to patient size. Iterative reconstruction technique was employed. Exam dose: 68 1.00 mGy-cm total exam DLP. COMPARISON: 12/29/2019 CT brain FINDINGS: Prominent bilateral vertebral artery and carotid siphon internal carotid artery calcificati ons. Chronic small right frontal old cerebrovascular accident. There is a prominent stable chronic area of encephalomalacia in the left occipital temporal parietal area consistent with old infarct involving portions of the middle and posterior cerebral artery dwain tories. There is central and cortical cerebral atrophy. There is nonspecific diminished attenuation of the cerebral white matter, likely due to chronic small vessel ischemic changes of the cerebral white matter. No subdural or epidural hematoma is detected. Included paranasal sinuses and mastoid air cells are normally developed and aerated. No fracture or bone destruction of the cranial vault. IMPRESSION: Chronic bilateral cerebral infarcts, stable since 12/29/2019 Central and cortical cerebral atrophy Cerebral atherosclerosis and chronic small vessel ischemic changes of the cerebral white matter No acute intracranial finding Reviewed, dictated and finalized at Location A. Reviewed, dictated and finalized at location A. N TENDER IMPRESSION: Chronic bilateral cerebral infarcts, stable since 12/29/2019 Central and cortical cerebral atrophy Cerebral atherosclerosis and chronic small vessel ischemic changes of the cereb ral white matter No acute intracranial finding
--- NOTE | ~2021-04-29 | XR_ITS ---
EXAMINATION: XR heel RT min 2V DATE: 04/30/2021 08:15 INDICATION: Right heel pressure wound. TECHNIQUE: 2 views of right calcaneus were obtained. COMPARISON: None. FINDINGS: Bone alignment is normal. No fracture. There is diffuse osteopenia. There is mild midfoot o steoarthritis. IMPRESSION: 1. No evidence of osteomyelitis. Reviewed, dictated and finalized at location A. OR MANAGEMENT SPECIALIST
--- NOTE | 2021-04-29 11:55 | ECG_ITS ---
Measurements Intervals [place] Rate: 91 P: 54 NM: 191 QRS: 268 QRSD: 154 T: 34 QT: 405 QTc: 499 Interpretive Statements SINUS RHYTHM WITH SINUS ARRHYTHMIA RIGHT AXIS DEVIATION RIGHT BUNDLE BRANCH BLOCK ABNORMAL ECG Electronically Signed On 04-29-2021 12:02:20 BRAKE HOLDER by Ben Bobby D.O.
[2021-04-29 12:22] LABS: Basophils Percent Auto 0.1 % (0.2-1.2); Eosinophils Absolute Auto 0.2 K/mm3 (0-0.3); Eosinophils Percent Auto 0.7 % (0-4.4); Immature Granulocyte Absolute 0.15 K/mm3 (0.00-0.031); Immature Granulocyte Percent A 0.7 % (0-0.5); Lymphocytes Absolute Auto 1.76 K/mm3 (0.9-3.2); Lymphocytes Percent Auto 8.3 % (18.3-44.2); Mean Corpuscular HGB Conc 32.5 g/dl (32-36); Mean Corpuscular Hemoglobin 28.7 pg (26-34); Mean Corpuscular Volume 88.4 fl (80-100); Mean Platelet Volume 9.9 fl (7.4-10.4); Monocytes Absolute Auto 1.6 K/mm3 (0.1-0.6); Monocytes Percent Auto 7.7 % (2.6-8.5); Neutrophils Absolute Auto 17.6 K/mm3 (1.3-6.7); Neutrophils Percent Auto 82.5 % (45.5-73.1); Platelet Count Result 312 k/mm3 (150-375); Red Blood Count 1.81 M/mm3 (4.6-6.20); White Blood Count 21.3 K/mm3 (4.5-10.0)
[2021-04-29 12:33] LABS: INR 1.1; Partial Thromboplastin Time 32.2 SECONDS (22.3-36.8); Prothrombin Time 13.7 Seconds (11.1-14.7)
[2021-04-29 12:37] LABS: Alanine Aminotransferase 22 U/L (4-50); Albumin Level 3.4 g/dL (3.5-5.1); Alkaline Phosphatase 84 U/L (38-126); Anion Gap 15 mmol/L (8-16); Aspartate Amino Transferase 27 U/L (17-59); Bilirubin,Total 0.5 mg/dL (0.2-1.3); Blood Urea Nitrogen 107 mg/dL (9-20); Carbon Dioxide 23 mmol/L (22-30); Chloride 100 mmol/L (98-107); Estimated Glomerular Filt Rate 24; Glucose 196 mg/dL (65-110); Potassium 4.5 mmol/L (3.4-5.0); Sodium 138 mmol/L (137-145)
[2021-04-29 12:38] LABS: Hemoglobin 5.2 g/dL (14.0-18.0)
--- NOTE | 2021-04-29 12:38 | ED.GENADULT ---
HPI - General Adult General Chief complaint: Altered Mental Status Stated complaint: LETHARGIC Time Seen by Provider: 04/29/21 12:21 Source: patient, EMS and RN notes reviewed Limitations: altered mental status History of Present Illness HPI narrative: 61-year-old male on dialysis (Tuesday) presents to the emergency department from the dialysis clinic for evaluation due to increased lethargy. Patient states he has not missed any dialysis. At dialysis today the dialysis nurses felt that the patient was too altered so EMS was called and patient was brought to the emergency room. Upon arrival to the [facility] patient denies any complaints. Patient is somnolent but easily wakes up to voice. Related Data Home Medications Medication Instructions Recorded Confirmed amlodipine 5 mg PO DAILY 04/03/19 04/29/21 Eliquis 2.5 mg PO BID 12/30/19 04/29/21 Glucagon (HCl) Emergency Kit 1 mg SUBCUT Q20M PRN 12/30/19 04/29/21 albuterol sulfate 2 puff INHALATION Q4-6H PRN 12/30/19 04/29/21 clonidine HCl 0.1 mg PO Q8H 12/30/19 04/29/21 hydralazine 25 mg PO BID 12/30/19 04/29/21 insulin lispro See Rx Instructions .ROUTE .COMPLEX 12/30/19 04/29/21 losartan 50 mg PO HS 12/30/19 04/29/21 pantoprazole 40 mg PO DAILY 12/30/19 04/29/21 aspirin [Aspirin Low Dose] 81 mg PO DAILY 03/04/20 04/29/21 Incruse Ellipta 1 inh INHALATION DAILY 05/07/20 04/29/21 Levemir U-100 Insulin 25 unit SUBCUT HS 05/07/20 04/29/21 metoprolol tartrate 50 mg PO BID 03/25/21 04/29/21 minoxidil 2.5 mg PO BID 03/25/21 04/29/21 B complex with C 20-folic acid 1 cap PO DAILY 04/29/21 04/29/21 [Renal Caps] ascorbic acid (vitamin C) 500 mg PO BID 04/29/21 04/29/21 epoetin beta, methoxy peg [Mircera] 75 mcg SUBCUT [id number] 04/29/21 04/29/21 hydroxyzine HCl 25 mg PO BID 04/29/21 04/29/21 minocycline 100 mg PO BID 04/29/21 04/29/21 sucralfate [Carafate] 1 g PO TID 04/29/21 04/29/21 tiotropium bromide [Spiriva 2 puff INHALATION ONCE 04/29/21 04/29/21 Respimat] Allergies Allergy/AdvReac Type Severity Reaction Status Date / Time No Known Allergies Allergy Verified 03/26/21 13:10 Review of Systems Review of Systems: CONSTITUTIONAL: Denies fever, chills, or sweats. EYES: Denies visual changes, redness, or discharge. CARDIOVASCULAR: Denies chest pain, palpitations, or edema. RESPIRATORY: Denies cough or dyspnea. GASTROINTESTINAL: Denies abdominal pain, nausea, vomiting, or diarrhea. GENITOURINARY: Denies dysuria or hematuria. SKIN: Denies rash or itching. MUSCULOSKELETAL: Denies back pain, joint pain, or myalgia. NEUROLOGIC: Denies headache, numbness, or weakness. [facility] Past Medical History Medical History Anemia Atrial fibrillation Coffee ground emesis CVA (cerebrovascular accident due to intracerebral hemorrhage) CVA x3, Diabetes mellitus End-stage renal disease on hemodialysis left arm access Gastritis History of [place] (myocardial infarction) Hyperlipidemia Hypertension Mitral valve prolapse Mitral valve vegetation History of endocarditis 01/2020 EITAN 05/08/20 shows persistent mobile echodensity Nausea and vomiting in adult Surgical History Surgical History History of total right knee replacement Status post creation of arteriovenous fistula Family History Family History Mother Hypertension Diabetes mellitus Father Hypertension Diabetes mellitus Other Unknown family medical history Social History Social History Social History: Patient tells me he lives with his sister however care coordination notes that he is a halfway patient at [facility]. He receives dialysis through [facility] on [address]. It is noted is that his sister is durable power of patent prosecution attorney. He is a former smoker. He also reports form alcohol use beer d
[2021-04-29 13:28] LABS: Add Urine Microscopic? YES; Amorphous Sediment Urine Moderate; Appearance Urine Turbid (Clear); Bacteria Urine 4+ /hpf; Bilirubin Urine Negative (Negative); Blood Urine 2+ (Negative); Glucose Urine UA 1+ mg/dL (Negative); Ketones Urine Negative (Negative); Leukocyte Esterase Ur 2+ LEU/UL (Negative); Mucus Urine Heavy /lpf; Nitrate Urine Negative (Negative); Protein Urine 3+ mg/dL (Negative); RBC Urine >75 /hpf (0-2); Specific Grav Ur 1.024 (1.001-1.035); Urobilinogen Urine Negative mg/dL (<2.0); WBC Clumps Urine Present /HPF; WBC Urine >75 /hpf
[2021-04-29 13:30] LABS: Color Urine Brown (Yellow)
[2021-04-29 13:59] LABS: SARS-CoV-2 RNA PCR Negative
--- NOTE | 2021-04-29 14:30 | PM.IMHP ---
H&P: HPI History of Present Illness Date/Time: 04/29/21 14:30 Chief Complaint: Lethargy and altered mental status. Narrative: This is a 61-year-old male with history of stroke, hypertension, coronary artery disease, insulin-dependent diabetes, and end-stage renal disease on hemodialysis who presented to the emergency department via EMS from dialysis for evaluation of altered mental status and lethargy. He is alert and oriented to self only and is unable to provide an accurate history and as such all of the following is obtained via a review of his electronic medical records. Calls placed to his power of food assembler by multiple staff members have gone unanswered. The patient was approximately 15 minutes into his dialysis session today and the dialysis nurse felt that the patient was much too lethargic and confused to continue on he was brought to the ER. At the time my evaluation he is resting comfortably and he reports being very hungry and asked on several occasions for something to eat. He does not know why he was brought into the emergency department and with further questioning I was not able to elicit any specific complaints. He specifically denies fever, chills, sweats, headache, cold and flu symptoms, chest pain, shortness of breath, cough, nausea, vomiting, diarrhea, and dysuria (patient states he still urinates though he has been on dialysis for many years so I am not certain if that is accurate). His vital signs were stable on arrival and he is afebrile. Pertinent findings include a white blood cell count of 21.3 and hemoglobin and hematocrit of 5.2 and 16.0% respectively. On exam he was tender to palpation the left lower quadrant and a subsequent CT of the abdomen and pelvis showed fecal impaction of the distal colon and rectum though no other findings were noted. Of note the patient was admitted to the hospital last month with acute on chronic anemia with Hemoccult-positive stool. Colonoscopy was attempted at that time but was unsuccessful due to the presence of a large amount of stool in the rectosigmoid colon. He was discharged home and told to hold Eliquis for [address] Zarco indicated that a repeat colonoscopy could be done as an outpatient if he continues to be anemic. Review of Systems Review of Systems: A review of systems was attempted but limited given his memory loss. Negative except for as per documented above. [facility] Past Medical History Medical History (Updated 04/29/21 @ 22:38 by Judy Brower PA-C) Anemia Atrial fibrillation 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 Coronary artery disease End-stage renal disease on hemodialysis Dialysis Tuesday, Tuesday, Tuesday. Gastritis History of left above knee amputation Hyperlipidemia Hypertension Insulin dependent type 2 diabetes mellitus Complicated by retinopathy, neuropathy, and nephropathy. 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 EITAN 05/08/20 shows persistent mobile echodensity. Surgical History Surgical History (Updated 04/29/21 @ 22:20 by Judy Brower PA-C) History of cardiac catheterization (09/2015) Revealed nonobstructive coronary artery disease. History of open reduction and internal fixation (ORIF) procedure Repair right femur fracture. History of total right knee replacement Status post creation of arteriovenous fistula Family History Family History Mother Hypertension Diabetes mellitus Father Hypertension Diabetes mellitus Other Unknown family medical history Social History Social History (Updated 04/29/21 @ 22:22 by Judy Brower PA-C) Social History: [facility] care at [facility]. with 2 children. Smoked 2 to 3 packs of cigarettes per day and quit in 2012. No alcohol or drug use. Judy Elias, sister, is his healthcare power of food assembler. Code status: Full cod
--- NOTE | 2021-04-29 15:10 | PC.NURSE ---
SINCE THE PT IS CONFUSED AND UNABLE TO CONSENT TO RECEIVE BLOOD I ATTEMPTED TO CALL POAlyse SNOWDEN AT [phone] AND RECEIVED MESSAGE THE PERSON YOU ARE TRYING TO REACH IS NOT ACCEPTING CALLS AT THIS TIME. PLEASE TRY AGAIN LATER. I ATTEMPTED 3 TIMES. I ALSO TRIED TO CALL [phone] AND A MAN ANSWERED WHAT DO YOU WANT? AND HUNG UP. I THEN CALLED [facility] TO CHECK IF THEY HAVE ANY UPDATED NUMBERS AND THEY DO NOT. I THEN CALLED [facility] TO CHECK FOR UPDATED NUMBER AND THEY SAID THE [phone] NUMBER IS CORRECT AND THAT SHE IS PROBABLY AT WORK AND NOT TAKING CALLS. SHE ADVISED US TO KEEP ON TRYING TO CALL HER. MENDEL SMALL ON WAS MADE AWARE OF SITUATION AND WILL CONTINUE TO ATTEMPT TO OBTAIN CONSENT FROM THE PT'S POA
--- NOTE | 2021-04-29 16:15 | ADMGEN ---
This patient, David Segundo Jr., was admitted to Medical Room 349-01. Patient/family oriented to hospital policies and general routines including ID bracelet, bed and alarms, visiting hours, pain management, procedures, bathroom and other care routines, personal items, smoking policy, room service/diet, and visiting hours. Information on how to activate the Rapid Response Team has been discussed. Patient/Family are encouraged to report perceived risks to care and to ask questions if they do not understand what they are told or what they should do.
--- NOTE | 2021-04-29 16:29 | PC.NURSE ---
Patient admitted to unit with 2 units of blood ordered. Patient is not alert and unable to sign consent for blood. We have attempted to call patients sister, who is listed on the chart as point of contact and she has been reluctant to answer any of our calls. Patients hgb is 5.4 and needs to be transfused. Myself and Gila Grande RN are deeming the transfusion as an emergent situation in which patient needs to receive blood. Notified Judy Brower NP. Will keep trying to call patients sister.
[2021-04-29 17:07] LABS: Glucose Point of Care 228 mg/dl (65-105)
[2021-04-29] MEDS: SODIUM CHLORIDE 0.9% IV 250 ML 30 ML IV CONT (18:33)
[2021-04-29] MEDS: polyethylene glycoL 3350 238 GM BOTTLE PO (18:33)
[2021-04-29 22:05] LABS: Glucose Point of Care 265 mg/dl (65-105)
[2021-04-30] VITALS (20 sets, daily range): BP systolic 100–154; BP diastolic 51–62; PULSE 73–99; RESP 16–20; TEMP 36.1–36.4; O2SAT 92–100; BMI 27.7
[2021-04-30] MEDS: METOPROLOL TARTRATE 50 MG TAB PO ×3 (00:52→21:17)
[2021-04-30] MEDS: LOSARTAN POTASSIUM 50 MG TABLET PO ×2 (00:53→21:18)
[2021-04-30] MEDS: hydrALAZINE HCL 25 MG TABLET PO ×3 (00:54→16:45)
[2021-04-30] MEDS: cloNIDine HCL 0.1 MG TABLET PO ×4 (00:54→21:18)
[2021-04-30] MEDS: INSULIN GLARGINE (*BKC) 100 UNITS/ML 25 UNITS SUB-Q (01:03)
[2021-04-30] MEDS: SUCRALFATE 1 GM TABLET PO ×3 (06:39→15:40)
--- NOTE | 2021-04-30 06:58 | WPDGICN ---
Assessment and Plan Assessment and plan (1) Profound anemia: Code(s): D64.9 - Anemia, unspecified Status: Acute Assessment and Plan: Hemoccult was positive in last admission. We were not able to perform a colonoscopy due to inability to completely prep his colon. He will need to really try that this time. He is having bowel movements this morning after we gave him MiraLax last evening. We will give additional prep today with hopes that we can perform a colonoscopy tomorrow. He certainly has other factors that would account for his anemia such as end-stage renal disease, but the sudden drop suggest but the possibility of blood loss. He did have an EGD 1 year ago that showed only mild gastritis. But now, with the remarkably high BUN, the possibility of an upper gastrointestinal source must be considered. (2) Fecal impaction: Code(s): K56.41 - Fecal impaction Status: Acute Assessment and Plan: he is having bowel movements this morning. These show laxatives will be administered (3) Paroxysmal atrial fibrillation: Code(s): I48.0 - Paroxysmal atrial fibrillation Status: Acute Assessment and Plan: as mentioned he has been chronically on Eliquis which is being held pending possible colonoscopy. (4) Insulin dependent type 2 diabetes mellitus: Code(s): E11.9 - Type 2 diabetes mellitus without complications; Z79.4 - assistant terminal manager (current) use of insulin Status: Acute Assessment and Plan: initial glucose was 196 (5) End-stage renal disease (ESRD): Code(s): N18.6 - End stage renal disease Status: Acute Assessment and Plan: BUN on admission 107 with creatinine 3.2. On April 08 to his BUN was 15. The disproportionate elevation of BUN suggests possibility of upper GI bleed. I will also perform an EGD tomorrow GI Consult Note Consult date/time: 04/30/21 06:58 HPI: David Segundo JrPrema is a 61 year old male With past history of end-stage renal disease for which he is on hemodialysis 3 times a week, as well as a history of stroke, hypertension, coronary artery disease, insulin-dependent diabetes, and status post left AKA. The patient was at dialysis yesterday when he was noted to be quite lethargic shortly after dialysis was begun. He was brought to the emergency room and was found to be markedly anemic. His hemoglobin is 5.2 with hematocrit of 16. He has received 2 units of blood during the night we do not have a follow-up blood count yet. He has been anticoagulated chronically because of atrial fibrillation and takes Eliquis twice a day. He was hospitalized not long ago with similar issues and I had attempted a colonoscopy. Unfortunately we could not get his colon prepped for satisfactory exam. We elected to let him go home and come back to be studied as an outpatient. He his hemoglobin on that admission was 7.6 initially and at discharge was 11.2. MCV by the weight is been normal. He denies seen blood in his stools or having any new gastrointestinal complaints such as nausea vomiting or pain. CT scan in the emergency room shows a large amount of stool in in the colon. Additional history is not readily obtainable. He has memory loss due to his stroke, but apparently he is much more lucid than when he was admitted yesterday. 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 Coronary artery disease End-stage renal disease on hemodialysis Dialysis Tuesday, Tuesday, Tuesday. Gastritis History of left above knee amputation Hyperlipidemia Hypertension Insulin dependent type 2 diabetes mellitus Complicated by retinopathy, neuropathy, and nephropathy. Mitral valve prolapse Mitr
[2021-04-30 07:46] LABS: Glucose Point of Care 42 mg/dl (65-105)
[2021-04-30] MEDS: GLUCOSE ORAL GEL 15 GM OF GLUCSE IN 37.5 GM TUBE PO (07:50)
[2021-04-30 08:01] LABS: Mean Corpuscular HGB Conc 33.3 g/dl (32-36); Mean Platelet Volume 9.7 fl (7.4-10.4); Platelet Count Result 298 k/mm3 (150-375); Red Blood Count 2.31 M/mm3 (4.6-6.20); Red Cell Distribution Width 15.9 % (11.5-14.5); White Blood Count 16.9 K/mm3 (4.5-10.0)
[2021-04-30 08:08] LABS: Hematocrit 20.1 % (42.0-52.0); Hemoglobin 6.7 g/dL (14.0-18.0)
[2021-04-30] MEDS: UMECLIDINIUM BROMIDE 62.5 MCG ELLIPTA 1 PUFF INHALATION (08:50)
[2021-04-30] MEDS: minoxidiL 2.5 MG TABLET PO ×2 (08:56→16:45)
[2021-04-30] MEDS: VITAMIN B CMPLX/VIT C/FOLIC AC 1 CAPSULE 1 CAP PO (08:56)
[2021-04-30] MEDS: ASCORBIC ACID 500 MG TABLET PO ×2 (08:56→16:45)
[2021-04-30] MEDS: amLODIPine BESYLATE 5 MG TABLET PO (08:57)
[2021-04-30] MEDS: PANTOPRAZOLE 40 MG TABLET PO (08:57)
[2021-04-30] MEDS: hydrOXYzine HCL 25 MG TABLET PO ×2 (08:57→16:46)
[2021-04-30] MEDS: FERROUS SULFATE 324 MG TABLET PO (08:57)
[2021-04-30 09:04] LABS: Alanine Aminotransferase 18 U/L (4-50); Albumin Level 3.1 g/dL (3.5-5.1); Alkaline Phosphatase 77 U/L (38-126); Anion Gap 13 mmol/L (8-16); Aspartate Amino Transferase 24 U/L (17-59); Bilirubin,Total 0.5 mg/dL (0.2-1.3); Blood Urea Nitrogen 111 mg/dL (9-20); Calcium 8.9 mg/dL (8.4-10.2); Carbon Dioxide 24 mmol/L (22-30); Chloride 97 mmol/L (98-107); Estimated CRCL calculation 18 ml/min; Estimated Glomerular Filt Rate 19; Glucose 45 mg/dL (65-110); Magnesium 2.6 mg/dL (1.6-2.3); Sodium 134 mmol/L (137-145)
[2021-04-30 09:13] LABS: Glucose Point of Care 70 mg/dl (65-105)
[2021-04-30 09:13] LABS: Glucose Point of Care 47 mg/dl (65-105)
[2021-04-30 09:13] LABS: Glucose Point of Care 163 mg/dl (65-105)
[2021-04-30 09:34] LABS: Hemoglobin A1C 5.1 % (<5.7)
[2021-04-30] MEDS: BISACODYL 5 MG TABLET EC 10 MG PO ×3 (11:10→21:18)
[2021-04-30 11:26] LABS: Glucose Point of Care 153 mg/dl (65-105)
[2021-04-30 11:48] LABS: Free T4 Free Thyroxine Reflex 1.01 ng/dL (0.78-2.19)
--- NOTE | 2021-04-30 11:48 | PC.NURSE ---
Tried to call Judy to get the consent signed for the patients procedure tomorrow. No answer will try to call back.
[2021-04-30] MEDS: SODIUM CHLORIDE 0.9% IV 250 ML 30 ML IV CONT (12:41)
[2021-04-30] MEDS: MINOCYCLINE HCL 50 MG CAPSULE 100 MG PO ×2 (12:43→21:17)
[2021-04-30] MEDS: polyethylene glycoL 3350 238 GM BOTTLE PO (13:23)
--- NOTE | 2021-04-30 14:47 | PM.CNNEP ---
Assessment and Plan Assessment and plan (1) End-stage renal disease (ESRD): Code(s): N18.6 - End stage renal disease Status: Chronic Assessment and Plan: HD normally on Mon/Wed/Fri schedule goes to [facility] under the care of Dr. Schulz plan HD tomorrow (2) Anemia: Qualifiers: Anemia type: due to chronic kidney disease Chronic kidney disease stage: on chronic dialysis Qualified Code(s): N18.6 - End stage renal disease; D63.1 - Anemia in chronic kidney disease; Z99.2 - Dependence on renal dialysis Code(s): D64.9 - Anemia, unspecified Status: Chronic Assessment and Plan: quite severe/profound on admission hospitalized at least twice in the last year for same issue s/p PRBC transfusion Gastroenterology recommendations noted dose with Epogen with HD (3) Urinary tract infection: Code(s): N39.0 - Urinary tract infection, site not specified Status: Acute Assessment and Plan: urinalysis highly suggestive follow-up on cultures on antibiotics (4) Altered mental status: Code(s): R41.82 - Altered mental status, unspecified Status: Acute Assessment and Plan: has some baseline memory issues s/p previous CVA due to UTI(?) CT of head ordered follow mentation (5) Hypertension: Qualifiers: Hypertension type: essential hypertension Qualified Code(s): I10 - Essential (primary) hypertension Code(s): I10 - Essential (primary) hypertension Status: Chronic Assessment and Plan: reasonable control at this time follow trend of hemodynamics (6) Insulin dependent type 2 diabetes mellitus: Code(s): E11.9 - Type 2 diabetes mellitus without complications; Z79.4 - rn long term care (current) use of insulin Status: Acute Assessment and Plan: follow accuchecks glycemic control Will continue to follow. History of Present Illness Reason for Consult Consult date: 04/30/21 Reason for consult: end stage renal disease Chief Complaint Chief complaint: anemia,ams History of Present Illness Narrative: The patient is a 61-year-old male with an extensive past medical history as outlined below who presented to [facility] Emergency room from his outpatient dialysis unit for further evaluation of altered mental status and lethargy. Due to his altered mental status most of the information I have obtained is from review of the electronic medical record as well as discussion with the physician/ nurses involved in his care. The patient was reportedly about 15 min into his dialysis treatment when the dialysis nurse noted that he was significantly more lethargic and confused than baseline. Given this change in his mentation, the dialysis treatment was aborted and he was sent to the ER for further evaluation. By the time of his arrival to the emergency room, the patient seemed to be fairly comfortable and in no apparent distress. He repeatedly told the ER staff that he was hungry when something to eat. Upon further questioning of the patient, no specific complaint or concern was mentioned by him in general. Workup and evaluation emergency room demonstrated the patient be hemodynamically stable. Routine blood test demonstrated labs consistent with his known history of end-stage renal disease but his CBC was concerning for an elevated white blood cell count and severe/ profound anemia with a hemoglobin of 5.2. His exam was significant for pain in his left lower quadrant and a subsequent CT scan of the abdomen pelvis did demonstrate fecal impaction of the distal colon and rectum otherwise no other significant pathology. It should be noted the patient has been admitted several times over last year so for issues related to severe anemia. Given his severe laboratory findings, he was admitted the hospital for further evaluation therapy. Since his admission, he has received packed red bloo
--- NOTE | 2021-04-30 15:52 | PM.IMPN ---
Progress Note: A&P Assessment and Plan (1) Profound anemia: Code(s): D64.9 - Anemia, unspecified Status: Acute Assessment and Plan: -Hospitalized twice in the last year with anemia. Upper endoscopy in June 2020 showed gastritis. Colonoscopy in March 2021 was unable to be performed due to a large amount of stool in the rectosigmoid colon, however stool was Hemoccult positive at that time. Anemia is presumably secondary to ongoing occult GI loss in addition to end-stage renal disease. He will be transfused to a stable hemoglobin. Dr. Zarco has seen him and is attempting to bowel prep him for colonoscopy tomorrow. -consult placed to nephrology (2) Leukocytosis: Code(s): D72.829 - Elevated white blood cell count, unspecified Status: Acute Assessment and Plan: Suspected to be due to urinary tract infection. He has been started on ceftriaxone, pending blood and urine cultures. left [id number] amputation site does not look infected. He does have a dry eschar on his right heel though no obvious evidence to suggest infection. Xray of the heel no signs of osteomyelitis. (3) Urinary tract infection: Code(s): N39.0 - Urinary tract infection, site not specified Status: Acute Assessment and Plan: He has been started on ceftriaxone, pending urine culture. (4) Fecal impaction: Code(s): K56.41 - Fecal impaction Status: Acute Assessment and Plan: Having bowel movements today. Will need a bowel regimen on discharge. (5) Insulin dependent type 2 diabetes mellitus: Code(s): E11.9 - Type 2 diabetes mellitus without complications; Z79.4 - correction (current) use of insulin Status: Acute Assessment and Plan: -Initiate sliding scale insulin, Accu-Cheks, and hypoglycemic protocol. -pt received his 25 units of lantus last night, his 8pm glucose was 265, this morning at 8 am it was 42 -will hold lantus tonight (6) Hypertension: Qualifiers: Hypertension type: essential hypertension Qualified Code(s): I10 - Essential (primary) hypertension Code(s): I10 - Essential (primary) hypertension Status: Chronic Assessment and Plan: Blood pressures reviewed and they have been stable. Antihypertensives will be reviewed and resumed as appropriate. (7) Paroxysmal atrial fibrillation: Code(s): I48.0 - Paroxysmal atrial fibrillation Status: Acute Assessment and Plan: Currently in a sinus rhythm. Anticoagulation on hold given profound anemia. (8) Acute metabolic encephalopathy: Code(s): G93.41 - Metabolic encephalopathy Status: Acute Assessment and Plan: -felt to be secondary to UTI -does have underlying memory loss secondary to recurrent strokes -no focal ceficits -check CT head -multiple staff members have attempted to reach his POA unsuccessfully (9) End stage renal disease on dialysis: Code(s): N18.6 - End stage renal disease; Z99.2 - Dependence on renal dialysis Status: Chronic Assessment and Plan: -pt was approximately 15 mins into his dialysis session when the dialysis nurse thought he was too lethargic and confused, prompting her to call EMS -creat 5.0, potassium 5.0 -nephrology consult placed Subjective Date/time seen: 04/30/21 15:52 Interval history: 61-year-old male with history of stroke x3 w/ residual memory loss and hemiparesis, hypertension, coronary artery disease, insulin-dependent diabetes, and end-stage renal disease on hemodialysis who presented to the emergency department via EMS from dialysis for evaluation of altered mental status and lethargy and was subsequently admitted for anemia and UTI. Pt is alert to person only on my examination. Alert with clear speech but confused. Denies cp or sob. Further hx limited secondary to mental status. Review of Systems Review of Systems: ROS unobtainable:
[2021-04-30 16:43] LABS: Glucose Point of Care 141 mg/dl (65-105)
[2021-04-30 18:01] LABS: Hematocrit 24.1 % (42.0-52.0)
--- NOTE | 2021-04-30 18:55 | PC.NURSE ---
Attempted to call patient POA no answer, unable to obtain consent.
--- NOTE | 2021-04-30 19:33 | PC.NURSE ---
called all availbale numbers listed on patient file in attempt to obtain consent from next of kin, as patient is confused at baseline. All contact numbers are not valid at this time.
[2021-04-30 20:07] LABS: Hematocrit 21.8 % (42.0-52.0); Hemoglobin 7.3 g/dL (14.0-18.0)
[2021-04-30 22:53] LABS: Glucose Point of Care 131 mg/dl (65-105)
[2021-05-01] VITALS (27 sets, daily range): BP systolic 118–176; BP diastolic 52–87; PULSE 73–100; RESP 14–21; TEMP 36–37; O2SAT 99–100
[2021-05-01 00:36] LABS: Hematocrit 21.4 % (42.0-52.0); Hemoglobin 7.3 g/dL (14.0-18.0)
--- NOTE | 2021-05-01 06:26 | PC.NURSE ---
Sheila SMALL, [facility] requesting update on patient. States patient currently resides at [facility] in hopes to obtain contact information for patient POA. [facility] was contacted with no new information obtained.
[2021-05-01] MEDS: cloNIDine HCL 0.1 MG TABLET PO ×2 (06:33→20:25)
[2021-05-01] MEDS: SUCRALFATE 1 GM TABLET PO (06:33)
--- NOTE | 2021-05-01 06:34 | PC.NURSE ---
Pharmacy notified regarding new medication orders this a.m.
[2021-05-01] MEDS: PEG (High)/E-LYTE SOLN 4,000 ML BTL 1000 ML PO (06:50)
[2021-05-01] MEDS: BISACODYL 5 MG TABLET EC 10 MG PO (06:50)
[2021-05-01 07:53] LABS: Basophils Percent Auto 0.3 % (0.2-1.2); Eosinophils Absolute Auto 0.3 K/mm3 (0-0.3); Eosinophils Percent Auto 2.3 % (0-4.4); Hematocrit 23.4 % (42.0-52.0); Hemoglobin 7.8 g/dL (14.0-18.0); Immature Granulocyte Absolute 0.11 K/mm3 (0.00-0.031); Immature Granulocyte Percent A 0.8 % (0-0.5); Lymphocytes Absolute Auto 1.92 K/mm3 (0.9-3.2); Lymphocytes Percent Auto 14.3 % (18.3-44.2); Mean Corpuscular HGB Conc 33.3 g/dl (32-36); Mean Corpuscular Hemoglobin 28.8 pg (26-34); Mean Corpuscular Volume 86.3 fl (80-100); Monocytes Absolute Auto 0.8 K/mm3 (0.1-0.6); Monocytes Percent Auto 6.2 % (2.6-8.5); Neutrophils Absolute Auto 10.3 K/mm3 (1.3-6.7); Neutrophils Percent Auto 76.1 % (45.5-73.1); Platelet Count Result 309 k/mm3 (150-375); Red Blood Count 2.71 M/mm3 (4.6-6.20); Red Cell Distribution Width 15.3 % (11.5-14.5); White Blood Count 13.5 K/mm3 (4.5-10.0)
[2021-05-01] MEDS: PANTOPRAZOLE 40 MG TABLET PO (08:20)
[2021-05-01] MEDS: METOPROLOL TARTRATE 50 MG TAB PO ×2 (08:20→20:25)
[2021-05-01 08:23] LABS: Alanine Aminotransferase 17 U/L (4-50); Albumin Level 3.3 g/dL (3.5-5.1); Alkaline Phosphatase 90 U/L (38-126); Anion Gap 15 mmol/L (8-16); Aspartate Amino Transferase 28 U/L (17-59); Bilirubin,Total 0.6 mg/dL (0.2-1.3); Blood Urea Nitrogen 117 mg/dL (9-20); Carbon Dioxide 18 mmol/L (22-30); Chloride 95 mmol/L (98-107); Estimated CRCL calculation 15 ml/min; Estimated Glomerular Filt Rate 16; Glucose 136 mg/dL (65-110); Potassium 5.8 mmol/L (3.4-5.0); Sodium 128 mmol/L (137-145)
[2021-05-01 08:31] LABS: Glucose Point of Care 144 mg/dl (65-105)
[2021-05-01] MEDS: UMECLIDINIUM BROMIDE 62.5 MCG ELLIPTA 1 PUFF INHALATION (08:44)
[2021-05-01 09:03] LABS: Hepatitis B Surface Antigen Negative (Negative)
[2021-05-01 09:09] LABS: HAV RESULT Negative (Negative); Hepatitis B Core IgM Result Negative (Negative)
[2021-05-01 09:28] LABS: Hepatitis B Surface Anti Res Positive; Hepatitis C Virus Antibody Negative (Negative)
--- NOTE | 2021-05-01 11:51 | WPDANESEPPF ---
Anes - Initial Pre Proc Eval Procedure: Operation Date: 05/01/21 13:00 Proposed Procedures p Esophagogastroduodenoscopy & Colonoscopy - [place] Zarco MD Date/Time: 05/01/21 11:51 Surgeon: Mercedez Spicer PA-C Pre Op Diagnosis: anemia,ams Patient Data Age: 61 Gender: M Height: 1.73 m Weight: 83 kg Last Vital Signs Temp 36.5 C 05/01/21 04:20 Pulse 78 05/01/21 08:20 Resp 18 05/01/21 04:20 BP 176/62 H 05/01/21 04:20 Pulse Ox 100 05/01/21 04:20 Allergies Allergy/AdvReac Type Severity Reaction Status Date / Time No Known Allergies Allergy Verified 03/26/21 13:10 Home Medications Medication Instructions Recorded Confirmed Type amlodipine 5 mg PO DAILY 04/03/19 04/29/21 History Eliquis 2.5 mg PO BID 12/30/19 04/29/21 History Glucagon (HCl) Emergency Kit 1 mg SUBCUT Q20M PRN 12/30/19 04/29/21 History albuterol sulfate 2 puff INHALATION Q4-6H PRN 12/30/19 04/29/21 History clonidine HCl 0.1 mg PO Q8H 12/30/19 04/29/21 History hydralazine 25 mg PO BID 12/30/19 04/29/21 History insulin lispro See Rx Instructions .ROUTE .COMPLEX 12/30/19 04/29/21 History losartan 50 mg PO HS 12/30/19 04/29/21 History pantoprazole 40 mg PO DAILY 12/30/19 04/29/21 History aspirin [Aspirin Low Dose] 81 mg PO DAILY 03/04/20 04/29/21 History Incruse Ellipta 1 inh INHALATION DAILY 05/07/20 04/29/21 History Levemir U-100 Insulin 25 unit SUBCUT HS 05/07/20 04/29/21 History metoprolol tartrate 50 mg PO BID 03/25/21 04/29/21 History minoxidil 2.5 mg PO BID 03/25/21 04/29/21 History ferrous sulfate 324 mg PO DAILY #30 tablet 03/26/21 04/29/21 Rx B complex with C 20-folic acid 1 cap PO DAILY 04/29/21 04/29/21 History [Renal Caps] ascorbic acid (vitamin C) 500 mg PO BID 04/29/21 04/29/21 History epoetin beta, methoxy peg [Mircera] 75 mcg SUBCUT [id number] 04/29/21 04/29/21 History hydroxyzine HCl 25 mg PO BID 04/29/21 04/29/21 History minocycline 100 mg PO BID 04/29/21 04/29/21 History sucralfate [Carafate] 1 g PO TID 04/29/21 04/29/21 History tiotropium bromide [Spiriva 2 puff INHALATION ONCE 04/29/21 04/29/21 History Respimat] Laboratory Tests 04/29/21 04/30/21 04/30/21 13:03 07:48 16:39 WBC RBC Hgb Hct MCV MCH MCHC RDW Plt Count MPV Immature Gran % (Auto) Neut % (Auto) Lymph % (Auto) [place] % (Auto) Eos % (Auto) Baso % (Auto) Lymph # (Auto) [place] # (Auto) Eos # (Auto) Baso # (Auto) Abs Immat Gran (auto) Absolute Neuts (auto) Absolute Nucleated RBC Nucleated RBC % Sodium Potassium Chloride Carbon Dioxide Anion Gap BUN Creatinine Estim Creat Clear Calc Estimated GFR Glucose POC Capillary Glucose 141 mg/dl H mg/dl (65-105) Calcium Total Bilirubin AST ALT Alkaline Phosphatase Total Protein Albumin Total T3 0.60 NG/ML L NG/ML (0.97-1.69) Hepatitis A IgM Ab Hep Bs Antigen Hep Bs Antibody Hep B Core IgM Ab Hepatitis C Ab Screen Blood Type A Positive Antibody Screen Negative Crossmatch See Detail 04/30/21 04/30/21 04/30/21 17:40 19:53 20:03 WBC RBC Hgb 8.0 g/dL L g/dL 7.3 g/dL L g/dL (14.0-18.0) (14.0-18.0) Hct 24.1 % L % 21.8 % L % (42.0-52.0) (42.0-52.0) MCV MCH MCHC RDW Plt Count MPV Immature Gran % (Auto) Neut % (Auto) Lymph % (Auto)
[2021-05-01 11:55] LABS: Glucose Point of Care 145 mg/dl (65-105)
[2021-05-01] MEDS: LACTATED RINGERS 1,000 ML 150 ML IV CONT (11:55)
[2021-05-01] MEDS: SIMETHICONE ORAL SUSPENSION 20 MG/0.3 ML 30 ML BOTTLE 0.6 ML PO (12:05)
--- NOTE | 2021-05-01 12:31 | SUR.OPER ---
EGD START 1202, END 1208 COLONOSCOPY START 1213, END 1226
--- NOTE | 2021-05-01 12:57 | PM.IMPN ---
Progress Note: A&P Assessment and Plan (1) Profound anemia: Code(s): D64.9 - Anemia, unspecified Status: Acute Assessment and Plan: -Hospitalized twice in the last year with anemia. Upper endoscopy in June 2020 showed gastritis. Colonoscopy in March 2021 was unable to be performed due to a large amount of stool in the rectosigmoid colon, however stool was Hemoccult positive at that time. Anemia is presumably secondary to ongoing occult GI loss in addition to end-stage renal disease. He will be transfused to a stable hemoglobin. Dr. Zarco is performing EGD and possibly colonoscopy. -consult placed to nephrology -epogen per Dr. Mccracken (2) Leukocytosis: Code(s): D72.829 - Elevated white blood cell count, unspecified Status: Acute Assessment and Plan: Suspected to be due to urinary tract infection. He has been started on ceftriaxone, pending blood and urine cultures. left [id number] amputation site does not look infected. He does have a dry eschar on his right heel though no obvious evidence to suggest infection. Xray of the heel no signs of osteomyelitis. (3) Urinary tract infection: Code(s): N39.0 - Urinary tract infection, site not specified Status: Acute Assessment and Plan: He has been started on ceftriaxone, pending urine culture. (4) Fecal impaction: Code(s): K56.41 - Fecal impaction Status: Acute Assessment and Plan: Having bowel movements today. Will need a bowel regimen on discharge. (5) Insulin dependent type 2 diabetes mellitus: Code(s): E11.9 - Type 2 diabetes mellitus without complications; Z79.4 - termite control technician (current) use of insulin Status: Acute Assessment and Plan: -Initiate sliding scale insulin, Accu-Cheks, and hypoglycemic protocol. -noted to be on 25 of Lantus however had episode of hypoglycemia on admission, it is being held for now, will continue to monitor and titrate up as neccessary (6) Hypertension: Qualifiers: Hypertension type: essential hypertension Qualified Code(s): I10 - Essential (primary) hypertension Code(s): I10 - Essential (primary) hypertension Status: Chronic Assessment and Plan: Blood pressures reviewed and they have been stable. Antihypertensives will be reviewed and resumed as appropriate. (7) Paroxysmal atrial fibrillation: Code(s): I48.0 - Paroxysmal atrial fibrillation Status: Acute Assessment and Plan: Currently in a sinus rhythm. Anticoagulation on hold given profound anemia. (8) Acute metabolic encephalopathy: Code(s): G93.41 - Metabolic encephalopathy Status: Acute Assessment and Plan: -felt to be secondary to UTI -does have underlying memory loss secondary to recurrent strokes -no focal ceficits -CT head no acute findings -multiple staff members have attempted to reach his POA unsuccessfully (9) End stage renal disease on dialysis: Code(s): N18.6 - End stage renal disease; Z99.2 - Dependence on renal dialysis Status: Chronic Assessment and Plan: -pt was approximately 15 mins into his dialysis session when the dialysis nurse thought he was too lethargic and confused, prompting her to call EMS -creat 5.0, potassium 5.0 -nephrology consult placed -dialysis today Subjective Date/time seen: 05/01/21 10:00 Interval history: 61-year-old male with history of stroke x3 w/ residual memory loss and hemiparesis, hypertension, coronary artery disease, insulin-dependent diabetes, and end-stage renal disease on hemodialysis who presented to the emergency department via EMS from dialysis for evaluation of altered mental status and lethargy and was subsequently admitted for anemia and UTI. Pt is alert to person only on my examination. Sleeping but arousable. Further hx limited secondary to mental status. Review of Systems Review of Sy
[2021-05-01] MEDS: SODIUM CHLORIDE 0.9% IV 1,000 ML 100 ML IV CONT (13:00)
[2021-05-01 13:13] LABS: Glucose Point of Care 141 mg/dl (65-105)
[2021-05-01 14:08] LABS: Hematocrit 22.3 % (42.0-52.0); Hemoglobin 7.3 g/dL (14.0-18.0)
[2021-05-01] MEDS: EPOETIN ALFA-EPBX 10,000 UNITS/ML VIAL 10000 UNITS IV PUSH (16:00)
[2021-05-01] MEDS: ASCORBIC ACID 500 MG TABLET PO (18:04)
[2021-05-01] MEDS: minoxidiL 2.5 MG TABLET PO (18:04)
[2021-05-01] MEDS: hydrOXYzine HCL 25 MG TABLET PO (18:04)
[2021-05-01 18:15] LABS: Glucose Point of Care 108 mg/dl (65-105)
[2021-05-01] MEDS: INSULIN GLARGINE (*BKC) 100 UNITS/ML 25 UNITS SUB-Q (20:18)
[2021-05-01] MEDS: MINOCYCLINE HCL 50 MG CAPSULE 100 MG PO (20:25)
[2021-05-01] MEDS: LOSARTAN POTASSIUM 50 MG TABLET PO (20:25)
[2021-05-01] MEDS: hydrALAZINE HCL 25 MG TABLET PO (20:25)
[2021-05-01 21:17] LABS: Hemoglobin 6.8 g/dL (14.0-18.0)
[2021-05-01 21:18] LABS: Hematocrit 20.1 % (42.0-52.0)
[2021-05-01 22:04] LABS: Glucose Point of Care 170 mg/dl (65-105)
[2021-05-02] VITALS (14 sets, daily range): BP systolic 123–152; BP diastolic 44–54; PULSE 72–86; RESP 16–18; TEMP 35.8–37; O2SAT 100
[2021-05-02] MEDS: SODIUM CHLORIDE 0.9% IV 250 ML 30 ML IV CONT (02:00)
[2021-05-02 03:38] LABS: Glucose Point of Care 49 mg/dl (65-105)
[2021-05-02] MEDS: GLUCOSE ORAL GEL 15 GM OF GLUCSE IN 37.5 GM TUBE PO ×4 (03:41→08:49)
[2021-05-02 04:56] LABS: Glucose Point of Care 144 mg/dl (65-105)
[2021-05-02 04:56] LABS: Glucose Point of Care 53 mg/dl (65-105)
[2021-05-02] MEDS: SUCRALFATE 1 GM TABLET PO ×3 (05:40→16:55)
[2021-05-02] MEDS: cloNIDine HCL 0.1 MG TABLET PO ×2 (05:40→20:48)
[2021-05-02 06:18] LABS: Basophils Percent Auto 0.3 % (0.2-1.2); Eosinophils Absolute Auto 0.1 K/mm3 (0-0.3); Eosinophils Percent Auto 0.7 % (0-4.4); Hematocrit 25.6 % (42.0-52.0); Hemoglobin 8.3 g/dL (14.0-18.0); Immature Granulocyte Absolute 0.06 K/mm3 (0.00-0.031); Immature Granulocyte Percent A 0.8 % (0-0.5); Lymphocytes Absolute Auto 0.73 K/mm3 (0.9-3.2); Lymphocytes Percent Auto 9.7 % (18.3-44.2); Mean Corpuscular HGB Conc 32.4 g/dl (32-36); Mean Corpuscular Hemoglobin 28.6 pg (26-34); Mean Corpuscular Volume 88.3 fl (80-100); Monocytes Absolute Auto 0.6 K/mm3 (0.1-0.6); Monocytes Percent Auto 7.3 % (2.6-8.5); Neutrophils Absolute Auto 6.1 K/mm3 (1.3-6.7); Neutrophils Percent Auto 81.2 % (45.5-73.1); Platelet Count Result 236 k/mm3 (150-375); Red Cell Distribution Width 15.2 % (11.5-14.5); White Blood Count 7.5 K/mm3 (4.5-10.0)
[2021-05-02 06:43] LABS: Alanine Aminotransferase 18 U/L (4-50); Alkaline Phosphatase 73 U/L (38-126); Anion Gap 6 mmol/L (8-16); Aspartate Amino Transferase 26 U/L (17-59); Bilirubin,Total 0.6 mg/dL (0.2-1.3); Blood Urea Nitrogen 49 mg/dL (9-20); Calcium 8.6 mg/dL (8.4-10.2); Carbon Dioxide 28 mmol/L (22-30); Chloride 102 mmol/L (98-107); Estimated CRCL calculation 25 ml/min; Estimated Glomerular Filt Rate 28; Glucose 102 mg/dL (65-110); Potassium 3.6 mmol/L (3.4-5.0); Sodium 136 mmol/L (137-145)
[2021-05-02] MEDS: ASCORBIC ACID 500 MG TABLET PO ×2 (08:38→16:55)
[2021-05-02] MEDS: minoxidiL 2.5 MG TABLET PO ×2 (08:38→16:56)
[2021-05-02] MEDS: amLODIPine BESYLATE 5 MG TABLET PO (08:38)
[2021-05-02] MEDS: VITAMIN B CMPLX/VIT C/FOLIC AC 1 CAPSULE 1 CAP PO (08:38)
[2021-05-02] MEDS: METOPROLOL TARTRATE 50 MG TAB PO ×2 (08:38→20:49)
[2021-05-02] MEDS: hydrOXYzine HCL 25 MG TABLET PO ×2 (08:38→16:55)
[2021-05-02] MEDS: FERROUS SULFATE 324 MG TABLET PO (08:39)
[2021-05-02] MEDS: PANTOPRAZOLE 40 MG TABLET PO (08:39)
[2021-05-02] MEDS: hydrALAZINE HCL 25 MG TABLET PO ×2 (08:39→20:49)
[2021-05-02 08:45] LABS: Glucose Point of Care 46 mg/dl (65-105)
[2021-05-02 09:19] LABS: Glucose Point of Care 87 mg/dl (65-105)
[2021-05-02 09:19] LABS: Glucose Point of Care 49 mg/dl (65-105)
[2021-05-02] MEDS: MINOCYCLINE HCL 50 MG CAPSULE 100 MG PO ×2 (10:20→20:50)
--- NOTE | 2021-05-02 11:21 | P.PNNP_ITS ---
Progress Note: A&P Assessment and Plan (1) End-stage renal disease (ESRD): Code(s): N18.6 - End stage renal disease Status: Chronic Assessment and Plan: * HD normally on Tue/Tue/Tue schedule * goes to [facility] under the care of Dr. Schulz * he did well in his dialysis yesterday. Will do another on Tuesday (2) Anemia: Qualifiers: Anemia type: due to chronic kidney disease Chronic kidney disease stage: on chronic dialysis Qualified Code(s): N18.6 - End stage renal disease; D63.1 - Anemia in chronic kidney disease; Z99.2 - Dependence on renal dialysis Code(s): D64.9 - Anemia, unspecified Status: Chronic Assessment and Plan: * hemoglobin only 5.2 On admission. Now up to 8.3 * hospitalized at least twice in the last year for same issue * s/p PRBC transfusion * colonoscopy showed internal hemorrhoids * EGD showed nonerosive reflux disease and duodenal polyps. * No blood in the stool currently. (3) Urinary tract infection: Code(s): N39.0 - Urinary tract infection, site not specified Status: Acute Assessment and Plan: * urinalysis highly suggestive * Urine cultures were negative. Blood cultures negative so far. * on antibiotics (4) Altered mental status: Code(s): R41.82 - Altered mental status, unspecified Status: Acute Assessment and Plan: * Mentation is improved. (5) Hypertension: Qualifiers: Hypertension type: essential hypertension Qualified Code(s): I10 - Essential (primary) hypertension Code(s): I10 - Essential (primary) hypertension Status: Chronic Assessment and Plan: * Blood pressure is 1 20-150. * He is on clonidine, hydralazine, losartan, metoprolol, minoxidil. Will wean the clonidine and increase the minoxidil (6) Insulin dependent type 2 diabetes mellitus: Code(s): E11.9 - Type 2 diabetes mellitus without complications; Z79.4 - [facility] (current) use of insulin Status: Acute Assessment and Plan: * follow accuchecks * glycemic control Will continue to follow. Subjective Date/time seen: 05/02/21 11:21 Interval history: He feels better today. He had dialysis yesterday no chest pain or shortness of breath Review of Systems Cardiovascular: Cardiovascular: Reports no additional cardiovascular complaints Respiratory: Respiratory: Reports no additional respiratory complaints Gastrointestinal: Gastrointestinal: Reports no additional gastrointestinal complaints Genitourinary: Genitourinary: Reports no additional male genitourinary complaints Exam Narrative: WDWN in NAD skin no rash head ncat lungs clear cor reg no rub abd BS+ nontender and soft ext no edema. Objective Data Vital Signs Vital Signs: Vital Signs - 24 hr 05/01/21 11:53 05/01/21 12:31 05/01/21 12:41 Temperature 36.2 C L Pulse Rate 73 73 74 Respiratory Rate 18 16 19 Blood Pressure 153/64 H 127/57 L 135/87 Pulse Oximetry 99 100 100 05/01/21 12:51 05/01/21 13:22 05/01/21 13:38 Temperature 36.1 C L 36.5 C Pulse Rate 74 73 75 Respiratory Rate 21 H 14 16 Blood Pressure 149/64 H 145/61 H 167/77 H Pulse Oximetry 100 100 05/01/21 13:45 05/01/21 14:00 05/01/21 14:15 Tem
--- NOTE | 2021-05-02 11:21 | PM.PNNEP ---
Progress Note: A&P Assessment and Plan (1) End-stage renal disease (ESRD): Code(s): N18.6 - End stage renal disease Status: Chronic Assessment and Plan: HD normally on Tue/Tue/Tue schedule goes to [facility] under the care of Dr. Schulz he did well in his dialysis yesterday. Will do another on Tuesday (2) Anemia: Qualifiers: Anemia type: due to chronic kidney disease Chronic kidney disease stage: on chronic dialysis Qualified Code(s): N18.6 - End stage renal disease; D63.1 - Anemia in chronic kidney disease; Z99.2 - Dependence on renal dialysis Code(s): D64.9 - Anemia, unspecified Status: Chronic Assessment and Plan: hemoglobin only 5.2 On admission. Now up to 8.3 hospitalized at least twice in the last year for same issue s/p PRBC transfusion colonoscopy showed internal hemorrhoids EGD showed nonerosive reflux disease and duodenal polyps. No blood in the stool currently. (3) Urinary tract infection: Code(s): N39.0 - Urinary tract infection, site not specified Status: Acute Assessment and Plan: urinalysis highly suggestive Urine cultures were negative. Blood cultures negative so far. on antibiotics (4) Altered mental status: Code(s): R41.82 - Altered mental status, unspecified Status: Acute Assessment and Plan: Mentation is improved. (5) Hypertension: Qualifiers: Hypertension type: essential hypertension Qualified Code(s): I10 - Essential (primary) hypertension Code(s): I10 - Essential (primary) hypertension Status: Chronic Assessment and Plan: Blood pressure is 1 20-150. He is on clonidine, hydralazine, losartan, metoprolol, minoxidil. Will wean the clonidine and increase the minoxidil (6) Insulin dependent type 2 diabetes mellitus: Code(s): E11.9 - Type 2 diabetes mellitus without complications; Z79.4 - continuous churn buttermaker (current) use of insulin Status: Acute Assessment and Plan: follow accuchecks glycemic control Will continue to follow. Subjective Date/time seen: 05/02/21 11:21 Interval history: He feels better today. He had dialysis yesterday no chest pain or shortness of breath Review of Systems Cardiovascular: Cardiovascular: Reports no additional cardiovascular complaints Respiratory: Respiratory: Reports no additional respiratory complaints Gastrointestinal: Gastrointestinal: Reports no additional gastrointestinal complaints Genitourinary: Genitourinary: Reports no additional male genitourinary complaints Exam Narrative: WDWN in NAD skin no rash head ncat lungs clear cor reg no rub abd BS+ nontender and soft ext no edema. Objective Data Vital Signs Vital Signs: Vital Signs - 24 hr 05/01/21 11:53 05/01/21 12:31 05/01/21 12:41 Temperature 36.2 C L Pulse Rate 73 73 74 Respiratory Rate 18 16 19 Blood Pressure 153/64 H 127/57 L 135/87 Pulse Oximetry 99 100 100 05/01/21 12:51 05/01/21 13:22 05/01/21 13:38 Temperature 36.1 C L 36.5 C Pulse Rate 74 73 75 Respiratory Rate 21 H 14 16 Blood Pressure 149/64 H 145/61 H 167/77 H Pulse Oximetry 100 100 05/01/21 13:45 05/01/21 14:00 05/01/21 14:15 Temperature Pulse Rate 75 76 78 Respiratory Rate Blood Pressure 163/80 H 143/81 H 158/78 H Pulse Oximetry 05/01/21 14:30 05/01/21 14:45 05/01/21 15:00 Temperature Pulse Rate 78 77 85 Respiratory Rate Blood Pressure 139/75 118/52 L 128/69 Pulse Oximetry 05/01/21 15:15 05/01/21 15:30 05/01/21 15:45 Temperature Pulse Rate 84 80 85 Respiratory Rate Blood Pressure 139/56 L 126/66 120/63 Pulse Oximetry 05/01/21 16:00 05/01/21 16:15 05/01/21 16:30 Temperature Pulse Rate 83 78 81 Respiratory Rate Blood Pressure 137/60 131/60 120/55 L Pulse Oximetry 05/01/21 16:45 05/01/21 17:00 05/01/21 20:00 Temperature 36.6 C 36.0 C L Pulse Rate
[2021-05-02 12:17] LABS: Glucose Point of Care 145 mg/dl (65-105)
--- NOTE | 2021-05-02 12:59 | PM.IMPN ---
Progress Note: A&P Assessment and Plan (1) Profound anemia: Code(s): D64.9 - Anemia, unspecified Status: Acute Assessment and Plan: -Hospitalized twice in the last year with anemia. Upper endoscopy in June 2020 showed gastritis. Colonoscopy in March 2021 was unable to be performed due to a large amount of stool in the rectosigmoid colon, however stool was Hemoccult positive at that time. Anemia is presumably secondary to ongoing occult GI loss in addition to end-stage renal disease. He will be transfused to a stable hemoglobin. -consult placed to nephrology -epogen per Dr. Mccracken -EGD showed nonerosive reflux disease and duodenal polyps, no blood in his stool currently (2) Leukocytosis: Code(s): D72.829 - Elevated white blood cell count, unspecified Status: Acute Assessment and Plan: Suspected to be due to urinary tract infection. He has been started on ceftriaxone, pending blood and urine cultures. left [id number] amputation site does not look infected. He does have a dry eschar on his right heel though no obvious evidence to suggest infection. Xray of the heel no signs of osteomyelitis. (3) Urinary tract infection: Code(s): N39.0 - Urinary tract infection, site not specified Status: Acute Assessment and Plan: -UA w/ 2+ leukocytes, greater than 75 WBC, greater than 75 RBC -improvement w/ rocephin -urine culture no growth but suspect lab error as UA was very convincing and he is improving clinically (4) Fecal impaction: Code(s): K56.41 - Fecal impaction Status: Acute Assessment and Plan: Having bowel movements again. Will need a bowel regimen on discharge. (5) Insulin dependent type 2 diabetes mellitus: Code(s): E11.9 - Type 2 diabetes mellitus without complications; Z79.4 - [facility] (current) use of insulin Status: Acute Assessment and Plan: -Initiate sliding scale insulin, Accu-Cheks, and hypoglycemic protocol. -noted to be on 25 of Lantus however had episode of hypoglycemia on admission, it is being held for now, will continue to monitor and titrate up as necessary (6) Hypertension: Qualifiers: Hypertension type: essential hypertension Qualified Code(s): I10 - Essential (primary) hypertension Code(s): I10 - Essential (primary) hypertension Status: Chronic Assessment and Plan: Blood pressures reviewed and they have been stable. Antihypertensives will be reviewed and resumed as appropriate. (7) Paroxysmal atrial fibrillation: Code(s): I48.0 - Paroxysmal atrial fibrillation Status: Acute Assessment and Plan: Currently in a sinus rhythm. No GI bleed, will restart eliquis (8) Acute metabolic encephalopathy: Code(s): G93.41 - Metabolic encephalopathy Status: Acute Assessment and Plan: -felt to be secondary to UTI -does have underlying memory loss secondary to recurrent strokes -no focal ceficits -CT head no acute findings -multiple staff members have attempted to reach his POA unsuccessfully (9) End stage renal disease on dialysis: Code(s): N18.6 - End stage renal disease; Z99.2 - Dependence on renal dialysis Status: Chronic Assessment and Plan: -pt was approximately 15 mins into his dialysis session when the dialysis nurse thought he was too lethargic and confused, prompting her to call EMS -creat 5.0, potassium 5.0 -nephrology consult placed -dialysis yesterday, scheduled again for Tuesday Subjective Date/time seen: 05/02/21 12:59 Interval history: 61-year-old male with history of stroke x3 w/ residual memory loss and hemiparesis, hypertension, coronary artery disease, insulin-dependent diabetes, and end-stage renal disease on hemodialysis who presented to the emergency department via EMS from dialysis for evaluation of altered mental status and lethargy and was subsequ
--- NOTE | 2021-05-02 13:26 | PCRCNOTE ---
Window of time for administration has passed. See next scheduled administration.
[2021-05-02 17:42] LABS: Glucose Point of Care 151 mg/dl (65-105)
--- NOTE | 2021-05-02 18:40 | PC.NURSE ---
No blood in bm on 05/02/21
[2021-05-02 20:43] LABS: Glucose Point of Care 226 mg/dl (65-105)
[2021-05-02] MEDS: APIXABAN 2.5 MG TABLET PO (20:48)
[2021-05-02] MEDS: LOSARTAN POTASSIUM 50 MG TABLET PO (20:50)
[2021-05-03] VITALS (11 sets, daily range): BP systolic 143–159; BP diastolic 42–59; PULSE 64–82; RESP 16–18; TEMP 36.1–36.7; O2SAT 97–100
[2021-05-03] MEDS: SUCRALFATE 1 GM TABLET PO ×3 (05:51→16:13)
[2021-05-03 06:28] LABS: Hematocrit 24.1 % (42.0-52.0); Hemoglobin 7.9 g/dL (14.0-18.0); Mean Corpuscular HGB Conc 32.8 g/dl (32-36); Mean Corpuscular Hemoglobin 28.7 pg (26-34); Mean Corpuscular Volume 87.6 fl (80-100); Mean Platelet Volume 9.8 fl (7.4-10.4); Platelet Count Result 229 k/mm3 (150-375); Red Blood Count 2.75 M/mm3 (4.6-6.20); Red Cell Distribution Width 14.7 % (11.5-14.5); White Blood Count 8.2 K/mm3 (4.5-10.0)
[2021-05-03 06:40] LABS: Anion Gap 9 mmol/L (8-16); Blood Urea Nitrogen 55 mg/dL (9-20); Calcium 8.4 mg/dL (8.4-10.2); Carbon Dioxide 24 mmol/L (22-30); Chloride 102 mmol/L (98-107); Estimated CRCL calculation 18 ml/min; Estimated Glomerular Filt Rate 20; Glucose 103 mg/dL (65-110); Potassium 2.9 mmol/L (3.4-5.0); Sodium 135 mmol/L (137-145)
--- NOTE | 2021-05-03 07:49 | P.PNNP_ITS ---
Progress Note: A&P Assessment and Plan (1) End-stage renal disease (ESRD): Code(s): N18.6 - End stage renal disease Status: Chronic Assessment and Plan: * HD normally on Mon/Tue/Tue schedule * goes to [facility] under the care of Dr. Schulz * Will do a dialysis treatment tomorrow (2) Anemia: Qualifiers: Anemia type: due to chronic kidney disease Chronic kidney disease stage: on chronic dialysis Qualified Code(s): N18.6 - End stage renal disease; D63.1 - Anemia in chronic kidney disease; Z99.2 - Dependence on renal dialysis Code(s): D64.9 - Anemia, unspecified Status: Chronic Assessment and Plan: * Hemoglobin low on admission. * s/p PRBC transfusion * colonoscopy showed internal hemorrhoids * EGD showed nonerosive reflux disease and duodenal polyps. * No blood in the stool currently. * Follow H&H. * Check iron * On Epogen (3) Urinary tract infection: Code(s): N39.0 - Urinary tract infection, site not specified Status: Acute Assessment and Plan: * urinalysis highly suggestive * Urine cultures were negative. Blood cultures negative so far. * on antibiotics (4) Altered mental status: Code(s): R41.82 - Altered mental status, unspecified Status: Acute Assessment and Plan: * Mentation is improved. (5) Hypertension: Qualifiers: Hypertension type: essential hypertension Qualified Code(s): I10 - Essential (primary) hypertension Code(s): I10 - Essential (primary) hypertension Status: Chronic Assessment and Plan: * Blood pressure is 1 20-150. * He is on clonidine, hydralazine, losartan, metoprolol, minoxidil. Will wean the clonidine and increase the minoxidil (6) Insulin dependent type 2 diabetes mellitus: Code(s): E11.9 - Type 2 diabetes mellitus without complications; Z79.4 - nursing home (current) use of insulin Status: Acute Assessment and Plan: * follow accuchecks * glycemic control Will continue to follow. Subjective Date/time seen: 05/03/21 07:49 Interval history: He feels okay. Sleeping well. Due for dialysis tomorrow Exam Narrative: WDWN in NAD skin no rash or subQ nodules head ncat lungs clear bilaterally cor reg no rub abd BS+ nontender and soft ext no edema. Objective Data Vital Signs Vital Signs: Vital Signs - 24 hr 05/02/21 08:00 05/02/21 08:38 05/02/21 14:00 Temperature 36.4 C Pulse Rate 72 76 78 Respiratory Rate 16 Blood Pressure 140/49 L Pulse Oximetry 100 05/02/21 16:00 05/02/21 20:00 05/02/21 20:49 Temperature Pulse Rate 75 80 80 Respiratory Rate Blood Pressure Pulse Oximetry 05/02/21 21:03 05/03/21 00:00 05/03/21 04:21 Temperature 37.0 C Pulse Rate 86 79 64 Respiratory Rate 16 Blood Pressure 152/54 H Pulse Oximetry 100 05/03/21 06:00 Temperature 36.7 C Pulse Rate 74 Respiratory Rate 16 Blood Pressure 143/42 H Pulse Oximetry 100 Intake/Output Intake/Output: Intake & Output 04/30/21 05/01/21 05/02/21 05/03/21 23:59 23:59 23:59 23:59 Intake Total 2603 250
--- NOTE | 2021-05-03 07:49 | PM.PNNEP ---
Progress Note: A&P Assessment and Plan (1) End-stage renal disease (ESRD): Code(s): N18.6 - End stage renal disease Status: Chronic Assessment and Plan: HD normally on Mon/Tue/Tue schedule goes to [facility] under the care of Dr. Schulz Will do a dialysis treatment tomorrow (2) Anemia: Qualifiers: Anemia type: due to chronic kidney disease Chronic kidney disease stage: on chronic dialysis Qualified Code(s): N18.6 - End stage renal disease; D63.1 - Anemia in chronic kidney disease; Z99.2 - Dependence on renal dialysis Code(s): D64.9 - Anemia, unspecified Status: Chronic Assessment and Plan: Hemoglobin low on admission. s/p PRBC transfusion colonoscopy showed internal hemorrhoids EGD showed nonerosive reflux disease and duodenal polyps. No blood in the stool currently. Follow H&H. Check iron On Epogen (3) Urinary tract infection: Code(s): N39.0 - Urinary tract infection, site not specified Status: Acute Assessment and Plan: urinalysis highly suggestive Urine cultures were negative. Blood cultures negative so far. on antibiotics (4) Altered mental status: Code(s): R41.82 - Altered mental status, unspecified Status: Acute Assessment and Plan: Mentation is improved. (5) Hypertension: Qualifiers: Hypertension type: essential hypertension Qualified Code(s): I10 - Essential (primary) hypertension Code(s): I10 - Essential (primary) hypertension Status: Chronic Assessment and Plan: Blood pressure is 1 20-150. He is on clonidine, hydralazine, losartan, metoprolol, minoxidil. Will wean the clonidine and increase the minoxidil (6) Insulin dependent type 2 diabetes mellitus: Code(s): E11.9 - Type 2 diabetes mellitus without complications; Z79.4 - care home (current) use of insulin Status: Acute Assessment and Plan: follow accuchecks glycemic control Will continue to follow. Subjective Date/time seen: 05/03/21 07:49 Interval history: He feels okay. Sleeping well. Due for dialysis tomorrow Exam Narrative: WDWN in NAD skin no rash or subQ nodules head ncat lungs clear bilaterally cor reg no rub abd BS+ nontender and soft ext no edema. Objective Data Vital Signs Vital Signs: Vital Signs - 24 hr 05/02/21 08:00 05/02/21 08:38 05/02/21 14:00 Temperature 36.4 C Pulse Rate 72 76 78 Respiratory Rate 16 Blood Pressure 140/49 L Pulse Oximetry 100 05/02/21 16:00 05/02/21 20:00 05/02/21 20:49 Temperature Pulse Rate 75 80 80 Respiratory Rate Blood Pressure Pulse Oximetry 05/02/21 21:03 05/03/21 00:00 05/03/21 04:21 Temperature 37.0 C Pulse Rate 86 79 64 Respiratory Rate 16 Blood Pressure 152/54 H Pulse Oximetry 100 05/03/21 06:00 Temperature 36.7 C Pulse Rate 74 Respiratory Rate 16 Blood Pressure 143/42 H Pulse Oximetry 100 Intake/Output Intake/Output: Intake & Output 04/30/21 05/01/21 05/02/21 05/03/21 23:59 23:59 23:59 23:59 Intake Total 2280 250 1120 180 Output Total 2 2500 Balance 2278 -2250 1120 180 Meds/Results Medications: Active Medications Generic Name Dose Route Start Last Admin Trade Name Freq PRN Reason Stop Dose Admin Albuterol 2 puff 04/29/21 22:44 Albuterol Sulfate (*Sp) Aerosol 1 Puff INHALATION Q4-6H PRN Shortness Of Breath Or Wheezing Amlodipine Besylate 5 mg 04/30/21 09:00 05/02/21 08:38 Amlodipine Besylate 5 Mg Tablet PO 5 mg DAILY VAL Administration Apixaban 2.5 mg 05/02/21 21:00 05/02/21 20:48 Apixaban 2.5 Mg Tablet PO 2.5 mg Q12HR VAL Administration Ascorbic Acid 500 mg 04/30/21 09:00 05/02/21 16:55 Ascorbic Acid 500 Mg Tablet PO 500 mg BID VAL Administration Clonidine HCl 0.1 mg 05/02/21 21:00 05/02/21 20:48 Clonidine Hcl 0.1 Mg Tablet PO 05/03/21 09:01 0.1 mg Q12
[2021-05-03] MEDS: amLODIPine BESYLATE 5 MG TABLET PO (07:52)
[2021-05-03] MEDS: FERROUS SULFATE 324 MG TABLET PO (07:53)
[2021-05-03] MEDS: VITAMIN B CMPLX/VIT C/FOLIC AC 1 CAPSULE 1 CAP PO (07:53)
[2021-05-03] MEDS: ASCORBIC ACID 500 MG TABLET PO ×2 (07:53→16:13)
[2021-05-03] MEDS: METOPROLOL TARTRATE 50 MG TAB PO ×2 (07:53→20:18)
[2021-05-03] MEDS: hydrOXYzine HCL 25 MG TABLET PO ×2 (07:53→16:14)
[2021-05-03] MEDS: PANTOPRAZOLE 40 MG TABLET PO (07:53)
[2021-05-03] MEDS: hydrALAZINE HCL 25 MG TABLET PO ×2 (07:53→20:20)
[2021-05-03] MEDS: minoxidiL 2.5 MG TABLET PO ×2 (07:53→16:14)
[2021-05-03 07:56] LABS: Glucose Point of Care 104 mg/dl (65-105)
[2021-05-03] MEDS: cloNIDine HCL 0.1 MG TABLET PO (07:56)
[2021-05-03] MEDS: UMECLIDINIUM BROMIDE 62.5 MCG ELLIPTA 1 PUFF INHALATION (08:02)
--- NOTE | 2021-05-03 08:47 | PM.IMPN ---
Progress Note: A&P Assessment and Plan (1) Profound anemia: Code(s): D64.9 - Anemia, unspecified Status: Acute Assessment and Plan: -Hospitalized twice in the last year with anemia. Upper endoscopy in June 2020 showed gastritis. Colonoscopy in March 2021 was unable to be performed due to a large amount of stool in the rectosigmoid colon, however stool was Hemoccult positive at that time. Anemia is presumably secondary to ongoing occult GI loss in addition to end-stage renal disease. He will be transfused to a stable hemoglobin. -consult placed to nephrology -epogen per Dr. Mccracken -EGD showed nonerosive reflux disease and duodenal polyps, no blood in his stool currently, Eliquis restarted -checking iron studies -follow H/H (2) Leukocytosis: Code(s): D72.829 - Elevated white blood cell count, unspecified Status: Acute Assessment and Plan: -Suspected to be due to urinary tract infection, it has resolved after initiation of rocephin -left [id number] amputation site does not look infected. He does have a dry eschar on his right heel though no obvious evidence to suggest infection. Xray of the heel no signs of osteomyelitis. (3) Urinary tract infection: Code(s): N39.0 - Urinary tract infection, site not specified Status: Acute Assessment and Plan: -UA w/ 2+ leukocytes, greater than 75 WBC, greater than 75 RBC -improvement w/ rocephin -urine culture no growth but suspect lab error as UA was very convincing and he is improving clinically -leukocytosis resolved with abx -continue rocephin (4) Fecal impaction: Code(s): K56.41 - Fecal impaction Status: Acute Assessment and Plan: Having bowel movements again. Will need a bowel regimen on discharge. (5) Insulin dependent type 2 diabetes mellitus: Code(s): E11.9 - Type 2 diabetes mellitus without complications; Z79.4 - termite inspector (current) use of insulin Status: Acute Assessment and Plan: -Initiate sliding scale insulin, Accu-Cheks, and hypoglycemic protocol. -noted to be on 25 of Lantus however had episode of hypoglycemia on admission, it is being held for now, will continue to monitor and titrate up as necessary (6) Hypertension: Qualifiers: Hypertension type: essential hypertension Qualified Code(s): I10 - Essential (primary) hypertension Code(s): I10 - Essential (primary) hypertension Status: Chronic Assessment and Plan: Blood pressures reviewed and they have been stable. Antihypertensives will be reviewed and resumed as appropriate. (7) Paroxysmal atrial fibrillation: Code(s): I48.0 - Paroxysmal atrial fibrillation Status: Acute Assessment and Plan: Currently in a sinus rhythm. No GI bleed, will restart eliquis (8) Acute metabolic encephalopathy: Code(s): G93.41 - Metabolic encephalopathy Status: Acute Assessment and Plan: -felt to be secondary to UTI -does have underlying memory loss secondary to recurrent strokes -no focal ceficits -CT head no acute findings -multiple staff members have attempted to reach his POA unsuccessfully (9) End stage renal disease on dialysis: Code(s): N18.6 - End stage renal disease; Z99.2 - Dependence on renal dialysis Status: Chronic Assessment and Plan: -pt was approximately 15 mins into his dialysis session when the dialysis nurse thought he was too lethargic and confused, prompting her to call EMS -creat 5.0, potassium 5.0 -nephrology consult placed -dialysis Tuesday, scheduled again for Tuesday Subjective Date/time seen: 05/03/21 08:47 Interval history: 61-year-old male with history of stroke x3 w/ residual memory loss and hemiparesis, hypertension, coronary artery disease, insulin-dependent diabetes, and end-stage renal disease on hemodialysis who presented to the emergency department via EMS fr
[2021-05-03] MEDS: APIXABAN 2.5 MG TABLET PO ×2 (09:00→20:22)
[2021-05-03] MEDS: MINOCYCLINE HCL 50 MG CAPSULE 100 MG PO ×2 (09:38→20:21)
[2021-05-03 10:00] LABS: Iron 81 ug/dL (49-181)
[2021-05-03 10:14] LABS: Percent Iron Saturation 50 % (20-50)
[2021-05-03] MEDS: INSULIN ASPART (*BKC) 100 UNITS/ML SUB-Q (11:56)
[2021-05-03 12:00] LABS: Folic Acid 14.8 ng/mL (2.76->20); Vitamin B12 > 1000.0 pg/mL (239-931)
[2021-05-03 12:01] LABS: Glucose Point of Care 217 mg/dl (65-105)
[2021-05-03 16:22] LABS: Glucose Point of Care 197 mg/dl (65-105)
--- NOTE | 2021-05-03 17:06 | WPDANESPN ---
Anes - Prog Note Post-Op Date/Time: 05/03/21 17:06 Cardiovascular status: other (anemic) Respiratory status: normal Airway patency: baseline Mental status: baseline Post-Op hydration status: other (ARF) Vital Signs: Last Vital Signs Temp 36.6 C 05/03/21 16:42 Pulse 82 05/03/21 16:42 Resp 16 05/03/21 16:42 BP 159/51 H 05/03/21 16:42 Pulse Ox 100 05/03/21 16:42 Pain Score (VAS): 04/13 I/O: Intake & Output 05/03/21 05/03/21 05/03/21 07:59 15:59 23:59 Intake Total 180 720 Balance 180 720 Laboratory Tests 05/03/21 06:21 05/03/21 06:21 05/02/21 05/02/21 05/03/21 17:06 20:40 06:21 WBC RBC Hgb Hct MCV MCH MCHC RDW Plt Count MPV Sodium 135 L Potassium 2.9 L Chloride 102 Carbon Dioxide 24 Anion Gap 9 BUN 55 H Creatinine 3.80 H Estim Creat Clear Calc 18 Estimated GFR 20 L Glucose 103 POC Capillary Glucose 151 H 226 H Calcium 8.4 Iron TIBC % Saturation Ferritin Vitamin B12 Folate 05/03/21 05/03/21 05/03/21 06:21 06:21 06:21 WBC 8.2 RBC 2.75 L Hgb 7.9 L Hct 24.1 L MCV 87.6 MCH 28.7 MCHC 32.8 RDW 14.7 H Plt Count 229 MPV 9.8 Sodium Potassium Chloride Carbon Dioxide Anion Gap BUN Creatinine Estim Creat Clear Calc Estimated GFR Glucose POC Capillary Glucose Calcium Iron 81 TIBC 161 L % Saturation 50 Ferritin 890.00 H Vitamin B12 > 1000.0 H Folate 14.8 05/03/21 05/03/21 05/03/21 07:49 11:42 16:11 WBC RBC Hgb Hct MCV MCH MCHC RDW Plt Count MPV Sodium Potassium Chloride Carbon Dioxide Anion Gap BUN Creatinine Estim Creat Clear Calc Estimated GFR Glucose POC Capillary Glucose 104 217 H 197 H Calcium Iron TIBC % Saturation Ferritin Vitamin B12 Folate Post-procedural complaints: none Patient Feedback: Patient satisfied with anesthetic care.
[2021-05-03 20:02] LABS: Glucose Point of Care 232 mg/dl (65-105)
[2021-05-03] MEDS: LOSARTAN POTASSIUM 50 MG TABLET PO (20:23)
[2021-05-04] VITALS (21 sets, daily range): BP systolic 127–191; BP diastolic 53–82; PULSE 68–92; RESP 16–18; TEMP 36.2–37; O2SAT 100; BMI 11.0
[2021-05-04] MEDS: SUCRALFATE 1 GM TABLET PO ×2 (06:03→18:18)
[2021-05-04 06:13] LABS: Hematocrit 24.2 % (42.0-52.0); Hemoglobin 8.1 g/dL (14.0-18.0); Mean Corpuscular HGB Conc 33.5 g/dl (32-36); Mean Corpuscular Hemoglobin 28.5 pg (26-34); Mean Corpuscular Volume 85.2 fl (80-100); Mean Platelet Volume 10.3 fl (7.4-10.4); Platelet Count Result 273 k/mm3 (150-375); Red Blood Count 2.84 M/mm3 (4.6-6.20); Red Cell Distribution Width 14.5 % (11.5-14.5); White Blood Count 9.1 K/mm3 (4.5-10.0)
[2021-05-04 06:28] LABS: Albumin Level 2.9 g/dL (3.5-5.1); Anion Gap 6 mmol/L (8-16); Blood Urea Nitrogen 60 mg/dL (9-20); Calcium 8.5 mg/dL (8.4-10.2); Carbon Dioxide 25 mmol/L (22-30); Chloride 99 mmol/L (98-107); Estimated CRCL calculation 15 ml/min; Estimated Glomerular Filt Rate 15; Glucose 125 mg/dL (65-110); Phosphorus 3.8 mg/dL (2.5-4.5); Potassium 3.1 mmol/L (3.4-5.0); Sodium 130 mmol/L (137-145)
[2021-05-04] MEDS: UMECLIDINIUM BROMIDE 62.5 MCG ELLIPTA 1 PUFF INHALATION (07:25)
--- NOTE | 2021-05-04 09:04 | PM.IMPN ---
Progress Note: A&P Assessment and Plan (1) Profound anemia: Code(s): D64.9 - Anemia, unspecified Status: Acute Assessment and Plan: -Hospitalized twice in the last year with anemia. Upper endoscopy in June 2020 showed gastritis. Colonoscopy in March 2021 was unable to be performed due to a large amount of stool in the rectosigmoid colon, however stool was Hemoccult positive at that time. Anemia is presumably secondary to ongoing occult GI loss in addition to end-stage renal disease. He will be transfused to a stable hemoglobin. -consult placed to nephrology -epogen per Dr. Mccracken -EGD showed nonerosive reflux disease and duodenal polyps, no blood in his stool currently, Eliquis restarted -checking iron studies -follow H/H (2) Leukocytosis: Code(s): D72.829 - Elevated white blood cell count, unspecified Status: Acute Assessment and Plan: -Suspected to be due to urinary tract infection, it has resolved after initiation of rocephin -left skcpr-[id number] amputation site does not look infected. He does have a dry eschar on his right heel though no obvious evidence to suggest infection. Xray of the heel no signs of osteomyelitis. (3) Urinary tract infection: Code(s): N39.0 - Urinary tract infection, site not specified Status: Acute Assessment and Plan: -UA w/ 2+ leukocytes, greater than 75 WBC, greater than 75 RBC -improvement w/ rocephin -urine culture no growth but suspect lab error as UA was very convincing and he is improving clinically -leukocytosis resolved with abx -continue rocephin (4) Fecal impaction: Code(s): K56.41 - Fecal impaction Status: Acute Assessment and Plan: Having bowel movements again. Will need a bowel regimen on discharge. (5) Insulin dependent type 2 diabetes mellitus: Code(s): E11.9 - Type 2 diabetes mellitus without complications; Z79.4 - terminal operator (current) use of insulin Status: Acute Assessment and Plan: -Initiate sliding scale insulin, Accu-Cheks, and hypoglycemic protocol. -noted to be on 25 of Lantus however had episode of hypoglycemia on admission, it is being held for now, will continue to monitor and titrate up as necessary (6) Hypertension: Qualifiers: Hypertension type: essential hypertension Qualified Code(s): I10 - Essential (primary) hypertension Code(s): I10 - Essential (primary) hypertension Status: Chronic Assessment and Plan: Blood pressures reviewed and they have been stable. Antihypertensives will be reviewed and resumed as appropriate. (7) Paroxysmal atrial fibrillation: Code(s): I48.0 - Paroxysmal atrial fibrillation Status: Acute Assessment and Plan: Currently in a sinus rhythm. No GI bleed, will restart eliquis (8) Acute metabolic encephalopathy: Code(s): G93.41 - Metabolic encephalopathy Status: Acute Assessment and Plan: -felt to be secondary to UTI -does have underlying memory loss secondary to recurrent strokes -no focal ceficits -CT head no acute findings -multiple staff members have attempted to reach his POA unsuccessfully (9) End stage renal disease on dialysis: Code(s): N18.6 - End stage renal disease; Z99.2 - Dependence on renal dialysis Status: Chronic Assessment and Plan: -pt was approximately 15 mins into his dialysis session when the dialysis nurse thought he was too lethargic and confused, prompting her to call EMS -creat 5.0, potassium 5.0 -nephrology consult placed -dialysis Tuesday, scheduled again today Additional Plan PT/OT to establish it patient is ready for discharge back to his facility. Still unable to reach POA. Subjective Date/time seen: 05/04/21 09:04 Interval history: 61-year-old male with history of stroke x3 w/ residual memory loss and hemiparesis, hypertension, coronary artery disease, insulin
--- NOTE | 2021-05-04 10:40 | P.PNNP_ITS ---
Progress Note: A&P Assessment and Plan (1) End-stage renal disease (ESRD): Code(s): N18.6 - End stage renal disease Status: Chronic Assessment and Plan: * HD normally on Mon/Tue/Tue schedule * goes to [facility] under the care of Dr. Schulz * Will do a dialysis treatment today (2) Anemia: Qualifiers: Anemia type: due to chronic kidney disease Chronic kidney disease stage: on chronic dialysis Qualified Code(s): N18.6 - End stage renal disease; D63.1 - Anemia in chronic kidney disease; Z99.2 - Dependence on renal dialysis Code(s): D64.9 - Anemia, unspecified Status: Chronic Assessment and Plan: * Hemoglobin low on admission. * s/p PRBC transfusion * colonoscopy showed internal hemorrhoids * EGD showed nonerosive reflux disease and duodenal polyps. * No blood in the stool currently. * hemoglobin bouncing around 8. * Check iron * On Epogen (3) Urinary tract infection: Code(s): N39.0 - Urinary tract infection, site not specified Status: Acute Assessment and Plan: * on antibiotics (4) Altered mental status: Code(s): R41.82 - Altered mental status, unspecified Status: Acute Assessment and Plan: * Mentation is improved. (5) Hypertension: Qualifiers: Hypertension type: essential hypertension Qualified Code(s): I10 - Essential (primary) hypertension Code(s): I10 - Essential (primary) hypertension Status: Chronic Assessment and Plan: * Blood pressure is 120-150. * He is on hydralazine, losartan, metoprolol, minoxidil. * Blood pressure has crept up over the last couple of days. Will remove fluid today and see how his blood pressure is after that (6) Insulin dependent type 2 diabetes mellitus: Code(s): E11.9 - Type 2 diabetes mellitus without complications; Z79.4 - medical terminologist (current) use of insulin Status: Acute Assessment and Plan: * follow accuchecks * glycemic control Will continue to follow. Subjective Date/time seen: 05/04/21 10:40 Interval history: He feels okay. Sleeping well. to get dialysis today. Exam Narrative: WDWN in NAD skin no rash or subQ nodules head ncat lungs clear to auscultation cor reg no rub or gallop abd BS+ nontender and soft ext no edema. Objective Data Vital Signs Vital Signs: Vital Signs - 24 hr 05/03/21 12:00 05/03/21 16:00 05/03/21 16:42 Temperature 36.6 C Pulse Rate 79 79 82 Respiratory Rate 16 Blood Pressure 159/51 H Pulse Oximetry 100 05/03/21 19:47 05/03/21 20:04 05/03/21 20:18 Temperature 36.1 C L Pulse Rate 76 79 79 Respiratory Rate 17 18 Blood Pressure 159/59 H Pulse Oximetry 100 100 05/04/21 00:05 05/04/21 04:06 05/04/21 04:26 Temperature 36.6 C Pulse Rate 76 68 70 Respiratory Rate 17 Blood Pressure 155/53 H Pulse Oximetry 100 05/04/21 10:23 Temperature Pulse Rate 76 Respiratory Rate Blood Pressure Pulse Oximetry Intake/Output Intake/Output: Intake & Output 05/01/21 05/02/21 05/03/21 05/04/21 23:59 23:59 23:59 23:59 Intake Total 250
--- NOTE | 2021-05-04 10:40 | PM.PNNEP ---
Progress Note: A&P Assessment and Plan (1) End-stage renal disease (ESRD): Code(s): N18.6 - End stage renal disease Status: Chronic Assessment and Plan: HD normally on Mon/Tue/Tue schedule goes to [facility] under the care of Dr. Schulz Will do a dialysis treatment today (2) Anemia: Qualifiers: Anemia type: due to chronic kidney disease Chronic kidney disease stage: on chronic dialysis Qualified Code(s): N18.6 - End stage renal disease; D63.1 - Anemia in chronic kidney disease; Z99.2 - Dependence on renal dialysis Code(s): D64.9 - Anemia, unspecified Status: Chronic Assessment and Plan: Hemoglobin low on admission. s/p PRBC transfusion colonoscopy showed internal hemorrhoids EGD showed nonerosive reflux disease and duodenal polyps. No blood in the stool currently. hemoglobin bouncing around 8. Check iron On Epogen (3) Urinary tract infection: Code(s): N39.0 - Urinary tract infection, site not specified Status: Acute Assessment and Plan: on antibiotics (4) Altered mental status: Code(s): R41.82 - Altered mental status, unspecified Status: Acute Assessment and Plan: Mentation is improved. (5) Hypertension: Qualifiers: Hypertension type: essential hypertension Qualified Code(s): I10 - Essential (primary) hypertension Code(s): I10 - Essential (primary) hypertension Status: Chronic Assessment and Plan: Blood pressure is 120-150. He is on hydralazine, losartan, metoprolol, minoxidil. Blood pressure has crept up over the last couple of days. Will remove fluid today and see how his blood pressure is after that (6) Insulin dependent type 2 diabetes mellitus: Code(s): E11.9 - Type 2 diabetes mellitus without complications; Z79.4 - assisted (current) use of insulin Status: Acute Assessment and Plan: follow accuchecks glycemic control Will continue to follow. Subjective Date/time seen: 05/04/21 10:40 Interval history: He feels okay. Sleeping well. to get dialysis today. Exam Narrative: WDWN in NAD skin no rash or subQ nodules head ncat lungs clear to auscultation cor reg no rub or gallop abd BS+ nontender and soft ext no edema. Objective Data Vital Signs Vital Signs: Vital Signs - 24 hr 05/03/21 12:00 05/03/21 16:00 05/03/21 16:42 Temperature 36.6 C Pulse Rate 79 79 82 Respiratory Rate 16 Blood Pressure 159/51 H Pulse Oximetry 100 05/03/21 19:47 05/03/21 20:04 05/03/21 20:18 Temperature 36.1 C L Pulse Rate 76 79 79 Respiratory Rate 17 18 Blood Pressure 159/59 H Pulse Oximetry 100 100 05/04/21 00:05 05/04/21 04:06 05/04/21 04:26 Temperature 36.6 C Pulse Rate 76 68 70 Respiratory Rate 17 Blood Pressure 155/53 H Pulse Oximetry 100 05/04/21 10:23 Temperature Pulse Rate 76 Respiratory Rate Blood Pressure Pulse Oximetry Intake/Output Intake/Output: Intake & Output 05/01/21 05/02/21 05/03/21 05/04/21 23:59 23:59 23:59 23:59 Intake Total 250 1120 1490 240 Output Total 2500 Balance -2250 1120 1490 240 Meds/Results Medications: Active Medications Generic Name Dose Route Start Last Admin Trade Name Freq PRN Reason Stop Dose Admin Albuterol 2 puff 04/29/21 22:44 Albuterol Sulfate (*Sp) Aerosol 1 Puff INHALATION Q4-6H PRN Shortness Of Breath Or Wheezing Amlodipine Besylate 5 mg 04/30/21 09:00 05/04/21 09:25 Amlodipine Besylate 5 Mg Tablet PO Not Given DAILY VAL Apixaban 2.5 mg 05/02/21 21:00 05/04/21 09:25 Apixaban 2.5 Mg Tablet PO Not Given Q12HR VAL Ascorbic Acid 500 mg 04/30/21 09:00 05/04/21 09:25 Ascorbic Acid 500 Mg Tablet PO Not Given BID VAL Dextrose 12.5 gm 04/29/21 22:39 Dextrose 50% 25 Gm/50 Ml Syringe IV PUSH PRN PRN Hypoglycemia Protocol Epoetin Thien-epb
--- NOTE | 2021-05-04 11:08 | PCNFU ---
Nutrition Follow-Up Complete: Increased Protein needs as related to wounds as evidenced by Unstageable PU right heel. Goal: Adequate Intake of at least 75% of meals/supplements Patient has met goal. No new goal. Pt current nutrition is Renal Dialysis/ Mined and Moist Level 5 with Thomas BID . Last recorded weight is 82.2 kg-no new weight to report. Bowel Motility:+Bm reported 05/03 Labs Reviewed:Glu 125,BUN 60, Na 130, Hct 24.2,Hgb 8.1 Meds Noted:Carafate Skin: right heel-unstageable Pressure ulcer. Additional Notes: Patient currently on a Renal Dialysis diet-Minced and Moist, Level 5. Oral Intake has been 90-100% of meals. Protein Modular of Thomas ordered BID for wound healing. Plans for Dialysis today. Agree with diet orders. Monitoring: Will monitor every 7 days.
[2021-05-04 11:43] LABS: Glucose Point of Care 160 mg/dl (65-105)
[2021-05-04] MEDS: minoxidiL 2.5 MG TABLET PO (18:18)
[2021-05-04] MEDS: hydrOXYzine HCL 25 MG TABLET PO (18:18)
[2021-05-04] MEDS: ASCORBIC ACID 500 MG TABLET PO (18:18)
[2021-05-04 18:27] LABS: Glucose Point of Care 154 mg/dl (65-105)
[2021-05-04] MEDS: MINOCYCLINE HCL 50 MG CAPSULE 100 MG PO (20:19)
[2021-05-04] MEDS: APIXABAN 2.5 MG TABLET PO (20:19)
[2021-05-04] MEDS: METOPROLOL TARTRATE 50 MG TAB PO (20:20)
[2021-05-04] MEDS: hydrALAZINE HCL 25 MG TABLET PO (20:20)
[2021-05-04] MEDS: LOSARTAN POTASSIUM 50 MG TABLET PO (20:20)
[2021-05-04 20:54] LABS: Glucose Point of Care 243 mg/dl (65-105)
[2021-05-04 21:57] LABS: Glucose Point of Care 220 mg/dl (65-105)
[2021-05-05 00:05] VITALS: PULSE 79
[2021-05-05 04:08] VITALS: BP 152/66; PULSE 81; RESP 18; TEMP 36.2; O2SAT 100
[2021-05-05 04:18] VITALS: PULSE 80
[2021-05-05] MEDS: SUCRALFATE 1 GM TABLET PO ×3 (06:16→17:14)
[2021-05-05 06:51] LABS: Basophils Percent Auto 0.2 % (0.2-1.2); Eosinophils Absolute Auto 0.7 K/mm3 (0-0.3); Eosinophils Percent Auto 7.7 % (0-4.4); Hematocrit 23.7 % (42.0-52.0); Hemoglobin 7.9 g/dL (14.0-18.0); Immature Granulocyte Absolute 0.06 K/mm3 (0.00-0.031); Immature Granulocyte Percent A 0.7 % (0-0.5); Lymphocytes Percent Auto 14.2 % (18.3-44.2); Mean Corpuscular HGB Conc 33.3 g/dl (32-36); Mean Corpuscular Hemoglobin 28.2 pg (26-34); Mean Corpuscular Volume 84.6 fl (80-100); Mean Platelet Volume 10.8 fl (7.4-10.4); Monocytes Absolute Auto 0.9 K/mm3 (0.1-0.6); Monocytes Percent Auto 10.4 % (2.6-8.5); Neutrophils Absolute Auto 5.7 K/mm3 (1.3-6.7); Neutrophils Percent Auto 66.8 % (45.5-73.1); Platelet Count Result 305 k/mm3 (150-375); Red Cell Distribution Width 14.5 % (11.5-14.5); White Blood Count 8.5 K/mm3 (4.5-10.0)
[2021-05-05 07:01] LABS: Alanine Aminotransferase 23 U/L (4-50); Alkaline Phosphatase 82 U/L (38-126); Anion Gap 4 mmol/L (8-16); Aspartate Amino Transferase 27 U/L (17-59); Bilirubin,Total 0.6 mg/dL (0.2-1.3); Blood Urea Nitrogen 31 mg/dL (9-20); Calcium 8.5 mg/dL (8.4-10.2); Carbon Dioxide 33 mmol/L (22-30); Chloride 99 mmol/L (98-107); Estimated CRCL calculation 22 ml/min; Estimated Glomerular Filt Rate 24; Glucose 131 mg/dL (65-110); Potassium 3.2 mmol/L (3.4-5.0); Sodium 136 mmol/L (137-145)
[2021-05-05 07:57] VITALS: BP 182/44; PULSE 84; RESP 16; TEMP 37.3; O2SAT 100
[2021-05-05 08:26] LABS: Glucose Point of Care 176 mg/dl (65-105)
[2021-05-05] MEDS: METOPROLOL TARTRATE 50 MG TAB PO (08:36)
[2021-05-05] MEDS: ASCORBIC ACID 500 MG TABLET PO ×2 (08:36→17:14)
[2021-05-05] MEDS: VITAMIN B CMPLX/VIT C/FOLIC AC 1 CAPSULE 1 CAP PO (08:36)
[2021-05-05] MEDS: FERROUS SULFATE 324 MG TABLET PO (08:36)
[2021-05-05] MEDS: hydrALAZINE HCL 25 MG TABLET PO (08:36)
[2021-05-05] MEDS: hydrOXYzine HCL 25 MG TABLET PO ×2 (08:36→17:14)
[2021-05-05] MEDS: APIXABAN 2.5 MG TABLET PO (08:36)
[2021-05-05] MEDS: minoxidiL 2.5 MG TABLET PO ×2 (08:36→17:23)
[2021-05-05] MEDS: PANTOPRAZOLE 40 MG TABLET PO (08:36)
[2021-05-05] MEDS: amLODIPine BESYLATE 5 MG TABLET PO (08:36)
[2021-05-05] MEDS: MINOCYCLINE HCL 50 MG CAPSULE 100 MG PO (09:18)
[2021-05-05] MEDS: UMECLIDINIUM BROMIDE 62.5 MCG ELLIPTA 1 PUFF INHALATION (09:54)
[2021-05-05 09:59] LABS: Magnesium 2.2 mg/dL (1.6-2.3)
--- NOTE | 2021-05-05 10:02 | P.PNNP_ITS ---
Progress Note: A&P Assessment and Plan (1) End-stage renal disease (ESRD): Code(s): N18.6 - End stage renal disease Status: Chronic Assessment and Plan: * HD normally on Mon/Tue/Tue schedule * goes to [facility] under the care of Dr. Schulz * Did well in dialysis yesterday. (2) Anemia: Qualifiers: Anemia type: due to chronic kidney disease Chronic kidney disease stage: on chronic dialysis Qualified Code(s): N18.6 - End stage renal disease; D63.1 - Anemia in chronic kidney disease; Z99.2 - Dependence on renal dialysis Code(s): D64.9 - Anemia, unspecified Status: Chronic Assessment and Plan: * Hemoglobin low on admission. * s/p PRBC transfusion * colonoscopy showed internal hemorrhoids * EGD showed nonerosive reflux disease and duodenal polyps. * hemoglobin is stable * Iron okay * On Epogen (3) Urinary tract infection: Code(s): N39.0 - Urinary tract infection, site not specified Status: Acute Assessment and Plan: * on Ceftriaxone (4) Altered mental status: Code(s): R41.82 - Altered mental status, unspecified Status: Acute Assessment and Plan: * Mentation is improved. (5) Hypertension: Qualifiers: Hypertension type: essential hypertension Qualified Code(s): I10 - Essential (primary) hypertension Code(s): I10 - Essential (primary) hypertension Status: Chronic Assessment and Plan: * Blood pressure is Starting to creep up in spite of removing fluid on dialysis yesterday.. * He is on hydralazine, losartan, metoprolol, minoxidil. Will increase the minoxidil (6) Insulin dependent type 2 diabetes mellitus: Code(s): E11.9 - Type 2 diabetes mellitus without complications; Z79.4 - medical terminologist (current) use of insulin Status: Acute Assessment and Plan: * follow accuchecks * glycemic control Will continue to follow. Subjective Date/time seen: 05/05/21 10:02 Interval history: He feels okay. he did well in dialysis yesterday. He feels okay. Exam Narrative: WDWN in NAD skin no rash or subQ nodules head ncat lungs clear cor reg no rub or gallop abd BS+ nontender and soft ext no edema. Objective Data Vital Signs Vital Signs: Vital Signs - 24 hr 05/04/21 10:23 05/04/21 13:11 05/04/21 14:45 Temperature 37.0 C Pulse Rate 76 80 82 Respiratory Rate 16 Blood Pressure 191/82 H Pulse Oximetry 05/04/21 14:55 05/04/21 15:15 05/04/21 15:30 Temperature Pulse Rate 79 81 84 Respiratory Rate Blood Pressure 181/79 H 173/72 H 173/77 H Pulse Oximetry 05/04/21 15:45 05/04/21 16:10 05/04/21 16:30 Temperature Pulse Rate 86 87 88 Respiratory Rate Blood Pressure 182/68 H 158/72 H 168/75 H Pulse Oximetry 05/04/21 16:45 05/04/21 17:00 05/04/21 17:15 Temperature Pulse Rate 85 86 83 Respiratory Rate Blood Pressure 178/66 H 161/69 H 137/60 Pulse Oximetry 05/04/21 17:35 05/04/21 17:56 05/04/21 18:04 Temperature 36.7 C Pulse Rate 84 86 85 Respiratory Rate 16 Blood Pressure 165/70 H 147/62 H 127/58 L
--- NOTE | 2021-05-05 10:02 | PM.PNNEP ---
Progress Note: A&P Assessment and Plan (1) End-stage renal disease (ESRD): Code(s): N18.6 - End stage renal disease Status: Chronic Assessment and Plan: HD normally on Mon/Tue/Tue schedule goes to [facility] under the care of Dr. Schulz Did well in dialysis yesterday. (2) Anemia: Qualifiers: Anemia type: due to chronic kidney disease Chronic kidney disease stage: on chronic dialysis Qualified Code(s): N18.6 - End stage renal disease; D63.1 - Anemia in chronic kidney disease; Z99.2 - Dependence on renal dialysis Code(s): D64.9 - Anemia, unspecified Status: Chronic Assessment and Plan: Hemoglobin low on admission. s/p PRBC transfusion colonoscopy showed internal hemorrhoids EGD showed nonerosive reflux disease and duodenal polyps. hemoglobin is stable Iron okay On Epogen (3) Urinary tract infection: Code(s): N39.0 - Urinary tract infection, site not specified Status: Acute Assessment and Plan: on Ceftriaxone (4) Altered mental status: Code(s): R41.82 - Altered mental status, unspecified Status: Acute Assessment and Plan: Mentation is improved. (5) Hypertension: Qualifiers: Hypertension type: essential hypertension Qualified Code(s): I10 - Essential (primary) hypertension Code(s): I10 - Essential (primary) hypertension Status: Chronic Assessment and Plan: Blood pressure is Starting to creep up in spite of removing fluid on dialysis yesterday.. He is on hydralazine, losartan, metoprolol, minoxidil. Will increase the minoxidil (6) Insulin dependent type 2 diabetes mellitus: Code(s): E11.9 - Type 2 diabetes mellitus without complications; Z79.4 - USP (current) use of insulin Status: Acute Assessment and Plan: follow accuchecks glycemic control Will continue to follow. Subjective Date/time seen: 05/05/21 10:02 Interval history: He feels okay. he did well in dialysis yesterday. He feels okay. Exam Narrative: WDWN in NAD skin no rash or subQ nodules head ncat lungs clear cor reg no rub or gallop abd BS+ nontender and soft ext no edema. Objective Data Vital Signs Vital Signs: Vital Signs - 24 hr 05/04/21 10:23 05/04/21 13:11 05/04/21 14:45 Temperature 37.0 C Pulse Rate 76 80 82 Respiratory Rate 16 Blood Pressure 191/82 H Pulse Oximetry 05/04/21 14:55 05/04/21 15:15 05/04/21 15:30 Temperature Pulse Rate 79 81 84 Respiratory Rate Blood Pressure 181/79 H 173/72 H 173/77 H Pulse Oximetry 05/04/21 15:45 05/04/21 16:10 05/04/21 16:30 Temperature Pulse Rate 86 87 88 Respiratory Rate Blood Pressure 182/68 H 158/72 H 168/75 H Pulse Oximetry 05/04/21 16:45 05/04/21 17:00 05/04/21 17:15 Temperature Pulse Rate 85 86 83 Respiratory Rate Blood Pressure 178/66 H 161/69 H 137/60 Pulse Oximetry 05/04/21 17:35 05/04/21 17:56 05/04/21 18:04 Temperature 36.7 C Pulse Rate 84 86 85 Respiratory Rate 16 Blood Pressure 165/70 H 147/62 H 127/58 L Pulse Oximetry 05/04/21 19:38 05/04/21 20:04 05/04/21 20:20 Temperature 36.2 C L Pulse Rate 92 81 87 Respiratory Rate 18 18 Blood Pressure 159/53 H Pulse Oximetry 100 100 05/05/21 00:05 05/05/21 04:08 05/05/21 04:18 Temperature 36.2 C L Pulse Rate 79 81 80 Respiratory Rate 18 Blood Pressure 152/66 H Pulse Oximetry 100 05/05/21 07:57 Temperature 37.3 C Pulse Rate 84 Respiratory Rate 16 Blood Pressure 182/44 H Pulse Oximetry 100 Intake/Output Intake/Output: Intake & Output 05/02/21 05/03/21 05/04/21 05/05/21 23:59 23:59 23:59 23:59 Intake Total 1120 1490 530 540 Output Total 3000 Balance 1120 1490 -2470 540 Meds/Results Medications: Active Medications Generic Name Dose Route Start Last Admin Trade Name Freq PRN Reason Stop Dose Admin Albuterol 2
[2021-05-05] MEDS: POTASSIUM CHLORIDE 20 MEQ TABLET 40 MEQ PO (10:16)
[2021-05-05 12:04] LABS: Glucose Point of Care 210 mg/dl (65-105)
[2021-05-05] MEDS: INSULIN ASPART (*BKC) 100 UNITS/ML SUB-Q (12:09)
[2021-05-05 13:21] VITALS: BP 163/57; PULSE 80; RESP 16; TEMP 36.6; O2SAT 100
--- NOTE | 2021-05-05 14:40 | PM.DS ---
DS: Admitting Diagnosis Discharge Date 05/05/21 Admitting Diagnosis Lethargy DS: Discharge Diagnosis Discharge Diagnosis (1) Profound anemia: Code(s): D64.9 - Anemia, unspecified Status: Acute Assessment and Plan: This is a 61-year-old male with history of stroke, hypertension, coronary artery disease, insulin-dependent diabetes, and end-stage renal disease on hemodialysis who presented to the emergency department via EMS from dialysis for evaluation of altered mental status and lethargy. On arrival, his vital signs were stable and he was afebrile. Pertinent findings include a white blood cell count of 21.3 and hemoglobin and hematocrit of 5.2 and 16.0% respectively. On exam he was tender to palpation the left lower quadrant and a subsequent CT of the abdomen and pelvis showed fecal impaction of the distal colon and rectum though no other findings were noted. Of note the patient was admitted to the hospital last month with acute on chronic anemia with Hemoccult-positive stool. Colonoscopy was attempted at that time but was unsuccessful due to the presence of a large amount of stool in the rectosigmoid colon. He was discharged home and told to hold Eliquis for [address] Zarco indicated that a repeat colonoscopy could be done as an outpatient if he continues to be anemic. He was admitted into the hospital for acute anemia requiring transfusions, hold anticoagulation and consult to GI. -Hospitalized twice in the last year with anemia. Upper endoscopy in June 2020 showed gastritis. Colonoscopy in March 2021 was unable to be performed due to a large amount of stool in the rectosigmoid colon, however stool was Hemoccult positive at that time. Anemia is presumably secondary to ongoing occult GI loss in addition to end-stage renal disease. He will be transfused to a stable hemoglobin. H&H has been stable at this time. -consult placed to nephrology who started Epogen. -EGD 05/01/21 showed nonerosive reflux disease and duodenal polyps, no blood in his stool currently, Eliquis restarted by the GI specialist since no active bleeding was found. -Iron studies showed normal Iron and % saturation. -Will recheck H&H in 1 week. Follow up with PCP. Stable for discharge at this time. (2) Leukocytosis: Code(s): D72.829 - Elevated white blood cell count, unspecified Status: Acute Assessment and Plan: -Suspected to be due to urinary tract infection, it has resolved after initiation of rocephin. He completed 7 doses of rocephin and thus he does not need further antibiotics. (3) Urinary tract infection: Code(s): N39.0 - Urinary tract infection, site not specified Status: Acute Assessment and Plan: -UA w/ 2+ leukocytes, greater than 75 WBC, greater than 75 RBC -improvement w/ Rocephin received 7 days and discontinued. -urine culture no growth but suspect lab error as UA was very convincing and he is improving clinically (4) Fecal impaction: Code(s): K56.41 - Fecal impaction Status: Acute Assessment and Plan: Having bowel movements again with colonoscopy prep. (5) Insulin dependent type 2 diabetes mellitus: Code(s): E11.9 - Type 2 diabetes mellitus without complications; Z79.4 - senior living (current) use of insulin Status: Acute Assessment and Plan: -Initiate sliding scale insulin, Accu-Cheks, and hypoglycemic protocol. -Will restart Lantus at discharge but at 10 Units HS and close monitoring and SNF (6) Hypertension: Qualifiers: Hypertension type: essential hypertension Qualified Code(s): I10 - Essential (primary) hypertension Code(s): I10 - Essential (primary) hypertension Status: Chronic Assessment and Plan: Blood pressures reviewed and they have been stable. Antihypertensives will be reviewed and resumed as appropriate. (7) Paroxysmal atrial fibrillation: Code(s): I48.0 - Paroxysmal at
[2021-05-05 15:12] VITALS: BP 156/54; PULSE 74; RESP 17; TEMP 36.6; O2SAT 100
[2021-05-05 15:22] LABS: EDCOVIDSCREEN Negative (Negative)
--- NOTE | 2021-05-05 15:32 | PC.NURSE ---
On 05/05/21, the student, Jessica Servin, provided care and completed [facility] documentation on this patient. I have reviewed the student's documentation and agree with the findings.
[2021-05-05 16:35] LABS: Glucose Point of Care 197 mg/dl (65-105)
== END 2021-05-05 20:05 | DRG 377 ==
LOC: ANHED 12:37 → ANH3MED 14:42
PROVIDERS: Internal Medicine Gastroenterology; Internal Medicine Nephrology; Physician Assistant; Admitting Provider Internal Medicine; Emergency Provider Emergency Medicine; Visit Provider Physician Assistant
PROC: 0DJ08ZZ Inspection of Upper Intestinal Tract, Via Natural or Artificial Opening Endoscopic (ICD-10-PCS; CPT 43235; principal; 2021-05-01 13:00)
DX: K92.2 Gastrointestinal hemorrhage, unspecified (principal); N18.6 End stage renal disease; G93.41 Metabolic encephalopathy; I12.0 Hypertensive chronic kidney disease with stage 5 chronic kidney disease or end stage renal disease; D62 Acute posthemorrhagic anemia; I69.351 Hemiplegia and hemiparesis following cerebral infarction affecting right dominant side; N39.0 Urinary tract infection, site not specified; E11.22 Type 2 diabetes mellitus with diabetic chronic kidney disease; K64.8 Other hemorrhoids; Z20.822 Contact with and (suspected) exposure to COVID-19; D63.1 Anemia in chronic kidney disease; I48.0 Paroxysmal atrial fibrillation; K56.41 Fecal impaction; D13.2 Benign neoplasm of duodenum; E78.5 Hyperlipidemia, unspecified; K21.9 Gastro-esophageal reflux disease without esophagitis; E11.319 Type 2 diabetes mellitus with unspecified diabetic retinopathy without macular edema; E11.21 Type 2 diabetes mellitus with diabetic nephropathy; E11.42 Type 2 diabetes mellitus with diabetic polyneuropathy; I34.1 Nonrheumatic mitral (valve) prolapse; Z96.651 Presence of right artificial knee joint; I69.311 Memory deficit following cerebral infarction; Z99.2 Dependence on renal dialysis; Z89.612 Acquired absence of left leg above knee; Z79.01 Long term (current) use of anticoagulants; Z87.891 Personal history of nicotine dependence; Z79.82 Long term (current) use of aspirin; Z79.4 Long term (current) use of insulin
CPT/HCPCS: 36415; 36430; 51701; 70450; 73650; 74177; 80048; 80053; 80069; 80074; 81001; 82607; 82728; 82746; 82948; 83036; 83540; 83550; 83735; 84439; 84443; 84480; 85014; 85018; 85025; 85027; 85610; 85730; 86706; 86850; 86900; 86901; 86920; 87040; 87086; 87426; 88305; 93005; 94640; 96374; 96376; 97161; 97165; 99285; A9270; C9803; G0257; G0378; J0696; J1815; J2001; J2704; J7030; J7050; J7120; P9016; Q5105; Q9967; U0003; U0005

== ENCOUNTER 2021-05-22 16:12 | Inpatient (IN) | payer OTHER, SELFPAY ==
[2021-05-22] VITALS (28 sets, daily range): BP systolic 148–198; BP diastolic 71–115; PULSE 74–85; RESP 12–24; TEMP 36.6–36.7; O2SAT 95–100; BMI 28.3
--- NOTE | ~2021-05-22 | XR_ITS ---
EXAMINATION: XR chest 1V portable EXAM DATE: 05/22/2021 18:00 INDICATION: Shortness of breath, Missed Dialysis, HX AFIB, HX HTN TECHNIQUE: Portable AP frontal chest x-ray was obtained. Comparison is made to prior examination from 02/14/2021. FINDINGS: There is moderate amount of ill-defined bilateral airspace disease suspected, edema or pneu monia. No pneumothorax or sizable pleural effusion. Mild cardiomegaly. There are mild bony degenerati ve changes. IMPRESSION: Moderate amount of ill-defined bilateral edema or pneumonia. Reviewed, dictated and finalized at location G. CTOR OF REVENUE
--- NOTE | ~2021-05-22 | XR_ITS ---
EXAMINATION: XR chest 1V portable DATE: 05/28/2021 14:46 INDICATION: Pneumonia. TECHNIQUE: A single frontal view of the chest was obtained. COMPARISON: Chest single view 05/27/2021, CT abdomen and pelvis 04/29/2021 FINDINGS: There are airspace opacities in right mid and lower lung zones and left lower lung zone. No pleural effusion or pneumothorax. Cardiomegaly is noted. IMPRESSION: 1. Stable airspace opacities in right mid and lower lung zones and left lower lung zone, consistent w ith atelectasis versus pneumonia. 2. Cardiomegaly. Reviewed, dictated and finalized at location A. CTOR WORKFORCE MANAGEMENT IMPRESSION: 1. Stable airspace opacities in right mid and lower lung zones and left lower l jose zone, consistent with atelectasis versus pneumonia. 2. Cardiomegaly.
--- NOTE | ~2021-05-22 | XR_ITS ---
EXAMINATION: XR chest 1V portable INDICATION: Pulmonary edema TECHNIQUE: Portable AP chest at 0729 hours COMPARISON: 05/25/2021 FINDINGS: A diffuse interstitial pattern persists with slight interval improvement. There is a small right pleural effusion. Cardiomegaly is noted. No pneumothorax is identified. IMPRESSION: 1. Cardiomegaly with improving pulmonary small right pleural effusion. Reviewed, dictated and finalized at location A. OPHOTOGRAPHY TECHNICIAN
--- NOTE | ~2021-05-22 | XR_ITS ---
EXAMINATION: XR chest 1V portable EXAM DATE: 05/25/2021 06:00 INDICATION: COVID TECHNIQUE: Portable AP frontal chest x-ray was obtained. Comparison is made to prior examination from 05/22/2021. FINDINGS: Moderate amount of bilateral edema or pneumonia. No pneumothorax or pleural effusion. Mild cardiomegaly. There are no osseous abnormalities identified. IMPRESSION: Moderate amount of bilateral edema or pneumonia unchanged. Reviewed, dictated and finalized at location A. D SALES REPRESENTATIVE
--- NOTE | 2021-05-22 16:15 | ECG_ITS ---
Measurements Intervals [place] Rate: 80 P: 46 AL: 196 QRS: 260 QRSD: 158 T: 32 QT: 453 QTc: 525 Interpretive Statements SINUS RHYTHM RIGHT AXIS DEVIATION RIGHT BUNDLE BRANCH BLOCK ABNORMAL ECG Electronically Signed On 05-22-2021 16:57:02 MANAGER TALENT by Ben Bobby D.O.
--- NOTE | 2021-05-22 16:47 | ED.GENADULT ---
HPI - General Adult General Chief complaint: Weakness Stated complaint: WEAKNESS Time Seen by Provider: 05/22/21 16:17 Source: patient and EMS History of Present Illness HPI narrative: Per EMS patient was referred for weakness. Patient is dialysis dependent missed his last 2 dialysis sessions as he was supposed to get transportation however his ride canceled due to weather. He told EMS he has been feeling more short of breath and has diffuse body aches. In my evaluation patient denies any complaints he denies any focal areas of pain denies any shortness of breath, chest pain, bowel pain, nausea, vomiting. Related Data Home Medications Medication Instructions Recorded Confirmed amlodipine 5 mg PO DAILY 04/03/19 04/29/21 Eliquis 2.5 mg PO BID 12/30/19 04/29/21 Glucagon (HCl) Emergency Kit 1 mg SUBCUT Q20M PRN 12/30/19 04/29/21 albuterol sulfate 2 puff INHALATION Q4-6H PRN 12/30/19 04/29/21 clonidine HCl 0.1 mg PO Q8H 12/30/19 04/29/21 hydralazine 25 mg PO BID 12/30/19 04/29/21 insulin lispro See Rx Instructions .ROUTE .COMPLEX 12/30/19 04/29/21 losartan 50 mg PO HS 12/30/19 04/29/21 pantoprazole 40 mg PO DAILY 12/30/19 04/29/21 aspirin [Aspirin Low Dose] 81 mg PO DAILY 03/04/20 04/29/21 Incruse Ellipta 1 inh INHALATION DAILY 05/07/20 04/29/21 metoprolol tartrate 50 mg PO BID 03/25/21 04/29/21 minoxidil 2.5 mg PO BID 03/25/21 04/29/21 Mircera 75 mcg SUBCUT [id number] 04/29/21 04/29/21 Renal Caps 1 cap PO DAILY 04/29/21 04/29/21 Spiriva Respimat 2 puff INHALATION ONCE 04/29/21 04/29/21 ascorbic acid (vitamin C) 500 mg PO BID 04/29/21 04/29/21 hydroxyzine HCl 25 mg PO BID 04/29/21 04/29/21 minocycline 100 mg PO BID 04/29/21 04/29/21 sucralfate [Carafate] 1 g PO TID 04/29/21 04/29/21 Allergies Allergy/AdvReac Type Severity Reaction Status Date / Time No Known Allergies Allergy Verified 03/26/21 13:10 Review of Systems Review of Systems: CONSTITUTIONAL: Denies fever, chills, or sweats. EYES: Denies visual changes, redness, or discharge. ENT: Denies rhinorrhea, congestion, sore throat, or otalgia. CARDIOVASCULAR: Denies chest pain, palpitations, or edema. RESPIRATORY: Denies cough or dyspnea. GASTROINTESTINAL: Denies abdominal pain, nausea, vomiting, or diarrhea. GENITOURINARY: Denies dysuria or hematuria. SKIN: Denies rash or itching. MUSCULOSKELETAL: Denies back pain, joint pain, or myalgia. NEUROLOGIC: Denies headache, numbness, dizziness, or weakness. PSYCHIATRIC: Denies anxiety or depression. All systems reviewed & are unremarkable except as noted in HPI and below PMFSH Past Medical History Medical History Anemia Atrial fibrillation 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 Coronary artery disease End-stage renal disease on hemodialysis Dialysis Tuesday, Tuesday, Tuesday. Gastritis History of left above knee amputation Hyperlipidemia Hypertension Insulin dependent type 2 diabetes mellitus Complicated by retinopathy, neuropathy, and nephropathy. 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 EITAN 05/08/20 shows persistent mobile echodensity. Surgical History Surgical History History of cardiac catheterization (09/2015) Revealed nonobstructive coronary artery disease. History of open reduction and internal fixation (ORIF) procedure Repair right femur fracture. 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 with 2 children. Smoked 2 t
[2021-05-22 16:58] LABS: Basophils Percent Auto 0.5 % (0.2-1.2); Eosinophils Absolute Auto 0.3 K/mm3 (0-0.3); Eosinophils Percent Auto 3.3 % (0-4.4); Hematocrit 25.9 % (42.0-52.0); Hemoglobin 8.3 g/dL (14.0-18.0); Immature Granulocyte Absolute 0.12 K/mm3 (0.00-0.031); Immature Granulocyte Percent A 1.4 % (0-0.5); Lymphocytes Absolute Auto 1.13 K/mm3 (0.9-3.2); Mean Corpuscular Hemoglobin 27.5 pg (26-34); Mean Corpuscular Volume 85.8 fl (80-100); Mean Platelet Volume 10.9 fl (7.4-10.4); Monocytes Absolute Auto 0.8 K/mm3 (0.1-0.6); Monocytes Percent Auto 9.6 % (2.6-8.5); Neutrophils Absolute Auto 6.3 K/mm3 (1.3-6.7); Neutrophils Percent Auto 72.2 % (45.5-73.1); Nucleated Red Blood Cells Absolute Auto 0.1 K/mm3 (0.0-0.012); Nucleated Red Blood Cells Perc 0.7 % (0.0-0.2); Platelet Count Result 209 k/mm3 (150-375); Red Blood Count 3.02 M/mm3 (4.6-6.20); Red Cell Distribution Width 15.1 % (11.5-14.5); White Blood Count 8.7 K/mm3 (4.5-10.0)
[2021-05-22 17:16] LABS: INR 1.2; Prothrombin Time 14.6 Seconds (11.1-14.7)
[2021-05-22 17:17] LABS: Partial Thromboplastin Time 37.4 SECONDS (22.3-36.8)
[2021-05-22 17:37] LABS: Alanine Aminotransferase 21 U/L (4-50); Albumin Level 3.3 g/dL (3.5-5.1); Alkaline Phosphatase 106 U/L (38-126); Anion Gap 10 mmol/L (8-16); Aspartate Amino Transferase 31 U/L (17-59); Bilirubin,Total 0.6 mg/dL (0.2-1.3); Blood Urea Nitrogen 50 mg/dL (9-20); Carbon Dioxide 30 mmol/L (22-30); Chloride 94 mmol/L (98-107); Estimated Glomerular Filt Rate 17; Glucose 107 mg/dL (65-110); Potassium 4.2 mmol/L (3.4-5.0); Sodium 134 mmol/L (137-145)
[2021-05-22 18:38] LABS: Add Urine Microscopic? YES; Appearance Urine Turbid (Clear); Bacteria Urine 3+ /hpf; Bilirubin Urine Negative (Negative); Blood Urine 3+ (Negative); Color Urine Yellow (Yellow); Glucose Urine UA 1+ mg/dL (Negative); Ketones Urine Negative (Negative); Leukocyte Esterase Ur 3+ LEU/UL (Negative); Mucus Urine Few /lpf; Nitrate Urine Negative (Negative); Protein Urine 3+ mg/dL (Negative); RBC Urine 51-75 /hpf (0-2); Specific Grav Ur 1.019 (1.001-1.035); Squamous Epithelial Cell Urine Occasional /hpf (Few); Urobilinogen Urine Negative mg/dL (<2.0); WBC Urine >75 /hpf
--- NOTE | 2021-05-22 18:45 | PM.IMHP ---
H&P: HPI History of Present Illness Date/Time: 05/22/21 18:45 Chief Complaint: Weakness. Narrative: This is a 61-year-old male with history of stroke, hypertension, coronary artery disease, insulin-dependent diabetes, and end-stage renal disease on hemodialysis who presented to the emergency department via EMS from a local group home for evaluation of weakness. He has not felt well for the past several days with generalized weakness, malaise, diffuse body aches, and shortness of breath. It was thought that perhaps it was due to him having missed 2 dialysis sessions this week as his ride canceled due to weather concerns however he tested positive for SARS-CoV-2 by PCR. Chest x-ray done on arrival showed a moderate amount of ill-defined bilateral edema or pneumonia and he is being admitted in this setting. Electrolytes were reviewed and they have been stable. He denies fever, chills, and sweats. No significant congestion or sore throat. He also denies cough, nausea, and diarrhea. Review of Systems Review of Systems: Twelve systems were reviewed and are negative except for as per HPI. [facility] Past Medical History Medical History (Updated 05/22/21 @ 21:28 by Judy Brower PA-C) Anemia Atrial fibrillation 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 Coronary artery disease End-stage renal disease on hemodialysis Dialysis Tuesday, Tuesday, Tuesday. Gastritis History of left above knee amputation Hyperlipidemia Hypertension Insulin dependent type 2 diabetes mellitus Complicated by retinopathy, neuropathy, and nephropathy. 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 EITAN 05/08/20 shows persistent mobile echodensity. Surgical History Surgical History History of cardiac catheterization (09/2015) Revealed nonobstructive coronary artery disease. History of open reduction and internal fixation (ORIF) procedure Repair right femur fracture. History of total right knee replacement Status post creation of arteriovenous fistula Family History Family History Mother Hypertension Diabetes mellitus Father Hypertension Diabetes mellitus Other Unknown family medical history Social History Social History (Updated 05/22/21 @ 21:20 by Judy Brower PA-C) Social History: Group Home care at [facility]. with 2 children. Smoked 2 to 3 packs of cigarettes per day and quit in 2012. No alcohol or drug use. Judy Elias, sister, is his healthcare power of staffing director. Code status: Full code Meds Home Medications and Allergies Home Medications Medication Instructions Recorded Confirmed Type amlodipine 5 mg PO DAILY 04/03/19 04/29/21 History Eliquis 2.5 mg PO BID 12/30/19 04/29/21 History Glucagon (HCl) Emergency Kit 1 mg SUBCUT Q20M PRN 12/30/19 04/29/21 History albuterol sulfate 2 puff INHALATION Q4-6H PRN 12/30/19 04/29/21 History clonidine HCl 0.1 mg PO Q8H 12/30/19 04/29/21 History hydralazine 25 mg PO BID 12/30/19 04/29/21 History insulin lispro See Rx Instructions .ROUTE .COMPLEX 12/30/19 04/29/21 History losartan 50 mg PO HS 12/30/19 04/29/21 History pantoprazole 40 mg PO DAILY 12/30/19 04/29/21 History aspirin [Aspirin Low Dose] 81 mg PO DAILY 03/04/20 04/29/21 History Incruse Ellipta 1 inh INHALATION DAILY 05/07/20 04/29/21 History metoprolol tartrate 50 mg PO BID 03/25/21 04/29/21 History minoxidil 2.5 mg PO BID 03/25/21 04/29/21 History ferrous sulfate 324 mg PO DAILY #30 tablet 03/26/21 04/29/21 Rx Mircera 75 mcg SUBCUT [id number] 04/29/21 04/29/21 History Renal Caps 1 cap PO DAILY 04/29/21 04/29/21 History Spiriva Respimat 2 puff INHALATION ONCE 04/29/21 04/29/21 History ascorbic acid (vitamin C) 500 mg PO BID 04/29/21 04/29/21 History hydroxyzine HCl 25 mg PO BID 04/29/21 04/29/21 History minocycli
[2021-05-22 20:17] LABS: SARS-CoV-2 RNA PCR Positive
--- NOTE | 2021-05-22 21:25 | ADMGEN ---
This patient, David Segundo Jr., was admitted to Medical Room 348-01. Patient/family oriented to hospital policies and general routines including ID bracelet, bed and alarms, visiting hours, pain management, procedures, bathroom and other care routines, personal items, smoking policy, room service/diet, and visiting hours. Information on how to activate the Rapid Response Team has been discussed. Patient/Family are encouraged to report perceived risks to care and to ask questions if they do not understand what they are told or what they should do.
[2021-05-22 23:07] LABS: Glucose Point of Care 122 mg/dl (65-105)
[2021-05-23] VITALS (13 sets, daily range): BP systolic 154–197; BP diastolic 68–99; PULSE 72–85; RESP 16–20; TEMP 36–37.4; O2SAT 99–100
[2021-05-23 05:57] LABS: Hemoglobin 7.8 g/dL (14.0-18.0); Mean Corpuscular HGB Conc 31.2 g/dl (32-36); Mean Corpuscular Volume 86.5 fl (80-100); Mean Platelet Volume 11.4 fl (7.4-10.4); Platelet Count Result 204 k/mm3 (150-375); Red Blood Count 2.89 M/mm3 (4.6-6.20); Red Cell Distribution Width 15.1 % (11.5-14.5); White Blood Count 6.7 K/mm3 (4.5-10.0)
[2021-05-23 06:25] LABS: Alanine Aminotransferase 19 U/L (4-50); Albumin Level 3.2 g/dL (3.5-5.1); Alkaline Phosphatase 93 U/L (38-126); Anion Gap 8 mmol/L (8-16); Aspartate Amino Transferase 27 U/L (17-59); Bilirubin,Total 0.7 mg/dL (0.2-1.3); Blood Urea Nitrogen 53 mg/dL (9-20); CRP 1.3 mg/dL (<1.0); Calcium 8.9 mg/dL (8.4-10.2); Carbon Dioxide 30 mmol/L (22-30); Chloride 94 mmol/L (98-107); Estimated CRCL calculation 13 ml/min; Estimated Glomerular Filt Rate 15; Glucose 110 mg/dL (65-110); Lactate Dehydrogenase 507 U/L (313-618); Magnesium 2.4 mg/dL (1.6-2.3); Potassium 4.3 mmol/L (3.4-5.0); Sodium 132 mmol/L (137-145)
[2021-05-23 08:21] LABS: Glucose Point of Care 106 mg/dl (65-105)
--- NOTE | 2021-05-23 09:59 | PM.CNNEP ---
Assessment and Plan Additional Plan 1. The patient has end-stage renal disease. He is due for dialysis. Will get this done today. I talked with dialysis nurses about this. His potassium is okay so will do home on a 3K bath. We will take fluid off since he has pulmonary infiltrates. It is unclear whether these are due to COVID or fluid but he probably does have some fluid on. 2. The patient has COVID-19. He is not requiring oxygen. 3. The patient has hypertension. His blood pressure is a bit high. We will see how it is after we take fluid off. We will resume his home medications. 3. The patient has diabetes. He will be on Accu-Cheks and sliding-scale insulin per hospitalists. 4. The patient has coronary artery disease. He is not having any chest pain. 5. The patient has a history of atrial fibrillation. His rhythm is regular and his EKG shows sinus rhythm. 6. The patient has a history of mitral valve endocarditis. The patient has been seeing Cardiology. He had a EITAN in May. Dr. Joshua is involved in his care. He and his sister are considering cardiothoracic surgical consultation in [facility] as an outpatient. He is on [employer] History of Present Illness Reason for Consult Consult date: 05/23/21 Chief Complaint Chief complaint: dyspnea History of Present Illness Narrative: David is a very pleasant 61-year-old gentleman who has multiple medical problems including end-stage renal disease on dialysis 3 times a week at 1st any a screen at [facility] under Dr. Schulz, hypertension, diabetes, coronary disease, mitral valve prolapse, history of mitral valve endocarditis a urine half ago, atrial fibrillation, stroke, hyperlipidemia, left above the knee amputation. The patient missed a couple of treatments of dialysis because of the weather. Yesterday he became weak and tired and she had a little bit of shortness of breath and a little bit of a cough. He had no fevers. No nausea vomiting or chest pain. No diarrhea. He came to the emergency room yesterday afternoon. He did not need any oxygen. His chest x-ray showed diffuse patchy infiltrates. He was unable to be dialyzed on Tuesday and so he was admitted for dialysis. Because of his symptoms they did a COVID swab but it is positive so he is on respiratory isolation. Review of Systems Constitutional: Constitutional: Reports no additional constitutional complaints Eyes: Eyes: Reports no additional eye complaints ENT: Reports system reviewed and no additional complaints, except as documented Cardiovascular: Cardiovascular: Reports no additional cardiovascular complaints Respiratory: Respiratory: Reports no additional respiratory complaints Gastrointestinal: Gastrointestinal: Reports no additional gastrointestinal complaints Genitourinary: Genitourinary: Reports no additional male genitourinary complaints Musculoskeletal: Musculoskeletal: Reports no additional musculoskeletal complaints Integumentary/Breasts: Skin/Breast: Reports system reviewed and no additional complaints, except as docu Neurologic: Reports system reviewed and no additional complaints, except as documented Psychiatric: Psychiatric: Reports no additional psychiatric complaints Endocrine: Endocrine: Reports no additional endocrine complaints PMFSH Past Medical History Medical History Anemia Atrial fibrillation 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 Coronary artery disease End-stage renal disease on hemodialysis Dialysis Tuesday, Tuesday, Tuesday. Gastritis History of left above knee amputation Hyperlipidemia Hypertension Insulin dependent type 2 diabetes mellitus Complicated by retinopathy, neuropathy, and nephropathy. 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 EITAN 05/08/20 shows persistent mobile echodensity. Surgical H
--- NOTE | 2021-05-23 11:25 | PM.IMPN ---
Progress Note: A&P Assessment and Plan (1) COVID-19: Code(s): U07.1 - COVID-19 Status: Acute Assessment and Plan: Patient reports weakness and generalized body aches for the past several days. Not currently requiring oxygen though chest x-ray shows a moderate amount of ill-defined bilateral edema or pneumonia. It is difficult to say whether or not this is pneumonia related to COVID or edema secondary to missed dialysis. Either way he does not meet criteria for dexamethasone or remdesivir. He has been placed in isolation per protocol. (2) Insulin dependent type 2 diabetes mellitus: Code(s): E11.9 - Type 2 diabetes mellitus without complications; Z79.4 - intermodal owner operator truck driver (current) use of insulin Status: Acute Assessment and Plan: Continue basal insulin. Initiate sliding scale insulin, Accu-Cheks, and hypoglycemic protocol. (3) End-stage renal disease on hemodialysis: Code(s): N18.6 - End stage renal disease; Z99.2 - Dependence on renal dialysis Status: Acute Assessment and Plan: Nephrology consulted for dialysis tomorrow. No acute electrolyte abnormalities noted on today's labs. (4) Anemia: Qualifiers: Anemia type: unspecified type Qualified Code(s): D64.9 - Anemia, unspecified Code(s): D64.9 - Anemia, unspecified Status: Acute Assessment and Plan: Hemoglobin and hematocrit are stable on review of previous labs. (5) Hypertension: Qualifiers: Hypertension type: essential hypertension Qualified Code(s): I10 - Essential (primary) hypertension Code(s): I10 - Essential (primary) hypertension Status: Chronic Assessment and Plan: Blood pressures were reviewed and they have been running high in the 170 systolic. We will continue with his antihypertensives and monitor closely. May need p.r.n. antihypertensives. Additional Plan 05/23/2021 Will continue current plan of care and treatment. Monitor oxygen and culture, nephrology consult note Subjective Date/time seen: 05/23/21 11:25 Patient was seen during morning rounds today. Patient is resting comfortably. Shortness of breath no chest. No abdominal pain, nausea, vomiting, mood stable. Review of Systems Review of Systems: All systems reviewed & are unremarkable except as noted in HPI and below (the history and physical examination.) Exam Narrative: General: Chronically ill male appearing older than his stated age in bed. Weight: 90.9 kg. HEENT: Right pupil is opaque and white. Left pupil is reactive. Sclerae anicteric. Conjunctiva moderately injected. Mucous membranes are tacky. Multiple missing teeth. Oropharynx poorly visualized. Neck: Supple. No obvious JVD. Respiratory: Respirations are nonlabored. Bibasilar crackles noted. Cardiovascular: Regular rate and rhythm with S1-S2. Systolic murmur verses radiation of brief from AV fistula heard throughout the precordium. Gastrointestinal: Abdomen is soft, nontender, and nondistended with positive bowel sounds. Skin: Warm and dry. Bruising on the right forearm and behind the elbow. Extremities: No cyanosis or clubbing. No significant edema of the right lower extremity. He is status post left [id number] amputation. There is a left forearm AV fistula with palpable thrill and bruit. Right pedal pulse heard with the Doppler. Right radial pulse palpable. Right foot is in a waffle boot. There is a dry eschar on the heel which is chronic. Neurological: Alert to name and date of . Cranial nerves 2-12 are grossly intact. Speech is clear. No facial asymmetry. Baseline right-sided weakness. Psychiatric: Pleasant confused and cooperative. Objective Data Vital Signs Vital Signs: Vital Signs - 24 hr 05/22/21 16:11 05/22/21 16:18 05/22/21 16:22 Temperature 36.7 C Pulse Rate 77 77 81 Respiratory Rate 24 H 14 Blood Pressure 198/80 H Pulse Oximetry 96 97 05/22/21 16:30 05/22/21 16:51 05/05
[2021-05-23] MEDS: INSULIN ASPART (*BKC) 100 UNITS/ML SUB-Q (12:15)
[2021-05-23 12:18] LABS: Glucose Point of Care 247 mg/dl (65-105)
[2021-05-23] MEDS: MINOCYCLINE HCL 50 MG CAPSULE 100 MG PO ×2 (13:17→22:16)
[2021-05-23] MEDS: SUCRALFATE 1 GM TABLET PO (13:17)
[2021-05-23] MEDS: cloNIDine HCL 0.1 MG TABLET PO ×2 (13:17→22:17)
[2021-05-23] MEDS: EPOETIN ALFA-EPBX 10,000 UNITS/ML VIAL 10000 UNITS IV PUSH (18:03)
[2021-05-23 20:38] LABS: Glucose Point of Care 155 mg/dl (65-105)
[2021-05-23] MEDS: APIXABAN 2.5 MG TABLET PO (22:16)
[2021-05-23] MEDS: INSULIN GLARGINE (*BKC) 100 UNITS/ML 10 UNITS SUB-Q (22:17)
[2021-05-24] VITALS (10 sets, daily range): BP systolic 171–200; BP diastolic 58–72; PULSE 73–93; RESP 16–18; TEMP 36.6–36.8; O2SAT 96–100
[2021-05-24 06:30] LABS: Albumin Level 3.3 g/dL (3.5-5.1); Anion Gap 8 mmol/L (8-16); Blood Urea Nitrogen 30 mg/dL (9-20); Calcium 8.8 mg/dL (8.4-10.2); Carbon Dioxide 30 mmol/L (22-30); Chloride 96 mmol/L (98-107); Estimated CRCL calculation 18 ml/min; Estimated Glomerular Filt Rate 21; Glucose 50 mg/dL (65-110); Phosphorus 3.1 mg/dL (2.5-4.5); Potassium 3.6 mmol/L (3.4-5.0); Sodium 134 mmol/L (137-145)
[2021-05-24] MEDS: cloNIDine HCL 0.1 MG TABLET PO ×3 (06:40→20:26)
[2021-05-24] MEDS: SUCRALFATE 1 GM TABLET PO ×3 (06:40→17:05)
[2021-05-24 07:47] LABS: Glucose Point of Care 70 mg/dl (65-105)
[2021-05-24] MEDS: UMECLIDINIUM BROMIDE 62.5 MCG ELLIPTA 1 PUFF INHALATION (07:57)
--- NOTE | 2021-05-24 08:26 | PM.PNNEP ---
Progress Note: A&P Additional Plan 1. The patient has end-stage renal disease. He is had dialysis yesterday. Will do another treatment tomorrow. Will try to take off more fluid. 2. The patient has COVID-19. He is not requiring oxygen. He is on respiratory isolation 3. The patient has hypertension. His blood pressure is high, in spite of taking fluid off yesterday.. He is on amlodipine, clonidine, hydralazine. Will increase amlodipine to 10mg. 3. The patient has diabetes. He is on Accu-Cheks and sliding-scale insulin per hospitalists. 4. The patient has coronary artery disease. He is not having any chest pain. 5. The patient has a history of atrial fibrillation. His rhythm is regular and his EKG shows sinus rhythm. Heart rate is good in the 70s and 80s. 6. The patient has a history of mitral valve endocarditis. The patient has been seeing Cardiology. He had a EITAN in May. Dr. Joshua is involved in his care. He and his sister are considering cardiothoracic surgical consultation in [facility] as an outpatient. He is on Eliquis Subjective Date/time seen: 05/24/21 08:26 Interval history: Vale is feeling better today. Less short of breath. Not much of a cough. No fevers. He is eating okay. Review of Systems Cardiovascular: Cardiovascular: Reports no additional cardiovascular complaints Respiratory: Respiratory: Reports no additional respiratory complaints Gastrointestinal: Gastrointestinal: Reports no additional gastrointestinal complaints Genitourinary: Genitourinary: Reports no additional male genitourinary complaints Exam Narrative: WDWN in NAD skin no rash head ncat lungs decreased breath sounds at the bases cor reg no rub abd BS+ nontender and soft ext no edema. Objective Data Vital Signs Vital Signs: Vital Signs - 24 hr 05/23/21 12:00 05/23/21 14:00 05/23/21 15:57 Temperature 36.6 C 36.6 C Pulse Rate 84 83 80 Respiratory Rate 16 20 Blood Pressure 158/75 H 188/98 H Pulse Oximetry 99 05/23/21 16:00 05/23/21 16:30 05/23/21 17:00 Temperature Pulse Rate 79 72 78 Respiratory Rate Blood Pressure 197/92 H 185/89 H 187/81 H Pulse Oximetry 05/23/21 17:30 05/23/21 18:15 05/23/21 18:25 Temperature Pulse Rate 79 79 77 Respiratory Rate Blood Pressure 184/93 H 195/89 H 195/99 H Pulse Oximetry 05/23/21 22:05 05/24/21 00:00 05/24/21 05:21 Temperature 36.0 C L Pulse Rate 85 75 81 Respiratory Rate 18 Blood Pressure 196/73 H Pulse Oximetry 99 05/24/21 06:52 05/24/21 08:03 Temperature 36.7 C Pulse Rate 74 Respiratory Rate 18 Blood Pressure 184/72 H Pulse Oximetry 96 98 Intake/Output Intake/Output: Intake & Output 05/21/21 05/22/21 05/23/21 05/24/21 23:59 23:59 23:59 23:59 Intake Total 420 175 Output Total 2360 Balance -1940 175 Meds/Results Medications: Active Medications Generic Name Dose Route Start Last Admin Trade Name Freq PRN Reason Stop Dose Admin Albuterol 2 puff 05/23/21 11:38 Albuterol Sulfate (*Sp) Aerosol 1 Puff INHALATION Q4HRT PRN Shortness Of Breath Or Wheezing Amlodipine Besylate 10 mg 05/24/21 09:00 Amlodipine Besylate 5 Mg Tablet PO DAILY VAL Apixaban 2.5 mg 05/23/21 21:00 05/23/21 22:16 Apixaban 2.5 Mg Tablet PO 2.5 mg Q12HR VAL Administration Ascorbic Acid 500 mg 05/23/21 17:00 05/23/21 15:59 Ascorbic Acid 500 Mg Tablet PO Not Given BID VAL Clonidine HCl 0.1 mg 05/23/21 12:00 05/24/21 06:40 Clonidine Hcl 0.1 Mg Tablet PO 0.1 mg Q8HR VAL Administration Dextrose 12.5 gm 05/22/21 21:31 Dextrose 50% 25 Gm/50 Ml Syringe IV PUSH PRN PRN Hypoglycemia Protocol Glucagon 1 mg 05/22/21 21:31 Glucagon For Inj 1 Mg Vial IM PRN PRN Hypoglycemia Protocol Glucagon 1 mg 05/23/21 11:22 Glucagon For Inj 1 Mg Vial SUB-Q Q20M PRN
--- NOTE | 2021-05-24 09:19 | PM.IMPN ---
Progress Note: A&P Assessment and Plan (1) COVID-19: Code(s): U07.1 - COVID-19 Status: Acute Assessment and Plan: Patient reports weakness and generalized body aches for the past several days. Not currently requiring oxygen though chest x-ray shows a moderate amount of ill-defined bilateral edema or pneumonia. It is difficult to say whether or not this is pneumonia related to COVID or edema secondary to missed dialysis. Either way he does not meet criteria for dexamethasone or remdesivir. He has been placed in isolation per protocol. 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 Initiate sliding scale insulin, Accu-Cheks, and hypoglycemic protocol. (3) End-stage renal disease on hemodialysis: Code(s): N18.6 - End stage renal disease; Z99.2 - Dependence on renal dialysis Status: Acute Assessment and Plan: Nephrology consulted for dialysis tomorrow. No acute electrolyte abnormalities noted on today's labs. (4) Anemia: Qualifiers: Anemia type: unspecified type Qualified Code(s): D64.9 - Anemia, unspecified Code(s): D64.9 - Anemia, unspecified Status: Acute Assessment and Plan: Hemoglobin and hematocrit are stable on review of previous labs. (5) Hypertension: Qualifiers: Hypertension type: essential hypertension Qualified Code(s): I10 - Essential (primary) hypertension Code(s): I10 - Essential (primary) hypertension Status: Chronic Assessment and Plan: Blood pressures were reviewed and they have been running high in the 170 systolic. We will continue with his antihypertensives and monitor closely. May need p.r.n. antihypertensives. Additional Plan 05/23/2021 Will continue current plan of care and treatment. Monitor oxygen and culture, nephrology consult noted. 05/24/2021 Patient is clinically improving, not requiring any oxygen at present time. Plan is to continue current treatment with dialysis, repeat x-ray and labs, if stays okay will discharge in the morning Subjective Date/time seen: 05/24/21 09:19 Patient was seen during morning rounds today. Patient is feeling slightly better. Decreased shortness of breath. Chest pain. No abdominal pain, no nausea, no vomiting, mood stable. Review of Systems Review of Systems: All systems reviewed & are unremarkable except as noted in HPI and below (the history and physical examination.) Exam Narrative: General: Chronically ill male appearing older than his stated age in bed. Weight: 90.9 kg. HEENT: Right pupil is opaque and white. Left pupil is reactive. Sclerae anicteric. Conjunctiva moderately injected. Mucous membranes are tacky. Multiple missing teeth. Oropharynx poorly visualized. Neck: Supple. No obvious JVD. Respiratory: Respirations are nonlabored. Bibasilar crackles noted. Cardiovascular: Regular rate and rhythm with S1-S2. Systolic murmur verses radiation of brief from AV fistula heard throughout the precordium. Gastrointestinal: Abdomen is soft, nontender, and nondistended with positive bowel sounds. Skin: Warm and dry. Bruising on the right forearm and behind the elbow. Extremities: No cyanosis or clubbing. No significant edema of the right lower extremity. He is status post left [id number] amputation. There is a left forearm AV fistula with palpable thrill and bruit. Right pedal pulse heard with the Doppler. Right radial pulse palpable. Right foot is in a waffle boot. There is a dry eschar on the heel which is chronic. Neurological: Alert to name and date of . Cranial nerves 2-12 are grossly intact. Speech is clear. No facial asymmetry. Baseline right-sided weakness. Psychiatric: Pleasant confused and cooperative. Objective Data Vital Signs Vital Signs
[2021-05-24] MEDS: MINOCYCLINE HCL 50 MG CAPSULE 100 MG PO ×2 (10:03→20:26)
[2021-05-24] MEDS: hydrALAZINE HCL 25 MG TABLET PO ×2 (10:03→17:05)
[2021-05-24] MEDS: APIXABAN 2.5 MG TABLET PO ×2 (10:03→20:26)
[2021-05-24] MEDS: PANTOPRAZOLE 40 MG TABLET PO (10:03)
[2021-05-24] MEDS: ASCORBIC ACID 500 MG TABLET PO ×2 (10:03→17:05)
[2021-05-24] MEDS: amLODIPine BESYLATE 5 MG TABLET 10 MG PO (10:04)
[2021-05-24 12:05] LABS: Glucose Point of Care 250 mg/dl (65-105)
[2021-05-24] MEDS: INSULIN ASPART (*BKC) 100 UNITS/ML SUB-Q (12:51)
[2021-05-24 17:20] LABS: Glucose Point of Care 89 mg/dl (65-105)
[2021-05-24 20:17] LABS: Glucose Point of Care 149 mg/dl (65-105)
[2021-05-24] MEDS: INSULIN GLARGINE (*BKC) 100 UNITS/ML 10 UNITS SUB-Q (20:26)
[2021-05-25] VITALS (10 sets, daily range): BP systolic 156–190; BP diastolic 74–91; PULSE 69–90; RESP 18; TEMP 36.6–37.6; O2SAT 97–100
[2021-05-25] MEDS: cloNIDine HCL 0.1 MG TABLET PO ×3 (06:02→21:08)
[2021-05-25] MEDS: SUCRALFATE 1 GM TABLET PO ×3 (06:02→17:41)
[2021-05-25 06:13] LABS: Alanine Aminotransferase 16 U/L (4-50); Alkaline Phosphatase 87 U/L (38-126); Anion Gap 10 mmol/L (8-16); Aspartate Amino Transferase 33 U/L (17-59); Bilirubin,Total 0.9 mg/dL (0.2-1.3); Blood Urea Nitrogen 36 mg/dL (9-20); Calcium 8.5 mg/dL (8.4-10.2); Carbon Dioxide 22 mmol/L (22-30); Chloride 96 mmol/L (98-107); Estimated CRCL calculation 16 ml/min; Estimated Glomerular Filt Rate 19; Glucose 47 mg/dL (65-110); Phosphorus 3.6 mg/dL (2.5-4.5); Sodium 128 mmol/L (137-145)
[2021-05-25] MEDS: GLUCOSE ORAL GEL 15 GM OF GLUCSE IN 37.5 GM TUBE PO (06:15)
[2021-05-25 06:59] LABS: Glucose Point of Care 73 mg/dl (65-105)
[2021-05-25 07:56] LABS: Glucose Point of Care 95 mg/dl (65-105)
[2021-05-25] MEDS: UMECLIDINIUM BROMIDE 62.5 MCG ELLIPTA 1 PUFF INHALATION (08:20)
[2021-05-25] MEDS: amLODIPine BESYLATE 5 MG TABLET 10 MG PO (08:37)
[2021-05-25] MEDS: ASCORBIC ACID 500 MG TABLET PO ×2 (08:37→17:41)
[2021-05-25] MEDS: APIXABAN 2.5 MG TABLET PO ×2 (08:37→21:03)
[2021-05-25] MEDS: MINOCYCLINE HCL 50 MG CAPSULE 100 MG PO ×2 (08:37→21:03)
[2021-05-25] MEDS: PANTOPRAZOLE 40 MG TABLET PO (08:37)
[2021-05-25] MEDS: hydrALAZINE HCL 25 MG TABLET PO ×2 (08:38→17:41)
[2021-05-25 09:08] LABS: Hematocrit 23.8 % (42.0-52.0); Hemoglobin 7.5 g/dL (14.0-18.0); Mean Corpuscular HGB Conc 31.5 g/dl (32-36); Mean Corpuscular Hemoglobin 27.1 pg (26-34); Mean Corpuscular Volume 85.9 fl (80-100); Platelet Count Result 255 k/mm3 (150-375); Red Blood Count 2.77 M/mm3 (4.6-6.20); White Blood Count 7.1 K/mm3 (4.5-10.0)
[2021-05-25 11:12] LABS: Glucose Point of Care 192 mg/dl (65-105)
--- NOTE | 2021-05-25 15:50 | PM.PNNEP ---
Progress Note: A&P Assessment and Plan (1) End stage renal disease: Code(s): N18.6 - End stage renal disease Status: Chronic Assessment and Plan: had planned HD today but to isolation precautions, HD likely tomorrow follow electrolytes, volume status, and clearance (2) COVID-19: Code(s): U07.1 - COVID-19 Status: Acute Assessment and Plan: mild symptoms (weakness and malaise) but respiratory status stable not hypoxic although CXR results noted (due to missed HD versus COVID?) no need for remdesivir or steroids (3) Hypertension: Qualifiers: Hypertension type: essential hypertension Qualified Code(s): I10 - Essential (primary) hypertension Code(s): I10 - Essential (primary) hypertension Status: Chronic Assessment and Plan: poor control noted follow trend with fluid removal with HD titrate hydralazine and/or amlodipine consider adding VITALY-I/ARB if no contraindication (4) Anemia: Qualifiers: Anemia type: due to chronic kidney disease Chronic kidney disease stage: on chronic dialysis Qualified Code(s): N18.6 - End stage renal disease; D63.1 - Anemia in chronic kidney disease; Z99.2 - Dependence on renal dialysis Code(s): D64.9 - Anemia, unspecified Status: Chronic Assessment and Plan: due to ESRD high dose Epogen with HD follow trend of H/H (5) Diabetes mellitus: Qualifiers: Chronic kidney disease stage: on chronic dialysis Diabetes mellitus complication detail: with chronic kidney disease Diabetes mellitus complication status: with kidney complications Diabetes mellitus halfway insulin use: without long term care pharmacist use Diabetes mellitus type: type 2 Qualified Code(s): E11.22 - Type 2 diabetes mellitus with diabetic chronic kidney disease; N18.6 - End stage renal disease; Z99.2 - Dependence on renal dialysis Code(s): E11.9 - Type 2 diabetes mellitus without complications Status: Acute Assessment and Plan: follow accuchecks on Lantus and SSI Will continue to follow Subjective Date/time seen: 05/25/21 15:50 Chart reviewed - assuming care from Dr. Mustafa; appears to be doing reasonably well; blood pressure control is a bit erratic but denies any acute complaints; no issues/events overnight or earlier this AM. Exam Narrative: General: chronically ill appearing AA male in NAD Heart: normal S1 and S2; no rub Lungs: decreased breath sounds at bases Abdomen: soft, nontender, nondistended, positive bowel sounds Extremities: no cyanosis or clubbing; no edema Skin: warm and dry Objective Data Vital Signs Vital Signs: Vital Signs Temp Pulse Resp BP Pulse Ox 05/25/21 12:00 87 05/25/21 08:21 98 05/25/21 08:00 69 05/25/21 06:54 36.6 C 80 18 190/91 H 100 05/25/21 04:00 77 05/25/21 00:00 73 05/24/21 22:13 36.6 C 80 18 200/58 H 99 05/24/21 20:00 82 Intake/Output Intake/Output: Intake & Output 05/22/21 05/23/21 05/24/21 05/25/21 23:59 23:59 23:59 23:59 Intake Total 420 1185 860 Output Total 2360 Balance -1940 1185 860 Meds/Results Medications: Active Medications Generic Name Dose Route Start Last Admin Trade Name Freq PRN Reason Stop Dose Admin Albuterol 2 puff 05/23/21 11:38 Albuterol Sulfate (*Sp) Aerosol 1 Puff INHALATION Q4HRT PRN Shortness Of Breath Or Wheezing Amlodipine Besylate 10 mg 05/24/21 09:00 05/25/21 08:37 Amlodipine Besylate 5 Mg Tablet PO 10 mg DAILY VAL Administration Apixaban 2.5 mg 05/23/21 21:00 05/25/21 08:37 Apixaban 2.5 Mg Tablet PO 2.5 mg Q12HR VAL Administration Ascorbic Acid 500 mg 05/23/21 17:00 05/25/21 17:41 Ascorbic Acid 500 Mg Tablet PO 500 mg BID VAL Administration Clonidine HCl 0.1 mg 05/23/21 12:00 05/25/21 13:01 Clonidine Hcl 0.1 Mg Tablet PO 0.1 mg Q8HR VAL Administration Dextrose 12.5 gm 0
[2021-05-25 16:20] LABS: Glucose Point of Care 125 mg/dl (65-105)
--- NOTE | 2021-05-25 17:54 | PM.IMPN ---
Progress Note: A&P Assessment and Plan (1) COVID-19: Code(s): U07.1 - COVID-19 Status: Acute Assessment and Plan: Mild symptoms. Patient reports weakness and generalized body aches for the past several days. Not currently requiring oxygen though chest x-ray shows a moderate amount of ill-defined bilateral edema or pneumonia. It is difficult to say whether or not this is pneumonia related to COVID or edema secondary to missed dialysis. Either way he does not meet criteria for dexamethasone or remdesivir. He has been placed in isolation per protocol. (2) Insulin dependent type 2 diabetes mellitus: Code(s): E11.9 - Type 2 diabetes mellitus without complications; Z79.4 - half-way (current) use of insulin Status: Acute Assessment and Plan: Continue basal insulin. Initiate sliding scale insulin, Accu-Cheks, and hypoglycemic protocol. Accu-Chek in the 72-192 range. (3) End-stage renal disease on hemodialysis: Code(s): N18.6 - End stage renal disease; Z99.2 - Dependence on renal dialysis Status: Acute Assessment and Plan: Nephrology consulted for dialysis tomorrow. No acute electrolyte abnormalities noted on today's labs. (4) Anemia: Qualifiers: Anemia type: unspecified type Qualified Code(s): D64.9 - Anemia, unspecified Code(s): D64.9 - Anemia, unspecified Status: Acute Assessment and Plan: Hemoglobin and hematocrit are stable on review of previous labs. (5) Hypertension: Qualifiers: Hypertension type: essential hypertension Qualified Code(s): I10 - Essential (primary) hypertension Code(s): I10 - Essential (primary) hypertension Status: Chronic Assessment and Plan: Blood pressures were reviewed and they have been running high in the 180 systolic. Patient is intravascular overloaded and needs additional renal replacement therapy. We will continue with his antihypertensives and monitor closely. May need p.r.n. antihypertensives. Additional Plan 05/23/2021 Will continue current plan of care and treatment. Monitor oxygen and culture, nephrology consult noted. 05/24/2021 Patient is clinically improving, not requiring any oxygen at present time. Plan is to continue current treatment with dialysis, repeat x-ray and labs, if stays okay will discharge in the morning Subjective Date/time seen: 05/25/21 17:54 S: Patient was seen examined at the bedside. He denies any complaint. Appetite is robust. Blood pressure remains elevated. Review of Systems Review of Systems: All systems reviewed & are unremarkable except as noted in HPI and below (the history and physical examination.) Exam Narrative: General: Chronically ill male appearing older than his stated age in bed. Weight: 90.9 kg. HEENT: Right pupil is opaque and white. Left pupil is reactive. Sclerae anicteric. Conjunctiva moderately injected. Mucous membranes are tacky. Multiple missing teeth. Oropharynx poorly visualized. Neck: Supple. No obvious JVD. Respiratory: Respirations are nonlabored. Bibasilar crackles noted. Cardiovascular: Regular rate and rhythm with S1-S2. Systolic murmur verses radiation of brief from AV fistula heard throughout the precordium. Gastrointestinal: Abdomen is soft, nontender, and nondistended with positive bowel sounds. Skin: Warm and dry. Bruising on the right forearm and behind the elbow. Extremities: No cyanosis or clubbing. No significant edema of the right lower extremity. He is status post left [id number] amputation. There is a left forearm AV fistula with palpable thrill and bruit. Right pedal pulse heard with the Doppler. Right radial pulse palpable. Right foot is in a waffle boot. There is a dry eschar on the heel which is chronic. Neurological: Alert to name and date of . Cranial nerves 2-12 are grossly intact. Speech is clear. No facial asymmetry. Baseline right-sided weakness. Psychiatric: Pl
[2021-05-25 20:37] LABS: Glucose Point of Care 136 mg/dl (65-105)
[2021-05-25] MEDS: INSULIN GLARGINE (*BKC) 100 UNITS/ML 10 UNITS SUB-Q (21:05)
[2021-05-26] VITALS (24 sets, daily range): BP systolic 154–206; BP diastolic 43–97; PULSE 79–91; RESP 16–18; TEMP 35.6–37.2; O2SAT 96–100
[2021-05-26] MEDS: cloNIDine HCL 0.1 MG TABLET PO ×3 (06:30→21:20)
[2021-05-26] MEDS: SUCRALFATE 1 GM TABLET PO ×2 (06:30→16:33)
[2021-05-26] MEDS: ASCORBIC ACID 500 MG TABLET PO ×2 (08:14→16:33)
[2021-05-26] MEDS: PANTOPRAZOLE 40 MG TABLET PO (08:14)
[2021-05-26] MEDS: MINOCYCLINE HCL 50 MG CAPSULE 100 MG PO ×2 (08:14→21:17)
[2021-05-26] MEDS: hydrALAZINE HCL 25 MG TABLET PO ×2 (08:14→16:34)
[2021-05-26] MEDS: amLODIPine BESYLATE 5 MG TABLET 10 MG PO (08:14)
[2021-05-26] MEDS: APIXABAN 2.5 MG TABLET PO ×2 (08:15→21:17)
[2021-05-26 08:41] LABS: Glucose Point of Care 131 mg/dl (65-105)
[2021-05-26] MEDS: UMECLIDINIUM BROMIDE 62.5 MCG ELLIPTA 1 PUFF INHALATION (09:00)
--- NOTE | 2021-05-26 12:04 | PM.PNNEP ---
Progress Note: A&P Assessment and Plan (1) End stage renal disease: Code(s): N18.6 - End stage renal disease Status: Chronic Assessment and Plan: HD today and continue 3x/week treatments follow electrolytes, volume status, and clearance outpatient planning for dialysis at a COVID HD unit due to recent positive testing (2) COVID-19: Code(s): U07.1 - COVID-19 Status: Acute Assessment and Plan: mild symptoms (weakness and malaise) but respiratory status stable not hypoxic although CXR results noted (due to missed HD versus COVID?) no need for remdesivir or steroids (3) Hypertension: Qualifiers: Hypertension type: essential hypertension Qualified Code(s): I10 - Essential (primary) hypertension Code(s): I10 - Essential (primary) hypertension Status: Chronic Assessment and Plan: poor control noted follow trend with fluid removal with HD titrate hydralazine and/or amlodipine consider adding VITALY-I/ARB if no contraindication (4) Anemia: Qualifiers: Anemia type: due to chronic kidney disease Chronic kidney disease stage: on chronic dialysis Qualified Code(s): N18.6 - End stage renal disease; D63.1 - Anemia in chronic kidney disease; Z99.2 - Dependence on renal dialysis Code(s): D64.9 - Anemia, unspecified Status: Chronic Assessment and Plan: due to ESRD high dose Epogen with HD follow trend of H/H (5) Diabetes mellitus: Qualifiers: Chronic kidney disease stage: on chronic dialysis Diabetes mellitus complication detail: with chronic kidney disease Diabetes mellitus complication status: with kidney complications Diabetes mellitus parts counterman insulin use: without parts counterman use Diabetes mellitus type: type 2 Qualified Code(s): E11.22 - Type 2 diabetes mellitus with diabetic chronic kidney disease; N18.6 - End stage renal disease; Z99.2 - Dependence on renal dialysis Code(s): E11.9 - Type 2 diabetes mellitus without complications Status: Acute Assessment and Plan: follow accuchecks on Lantus and SSI Will continue to follow Subjective Date/time seen: 05/26/21 12:04 Tolerating dialysis at the time of my visit (seen on HD at 11:55AM); no apparent distress voiced (sleeping comfortably when seen); BP doing better with dialysis treatment; no other issues/events overnight or earlier this morning. Exam Narrative: General: chronically ill appearing AA male in NAD Heart: normal S1 and S2; no rub Lungs: decreased breath sounds at bases Abdomen: soft, nontender, nondistended, positive bowel sounds Extremities: no cyanosis or clubbing; no edema Skin: warm and intact Objective Data Vital Signs Vital Signs: Vital Signs Temp Pulse Resp BP Pulse Ox 05/26/21 11:43 84 154/65 H 05/26/21 11:30 36.6 C 84 18 166/86 H 05/26/21 09:18 98 05/26/21 09:00 36.6 C 89 18 206/97 H 97 05/26/21 08:00 88 05/26/21 05:21 36.4 C 80 18 192/90 H 99 05/26/21 04:05 79 05/26/21 02:19 96 05/26/21 00:17 37.2 C 82 16 154/71 H 98 05/26/21 00:05 88 05/25/21 21:08 18 99 05/25/21 20:04 80 05/25/21 19:45 36.8 C 90 18 156/74 H 100 05/25/21 16:00 37.6 C H 82 18 188/77 H 97 Intake/Output Intake/Output: Intake & Output 05/23/21 05/24/21 05/25/21 05/26/21 23:59 23:59 23:59 23:59 Intake Total 420 1185 860 220 Output Total 2360 Balance -1940 1185 860 220 Meds/Results Medications: Active Medications Generic Name Dose Route Start Last Admin Trade Name Freq PRN Reason Stop Dose Admin Albuterol 2 puff 05/23/21 11:38 Albuterol Sulfate (*Sp) Aerosol 1 Puff INHALATION Q4HRT PRN Shortness Of Breath Or Wheezing Amlodipine Besylate 10 mg 05/24/21 09:00 05/26/21 08:14 Amlodipine Besylate 5 Mg Tablet PO 10 mg DAILY VAL Administration Apixaban 2.5 mg 05/23/21 21:00 05/26/21 08:15 Ap
[2021-05-26] MEDS: SODIUM CHLORIDE 0.9% IV 1,000 ML 999 ML IV CONT (12:40)
--- NOTE | 2021-05-26 16:22 | PM.IMPN ---
Progress Note: A&P Assessment and Plan (1) COVID-19: Code(s): U07.1 - COVID-19 Status: Acute Assessment and Plan: Mild symptoms. Patient reports weakness and generalized body aches for the past several days. Not currently requiring oxygen though chest x-ray shows a moderate amount of ill-defined bilateral edema or pneumonia. It is difficult to say whether or not this is pneumonia related to COVID or edema secondary to missed dialysis. Either way he does not meet criteria for dexamethasone or remdesivir. He has been placed in isolation per protocol. (2) Insulin dependent type 2 diabetes mellitus: Code(s): E11.9 - Type 2 diabetes mellitus without complications; Z79.4 - FDC (current) use of insulin Status: Acute Assessment and Plan: Continue basal insulin. Initiate sliding scale insulin, Accu-Cheks, and hypoglycemic protocol. Accu-Chek in the 72-192 range. (3) End-stage renal disease on hemodialysis: Code(s): N18.6 - End stage renal disease; Z99.2 - Dependence on renal dialysis Status: Acute Assessment and Plan: Nephrology consulted for dialysis tomorrow. No acute electrolyte abnormalities noted on today's labs. (4) Anemia: Qualifiers: Anemia type: unspecified type Qualified Code(s): D64.9 - Anemia, unspecified Code(s): D64.9 - Anemia, unspecified Status: Acute Assessment and Plan: Hemoglobin and hematocrit are stable on review of previous labs. (5) Hypertension: Qualifiers: Hypertension type: essential hypertension Qualified Code(s): I10 - Essential (primary) hypertension Code(s): I10 - Essential (primary) hypertension Status: Chronic Assessment and Plan: Blood pressures were reviewed and they have been running high in the 180 systolic. Patient is intravascular overloaded and needs additional renal replacement therapy. We will continue with his antihypertensives and monitor closely. May need p.r.n. antihypertensives. Additional Plan 05/23/2021 Will continue current plan of care and treatment. Monitor oxygen and culture, nephrology consult noted. 05/24/2021 Patient is clinically improving, not requiring any oxygen at present time. Plan is to continue current treatment with dialysis, repeat x-ray and labs, if stays okay will discharge in the morning. 05/25/2021 Patient is clinically improving, not requiring any oxygen at present time. However his blood pressure remains significantly elevated. This suggests intravascular fluid overload. Plan is to continue current treatment with dialysis, repeat x-ray with pulmonary edema and labs, if stays okay will discharge in the morning. 05/26/2021 Patient is clinically improving, not requiring any oxygen at present time. Plan is to continue current treatment with dialysis, repeat x-ray and labs, and perform a do not dialysis session in the morning. Discharge after a COVID-19 dialysis shift is identified for the patient out patient needs. Subjective Date/time seen: 05/26/21 16:22 S: Patient was seen and examined at the bedside; he is in very good spirits. There were no active complaints at the time of my encounter. Blood pressure remained elevated. A pulmonary edema as noted on yesterday's chest x-ray. Patient had a stable dialysis run today without reported issues. Plan for additional dialysis treatment tomorrow. Review of Systems Review of Systems: All systems reviewed & are unremarkable except as noted in HPI and below (the history and physical examination.) Exam Narrative: General: Chronically ill male appearing older than his stated age in bed. Weight: 90.9 kg. HEENT: Right pupil is opaque and white. Left pupil is reactive. Sclerae anicteric. Conjunctiva moderately injected. Mucous membranes are tacky. Multiple missing teeth. Oropharynx poorly visualized. Neck: Supple. No obvious JVD. Respiratory: Respirations are nonlabored. Bibasilar c
[2021-05-26 16:44] LABS: Glucose Point of Care 128 mg/dl (65-105)
[2021-05-26 20:31] LABS: Glucose Point of Care 172 mg/dl (65-105)
[2021-05-26] MEDS: INSULIN GLARGINE (*BKC) 100 UNITS/ML 10 UNITS SUB-Q (21:18)
[2021-05-27] VITALS (15 sets, daily range): BP systolic 146–194; BP diastolic 60–83; PULSE 76–89; RESP 16–20; TEMP 36.1–36.8; O2SAT 98–100
[2021-05-27] MEDS: cloNIDine HCL 0.1 MG TABLET PO ×3 (06:01→21:03)
[2021-05-27] MEDS: SUCRALFATE 1 GM TABLET PO ×3 (06:01→18:03)
[2021-05-27 08:10] LABS: Glucose Point of Care 76 mg/dl (65-105)
[2021-05-27] MEDS: UMECLIDINIUM BROMIDE 62.5 MCG ELLIPTA 1 PUFF INHALATION (08:13)
[2021-05-27] MEDS: MINOCYCLINE HCL 50 MG CAPSULE 100 MG PO ×2 (08:59→21:03)
[2021-05-27] MEDS: ASCORBIC ACID 500 MG TABLET PO ×2 (08:59→18:03)
[2021-05-27] MEDS: amLODIPine BESYLATE 5 MG TABLET 10 MG PO (09:00)
[2021-05-27] MEDS: APIXABAN 2.5 MG TABLET PO ×2 (09:00→21:03)
[2021-05-27] MEDS: hydrALAZINE HCL 25 MG TABLET PO ×2 (09:00→18:03)
[2021-05-27] MEDS: PANTOPRAZOLE 40 MG TABLET PO (09:00)
[2021-05-27 11:55] LABS: Glucose Point of Care 91 mg/dl (65-105)
--- NOTE | 2021-05-27 12:48 | PM.PNNEP ---
Progress Note: A&P Assessment and Plan (1) End stage renal disease: Code(s): N18.6 - End stage renal disease Status: Chronic Assessment and Plan: HD tomorrow and continue 3x/week treatments follow electrolytes, volume status, and clearance could potentially discharge tomorrow after dialysis and resume output HD on Tuesday (2) COVID-19: Code(s): U07.1 - COVID-19 Status: Acute Assessment and Plan: mild symptoms (weakness and malaise) but respiratory status stable not hypoxic although CXR results noted (due to missed HD versus COVID?) no need for remdesivir or steroids (3) Hypertension: Qualifiers: Hypertension type: essential hypertension Qualified Code(s): I10 - Essential (primary) hypertension Code(s): I10 - Essential (primary) hypertension Status: Chronic Assessment and Plan: poor control noted follow trend with fluid removal with HD titrate hydralazine and/or amlodipine consider adding VITALY-I/ARB if no contraindication (4) Anemia: Qualifiers: Anemia type: due to chronic kidney disease Chronic kidney disease stage: on chronic dialysis Qualified Code(s): N18.6 - End stage renal disease; D63.1 - Anemia in chronic kidney disease; Z99.2 - Dependence on renal dialysis Code(s): D64.9 - Anemia, unspecified Status: Chronic Assessment and Plan: due to ESRD high dose Epogen with HD follow trend of H/H (5) Diabetes mellitus: Qualifiers: Chronic kidney disease stage: on chronic dialysis Diabetes mellitus complication detail: with chronic kidney disease Diabetes mellitus complication status: with kidney complications Diabetes mellitus laboratory helper insulin use: without shelter use Diabetes mellitus type: type 2 Qualified Code(s): E11.22 - Type 2 diabetes mellitus with diabetic chronic kidney disease; N18.6 - End stage renal disease; Z99.2 - Dependence on renal dialysis Code(s): E11.9 - Type 2 diabetes mellitus without complications Status: Acute Assessment and Plan: follow accuchecks on Lantus and SSI Would not be opposed to discharge tomorrow after dialysis as he could resume his outpatient dialysis schedule on Tuesday at his current HD unit based on case management/social work job titles notes. Will continue to follow Subjective Date/time seen: 05/27/21 12:48 Tolerated dialysis treatment yesterday without any issues or problems; BP control continues to remain erratic at this time (but this apparently is a longstanding issue); no apparent distress voiced; no events/issues overnight or earlier this AM. Exam Narrative: General: chronically ill appearing AA male in NAD Heart: normal S1 and S2; no rub Lungs: decreased breath sounds at bases Abdomen: soft, nontender, nondistended, positive bowel sounds Extremities: no cyanosis or clubbing; no edema Skin: warm and intact Objective Data Vital Signs Vital Signs: Vital Signs Temp Pulse Resp BP Pulse Ox 05/27/21 12:00 83 05/27/21 08:57 36.1 C L 78 18 183/73 H 99 05/27/21 08:12 100 05/27/21 08:00 80 05/27/21 04:09 36.7 C 76 16 149/64 H 100 05/27/21 04:03 89 05/27/21 00:05 88 05/27/21 00:00 36.8 C 84 18 146/60 H 100 05/26/21 21:18 16 100 05/26/21 20:04 88 05/26/21 19:52 37.2 C 83 16 156/78 H 100 Intake/Output Intake/Output: Intake & Output 05/24/21 05/25/21 05/26/21 05/27/21 23:59 23:59 23:59 23:59 Intake Total 1185 778 289 4840 Output Total 2100 0 Balance 1185 860 -1340 1060 Meds/Results Medications: Active Medications Generic Name Dose Route Start Last Admin Trade Name Freq PRN Reason Stop Dose Admin Albuterol 2 puff 05/23/21 11:38 Albuterol Sulfate (*Sp) Aerosol 1 Puff INHALATION Q4HRT PRN Shortness Of Breath Or Wheezing Amlodipine Besylate 10 mg 05/24/21 09:00 05/27/21 09:00 Amlodipine Besylate 5 Mg Tablet PO
--- NOTE | 2021-05-27 16:00 | PM.IMPN ---
Progress Note: A&P Assessment and Plan (1) COVID-19: Code(s): U07.1 - COVID-19 Status: Acute Assessment and Plan: Mild symptoms. Patient reports weakness and generalized body aches for the past several days. Not currently requiring oxygen though chest x-ray shows a moderate amount of ill-defined bilateral edema or pneumonia. It is difficult to say whether or not this is pneumonia related to COVID or edema secondary to missed dialysis. Either way he does not meet criteria for dexamethasone or remdesivir. He has been placed in isolation per protocol. (2) Insulin dependent type 2 diabetes mellitus: Code(s): E11.9 - Type 2 diabetes mellitus without complications; Z79.4 - nursing home (current) use of insulin Status: Acute Assessment and Plan: Continue basal insulin. Initiate sliding scale insulin, Accu-Cheks, and hypoglycemic protocol. Accu-Chek in the 72-192 range. (3) End-stage renal disease on hemodialysis: Code(s): N18.6 - End stage renal disease; Z99.2 - Dependence on renal dialysis Status: Acute Assessment and Plan: Patient has a tolerating his regularly scheduled dialysis session. Blood pressure improving today. Will see feeding can tolerate ultrafiltration tomorrow. Plan for discharge after dialysis tomorrow. Obtain labs during dialysis tomorrow. (4) Anemia: Qualifiers: Anemia type: unspecified type Qualified Code(s): D64.9 - Anemia, unspecified Code(s): D64.9 - Anemia, unspecified Status: Acute Assessment and Plan: Hemoglobin and hematocrit are stable on review of previous labs. (5) Hypertension: Qualifiers: Hypertension type: essential hypertension Qualified Code(s): I10 - Essential (primary) hypertension Code(s): I10 - Essential (primary) hypertension Status: Chronic Assessment and Plan: Blood pressures were reviewed and they have been improving in the 150 systolic. Patient is intravascular overloaded and needs additional renal replacement therapy. We will continue with his antihypertensives and monitor closely. May need p.r.n. antihypertensives. Patient is scheduled for hemodialysis tomorrow. Discharge after dialysis. Additional Plan 05/23/2021 Will continue current plan of care and treatment. Monitor oxygen and culture, nephrology consult noted. 05/24/2021 Patient is clinically improving, not requiring any oxygen at present time. Plan is to continue current treatment with dialysis, repeat x-ray and labs, if stays okay will discharge in the morning. 05/25/2021 Patient is clinically improving, not requiring any oxygen at present time. However his blood pressure remains significantly elevated. This suggests intravascular fluid overload. Plan is to continue current treatment with dialysis, repeat x-ray with pulmonary edema and labs, if stays okay will discharge in the morning. 05/26/2021 Patient is clinically improving, not requiring any oxygen at present time. Plan is to continue current treatment with dialysis, repeat x-ray and labs, and perform a do not dialysis session in the morning. Discharge after a COVID-19 dialysis shift is identified for the patient out patient needs. 05/27/2021 Patient is clinically improving, not requiring any oxygen at present time. Plan is to continue current treatment with dialysis, repeat x-ray and labs, and perform a do a session of dialysis in the morning. Discharge after a COVID-19 dialysis shift is identified for the patient outpatient needs. Subjective Date/time seen: 05/27/21 15:45 S: Patient was seen examined at the bedside. He did not have any complaints. He was hungry; appetite has been robust. Review of Systems Review of Systems: All systems reviewed & are unremarkable except as noted in HPI and below (the history and physical examination.) Exam Narrative: General: Chronically ill male appearing older than his stated age in bed. Weight:
[2021-05-27 16:57] LABS: Glucose Point of Care 147 mg/dl (65-105)
--- NOTE | 2021-05-27 18:27 | PC.NURSE ---
PER HOSPITALIST, LUI MARTINEZ TO LEAVE IV OUT.
[2021-05-27] MEDS: INSULIN GLARGINE (*BKC) 100 UNITS/ML 10 UNITS SUB-Q (21:05)
[2021-05-27 21:06] LABS: Glucose Point of Care 174 mg/dl (65-105)
[2021-05-28] VITALS (11 sets, daily range): BP systolic 152–196; BP diastolic 76–105; PULSE 69–100; RESP 16–20; TEMP 36.1–36.5; O2SAT 96–100
[2021-05-28 06:05] LABS: Basophils Percent Auto 0.5 % (0.2-1.2); Eosinophils Absolute Auto 0.3 K/mm3 (0-0.3); Eosinophils Percent Auto 5.2 % (0-4.4); Hematocrit 26.6 % (42.0-52.0); Hemoglobin 8.2 g/dL (14.0-18.0); Immature Granulocyte Absolute 0.02 K/mm3 (0.00-0.031); Immature Granulocyte Percent A 0.3 % (0-0.5); Lymphocytes Absolute Auto 1.07 K/mm3 (0.9-3.2); Lymphocytes Percent Auto 17.5 % (18.3-44.2); Mean Corpuscular HGB Conc 30.8 g/dl (32-36); Mean Corpuscular Hemoglobin 26.7 pg (26-34); Mean Corpuscular Volume 86.6 fl (80-100); Mean Platelet Volume 10.7 fl (7.4-10.4); Monocytes Absolute Auto 0.6 K/mm3 (0.1-0.6); Monocytes Percent Auto 10.3 % (2.6-8.5); Neutrophils Absolute Auto 4.1 K/mm3 (1.3-6.7); Neutrophils Percent Auto 66.2 % (45.5-73.1); Nucleated Red Blood Cells Absolute Auto 0.1 K/mm3 (0.0-0.012); Nucleated Red Blood Cells Perc 2.1 % (0.0-0.2); Platelet Count Result 286 k/mm3 (150-375); Red Blood Count 3.07 M/mm3 (4.6-6.20); Red Cell Distribution Width 17.7 % (11.5-14.5); White Blood Count 6.1 K/mm3 (4.5-10.0)
[2021-05-28] MEDS: cloNIDine HCL 0.1 MG TABLET PO ×2 (06:17→13:43)
[2021-05-28] MEDS: SUCRALFATE 1 GM TABLET PO ×3 (06:17→17:50)
[2021-05-28 06:20] LABS: Anion Gap 10 mmol/L (8-16); Blood Urea Nitrogen 36 mg/dL (9-20); Calcium 8.4 mg/dL (8.4-10.2); Carbon Dioxide 27 mmol/L (22-30); Chloride 92 mmol/L (98-107); Estimated CRCL calculation 17 ml/min; Estimated Glomerular Filt Rate 17; Glucose 93 mg/dL (65-110); Potassium 3.8 mmol/L (3.4-5.0); Sodium 129 mmol/L (137-145)
[2021-05-28 07:55] LABS: Glucose Point of Care 89 mg/dl (65-105)
[2021-05-28] MEDS: UMECLIDINIUM BROMIDE 62.5 MCG ELLIPTA 1 PUFF INHALATION (08:45)
[2021-05-28] MEDS: amLODIPine BESYLATE 5 MG TABLET 10 MG PO (08:53)
[2021-05-28] MEDS: hydrALAZINE HCL 25 MG TABLET PO (08:53)
[2021-05-28] MEDS: ASCORBIC ACID 500 MG TABLET PO ×2 (08:53→17:50)
[2021-05-28] MEDS: MINOCYCLINE HCL 50 MG CAPSULE 100 MG PO (08:53)
[2021-05-28] MEDS: PANTOPRAZOLE 40 MG TABLET PO (08:53)
[2021-05-28] MEDS: APIXABAN 2.5 MG TABLET PO (08:53)
--- NOTE | 2021-05-28 11:09 | PM.PNNEP ---
Progress Note: A&P Assessment and Plan (1) End stage renal disease: Code(s): N18.6 - End stage renal disease Status: Chronic Assessment and Plan: planned HD today but unlikely to occur due to lack of HD nurses available and weather conditions, dialysis treatment unable to be done follow electrolytes, volume status, and clearance could potentially discharge today and resume output HD on Tuesday at his chronic dialysis unit (2) COVID-19: Code(s): U07.1 - COVID-19 Status: Acute Assessment and Plan: mild symptoms (weakness and malaise) but respiratory status stable not hypoxic although CXR results noted (due to missed HD versus COVID?) no need for remdesivir or steroids (3) Hypertension: Qualifiers: Hypertension type: essential hypertension Qualified Code(s): I10 - Essential (primary) hypertension Code(s): I10 - Essential (primary) hypertension Status: Chronic Assessment and Plan: poor control noted follow trend with fluid removal with HD titrate hydralazine and/or amlodipine consider adding VITALY-I/ARB if no contraindication (4) Anemia: Qualifiers: Anemia type: due to chronic kidney disease Chronic kidney disease stage: on chronic dialysis Qualified Code(s): N18.6 - End stage renal disease; D63.1 - Anemia in chronic kidney disease; Z99.2 - Dependence on renal dialysis Code(s): D64.9 - Anemia, unspecified Status: Chronic Assessment and Plan: due to ESRD high dose Epogen with HD follow trend of H/H (5) Diabetes mellitus: Qualifiers: Chronic kidney disease stage: on chronic dialysis Diabetes mellitus complication detail: with chronic kidney disease Diabetes mellitus complication status: with kidney complications Diabetes mellitus chcf insulin use: without emt intermediate use Diabetes mellitus type: type 2 Qualified Code(s): E11.22 - Type 2 diabetes mellitus with diabetic chronic kidney disease; N18.6 - End stage renal disease; Z99.2 - Dependence on renal dialysis Code(s): E11.9 - Type 2 diabetes mellitus without complications Status: Acute Assessment and Plan: follow accuchecks on Lantus and SSI Will continue to follow Subjective Date/time seen: 05/28/21 11:09 No new issues or problems to report at this time; no events overight or earlier this AM; no apparent distress noted; due for dialysis today but may not occur; no distress to report. Exam Narrative: General: chronically ill appearing AA male in NAD Heart: normal S1 and S2; no rub Lungs: decreased breath sounds at bases Abdomen: soft, nontender, nondistended, positive bowel sounds Extremities: no cyanosis or clubbing; no edema Skin: no rash or nodules Objective Data Vital Signs Vital Signs: Vital Signs Temp Pulse Resp BP Pulse Ox 05/28/21 09:33 36.2 C L 88 20 189/83 H 99 05/28/21 08:45 69 99 05/28/21 04:50 36.4 C 89 18 162/80 H 100 05/28/21 04:04 85 05/28/21 00:05 75 05/28/21 00:00 36.5 C 88 16 152/76 H 96 05/27/21 21:05 18 98 05/27/21 20:49 77 99 05/27/21 20:24 36.7 C 81 18 147/65 H 99 05/27/21 20:04 78 05/27/21 18:36 36.3 C L 78 20 150/72 H 98 05/27/21 16:00 78 05/27/21 14:39 36.1 C L 81 20 194/83 H 98 Intake/Output Intake/Output: Intake & Output 05/25/21 05/26/21 05/27/21 05/28/21 23:59 23:59 23:59 23:59 Intake Total 840 684 1968 420 Output Total 2100 0 Balance 860 -1340 1300 420 Meds/Results Medications: Active Medications Generic Name Dose Route Start Last Admin Trade Name Freq PRN Reason Stop Dose Admin Albuterol 2 puff 05/23/21 11:38 Albuterol Sulfate (*Sp) Aerosol 1 Puff INHALATION Q4HRT PRN Shortness Of Breath Or Wheezing Amlodipine Besylate 10 mg 05/24/21 09:00 05/28/21 08:53 Amlodipine Besylate 5 Mg Tablet PO 10 mg DAILY VAL Administration Apixaban
[2021-05-28 11:45] LABS: Glucose Point of Care 124 mg/dl (65-105)
--- NOTE | 2021-05-28 14:19 | PM.IMPN ---
Progress Note: A&P Assessment and Plan (1) COVID-19: Code(s): U07.1 - COVID-19 Status: Acute Assessment and Plan: Mild symptoms. Patient reports weakness and generalized body aches for the past several days. Not currently requiring oxygen though chest x-ray shows a moderate amount of ill-defined bilateral edema or pneumonia. Patient presented minimal symptoms. He remains on isolation per protocol. Will repeat chest x-ray prior to discharge. (2) Insulin dependent type 2 diabetes mellitus: Code(s): E11.9 - Type 2 diabetes mellitus without complications; Z79.4 - extermination supervisor (current) use of insulin Status: Acute Assessment and Plan: Continue basal insulin. Initiate sliding scale insulin, Accu-Cheks, and hypoglycemic protocol. Accu-Chek in the 124-174 range. (3) End-stage renal disease on hemodialysis: Code(s): N18.6 - End stage renal disease; Z99.2 - Dependence on renal dialysis Status: Acute Assessment and Plan: Patient has a tolerating his regularly scheduled dialysis session. Blood pressure is uncontrolled today. Increase hydralazine to 50 mg p.o. 8. Continue clonidine 0.1 mg Q 8 hours. Continue amlodipine 10 mg p.o. daily. (4) Anemia: Qualifiers: Anemia type: unspecified type Qualified Code(s): D64.9 - Anemia, unspecified Code(s): D64.9 - Anemia, unspecified Status: Acute Assessment and Plan: Hemoglobin and hematocrit are stable on review of previous labs. (5) Hypertension: Qualifiers: Hypertension type: essential hypertension Qualified Code(s): I10 - Essential (primary) hypertension Code(s): I10 - Essential (primary) hypertension Status: Chronic Assessment and Plan: Blood pressures were reviewed and they have been elevated in the 180 systolic. Patient is intravascular overloaded and needs additional renal replacement therapy. We will continue with his antihypertensives and monitor closely. May need p.r.n. antihypertensives. Patient is scheduled for hemodialysis tomorrow. Discharge after dialysis. Additional Plan 05/23/2021 Will continue current plan of care and treatment. Monitor oxygen and culture, nephrology consult noted. 05/24/2021 Patient is clinically improving, not requiring any oxygen at present time. Plan is to continue current treatment with dialysis, repeat x-ray and labs, if stays okay will discharge in the morning. 05/25/2021 Patient is clinically improving, not requiring any oxygen at present time. However his blood pressure remains significantly elevated. This suggests intravascular fluid overload. Plan is to continue current treatment with dialysis, repeat x-ray with pulmonary edema and labs, if stays okay will discharge in the morning. 05/26/2021 Patient is clinically improving, not requiring any oxygen at present time. Plan is to continue current treatment with dialysis, repeat x-ray and labs, and perform a do not dialysis session in the morning. Discharge after a COVID-19 dialysis shift is identified for the patient out patient needs. 05/27/2021 Patient is clinically improving, not requiring any oxygen at present time. Plan is to continue current treatment with dialysis, repeat x-ray and labs, and perform a do a session of dialysis in the morning. Discharge after a COVID-19 dialysis shift is identified for the patient outpatient needs. 05/27/2021 Patient is clinically improving, not requiring any oxygen at present time. Due to weather condition and logistic issues, dialysis could not be range today Plan is to continue current treatment with dialysis, repeat x-ray and labs, and perform a do a session of dialysis in the morning. Discharge after a COVID-19 dialysis shift is identified for the patient outpatient needs. Subjective Date/time seen: 05/28/21 11:15 S: Patient was seen examined at the bedside. Given comfortable. He denies headaches, neck pain. If breathing comfortably
--- NOTE | 2021-05-28 15:27 | PM.DS ---
DS: Admitting Diagnosis Discharge Date 05/28/2021 Admitting Diagnosis (1) COVID-19: (2) Insulin dependent type 2 diabetes mellitus: (3) End-stage renal disease on hemodialysis: (4) Anemia: (5) Hypertension: DS: Discharge Diagnosis Discharge Diagnosis (1) COVID-19: Code(s): U07.1 - COVID-19 Status: Acute Assessment and Plan: Mild symptoms. Patient reports weakness and generalized body aches for the past several days. Not currently requiring oxygen though chest x-ray shows a moderate amount of ill-defined bilateral edema or pneumonia. Patient presented minimal symptoms. He remains on isolation per protocol. Will repeat chest x-ray prior to discharge. (2) Insulin dependent type 2 diabetes mellitus: Code(s): E11.9 - Type 2 diabetes mellitus without complications; Z79.4 - custodial (current) use of insulin Status: Acute Assessment and Plan: Continue basal insulin. Initiate sliding scale insulin, Accu-Cheks, and hypoglycemic protocol. Accu-Chek in the 124-174 range. (3) End-stage renal disease on hemodialysis: Code(s): N18.6 - End stage renal disease; Z99.2 - Dependence on renal dialysis Status: Acute Assessment and Plan: Patient has a tolerating his regularly scheduled dialysis session. Blood pressure is uncontrolled today. Increase hydralazine to 50 mg p.o. 8. Continue clonidine 0.1 mg Q 8 hours. Continue amlodipine 10 mg p.o. daily. (4) Anemia: Qualifiers: Anemia type: unspecified type Qualified Code(s): D64.9 - Anemia, unspecified Code(s): D64.9 - Anemia, unspecified Status: Acute Assessment and Plan: Hemoglobin and hematocrit are stable on review of previous labs. (5) Hypertension: Qualifiers: Hypertension type: essential hypertension Qualified Code(s): I10 - Essential (primary) hypertension Code(s): I10 - Essential (primary) hypertension Status: Chronic Assessment and Plan: Blood pressures were reviewed and they have been elevated in the 180 systolic. Patient is intravascular overloaded and needs additional renal replacement therapy. We will continue with his antihypertensives and monitor closely. May need p.r.n. antihypertensives. Patient is scheduled for hemodialysis tomorrow. Discharge after dialysis. DS: Summary Hospital Course Reason for hospitalization: Weakness Hospital Course: Please refer to admission H&P. Briefly, this is a 61-year-old gentleman with a past medical history including but not limited to stroke, hypertension, coronary artery disease, insulin-dependent diabetes, and end-stage renal disease on hemodialysis who presented to the emergency department via EMS from a local senior living for evaluation of weakness. He has not felt well for the past several days with generalized weakness, malaise, diffuse body aches, and shortness of breath. It was thought that perhaps it was due to him having missed 2 dialysis sessions this week as his ride canceled due to weather concerns however he tested positive for SARS-CoV-2 by PCR. Chest x-ray done on arrival showed a moderate amount of ill-defined bilateral edema or pneumonia and he is being admitted in this setting. Electrolytes were reviewed and they have been stable. He denies fever, chills, and sweats. No significant congestion or sore throat. He also denies cough, nausea, and diarrhea. The patient received regularly scheduled sessions of hemodialysis for his end-stage renal disease. Chest x-ray revealed pulmonary infiltrates. Given his concomitant COVID-19 diagnosis, it is unclear whether these are due to COVID or fluid but he probably does have some fluid on. Patient had the indolent COVID-19 course. He never required oxygen supplementation. Hospital stay was marked by uncontrolled hypertension. His blood pressure medication were titrated with hydralazine increased from 25-50 mg Q 8 and clonidine increased from 0.1-0.2 mg Q 8 rosalino
[2021-05-28 16:39] LABS: Glucose Point of Care 131 mg/dl (65-105)
[2021-05-28] MEDS: hydrALAZINE HCL 50 MG TABLET PO (17:50)
== END 2021-05-28 19:00 | DRG 177 ==
LOC: ANHED 19:00 → ANH3MED 20:24
PROVIDERS: Emergency Medicine; Internal Medicine; Internal Medicine Nephrology; Physician Assistant; Admitting Provider Family Medicine; Emergency Provider Emergency Medicine; Visit Provider Internal Medicine
DX: U07.1 COVID-19 (principal); J12.82 Pneumonia due to coronavirus disease 2019; N18.6 End stage renal disease; I12.0 Hypertensive chronic kidney disease with stage 5 chronic kidney disease or end stage renal disease; I48.20 Chronic atrial fibrillation, unspecified; I69.351 Hemiplegia and hemiparesis following cerebral infarction affecting right dominant side; E87.79 Other fluid overload; Z99.2 Dependence on renal dialysis; E11.22 Type 2 diabetes mellitus with diabetic chronic kidney disease; I25.10 Atherosclerotic heart disease of native coronary artery without angina pectoris; D63.1 Anemia in chronic kidney disease; Z96.651 Presence of right artificial knee joint; E11.42 Type 2 diabetes mellitus with diabetic polyneuropathy; E11.319 Type 2 diabetes mellitus with unspecified diabetic retinopathy without macular edema; E11.21 Type 2 diabetes mellitus with diabetic nephropathy; E78.5 Hyperlipidemia, unspecified; Z79.4 Long term (current) use of insulin; Z79.01 Long term (current) use of anticoagulants; I69.311 Memory deficit following cerebral infarction; Z89.612 Acquired absence of left leg above knee; Z87.891 Personal history of nicotine dependence
CPT/HCPCS: 36415; 71045; 80048; 80053; 80069; 81001; 82728; 82948; 83615; 83735; 84100; 85025; 85027; 85610; 85730; 86140; 87086; 93005; 94640; 96365; 96367; 96374; 96375; 99285; A9270; C9803; G0257; G0378; G0379; J0456; J0696; J1815; J7030; Q5105; U0003; U0005

== ENCOUNTER 2021-05-29 14:51 | Emergency (ER) | payer OTHER, SELFPAY ==
[2021-05-29] VITALS (8 sets, daily range): BP systolic 171–207; BP diastolic 74–100; PULSE 82–95; RESP 13–20; O2SAT 92–100
--- NOTE | ~2021-05-29 | XR_ITS ---
EXAMINATION: XR chest 1V portable INDICATION: Cough TECHNIQUE: Portable AP chest at 1654 hours COMPARISON: 05/28/2021 FINDINGS: Cardiomegaly is noted. There is a developing diffuse interstitial pattern. There is atelect asis of the right midlung zone. Bibasilar airspace opacities persist without significant change. Ther e is no pleural effusion or pneumothorax. IMPRESSION: 1. Cardiomegaly with developing pulmonary edema. 2. Bibasilar airspace opacities, consistent with atelectasis versus pneumonia. Reviewed, dictated and finalized at location [facility]. [facility]
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
[2021-05-29 15:38] LABS: Basophils Percent Auto 0.3 % (0.2-1.2); Eosinophils Absolute Auto 0.1 K/mm3 (0-0.3); Eosinophils Percent Auto 1.7 % (0-4.4); Hematocrit 27.2 % (42.0-52.0); Hemoglobin 8.6 g/dL (14.0-18.0); Immature Granulocyte Absolute 0.03 K/mm3 (0.00-0.031); Immature Granulocyte Percent A 0.5 % (0-0.5); Lymphocytes Absolute Auto 0.67 K/mm3 (0.9-3.2); Lymphocytes Percent Auto 11.1 % (18.3-44.2); Mean Corpuscular HGB Conc 31.6 g/dl (32-36); Mean Corpuscular Hemoglobin 27.7 pg (26-34); Mean Corpuscular Volume 87.5 fl (80-100); Mean Platelet Volume 9.9 fl (7.4-10.4); Monocytes Absolute Auto 0.7 K/mm3 (0.1-0.6); Monocytes Percent Auto 11.2 % (2.6-8.5); Neutrophils Absolute Auto 4.6 K/mm3 (1.3-6.7); Neutrophils Percent Auto 75.2 % (45.5-73.1); Nucleated Red Blood Cells Absolute Auto 0.1 K/mm3 (0.0-0.012); Nucleated Red Blood Cells Perc 1.3 % (0.0-0.2); Platelet Count Result 299 k/mm3 (150-375); Red Blood Count 3.11 M/mm3 (4.6-6.20); Red Cell Distribution Width 18.6 % (11.5-14.5); White Blood Count 6.1 K/mm3 (4.5-10.0)
--- NOTE | 2021-05-29 16:29 | ED.ABDPAIN ---
HPI - Abdominal Pain General Chief Complaint: Abdominal Pain Stated Complaint: abd pain Time Seen by Provider: 05/29/21 14:56 Source: patient, RN notes reviewed and old records reviewed Mode of arrival: EMS Limitations: no limitations History of Present Illness HPI narrative: This is a 61 year old male with history of hypertension, ESRD on dialysis who presents for evaluation of abdominal pain. Patient states he was receiving dialysis today and he was having abdominal pain but it has resolved. He denies having any pain currently. He denies nausea, vomiting, chest pain or shortness of breath. It is reported that patient received 3 hours of his 4 hour treatment. Related Data Home Medications Medication Instructions Recorded Confirmed amlodipine 5 mg PO DAILY 04/03/19 05/22/21 albuterol sulfate 2 puff INHALATION Q4-6H PRN 12/30/19 05/22/21 insulin lispro See Rx Instructions .ROUTE .COMPLEX 12/30/19 05/22/21 pantoprazole 40 mg PO DAILY 12/30/19 05/22/21 Mircera 75 mcg SUBCUT [id number] 04/29/21 05/22/21 Spiriva Respimat 2 puff INHALATION DAILY 04/29/21 05/22/21 ascorbic acid (vitamin C) 500 mg PO BID 04/29/21 05/22/21 hydroxyzine HCl 25 mg PO BID 04/29/21 05/22/21 minocycline 100 mg PO BID 04/29/21 05/22/21 sucralfate [Carafate] 1 g PO TID 04/29/21 05/22/21 B complex with C 20-folic acid cap 05/29/21 [Renal Caps] aspirin [Adult Aspirin EC Low 05/29/21 Strength] losartan 05/29/21 metoprolol tartrate 05/29/21 minoxidil 05/29/21 Allergies Allergy/AdvReac Type Severity Reaction Status Date / Time No Known Allergies Allergy Verified 05/29/21 15:27 Review of Systems Review of Systems: All systems reviewed & are unremarkable except as noted in HPI and below PMFSH Past Medical History Medical History Anemia Atrial fibrillation 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 Coronary artery disease End-stage renal disease on hemodialysis Dialysis Tuesday, Tuesday, Tuesday. Gastritis History of left above knee amputation Hyperlipidemia Hypertension Insulin dependent type 2 diabetes mellitus Complicated by retinopathy, neuropathy, and nephropathy. 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 EITAN 05/08/20 shows persistent mobile echodensity. Surgical History Surgical History History of cardiac catheterization (09/2015) Revealed nonobstructive coronary artery disease. History of open reduction and internal fixation (ORIF) procedure Repair right femur fracture. History of total right knee replacement Status post creation of arteriovenous fistula Family History Family History Mother Hypertension Diabetes mellitus Father Hypertension Diabetes mellitus Other Unknown family medical history Social History Social History Social History: [facility] care at [facility]. with 2 children. Smoked 2 to 3 packs of cigarettes per day and quit in 2012. No alcohol or drug use. Judy Elias, sister, is his healthcare power of prosecuting attorney. Code status: Full code Smoking packs per day: 2 Smoking cigarettes per day: 40.0 Smoking status: Former smoker Tobacco type: cigarettes Alcohol intake: former Substance use: never Spiritual care concerns: No Exam Const: General: no acute distress and alert Orientation/consciousness: patient oriented x3 Eyes: EOM: EOMs intact bilaterally Resp: Effort & Inspection: normal respiratory effort and no retractions Auscultation: clear to auscultation bilaterally Cardio: Rate: regular rate Rhythm: regular rhythm Heart sounds: no murmurs GI: GI Palp: Yes Soft to palpation, No Tenderness to palpation present (GI) and No Guard
[2021-05-29 17:06] LABS: Alanine Aminotransferase 17 U/L (4-50); Albumin Level 3.6 g/dL (3.5-5.1); Alkaline Phosphatase 105 U/L (38-126); Anion Gap 7 mmol/L (8-16); Aspartate Amino Transferase 23 U/L (17-59); Bilirubin,Total 0.9 mg/dL (0.2-1.3); Blood Urea Nitrogen 19 mg/dL (9-20); Calcium 8.7 mg/dL (8.4-10.2); Carbon Dioxide 31 mmol/L (22-30); Chloride 95 mmol/L (98-107); Estimated Glomerular Filt Rate 32; Glucose 161 mg/dL (65-110); Lipase 22 U/L (23-300); Potassium 4.1 mmol/L (3.4-5.0); Sodium 133 mmol/L (137-145)
[2021-05-29] MEDS: hydrALAZINE HCL 50 MG TABLET PO (17:36)
[2021-05-29] MEDS: cloNIDine HCL 0.1 MG TABLET PO ×2 (17:38→18:24)
[2021-05-29] MEDS: amLODIPine BESYLATE 5 MG TABLET 10 MG PO (17:38)
--- NOTE | 2021-05-29 19:28 | PC.NURSE ---
assuming care of pt.
--- NOTE | 2021-05-29 20:16 | PC.NURSE ---
EMS called to transport pt. Pt unable to transfer himself from bed to wheelchair.
--- NOTE | 2021-05-29 20:21 | PC.NURSE ---
called [facility] to request transport. ETA [id number]
--- NOTE | 2021-05-29 20:22 | PC.NURSE ---
Rn attempted to get ahold of family unable to contact sister at this time. EMS ETA [id number].
--- NOTE | 2021-05-29 21:31 | PC.NURSE ---
cancelled [facility] - nurse is unable to contact someone at the home
--- NOTE | 2021-05-29 22:12 | PC.NURSE ---
called [facility] to request transport. ETA midnight
--- NOTE | 2021-05-29 22:22 | PC.NURSE ---
PT LIVES AT [facility] ROOM [id number]
--- NOTE | 2021-05-30 00:32 | PC.NURSE ---
[facility] here
[2021-05-30 00:39] VITALS: BP 188/99; PULSE 84; RESP 18; O2SAT 96
== END 2021-05-30 01:02 ==
PROVIDERS: Emergency Provider General Practice
DX: I12.0 Hypertensive chronic kidney disease with stage 5 chronic kidney disease or end stage renal disease (principal); I16.0 Hypertensive urgency; N18.6 End stage renal disease; Z99.2 Dependence on renal dialysis; I48.91 Unspecified atrial fibrillation; E11.22 Type 2 diabetes mellitus with diabetic chronic kidney disease; Z79.82 Long term (current) use of aspirin; Z79.4 Long term (current) use of insulin; I69.351 Hemiplegia and hemiparesis following cerebral infarction affecting right dominant side; I69.311 Memory deficit following cerebral infarction; I25.10 Atherosclerotic heart disease of native coronary artery without angina pectoris; Z89.612 Acquired absence of left leg above knee; E78.5 Hyperlipidemia, unspecified; I34.1 Nonrheumatic mitral (valve) prolapse; Z96.651 Presence of right artificial knee joint; Z87.891 Personal history of nicotine dependence; J81.1 Chronic pulmonary edema
CPT/HCPCS: 36415; 71045; 74018; 80053; 83690; 85025; 99283; A9270

== ENCOUNTER 2021-06-08 10:49 | Emergency (ER) | payer OTHER, SELFPAY ==
[2021-06-08] VITALS (7 sets, daily range): BP systolic 165–181; BP diastolic 62–85; PULSE 62–76; RESP 16–22; TEMP 36.6; O2SAT 99–100
--- NOTE | 2021-06-08 10:56 | ECG_ITS ---
Measurements Intervals [place] Rate: 64 P: 59 SD: 211 QRS: 259 QRSD: 139 T: -12 QT: 513 QTc: 532 Interpretive Statements SINUS RHYTHM WITH PACS WITH FIRST DEGREE AV BLOCK MARKED RIGHT AXIS DEVIATION [QRS AXIS > 100] RIGHT BUNDLE BRANCH BLOCK [120+ ms QRS DURATION, UPRIGHT V1, 40+ ms S IN I/aVL/V4/V5/V6] COMPARED TO ECG 05/22/2021 16:17:28 ATRIAL ECTOPIC ACTIVITY IS NOTED FIRST DEGREE AV BLOCK NOW PRESENT Electronically Signed On 06-08-2021 15:44:22 SENIOR ART DIRECTOR by Juan Swain M.D.
--- NOTE | 2021-06-08 11:34 | ED.GENADULT ---
HPI - General Adult General Chief complaint: Recheck/Abnormal Lab/Rx Stated complaint: htn Time Seen by Provider: 06/08/21 11:19 Source: EMS and RN notes reviewed Mode of arrival: EMS Limitations: dementia History of Present Illness HPI narrative: Patient is 61 years old -[place] male came from a senior care because of elevated blood pressure, patient scheduled for dialysis today. Patient had his regular blood pressure medication this morning which is clonidine, hydralazine and amlodipine, blood pressure was 240/120. Patient received another 0.1 mg of clonidine prior to arrival to our emergency room. The blood pressure on arrival was 176/66. According to the senior care staff and the nurse practitioner that the patient is asymptomatic. Did not show anything different today than before. Patient has history of dementia, oriented to his name only. And that is his baseline. Related Data Home Medications Medication Instructions Recorded Confirmed amlodipine 5 mg PO DAILY 04/03/19 05/22/21 albuterol sulfate 2 puff INHALATION Q4-6H PRN 12/30/19 05/22/21 insulin lispro See Rx Instructions .ROUTE .COMPLEX 12/30/19 05/22/21 pantoprazole 40 mg PO DAILY 12/30/19 05/22/21 Mircera 75 mcg SUBCUT [id number] 04/29/21 05/22/21 Spiriva Respimat 2 puff INHALATION DAILY 04/29/21 05/22/21 ascorbic acid (vitamin C) 500 mg PO BID 04/29/21 05/22/21 hydroxyzine HCl 25 mg PO BID 04/29/21 05/22/21 minocycline 100 mg PO BID 04/29/21 05/22/21 sucralfate [Carafate] 1 g PO TID 04/29/21 05/22/21 B complex with C 20-folic acid cap 05/29/21 [Renal Caps] aspirin [Adult Aspirin EC Low 05/29/21 Strength] losartan 05/29/21 metoprolol tartrate 05/29/21 minoxidil 05/29/21 Allergies Allergy/AdvReac Type Severity Reaction Status Date / Time No Known Allergies Allergy Verified 06/02/21 16:17 Review of Systems Review of Systems: ROS unobtainable: Yes unobtainable due to mental status PMFSH Past Medical History Medical History Anemia Atrial fibrillation 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 Coronary artery disease End-stage renal disease on hemodialysis Dialysis Tuesday, Tuesday, Tuesday. Gastritis History of left above knee amputation Hyperlipidemia Hypertension Insulin dependent type 2 diabetes mellitus Complicated by retinopathy, neuropathy, and nephropathy. 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 EITAN 05/08/20 shows persistent mobile echodensity. Surgical History Surgical History History of cardiac catheterization (09/2015) Revealed nonobstructive coronary artery disease. History of open reduction and internal fixation (ORIF) procedure Repair right femur fracture. History of total right knee replacement Status post creation of arteriovenous fistula Family History Family History Mother Hypertension Diabetes mellitus Father Hypertension Diabetes mellitus Other Unknown family medical history Social History Social History Social History: [facility] care at [facility]. with 2 children. Smoked 2 to 3 packs of cigarettes per day and quit in 2012. No alcohol or drug use. Judy Elias, sister, is his healthcare power of divorce attorney. Code status: Full code Smoking packs per day: 2 Smoking cigarettes per day: 40.0 Smoking status: Former smoker Tobacco type: cigarettes Alcohol intake: former Substance use: never Spiritual care concerns: No Exam Narrative: General appearance: Well-developed, well-nourished Skin: Normal color Head: Normocephalic, nontraumatic Eyes: Clear conjunctiva ENT: Dry oral cavity Neck: Supple, nontender Chest and respiratory: Airway patent, no respiratory di
[2021-06-08] MEDS: cloNIDine HCL 0.1 MG TABLET PO (11:54)
--- NOTE | 2021-06-08 12:29 | PC.NURSE ---
made contact with [facility] to take pt back to facilty. company is in route
--- NOTE | 2021-06-08 12:57 | PC.NURSE ---
[facility] has arrived
== END 2021-06-08 13:09 ==
PROVIDERS: Emergency Provider Emergency Medicine
DX: I12.0 Hypertensive chronic kidney disease with stage 5 chronic kidney disease or end stage renal disease (principal); E11.22 Type 2 diabetes mellitus with diabetic chronic kidney disease; N18.6 End stage renal disease; I48.91 Unspecified atrial fibrillation; E78.5 Hyperlipidemia, unspecified; I34.1 Nonrheumatic mitral (valve) prolapse; Z99.2 Dependence on renal dialysis; Z79.4 Long term (current) use of insulin; Z79.82 Long term (current) use of aspirin; Z86.2 Personal history of diseases of the blood and blood-forming organs and certain disorders involving the immune mechanism; Z89.612 Acquired absence of left leg above knee; Z96.651 Presence of right artificial knee joint; Z87.891 Personal history of nicotine dependence; I45.10 Unspecified right bundle-branch block; I44.0 Atrioventricular block, first degree; I49.1 Atrial premature depolarization
CPT/HCPCS: 93005; 99284; A9270

== ENCOUNTER 2021-07-03 06:04 | Emergency (ER) | payer OTHER, SELFPAY ==
--- NOTE | 2021-07-03 06:19 | ED.CPR ---
HPI - CPR General Chief Complaint: Cardiac Arrest/CPR Stated Complaint: post cardiac arrest, code stemi Time Seen by Provider: 07/03/21 06:19 Source: EMS Mode of arrival: EMS Limitations: clinical condition History of Present Illness HPI narrative: Patient is a 61-year-old male with a history of hypertension, hyperlipidemia, renal failure, dialysis dependent, type 2 diabetes, presenting to the emergency department via EMS for cardiac arrest, CPR in progress. Patient reportedly was found unconscious, unresponsive after experiencing nausea and vomiting this morning at the care facility in which he lives. He was found unconscious at 5 in the morning. Apparently, staff at the facility reported to EMS that they tried to [id number] ventilate him until 530 in which that was the time EMS was called. When EMS arrived at the facility the patient was in PEA, they initiated CPR. Glucose was greater than 450. Patient was given an amp of bicarb, had 2 rounds of epinephrine with ROSC. An EKG was faxed to our facility which showed some nonspecific ST segment changes but was not consistent with STEMI. The patient was transported but then had cardiac arrest in route. Patient arrived to the ER CPR in progress. Patient was intubated in the field. Additional history cannot be obtained from staff. Related Data Home Medications Medication Instructions Recorded Confirmed amlodipine 5 mg PO DAILY 04/03/19 05/22/21 albuterol sulfate 2 puff INHALATION Q4-6H PRN 12/30/19 05/22/21 insulin lispro See Rx Instructions .ROUTE .COMPLEX 12/30/19 05/22/21 pantoprazole 40 mg PO DAILY 12/30/19 05/22/21 Mircera 75 mcg SUBCUT [id number] 04/29/21 05/22/21 Spiriva Respimat 2 puff INHALATION DAILY 04/29/21 05/22/21 ascorbic acid (vitamin C) 500 mg PO BID 04/29/21 05/22/21 hydroxyzine HCl 25 mg PO BID 04/29/21 05/22/21 minocycline 100 mg PO BID 04/29/21 05/22/21 sucralfate [Carafate] 1 g PO TID 04/29/21 05/22/21 B complex with C 20-folic acid cap 05/29/21 [Renal Caps] aspirin [Adult Aspirin EC Low 05/29/21 Strength] losartan 05/29/21 metoprolol tartrate 05/29/21 minoxidil 05/29/21 Allergies Allergy/AdvReac Type Severity Reaction Status Date / Time No Known Allergies Allergy Verified 06/02/21 16:17 Review of Systems Review of Systems: ROS unobtainable: Yes unobtainable due to medical condition [facility] Past Medical History Medical History Anemia Atrial fibrillation 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 Coronary artery disease End-stage renal disease on hemodialysis Dialysis Tuesday, Tuesday, Tuesday. Gastritis History of left above knee amputation Hyperlipidemia Hypertension Insulin dependent type 2 diabetes mellitus Complicated by retinopathy, neuropathy, and nephropathy. 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 EITAN 05/08/20 shows persistent mobile echodensity. Surgical History Surgical History History of cardiac catheterization (09/2015) Revealed nonobstructive coronary artery disease. History of open reduction and internal fixation (ORIF) procedure Repair right femur fracture. History of total right knee replacement Status post creation of arteriovenous fistula Family History Family History Mother Hypertension Diabetes mellitus Father Hypertension Diabetes mellitus Other Unknown family medical history Social History Social History Social History: [facility] care at [facility]. with 2 children. Smoked 2 to 3 packs of cigarettes per day and quit in 2012. No alcohol or drug use. Judy Elias, sister, is his healthcare power of county attorney. Code status: Full code Smoking packs per day: 2 S
--- NOTE | 2021-07-03 07:23 | PC.NURSE ---
Time of was called on this pt at 0617. Pt was showing asystole on monitor. This RN put 4 lead from defibrillator on pt to print asystole strip. Pt was found to be in vfib on that monitor. Order received from EDP to deliver shock at 200J. CPR initiated again after shock.
--- NOTE | 2021-07-07 04:05 | PC.NURSE ---
Pt to ED pulseless and apneic with ACLS in progress. Pt has 7.5 ET tube, 25 at the teeth, ventilation being assisted with a bag valve mask.. Pt received multiple rounds of medication in the field per ACLS protocol. ACLS protocols followed in ED with multiple RN's, RT's, and Dr. Chen present.
== END 2021-07-03 09:35 | disposition expired ==
PROVIDERS: Emergency Provider Emergency Medicine
DX: I49.01 Ventricular fibrillation (principal); I46.9 Cardiac arrest, cause unspecified; I48.91 Unspecified atrial fibrillation; E78.5 Hyperlipidemia, unspecified; E11.22 Type 2 diabetes mellitus with diabetic chronic kidney disease; I12.0 Hypertensive chronic kidney disease with stage 5 chronic kidney disease or end stage renal disease; N18.6 End stage renal disease; E11.319 Type 2 diabetes mellitus with unspecified diabetic retinopathy without macular edema; E11.40 Type 2 diabetes mellitus with diabetic neuropathy, unspecified; E11.21 Type 2 diabetes mellitus with diabetic nephropathy; I34.1 Nonrheumatic mitral (valve) prolapse; D64.9 Anemia, unspecified; Z99.2 Dependence on renal dialysis; Z89.612 Acquired absence of left leg above knee; Z96.651 Presence of right artificial knee joint; Z87.891 Personal history of nicotine dependence; Z79.4 Long term (current) use of insulin; Z79.82 Long term (current) use of aspirin
CPT/HCPCS: 36680; 92950; 99285; C1751; J0171; J0282; J0461; J7030